=== PATIENT | female | born 1955 | race Caucasian/White ===

== ENCOUNTER → 2016-11-03 | Outpatient (CLI) | payer OTHER ==
--- NOTE | 2016-11-03 10:37 | USB ---
Reason for exam: clinical finding. History: Patient is postmenopausal. Took hormonal contraceptives for 2 years. Indicated problem(s): lump or thickening in the left breast. Physical Findings: Nurse Summary: left breast SQ palpable at 2 o'clock, 0.5cm movable/bilateral breasts, all soft, nodular movable tissue (nurse ts). US Breast LT Left breast ultrasound including all four quadrants, the retroareolar region and axilla demonstrates a 0.4 x 0.3 x 0.3cm oval, cystic lesion at 3 o'clock in skin line, subcutaneous presumed dermatologic in origin such as subcutaneous cyst. These results were verbally communicated with the patient and result sheet given to the patient on 11/03/16. ASSESSMENT: Probably benign, BI-RAD 3 RECOMMENDATION: Return to routine screening mammogram schedule for both breasts. Back on schedule for January 2017. Manage patient on a clinical basis.
== END | disposition home or self-care (01) ==
LOC: RADUSWWP 09:07
PROVIDERS: ATTEND Family Medicine
DX: N63 Unspecified lump in breast (principal)

== ENCOUNTER → 2016-11-08 | Outpatient (CLI) | payer OTHER ==
[2016-11-08 13:18] LABS: INR 2.2 (<1.1); Partial Thromboplastin Time 29.8 sec (22.0-30.0); Prothrombin Time 21.1 sec (9.0-12.0)
[2016-11-08 13:45] LABS: Potassium 4.4 mmol/L (3.5-5.1)
== END | disposition home or self-care (01) ==
LOC: LABWHC1 11:53
PROVIDERS: ATTEND Orthopaedic Surgery
DX: Z01.812 Encounter for preprocedural laboratory examination (principal)
CPT/HCPCS: 36415; 80051; 85610; 85730

== ENCOUNTER → 2016-11-15 | Outpatient (CLI) | payer OTHER ==
[2016-11-15 11:56] LABS: INR 1.2 (<1.1); Partial Thromboplastin Time 25.3 sec (22.0-30.0); Prothrombin Time 11.5 sec (9.0-12.0)
== END | disposition home or self-care (01) ==
LOC: LABWHC1 11:06
PROVIDERS: ATTEND Orthopaedic Surgery
DX: M25.612 Stiffness of left shoulder, not elsewhere classified (principal)
CPT/HCPCS: 36415; 85610; 85730

== ENCOUNTER 2017-02-25 07:28 | Day surgery (SDC) | payer OTHER ==
[2017-02-24 09:08] VITALS: BMI 39.1
[~2017-02-25 07:28] MED LIST: LACTATED RINGERS 1,000 ML IV SCH
[2017-02-25] MEDS ORDERED: LACTATED RINGERS 1,000 ML IV ONE (07:42)
[2017-02-25 07:47] VITALS: TEMP 98.1
[2017-02-25] MEDS ORDERED: LIDOCAINE 1% 20 ML VIAL (10MG/ML) FOR IV START INTRADERMA ONE (07:51)
[2017-02-25 07:52] LABS: Glucose,Whole Blood 135 mg/dL (75-99)
[2017-02-25] MEDS ORDERED: PROPOFOL 10 MG/ML 20 ML VIAL IV ONE (07:58)
[2017-02-25] MEDS ORDERED: LIDOCAINE 1% INJ 10MG/ML (20 ML MDV) ONE (07:58)
[2017-02-25] MEDS ORDERED: fentaNYL (PF) 50 MCG/ML 2 ML AMP ONE (07:58)
--- NOTE | 2017-02-25 08:19 | P.GSHP ---
History of Present Illness H&P Date: 02/25/17 Chief Complaint: Dysphagia This a 7-year-old female referred from Dr. Kelley Renee. Patient presents today for EGD. She's had some issues with dysphagia and GERD. - Constitutional Constitutional: Reports as per HPI Past Medical History Past Medical History: Atrial Fibrillation, Atrial Flutter, Asthma, CVA/TIA, Diabetes Mellitus, Hyperlipidemia, Hypertension, Osteoarthritis (OA) Additional Past Medical History / Comment(s): intracardiac thrombus 2013, SOB with exertion, stroke in 1998-no residual effects, , states cough for 1 week & having difficulty swallowing., states she seen her PCP and was told she has laryngitis. History of Any Multi-Drug Resistant Organisms: None Reported Past Surgical History: Appendectomy, Breast Surgery, Cardiac Ablation, EPS, Heart Catheterization, Hysterectomy, Orthopedic Surgery, Tubal Ligation Additional Past Surgical History / Comment(s): ARTEMIO, ADDIE carpal tunnel release, cardioversion, breast biopsy Past Anesthesia/Blood Transfusion Reactions: No Reported Reaction, Motion Sickness Past Psychological History: No Psychological Hx Reported Smoking Status: Former smoker Past Alcohol Use History: Rare Additional Past Alcohol Use History / Comment(s): quit smoking 1997, smoked 1-2 ppd. Started smoking age 13. Past Drug Use History: None Reported - Past Family History Mother Additional Family Medical History / Comment(s): cirrhosis of liver Father Family Medical History: Cancer Additional Family Medical History / Comment(s): throat cancer Daughter(s) Additional Family Medical History / Comment(s): HEART VALVE REPLACEMENT (ATRIAL? ) Son(s) Family Medical History: CVA/TIA Medications and Allergies Home Medications Medication Instructions Recorded Confirmed Type Isosorbide Mononitrate [Imdur] 30 mg PO QAM 09/10/14 02/24/17 History Montelukast [Singulair] 10 mg PO HS 09/10/14 02/24/17 History metFORMIN HCL [Glucophage] 1,000 mg PO BID 09/10/14 02/24/17 History Cholecalciferol [Vitamin D3] 5,000 unit PO SA 09/30/14 02/24/17 History Metoprolol Tartrate [Lopressor] 25 mg PO BID 10/01/14 02/24/17 History Warfarin [Coumadin] 2.5 mg PO SUMOWETHFR 10/01/14 02/24/17 History Warfarin [Coumadin] 5 mg PO TUSA 11/19/14 02/24/17 History Flecainide [Tambocor] 100 mg PO BID 09/19/15 02/24/17 History Lisinopril [Zestril] 2.5 mg PO QAM 09/19/15 02/24/17 History Pioglitazone [Actos] 45 mg PO SUWE 11/03/15 02/24/17 History Beclomethasone Dipropionate [Qvar 1 puff INHALATION Q8HR PRN 02/24/17 02/24/17 History 80 mcg] Fluticasone Nasal [place] [Flonase 1 spray EA NOSTRIL BID 02/24/17 02/24/17 History Nasal [place]] Fluticasone/Salmeterol [Advair 1 inhalation PO BID 02/24/17 02/24/17 History 250-50 Diskus] Furosemide [Lasix] 20 mg PO DAILY 02/24/17 02/24/17 History Pravastatin Sodium [Pravachol] 80 mg PO DAILY 02/24/17 02/24/17 History Promethazine 6.25MG/5Ml [Phenergan 1 dose PO BID 02/24/17 02/24/17 History Syrup] Venlafaxine HCl [Effexor XR] 150 mg PO DAILY 02/24/17 02/24/17 History Allergies Allergy/AdvReac Type Severity Reaction Status Date / Time meperidine HCl [From Demerol] AdvReac Nausea & Verified 02/24/17 08:42 Vomiting Surgical - Exam Vital Signs Temp Pulse Resp BP Pulse Ox 98.1 F 66 18 108/58 98 02/25/17 07:46 02/25/17 07:46 02/25/17 07:46 02/25/17 07:46 02/25/17 07:46 - General well developed, no distress - Eyes PERRL - ENT normal pinna - Neck no masses - Respiratory normal expansion - Cardiovascular Rhythm: regular - Abdomen Abdomen: soft, non tender Results - Labs Abnormal Lab Results - Last 24 Hours (Table) 02/25/17 Range/Units 07:51 POC Glucose (mg/dL) 135 H (75-99) mg/dL Assessment and Plan Plan: GERD. Dysphagia. We'll perform EGD.
--- NOTE | 2017-02-25 08:31 | P.OP ---
Date of Procedure: 02/25/17 Preoperative Diagnosis: Dysphagia GERD Postoperative Diagnosis: Mild antral gastritis No evidence of hiatal hernia Mild esophagitis Procedure(s) Performed: EGD Anesthesia: MAC Surgeon: Renato Yuan Pathology: other (Antrum, esophagus) Condition: stable Disposition: PACU Description of Procedure: The patient's placed on the endoscopy table in the lateral position. He received IV sedation. The gastroscope some placed oropharynx and passed in the esophagus and stomach. The scope was placed through the pylorus. The first and second portion of the duodenum appeared normal. Scope was then brought back the antrum and this appeared mildly inflamed. A biopsies performed. The scope was then retroflexed and there is no other gastric pathology seen. The GE junction was at 40 cm. There is no evidence of a hiatal hernia. The distal esophagus appeared minimally inflamed and a biopsy was performed. The proximal esophagus appeared normal. The scope was then brought back and withdrawn from the patient.
[2017-02-25 08:59] VITALS: BP 93/50; PULSE 61; RESP 18
== END 2017-02-25 09:09 | disposition home or self-care (01) ==
LOC: ORWHC2ENDO 07:28
PROVIDERS: ATTEND Surgery
DX: K21.0 Gastro-esophageal reflux disease with esophagitis (principal); K29.50 Unspecified chronic gastritis without bleeding; I48.91 Unspecified atrial fibrillation; I48.92 Unspecified atrial flutter; J44.9 Chronic obstructive pulmonary disease, unspecified; E11.9 Type 2 diabetes mellitus without complications; E78.5 Hyperlipidemia, unspecified; I10 Essential (primary) hypertension; M19.90 Unspecified osteoarthritis, unspecified site; Z88.5 Allergy status to narcotic agent; Z79.01 Long term (current) use of anticoagulants; Z79.84 Long term (current) use of oral hypoglycemic drugs; Z79.51 Long term (current) use of inhaled steroids; Z79.899 Other long term (current) drug therapy; Z87.891 Personal history of nicotine dependence; Z86.73 Personal history of transient ischemic attack (TIA), and cerebral infarction without residual deficits; Z82.3 Family history of stroke; Z90.49 Acquired absence of other specified parts of digestive tract
CPT/HCPCS: 43239; 88305; 88342; J2001; J3010; J2704

== ENCOUNTER 2017-04-24 10:58 | Emergency (ER) | payer OTHER ==
[2017-04-24 12:02] VITALS: TEMP 98
--- NOTE | 2017-04-24 12:13 | ED ---
General Adult HPI - General Chief complaint: Back Pain/Injury Stated complaint: DIZZINESS, UPPER BACK PAIN Time Seen by Provider: 04/24/17 11:53 Source: patient, family, RN notes reviewed Mode of arrival: ambulatory Limitations: no limitations - History of Present Illness Initial comments: Patient is a 61-year-old female who presents emergency room today with chief complaint of right-sided upper back pain over the last 3 weeks. She states it started as pain that would come and go. She states, more constant. She states she began to notice it when she was coughing. She does admit to a history of COPD and states that increased cough some congestion but has not had any sputum production. States does inhalers at home. Patient does admit that she has increased pain to the right side at times seems to be worse with movements and cough. She denies any other complaints or symptoms at this time. Patient denies any recent fever, chills, shortness of breath, chest pain, abdominal pain , nausea or vomiting, numbness or tingling, dysuria or hematuria, constipation or diarrhea, headaches or visual changes, or any other complaints. - Related Data Home Medications Medication Instructions Recorded Confirmed Isosorbide Mononitrate [Imdur] 30 mg PO QAM 09/10/14 02/24/17 Montelukast [Singulair] 10 mg PO HS 09/10/14 02/24/17 metFORMIN HCL [Glucophage] 1,000 mg PO BID 09/10/14 02/24/17 Cholecalciferol [Vitamin D3] 5,000 unit PO SA 09/30/14 02/24/17 Metoprolol Tartrate [Lopressor] 25 mg PO BID 10/01/14 02/24/17 Warfarin [Coumadin] 2.5 mg PO SUMOWETHFR 10/01/14 02/24/17 Warfarin [Coumadin] 5 mg PO TUSA 11/19/14 02/24/17 Flecainide [Tambocor] 100 mg PO BID 09/19/15 02/24/17 Lisinopril [Zestril] 2.5 mg PO QAM 09/19/15 02/24/17 Pioglitazone [Actos] 45 mg PO SUWE 11/03/15 02/24/17 Beclomethasone Dipropionate [Qvar 1 puff INHALATION Q8HR PRN 02/24/17 02/24/17 80 mcg] Fluticasone Nasal [place] [Flonase 1 spray EA NOSTRIL BID 02/24/17 02/24/17 Nasal [place]] Fluticasone/Salmeterol [Advair 1 inhalation PO BID 02/24/17 02/24/17 250-50 Diskus] Furosemide [Lasix] 20 mg PO DAILY 02/24/17 02/24/17 Pravastatin Sodium [Pravachol] 80 mg PO DAILY 02/24/17 02/24/17 Promethazine 6.25MG/5Ml [Phenergan 1 dose PO BID 02/24/17 02/24/17 Syrup] Venlafaxine HCl [Effexor XR] 150 mg PO DAILY 02/24/17 02/24/17 Previous Rx's Medication Instructions Recorded Diazepam [Valium] 5 mg PO TID #20 tab 04/24/17 Allergies Allergy/AdvReac Type Severity Reaction Status Date / Time meperidine HCl [From Demerol] AdvReac Nausea & Verified 04/24/17 14:44 Vomiting Review of Systems ROS Statement: Those systems with pertinent positive or pertinent negative responses have been documented in the HPI. ROS Other: All systems not noted in ROS Statement are negative. Past Medical History Past Medical History: Atrial Fibrillation, Atrial Flutter, Asthma, CVA/TIA, Diabetes Mellitus, Hyperlipidemia, Hypertension, Osteoarthritis (OA) Additional Past Medical History / Comment(s): intracardiac thrombus 2013, SOB with exertion, stroke in 1998-no residual effects, , states cough for 1 week & having difficulty swallowing., states she seen her PCP and was told she has laryngitis. History of Any Multi-Drug Resistant Organisms: None Reported Past Surgical History: Appendectomy, Breast Surgery, Cardiac Ablation, EPS, Heart Catheterization, Hysterectomy, Orthopedic Surgery, Tubal Ligation Additional Past Surgical History / Comment(s): ARTEMIO, ADDIE carpal tunnel release, cardioversion, breast biopsy Past Anesthesia/Blood Transfusion Reactions: No Reported Reaction, Motion Sickness Past Psychological History: No Psychological Hx Reported Smoking Status: Former smoker Past Alcohol Use History: Rare Past Drug Use History: None Reported - Past Family History Mother Additional Family Medical History / Comment(s): cirrhosis of liver Father Family Medical History: Cancer Additional Family Medical History / Comment(s): throat cancer Daughter(s) Additional Family Medical History / Comment(s): HEART VALVE REPLACEMENT (ATRIAL? ) Son(s) Family Medical History: CVA/TIA General Exam - General Exam Comments Initial Comments: General: The patient is awake and alert, in no distress, and does not appear acutely ill. Eye: Pupils are equal, round and reactive to light, extra-ocular movements are intact. No nystagmus. There is normal conjunctiva bilaterally. No signs of icterus. Ears, nose, mouth and throat: There are moist mucous membranes and no oral lesions. Neck: The neck is supple, there is no tenderness or JVD. Cardiovascular: There is a regular rate and rhythm. No murmur, rub or gallop is appreciated. Respiratory: Lungs are clear to auscultation, respirations are non-labored, breath sounds are equal. No wheezes, stridor, rales, or rhonchi. Gastrointestinal: Soft, non-distended, non-tender abdomen without masses or organomegaly noted. There is no rebound or guarding present. No CVA tenderness. Bowel sounds are unremarkable. Musculoskeletal: Normal ROM, no tenderness. Strength 5/5. Sensation intact. Pulses equal bilaterally 2+. Neurological: A&O x 3. CN II-XII intact, There are no obvious motor or sensory deficits. Coordination appears grossly intact. Speech is normal. Skin: Skin is warm and dry and no rashes or lesions are noted. Psychiatric: Cooperative, appropriate mood & affect, normal judgment. Limitations: no limitations Course Vital Signs 04/24/17 04/24/17 11:18 11:22 Temperature 97 F L 98.0 F Pulse Rate 66 63 Respiratory 16 18 Rate Blood Pressure 131/61 116/67 O2 Sat by Pulse 96 96 Oximetry EKG Findings - EKG Comments: EKG Findings:: EKG performed at 1213: Shows normal sinus rhythm at 61 bpm. RI interval 190. QRS 138. QT/QTc 482/45. Shows right bundle branch block. No acute ST changes. Medical Decision Making - Medical Decision Making Case discussed in detail with attending physician Dr. Bruno. Patient reexamined at this time shows no signs of distress is resting comfortably in the stretcher. Does admit that she's feeling better after Valium given here in the emergency room. Patient's pain was reproducible on palpation and with certain movements. Chest x-rays negative. Labs been reviewed INR is 2.6. Patient is on Coumadin. Patient at this time remaining labs are unremarkable and patient is feeling better will be discharged home continued on Valium for her symptoms. Advised follow-up the family doctor in the next 1-2 days or return here to emergency room if any symptoms increase or worsen or for any other concerns. - Lab Data Result diagrams: 04/24/17 12:28 04/24/17 12:28 Lab Results 04/24/17 04/24/17 04/24/17 Range/Units 12:28 12:28 12:28 WBC 10.1 (3.8-10.6) k/uL RBC 5.04 (3.80-5.40) m/uL Hgb 14.2 (11.4-16.0) gm/dL Hct 41.5 (34.0-46.0) % MCV 82.3 (80.0-100.0) fL MCH 28.3 (25.0-35.0) pg MCHC 34.3 (31.0-37.0) g/dL RDW 14.5 (11.5-15.5) % Plt Count 349 (150-450) k/uL Neutrophils % 71 % Lymphocytes % 19 % Monocytes % 5 % Eosinophils % 2 % Basophils % 0 % Neutrophils # 7.2 (1.3-7.7) k/uL Lymphocytes # 2.0 (1.0-4.8) k/uL Monocytes # 0.5 (0-1.0) k/uL Eosinophils # 0.2 (0-0.7) k/uL Basophils # 0.0 (0-0.2) k/uL PT (9.0-12.0) sec INR (<1.1) APTT (22.0-30.0) sec Sodium 141 (137-145) mmol/L Potassium 4.0 (3.5-5.1) mmol/L Chloride 104 (98-107) mmol/L Carbon Dioxide 26 (22-30) mmol/L Anion Gap 11 mmol/L BUN 11 (7-17) mg/dL Creatinine 0.66 (0.52-1.04) mg/dL Est GFR (MDRD) Af Amer >60 (>60 ml/min/1.73 sqM) Est GFR (MDRD) Non-Af >60 (>60 ml/min/1.73 sqM) Glucose 110 H (74-99) mg/dL Calcium 9.1 (8.4-10.2) mg/dL Magnesium 1.7 (1.6-2.3) mg/dL Total Bilirubin 0.6 (0.2-1.3) mg/dL AST 23 (14-36) U/L ALT 33 (9-52) U/L Alkaline Phosphatase 106 (38-126) U/L Total Creatine Kinase 54 (30-135) U/L CK-MB (CK-2) 0.4 (0.0-2.4) ng/mL CK-MB (CK-2) Rel Index 0.7 Troponin I <0.012 (0.000-0.034) ng/mL Total Protein 7.3 (6.3-8.2) g/dL Albumin 4.1 (3.5-5.0) g/dL Amylase 32 (30-110) U/L Lipase 112 (23-300) U/L 04/24/17 Range/Units 12:28 WBC (3.8-10.6) k/uL RBC (3.80-5.40) m/uL Hgb (11.4-16.0) gm/dL Hct (34.0-46.0) % MCV (80.0-100.0) fL MCH (25.0-35.0) pg MCHC (31.0-37.0) g/dL RDW (11.5-15.5) % Plt Count (150-450) k/uL Neutrophils % % Lymphocytes % % Monocytes % % Eosinophils % % Basophils % % Neutrophils # (1.3-7.7) k/uL Lymphocytes # (1.0-4.8) k/uL Monocytes # (0-1.0) k/uL Eosinophils # (0-0.7) k/uL Basophils # (0-0.2) k/uL PT 25.5 H (9.0-12.0) sec INR 2.6 (<1.1) APTT 33.2 H (22.0-30.0) sec Sodium (137-145) mmol/L Potassium (3.5-5.1) mmol/L Chloride (98-107) mmol/L Carbon Dioxide (22-30) mmol/L Anion Gap mmol/L BUN (7-17) mg/dL Creatinine (0.52-1.04) mg/dL Est GFR (MDRD) Af Amer (>60 ml/min/1.73 sqM) Est GFR (MDRD) Non-Af (>60 ml/min/1.73 sqM) Glucose (74-99) mg/dL Calcium (8.4-10.2) mg/dL Magnesium (1.6-2.3) mg/dL Total Bilirubin (0.2-1.3) mg/dL AST (14-36) U/L ALT (9-52) U/L Alkaline Phosphatase (38-126) U/L Total Creatine Kinase (30-135) U/L CK-MB (CK-2) (0.0-2.4) ng/mL CK-MB (CK-2) Rel Index Troponin I (0.000-0.034) ng/mL Total Protein (6.3-8.2) g/dL Albumin (3.5-5.0) g/dL Amylase (30-110) U/L Lipase (23-300) U/L Disposition Clinical Impression: Muscle strain of right upper back Disposition: HOME SELF-CARE Condition: Good Instructions: Muscle Strain (ED) Additional Instructions: Please use medication as discussed. Please follow-up with family doctor in the next 2 days of symptoms have not improved. Please return to emergency room if the symptoms increase or worsen or for any other concerns. Prescriptions: Diazepam [Valium] 5 mg PO TID #20 tab Referrals: Kelley Renee DO [Primary Care Provider] - 1-2 days Time of Disposition: 14:37
[2017-04-24 12:37] LABS: Basophils % (A) 0 %; CH 27.6; CHCM 33.8; Eosinophils # (A) 0.2 k/uL (0-0.7); Eosinophils % (A) 2 %; HCT 41.5 % (34.0-46.0); HDW 2.75; HGB 14.2 gm/dL (11.4-16.0); Luc # (Auto) 0.19; Luc % (Auto) 2; Lymphocytes % (A) 19 %; MCH 28.3 pg (25.0-35.0); MCHC 34.3 g/dL (31.0-37.0); MCV 82.3 fL (80.0-100.0); Mean Platelet Volume 7.8; Monocytes # (A) 0.5 k/uL (0-1.0); Monocytes % (A) 5 %; Neutrophils # (A) 7.2 k/uL (1.3-7.7); Neutrophils % (A) 71 %; RBC 5.04 m/uL (3.80-5.40); RDW 14.5 % (11.5-15.5); WBC 10.1 k/uL (3.8-10.6); WBC (Perox) 9.19
--- NOTE | 2017-04-24 12:45 | XR ---
EXAMINATION TYPE: XR chest 2V DATE OF EXAM: 04/24/2017 COMPARISON: 11/03/2015 HISTORY: Chest pain TECHNIQUE: Frontal and lateral views of the chest are obtained. FINDINGS: There is no heart failure nor confluent pneumonic infiltrate. Heart is mildly enlarged. Th ere are chest leads. There is no sign of pleural effusion. IMPRESSION: Cardiomegaly. There is clearing of mild pulmonary congestion compared to old exam.
[2017-04-24 12:47] LABS: ALT 33 U/L (9-52); AST 23 U/L (14-36); Alkaline Phosphatase 106 U/L (38-126); Amylase 32 U/L (30-110); Anion Gap 11 mmol/L; Blood Urea Nitrogen 11 mg/dL (7-17); Calcium 9.1 mg/dL (8.4-10.2); Carbon Dioxide 26 mmol/L (22-30); Chloride 104 mmol/L (98-107); Glucose 110 mg/dL (74-99); Magnesium 1.7 mg/dL (1.6-2.3); Non-African American GFR(MDRD) >60 (>60 ml/min/1.73 sqM); Sodium 141 mmol/L (137-145); Total Bilirubin 0.6 mg/dL (0.2-1.3); Total Protein 7.3 g/dL (6.3-8.2)
[2017-04-24 12:48] LABS: INR 2.6 (<1.1); Partial Thromboplastin Time 33.2 sec (22.0-30.0); Prothrombin Time 25.5 sec (9.0-12.0)
[2017-04-24 12:56] LABS: Creatine Kinase 54 U/L (30-135)
[2017-04-24 13:09] LABS: Creatine Kinase MB 0.4 ng/mL (0.0-2.4); Troponin I <0.012 ng/mL (0.000-0.034)
[2017-04-24] MEDS ORDERED: DIAZEPAM 5 MG TAB PO STA (13:14)
[2017-04-24 15:00] VITALS: BP 121/69; PULSE 65; RESP 16
== END 2017-04-24 15:00 | disposition home or self-care (01) ==
LOC: EC 10:58
DX: S29.012A Strain of muscle and tendon of back wall of thorax, initial encounter (principal); I48.91 Unspecified atrial fibrillation; J45.909 Unspecified asthma, uncomplicated; E11.9 Type 2 diabetes mellitus without complications; E78.5 Hyperlipidemia, unspecified; I10 Essential (primary) hypertension; Z86.73 Personal history of transient ischemic attack (TIA), and cerebral infarction without residual deficits; Z87.891 Personal history of nicotine dependence; Z79.01 Long term (current) use of anticoagulants; Z79.51 Long term (current) use of inhaled steroids; Z79.84 Long term (current) use of oral hypoglycemic drugs; Z79.899 Other long term (current) drug therapy; Z88.5 Allergy status to narcotic agent
CPT/HCPCS: 36415; 71020; 80053; 82150; 82550; 82553; 83690; 83735; 84484; 85025; 85610; 85730; 93005; 99284

== ENCOUNTER → 2017-07-18 | Outpatient (CLI) | payer OTHER ==
[2017-07-18 09:57] VITALS: BP 115/79; PULSE 74; RESP 16; TEMP 97.6; BMI 39.6
--- NOTE | 2017-07-18 11:28 | P.GSHP ---
History of Present Illness H&P Date: 07/18/17 Chief Complaint: Morbid Obesity BMI 39.6 61 years old female with morbid obesity BMI 39, height 5 feet 3,2 inches, weight 102.42KG presents for bariatric surgery consultation Patient has elected to undergo laparoscopic sleeve gastrectomy. She has attended weight loss seminar. She has attempted nonsurgical weight loss with special diets and exercise regimen. She has lost some weight but is unable to maintain sustained results. Her comorbid conditions include obstructive sleep apnea ( not using CPAP due to poor fit), Type2 DM on Actos and Metformin, hypertension, Afib on coumadin S/P cardiac ablation,history of TIA . No reflux symptoms. She was started on PPI for dysphagia. EGD in 12/[address] Yuan - no hiatal hernia, only gastritis. PREOP VISIT#1 07/18/2017 Weight 102.42 KG BMI 39.6 - Review of Systems Comment: Constitutional: Denies fever, weight loss or loss of appetite HEENT: No difficulty in vision or hearing. Denies dysphagia. Cardiovascular: Denies chest pain, palpitations, dizziness, shortness of breath. Respiratory: Recent upper respiratory tract infection with dry cough. Long- standing asthma well controlled with rescue inhalers. Gastrointestinal: No recent change in bowel habits, no abdominal pain, no nausea or vomiting. Denies reflux symptoms and no postprandial right upper quadrant pain. Last colonoscopy was 2 years ago Integumentary: No skin rash, ulcers or DVT Genitourinary: No urinary incontinence, hematuria or dysuria Neurologic: No seizures, denies weakness in upper or lower extremities Musculoskeletal: Occasional left knee pain. Psychiatry: Known history of depression, no suicidal ideation, no anxiety or psychosis Past Medical History Past Medical History: Atrial Fibrillation, Atrial Flutter, Asthma, CVA/TIA, Diabetes Mellitus, Hyperlipidemia, Hypertension, Osteoarthritis (OA) Additional Past Medical History / Comment(s): Type 2 DM, COPD, intracardiac thrombus 2013, SOB with exertion, stroke in 1998-no residual effects, History of Any Multi-Drug Resistant Organisms: None Reported Past Surgical History: Appendectomy, Breast Surgery, Cardiac Ablation, EPS, Heart Catheterization, Hysterectomy, Orthopedic Surgery, Tubal Ligation Additional Past Surgical History / Comment(s): ARTEMIO, ADDIE carpal tunnel release, cardioversion, breast biopsy, Left shoulder sx. Past Anesthesia/Blood Transfusion Reactions: No Reported Reaction, Motion Sickness Past Psychological History: No Psychological Hx Reported Smoking Status: Former smoker Past Alcohol Use History: Rare Additional Past Alcohol Use History / Comment(s): quit smoking 1997, smoked 1-2 ppd. Started smoking age 13. Past Drug Use History: None Reported - Past Family History Mother Family Medical History: Liver Disease Additional Family Medical History / Comment(s): cirrhosis of liver Father Family Medical History: Cancer Additional Family Medical History / Comment(s): throat cancer Daughter(s) Additional Family Medical History / Comment(s): HEART VALVE REPLACEMENT (Aorta) Son(s) Family Medical History: CVA/TIA Additional Family Medical History / Comment(s): One son, had multiple strokes in a row Medications and Allergies Home Medications Medication Instructions Recorded Confirmed Type Isosorbide Mononitrate [Imdur] 30 mg PO DAILY 09/10/14 07/18/17 History Montelukast [Singulair] 10 mg PO HS 09/10/14 07/18/17 History metFORMIN HCL [Glucophage] 1,000 mg PO BID 09/10/14 07/18/17 History Metoprolol Tartrate [Lopressor] 25 mg PO BID 10/01/14 07/18/17 History Warfarin [Coumadin] 2.5 mg PO SUMOWETHFR 10/01/14 07/18/17 History Warfarin [Coumadin] 5 mg PO TUSA 11/19/14 07/18/17 History Flecainide [Tambocor] 100 mg PO BID 09/19/15 07/18/17 History Lisinopril [Zestril] 2.5 mg PO DAILY 09/19/15 07/18/17 History Pioglitazone [Actos] 45 mg PO SUWE 11/03/15 07/18/17 History Fluticasone/Salmeterol [Advair 1 puff INHALATION RT-BID 02/24/17 07/18/17 History 250-50 Diskus] Ergocalciferol (Vitamin D2) 50,000 unit PO SA 04/24/17 07/18/17 History [Vitamin D2] Furosemide [Lasix] 40 mg PO BID 04/24/17 07/18/17 History Omeprazole 40 mg PO DAILY 04/24/17 07/18/17 History Simvastatin [Zocor] 40 mg PO HS 04/24/17 07/18/17 History Vortioxetine Hydrobromide 10 mg PO DAILY 07/18/17 07/18/17 History [Trintellix] Allergies Allergy/AdvReac Type Severity Reaction Status Date / Time meperidine HCl [From Demerol] AdvReac Nausea & Verified 07/18/17 09:30 Vomiting Surgical - Exam Vital Signs Temp Pulse Resp BP 97.6 F 74 16 115/79 07/18/17 09:30 07/18/17 09:30 07/18/17 09:30 07/18/17 09:30 General: Patient is alert and oriented to time, place and person and cooperative with exam. She is not in acute distress. HEENT: No pallor, no icterus, no thyroid enlargement, no cervical lymphadenopathy. Chest: Bilateral equal breath sounds present. No wheezes, no crackles. Cardiovascular: Regular rate and rhythm. Abdomen: Soft, nontender, nondistended. No right upper quadrant tenderness. Small umbilical hernia Integumentary:No active ulcers or discharge. Neurologic: Cranial nerves II-XII intact. Strength upper and lower extremities 5/5. No focal neurologic deficits. Gait is normal. Psychiatric: No anxiety or psychosis. No suicidal thoughts. Assessment and Plan (1) Type 2 diabetes mellitus Status: Acute (2) Sleep apnea, obstructive Status: Acute (3) Afib Status: Acute (4) Diabetes Status: Acute (5) HTN (hypertension) Status: Acute (6) Hyperlipemia Status: Acute (7) Obesity (BMI 30-39.9) Status: Acute Plan: 1. A detailed discussion was held about the risks, benefits and potential complications of robotic/laparoscopic sleeve gastrectomy including bleeding, infection, anastomosis leak, stenosis, DVT and PE. Patient demonstrated understanding and willing to undergo the procedure. Patient was explained about high-protein liquid diet 2 weeks prior to surgery 2. Formal Dietitian consult pending. She was recommended to drink protein shakes for snacks. I discussed about reducing the portion size, limiting refined carbohydrates and sugar and increase protein intake 3. Hold esophagogastroduodenoscopy . 24 hr PH and esophageal manometery - If abnormal may need lap RYGB 4. Baseline lab work ordered. 12-lead EKG ordered 5. Tub Rider's recommendations and clearance awaited. Does she still need to be on Coumadin since she had cardiac ablation? 6. Psychiatrist/ psychologist's recommendations pending 7. Repeat sleep study and refit the mask 8. Bilateral screening mammogram
== END | disposition home or self-care (01) ==
LOC: BARWHC3 08:45
PROVIDERS: ATTEND Surgery
DX: E66.01 Morbid (severe) obesity due to excess calories (principal); Z68.39 Body mass index [BMI] 39.0-39.9, adult; E11.9 Type 2 diabetes mellitus without complications; G47.33 Obstructive sleep apnea (adult) (pediatric); I48.91 Unspecified atrial fibrillation; I10 Essential (primary) hypertension; M19.90 Unspecified osteoarthritis, unspecified site; J45.909 Unspecified asthma, uncomplicated; E78.5 Hyperlipidemia, unspecified; Z88.5 Allergy status to narcotic agent; Z79.899 Other long term (current) drug therapy; Z79.51 Long term (current) use of inhaled steroids; Z87.891 Personal history of nicotine dependence; Z86.73 Personal history of transient ischemic attack (TIA), and cerebral infarction without residual deficits
CPT/HCPCS: 99211

== ENCOUNTER → 2017-08-01 | Outpatient (CLI) | payer OTHER ==
--- NOTE | 2017-08-02 09:10 | MM ---
Reason for exam: screening (asymptomatic). Last mammogram was performed 1 year and 6 months ago. History: Patient is postmenopausal. Benign excisional biopsy of the right breast, 2006. Took hormonal contraceptives for 2 years. Physical Findings: A clinical breast exam by your physician is recommended on an annual basis and results should be correlated with mammographic findings. MG Screening Mammo w CAD Bilateral CC and MLO view(s) were taken. Prior study comparison: January 26, 2016, bilateral MG screening mammo w CAD. [place] [facility] [place] tissue is heterogeneously dense. This may lower the sensitivity of mammography. No suspicious abnormality. Post biopsy change in right breast. Stable prominent axillary nodes with fatty saundra. No significant changes when compared with prior studies. ASSESSMENT: Benign, BI-RAD 2 RECOMMENDATION: Routine screening mammogram of both breasts in 1 year.
== END | disposition home or self-care (01) ==
LOC: RADMAMWWP 13:12
PROVIDERS: ATTEND Family Medicine
DX: Z12.31 Encounter for screening mammogram for malignant neoplasm of breast (principal)

== ENCOUNTER → 2017-10-27 | Outpatient (CLI) | payer OTHER ==
--- NOTE | 2017-10-27 12:37 | CONS ---
CONSULTATION DATE OF SERVICE: 10/27/2017 A 62-year-old lady who [facility] for obstructive sleep apnea-hypopnea syndrome. HISTORY OF PRESENT ILLNESS/SLEEP WAKE EVALUATION: Patient has been diagnosed with obstructive sleep apnea-hypopnea syndrome more than 1 year ago in another institution. She was started on treatment with CPAP, but was not able to use equipment for more than a year. Presently, her sleep schedule from around 9 to 10 pm until 8 or 9: am. Sometimes she has problems with falling asleep. She snores, wakes up from sleep several times with nocturia. No TV in bedroom. She prefers to sleep on the side position. During the day, she feels sleepy, wakes up tired, has problem with the memory, depression. Seldom she has taken naps. Page Sleepiness Scale is 8. PAST MEDICAL HISTORY: Positive for stroke in 1998 with changes of the speech, weakness of the right side of the body. No residual deficit at the present time. History of episodes of atrial fibrillation, first episode about 9 years ago, status post several cardioversions and cardiac ablation. COPD, diabetes mellitus, acid reflux, gout, hypertension, hyperlipidemia. PAST SURGICAL HISTORY: Recent shoulder surgery on the left side in 2015, tubal ligation 1976, hysterectomy 1999, carpal tunnel syndrome 2000, cardioversion 2012, 2014, cardiac ablation in 2016. MEDICATIONS: Advair, Singulair, vitamin D, metformin, Actos, allopurinol, simvastatin, omeprazole, Trintellix, furosemide, flecainide, Imdur, lisinopril, metoprolol, Coumadin. SOCIAL HISTORY: Positive for smoking up to 60 pack years, quit about 20 years ago. Alcohol consumption, occasional. FAMILY HISTORY: Hypertension, heart problems, stroke, sinus headache, snoring, headaches, diabetes. REVIEW OF SYSTEMS: Awakenings from sleep, tiredness and sleepiness during the day. Sometimes swelling of the legs. PHYSICAL EXAM: lady without distress. BP 129/71, HR 68, RR 16, height 5 and 3, weight 221, BMI 39.1. Neck 17.5, weight 97.0, oxygen saturation at room air 97%. OROPHARYNX: Extremely low position of soft palate. Some restriction of the nasal breathing. Wide neck 17.5 inches in circumference. HEART: S1, S2. Regular. Systolic murmur on aorta. ABDOMEN: Obese. Neck Supple, no JVD. Thyroid is not palpable. LUNGS Clear to percussion and to auscultation. Good air exchange. No wheezing or rhonchi. EXTREMITIES No clubbing or cyanosis. 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 Cranial nerves 2 to 7 intact. There is no fasciculation or atrophy. noted. No focal deficits observed. I checked patient's CPAP unit. CPAP pressure is 15 cm of water. Not any information on the machine because patient did not use it for more than 1 year. IMPRESSION: 1. Snoring, obstructive sleep apnea-hypopnea syndrome diagnosed in another institution more than 1 year ago. Patient unable to use her equipment for more than 1 year. Awakenings from sleep with nocturia, extremely low position of soft palate, wide neck, sleepiness. Obstructive sleep apnea-hypopnea syndrome. 2. Obesity, body mass index 39.1. 3. Chronic obstructive pulmonary disease. 4. Diabetes mellitus. 5. Acid reflux. 6. Gout. 7. Hypertension. 8. History of atrial fibrillation, status post several cardioversion and cardiac ablation. Presently, irregular heart beats. 9. History of stroke in 1998 with right-side weakness, problems with speech. No residual deficit at the present time. 10.Status post partial hysterectomy. 11.Hyperlipidemia. 12.History of smoking for about 60 pack-years, quit about 20 years ago. PLAN: 1. We will get results of previous sleep studies. 2. CPAP titration for evaluation of effective CPAP pressure at the present time and to find for patient correct mask. 3. Losing weight. 4. Sleep hygiene with regular time in bed for at least 8 hours. 5. No driving if feeling any sleepiness. Thank you very much for referring this patient for consultation. Sincerely, Greg Ren MD, PhD, FAASM Diplomat of [employer] Attendant [facility] [place] MMODL / IJN: [id number] /
== END | disposition home or self-care (01) ==
LOC: SLEEP 10:35
PROVIDERS: ATTEND Internal Medicine
DX: G47.33 Obstructive sleep apnea (adult) (pediatric) (principal); E66.9 Obesity, unspecified; J44.9 Chronic obstructive pulmonary disease, unspecified; E11.9 Type 2 diabetes mellitus without complications; K21.9 Gastro-esophageal reflux disease without esophagitis; M10.9 Gout, unspecified; I10 Essential (primary) hypertension; I49.9 Cardiac arrhythmia, unspecified; E78.5 Hyperlipidemia, unspecified; Z68.39 Body mass index [BMI] 39.0-39.9, adult; Z86.79 Personal history of other diseases of the circulatory system; Z98.890 Other specified postprocedural states; Z86.73 Personal history of transient ischemic attack (TIA), and cerebral infarction without residual deficits; Z90.711 Acquired absence of uterus with remaining cervical stump; Z87.891 Personal history of nicotine dependence
CPT/HCPCS: 99201

== ENCOUNTER → 2018-04-18 | Outpatient (CLI) | payer OTHER ==
--- NOTE | 2018-04-18 12:24 | FL ---
EXAMINATION TYPE: FL barium swallow DATE OF EXAM: 04/18/2018 CLINICAL HISTORY: Dysphagia and globus sensation at the level of the sternal notch. TECHNIQUE: A double contrast esophagram is performed utilizing air and barium. A total of 1 minute and 56 seconds of fluoroscopic time was utilized during procedure. 0 fluoroscopic images were transfe rred to PACS due to operating error. COMPARISON: None FINDINGS: The esophagus shows normal motility and emptying into the stomach. No evidence of strictur e noted. A small hiatal hernia is present. Moderate gastroesophageal reflux was noted to the level of the midthoracic esophagus without Valsalva maneuver. Esophageal mucosa is unremarkable. IMPRESSION: Small hiatal hernia and moderate degree gastroesophageal reflux to the level of mid thora cic esophagus.
== END | disposition home or self-care (01) ==
LOC: RADFLMAIN 10:24
PROVIDERS: ATTEND Surgery
DX: K44.9 Diaphragmatic hernia without obstruction or gangrene (principal); K21.9 Gastro-esophageal reflux disease without esophagitis
CPT/HCPCS: 74220

== ENCOUNTER 2018-04-20 07:16 | Day surgery (SDC) | payer OTHER ==
[2018-04-18 09:14] VITALS: BMI 39.6
[2018-04-20 07:35] VITALS: RESP 18; TEMP 97.2
[2018-04-20 07:46] LABS: Glucose,Whole Blood 219 mg/dL (75-99)
[2018-04-20] MEDS ORDERED: PROPOFOL 10 MG/ML 20 ML VIAL IV ONE (08:51)
--- NOTE | 2018-04-20 08:59 | P.GSHP ---
History of Present Illness H&P Date: 04/20/18 Chief Complaint: GERD This is a 62-year-old female referred from Dr. Kelley Renee. Patient rents today for EGD. She's had issues with GERD. Her recent esophagram shows evidence of reflux with a small hiatal hernia. Past Medical History Past Medical History: Atrial Fibrillation, Atrial Flutter, Asthma, COPD, CVA/TIA , Diabetes Mellitus, Hyperlipidemia, Hypertension, Osteoarthritis (OA) Additional Past Medical History / Comment(s): intracardiac thrombus 2013, SOB with exertion, stroke in 1998-no residual effects, History of Any Multi-Drug Resistant Organisms: None Reported Past Surgical History: Appendectomy, Breast Surgery, Cardiac Ablation, EPS, Heart Catheterization, Hysterectomy, Orthopedic Surgery, Tubal Ligation Additional Past Surgical History / Comment(s): ARTEMIO, ADDIE carpal tunnel release, Trigger finger & thumb surgery; cardioversion, breast biopsy, Left shoulder sx. Past Anesthesia/Blood Transfusion Reactions: No Reported Reaction, Motion Sickness Smoking Status: Former smoker - Past Family History Mother Family Medical History: Liver Disease Additional Family Medical History / Comment(s): cirrhosis of liver Father Family Medical History: Cancer Additional Family Medical History / Comment(s): throat cancer Daughter(s) Additional Family Medical History / Comment(s): HEART VALVE REPLACEMENT (Aorta) Son(s) Family Medical History: CVA/TIA Additional Family Medical History / Comment(s): One son, had multiple strokes in a row Medications and Allergies Home Medications Medication Instructions Recorded Confirmed Type Isosorbide Mononitrate [Imdur] 30 mg PO DAILY 09/10/14 04/18/18 History Montelukast [Singulair] 10 mg PO HS 09/10/14 04/18/18 History metFORMIN HCL [Glucophage] 1,000 mg PO BID 09/10/14 04/18/18 History Metoprolol Tartrate [Lopressor] 25 mg PO BID 10/01/14 04/18/18 History Warfarin [Coumadin] 2.5 mg PO SUMOWETHFRSA 10/01/14 04/18/18 History Warfarin [Coumadin] 5 mg PO TU 11/19/14 04/18/18 History Flecainide [Tambocor] 100 mg PO BID 09/19/15 04/18/18 History Lisinopril [Zestril] 2.5 mg PO DAILY 09/19/15 04/18/18 History Pioglitazone [Actos] 45 mg PO SUWE 11/03/15 04/18/18 History Fluticasone/Salmeterol [Advair 1 puff INHALATION RT-BID 02/24/17 04/20/18 History 250-50 Diskus] Ergocalciferol (Vitamin D2) 50,000 unit PO SA 04/24/17 04/18/18 History [Vitamin D2] Furosemide [Lasix] 40 mg PO DAILY 04/24/17 04/18/18 History Omeprazole 40 mg PO DAILY 04/24/17 04/18/18 History Simvastatin [Zocor] 40 mg PO HS 04/24/17 04/18/18 History Vortioxetine Hydrobromide 10 mg PO DAILY 07/18/17 04/20/18 History [Trintellix] Allergies Allergy/AdvReac Type Severity Reaction Status Date / Time meperidine HCl [From Demerol] AdvReac Nausea & Verified 04/20/18 07:35 Vomiting Surgical - Exam Vital Signs Temp Pulse Resp BP Pulse Ox 97.2 F L 66 18 141/65 97 04/20/18 07:30 04/20/18 07:30 04/20/18 07:30 04/20/18 07:30 04/20/18 07:30 - General well developed, no distress - Eyes PERRL - ENT normal pinna - Neck no masses - Respiratory normal expansion - Cardiovascular Rhythm: regular - Abdomen Abdomen: soft, non tender Results - Labs Abnormal Lab Results - Last 24 Hours (Table) 04/20/18 Range/Units 07:42 POC Glucose (mg/dL) 219 H (75-99) mg/dL Assessment and Plan Assessment: GERD. We'll perform EGD.
--- NOTE | 2018-04-20 09:08 | P.OP ---
Date of Procedure: 04/20/18 Preoperative Diagnosis: GERD Postoperative Diagnosis: Mild antral gastritis Small sliding hiatal hernia Mild Esophagitis Procedure(s) Performed: EGD Anesthesia: MAC Surgeon: Renato Yuan Pathology: other (Antrum, esophagus) Condition: stable Disposition: PACU Description of Procedure: The patient's placed on the endoscopy table in the lateral position. She received IV sedation. The gastroscope placed oropharynx passed in the esophagus and stomach. The scope was then placed through the pylorus. The first and second portion of the duodenum appeared normal. Scope was then brought back the antrum this appeared mildly inflamed. A biopsies performed. The scope was then retroflexed and remainder of the stomach appeared normal. There was a small sliding hiatal hernia. The GE junction was at40 cm. The distal esophagus appeared mildly inflamed a biopsies performed. The proximal esophagus appeared normal. Scope was withdrawn for patient.
[2018-04-20 09:32] VITALS: BP 117/79; PULSE 61
== END 2018-04-20 10:20 | disposition home or self-care (01) ==
LOC: ORWHC2ENDO 07:16
PROVIDERS: ATTEND Surgery
DX: K21.0 Gastro-esophageal reflux disease with esophagitis (principal); K29.50 Unspecified chronic gastritis without bleeding; K44.9 Diaphragmatic hernia without obstruction or gangrene; I48.91 Unspecified atrial fibrillation; I48.92 Unspecified atrial flutter; I10 Essential (primary) hypertension; E11.9 Type 2 diabetes mellitus without complications; E78.5 Hyperlipidemia, unspecified; J44.9 Chronic obstructive pulmonary disease, unspecified; M19.90 Unspecified osteoarthritis, unspecified site; Z95.2 Presence of prosthetic heart valve; Z86.73 Personal history of transient ischemic attack (TIA), and cerebral infarction without residual deficits; Z87.891 Personal history of nicotine dependence; Z79.01 Long term (current) use of anticoagulants; Z79.84 Long term (current) use of oral hypoglycemic drugs; Z79.899 Other long term (current) drug therapy; Z88.5 Allergy status to narcotic agent
CPT/HCPCS: 88305; 43239; J2704

== ENCOUNTER → 2018-05-08 | Outpatient (CLI) | payer OTHER ==
[2018-05-08 15:00] VITALS: BP 117/56; PULSE 64; RESP 14; BMI 38.0
--- NOTE | 2018-05-08 17:00 | P.HPBAR ---
Bariatric H&P - History & Physicial H&P Date: 05/08/18 History & Physicial: Visit/CC: sleeve consult Patient initial contact: Initial weight: 102.421 kg Initial weight in pounds: 225.80 Height: 5 ft 3.25 in Initial BMI: 39.6 Last weight: Current weight: 98.157 kg Current weight in pounds: 216.40 Current BMI: 38.0 [place] body weight (based on NIH guidelines): 52.73 kg Excess body weight loss: 8.5% The patient is a 62 year-old F who presents for Bariatric Assessment. Patient presents today for preoperative surgical consultation for sleeve yesterday. She has had lifetime pros obesity. Her BMI is 38. Past Medical History Past Medical History: Atrial Fibrillation, Atrial Flutter, Asthma, COPD, CVA/TIA , Diabetes Mellitus, Hyperlipidemia, Hypertension, Osteoarthritis (OA) Additional Past Medical History / Comment(s): intracardiac thrombus 2013, SOB with exertion, stroke in 1998-no residual effects, History of Any Multi-Drug Resistant Organisms: None Reported Past Surgical History: Appendectomy, Breast Surgery, Cardiac Ablation, EPS, Heart Catheterization, Hysterectomy, Orthopedic Surgery, Tubal Ligation Additional Past Surgical History / Comment(s): ARTEMIO, ADDIE carpal tunnel release, Trigger finger & thumb surgery; cardioversion, breast biopsy, Left shoulder sx. Past Anesthesia/Blood Transfusion Reactions: No Reported Reaction, Motion Sickness Past Psychological History: Depression Smoking Status: Former smoker Past Alcohol Use History: Rare Additional Past Alcohol Use History / Comment(s): quit smoking 1997, smoked 1-2 ppd. Started smoking age 13. Past Drug Use History: None Reported - Past Family History Mother Family Medical History: Liver Disease Additional Family Medical History / Comment(s): cirrhosis of liver Father Family Medical History: Cancer Additional Family Medical History / Comment(s): throat cancer Daughter(s) Additional Family Medical History / Comment(s): HEART VALVE REPLACEMENT (Aorta) Son(s) Family Medical History: CVA/TIA Additional Family Medical History / Comment(s): One son, had multiple strokes in a row Surgical - Exam Vital Signs Pulse Resp BP 64 14 117/56 05/08/18 14:52 05/08/18 14:52 05/08/18 14:52 - General well developed, no distress - Eyes PERRL - ENT normal pinna - Neck no masses - Respiratory normal expansion - Cardiovascular Rhythm: regular - Abdomen Abdomen: soft, non tender Hernia: umbilical Bariatric Assessment & Plan Plan: RBC was severe comorbidities. Patient will undergo preauthorization for sleeve gastrectomy. She'll have her umbilical hernia repaired at the time of her sleeve gastrectomy. Bariatric Checklist Checklist: Plan: Checklist: EGD: 1. Hiatal hernia: 2. H. Pylori: HgbA1c: Vitamin D: Smoking: Former smoker Primary care physician referral: ivan mosqueda Psychiatry clearance: Cardiology clearance: Sleep study: Diet journal: VTE risk score: VTE risk level: Rehab needs at discharge:
== END | disposition home or self-care (01) ==
LOC: BARWHC3 13:11
PROVIDERS: ATTEND Surgery
DX: E66.9 Obesity, unspecified (principal); Z68.38 Body mass index [BMI] 38.0-38.9, adult; Z87.891 Personal history of nicotine dependence
CPT/HCPCS: 99211

== ENCOUNTER → 2019-04-25 | Outpatient (CLI) | payer MEDICARE ==
--- NOTE | 2019-04-27 13:32 | MM ---
Reason for exam: screening (asymptomatic). Last mammogram was performed 1 year and 9 months ago. History: Patient is postmenopausal. Benign excisional biopsy of the right breast, 2006. Took hormonal contraceptives for 2 years. Physical Findings: A clinical breast exam by your physician is recommended on an annual basis and results should be correlated with mammographic findings. MG Screening Mammo w CAD Bilateral CC and MLO view(s) were taken. Prior study comparison: August 01, 2017, bilateral MG screening mammo w CAD. January 26, 2016, bilateral MG screening mammo w CAD. Finding #1: There is increased equal architectural distortion in the upper outer quadrant, middle position of the right breast. Finding #2: There are grouped/clustered, fine calcifications in the upper quadrant, middle position of the left breast. New finding since August 01, 2017 and January 26, 2016. ASSESSMENT: Incomplete: need additional imaging evaluation, BI-RAD 0 RECOMMENDATION: Special view mammogram of the right breast. If lesion persists on supplemental views, image directed ultrasound is recommended. [facility] will attempt to contact patient to return for supplemental views and ultrasound if indicated.
== END | disposition home or self-care (01) ==
LOC: RADMAMWWP 13:51
PROVIDERS: ATTEND Family Medicine
DX: Z12.31 Encounter for screening mammogram for malignant neoplasm of breast (principal)
CPT/HCPCS: 77067

== ENCOUNTER → 2019-05-03 | Outpatient (CLI) | payer MEDICARE ==
--- NOTE | 2019-05-03 14:39 | MM ---
Reason for exam: additional evaluation requested from abnormal screening. Last mammogram was performed less than 1 month ago. History: Patient is postmenopausal. Benign excisional biopsy of the right breast, 2006. Took hormonal contraceptives for 2 years. Physical Findings: Nurse did not find any significant physical abnormalities on exam. MG Work Up Mamm w CAD BILAT Bilateral LM view(s) were taken. Spot compression CC and spot compression MLO view(s) were taken of the right breast. Prior study comparison: April 25, 2019, bilateral MG screening mammo w CAD. August 01, 2017, bilateral MG screening mammo w CAD. There are scattered fibroglandular densities. Finding #1: Architectural distortion in the upper outer quadrant of the right breast consistent with known excisional biopsy. Finding #2: There are typically benign diffuse/scattered calcifications in the upper outer quadrant of the left breast. No suspicious cluster of microcalcifications on left breast. These results were verbally communicated with the patient and result sheet given to the patient on 05/03/19. ASSESSMENT: Benign, BI-RAD 2 RECOMMENDATION: Return to routine screening mammogram schedule for both breasts.
== END | disposition home or self-care (01) ==
LOC: RADMAMWWP 13:28
PROVIDERS: ATTEND Family Medicine
DX: R92.8 Other abnormal and inconclusive findings on diagnostic imaging of breast (principal)
CPT/HCPCS: 77066

== ENCOUNTER → 2019-06-14 | Outpatient (CLI) | payer MEDICARE ==
[2019-06-14 13:50] LABS: African American GFR (CKD) >90 (>60 ml/min/1.73 sqM); Blood Urea Nitrogen 9 mg/dL (7-17)
--- NOTE | 2019-06-14 15:21 | CT ---
EXAMINATION TYPE: CT abdomen pelvis w con DATE OF EXAM: 06/14/2019 HISTORY: Right lower quadrant abdominal pain. CT DLP: 1626mGycm Automated Exposure Control for Dose Reduction was Utilized. CONTRAST: CT scan of the abdomen and pelvis is performed with IV Contrast, patient injected with 100ml mL of Is ovue 300. COMPARISON: None. FINDINGS: LUNG BASES: No significant abnormality is appreciated. LIVER/GB: No significant abnormality is appreciated. PANCREAS: No significant abnormality is seen. SPLEEN: No significant abnormality is seen. ADRENALS: No significant abnormality is seen. KIDNEYS: Symmetric cortical medullary uptake and excretion from both kidneys without hydronephrosis s een bilaterally. BOWEL: Dural contrast reaches the level of the cecum. Terminal ileum. Within normal limits coronal im age 45. Appendix not seen with certainty perhaps surgically absent? This is confirmed on screening sh eet. No inflammatory change at base of cecum to suggest acute appendicitis. Diverticula throughout th e transverse left and sigmoid colon. No CT evidence for acute diverticulitis. [id number] diffus e colonic fecal prominence. UTERUS/ADNEXA: Uterus is partially surgically absent or atrophic. No suspicious pelvic or adnexal mas ses are seen LYMPH NODES: No greater than 1cm abdominal or pelvic lymph nodes are appreciated. OSSEOUS STRUCTURES: Moderate superior joint space loss in both hips. OTHER: No significant additional abnormality is seen. IMPRESSION: No bowel obstruction. Colonic diverticulosis without CT evidence for acute diverticulitis . Mild to moderate diffuse colonic fecal stasis.
== END | disposition home or self-care (01) ==
LOC: RADCTMAIN 13:11
PROVIDERS: ATTEND Family Medicine
DX: K57.30 Diverticulosis of large intestine without perforation or abscess without bleeding (principal); R19.5 Other fecal abnormalities
CPT/HCPCS: 82565; 84520; 74177; 36415; Q9967

== ENCOUNTER → 2019-07-03 | Outpatient (CLI) | payer MEDICARE ==
--- NOTE | 2019-07-03 14:53 | XR ---
Lumbar spine HISTORY: Flank pain 3 views of the lumbar spine Bone mineralization is reduced. Lumbar vertebral bodies show preserved height and alignment. Sclerosi s is present in the posterior elements of the lumbar spine. There is multilevel spondylosis. Mild los s of disc height present L4-5, L1-2. Vascular calcifications present. IMPRESSION: Degenerative disc disease and facet arthropathy.
--- NOTE | 2019-07-03 14:55 | XR ---
Thoracic spine HISTORY: Flank pain 3 views of the thoracic spine Bone mineralization is reduced. Thoracic vertebral bodies show preserved height. There is multilevel spondylosis. Loss of disc height present at intervertebral levels. IMPRESSION: Osteopenia, degenerative disc disease.
--- NOTE | 2019-07-03 14:56 | XR ---
Right hip HISTORY: Pain 2 views of the right hip Bone mineralization and alignment are maintained. Mild joint space loss. No fracture or dislocation. IMPRESSION: There may be mild osteoarthritis.
== END | disposition home or self-care (01) ==
LOC: RADXRMAIN 11:06
PROVIDERS: ATTEND Family Medicine
DX: M51.35 Other intervertebral disc degeneration, thoracolumbar region (principal); M51.36 Other intervertebral disc degeneration, lumbar region; M46.96 Unspecified inflammatory spondylopathy, lumbar region; M85.88 Other specified disorders of bone density and structure, other site; R10.9 Unspecified abdominal pain
CPT/HCPCS: 72070; 72100; 73501

== ENCOUNTER → 2019-09-14 | Outpatient (CLI) | payer MEDICARE ==
[2019-09-14 17:43] LABS: HCT 41.2 % (34.0-46.0); HGB 13.8 gm/dL (11.4-16.0); MCH 28.3 pg (25.0-35.0); MCHC 33.5 g/dL (31.0-37.0); MCV 84.5 fL (80.0-100.0); Mean Platelet Volume 6.3; Platelet Count 312 k/uL (150-450); RBC 4.88 m/uL (3.80-5.40); RDW 14.3 % (11.5-15.5); WBC 8.8 k/uL (3.8-10.6)
[2019-09-14 19:27] LABS: Erythrocyte Sedimentation Rate 18 mm/hr (0-20)
== END | disposition home or self-care (01) ==
LOC: LABWHC1 16:32
PROVIDERS: ATTEND Ophthalmology
DX: Z53.9 Procedure and treatment not carried out, unspecified reason (principal)
CPT/HCPCS: 36415; 85027; 85652; 86140

== ENCOUNTER → 2019-09-14 | Outpatient (CLI) | payer MEDICARE ==
--- NOTE | 2019-09-15 01:46 | MR ---
EXAMINATION TYPE: MR brain wo/w con DATE OF EXAM: 09/14/2019 COMPARISON: None HISTORY: Disk edema, blurred vision TECHNIQUE: Multiplanar, multisequence images of the brain and brainstem is performed without and with IV contras t, utilizing 9.5 mL intravenous Gadavist . FINDINGS: Ventricles are fairly normal. There is no mass effect nor midline shift. There is no sign o f intracranial hemorrhage. Diffusion images show no evidence of a cortical infarct. Corpus callosum i s within normal limits. On the FLAIR images there is some mild linear increased signal adjacent to the lateral ventricles. Th ere are scattered white matter high signal foci at the lynn-white matter junction of both the cerebra l hemispheres that measure up to 7 mm. Total number is less than 10. These are mostly less than 4 mm. The sella turcica appears normal. Brainstem is intact. Cerebellum appears normal. There is no evidenc e of orbital mass. Optic nerves appear normal. The globes are symmetric. IMPRESSION: White matter high signal changes are nonspecific and could relate to chronic small vessel ischemia. No evidence of a cortical infarct. No hydrocephalus.
== END ==
LOC: RADMRIMAIN 16:46
PROVIDERS: ATTEND Ophthalmology
DX: R90.89 Other abnormal findings on diagnostic imaging of central nervous system (principal)
CPT/HCPCS: 70553

== ENCOUNTER → 2019-12-07 | Outpatient (CLI) | payer MEDICARE ==
[2019-12-07 14:00] LABS: Partial Thromboplastin Time 31.5 sec (22.0-30.0); Prothrombin Time 19.9 sec (9.0-12.0)
[2019-12-07 20:26] LABS: Cardiolipin Ab IgG Interp NEGATIVE (NEGATIVE); Cardiolipin Ab IgM Interp NEGATIVE (NEGATIVE); Cardiolipin IgA Antibody <0.5 U/mL; Cardiolipin IgM Antibody 0.2 U/mL
[2019-12-08 03:20] LABS: African American GFR (CKD) 90.9 (60.0-200.0); Albumin 4.3 g/dL (3.80-4.90); Albumin/Globulin Ratio 2.15 (1.60-3.17); Anion Gap 9.8 mmol/L (4.00-12.00); BUN/Creat Ratio 16.25 Ratio (12.00-20.00); Calcium 9.2 mg/dL (8.7-10.3); Carbon Dioxide 28.2 mmol/L (21.6-31.8); Non-African American GFR(CKD) 78.5 (60.0-200.0); Potassium 4.1 mmol/L (3.5-5.5); Total Bilirubin 0.4 mg/dL (0.2-1.2); Total Protein 6.3 g/dL (6.2-8.2); Uric Acid 4.5 mg/dL (2.9-7.7)
[2019-12-10 14:43] LABS: APTT 55 Sec(s) (<43); APTT 1:1 Mix 41 Sec(s) (<43); DRVVT 1:1 Mix 43 Sec(s) (<44); Dilute Russell Viper Venom 60 Sec(s) (<44)
== END | disposition home or self-care (01) ==
LOC: LABWHC1 12:36
PROVIDERS: ATTEND Family Medicine
DX: Z09 Encounter for follow-up examination after completed treatment for conditions other than malignant neoplasm (principal); Z86.73 Personal history of transient ischemic attack (TIA), and cerebral infarction without residual deficits; Z86.79 Personal history of other diseases of the circulatory system
CPT/HCPCS: 36415; 80053; 81240; 83090; 84443; 84550; 85300; 85302; 85305; 85307; 85610; 85613; 85730; 85732; 86146; 86147

== ENCOUNTER 2020-02-17 03:21 | Inpatient (IN) | payer MEDICARE ==
[2020-02-17] MEDS ORDERED: MORPHINE SULFATE 4 MG/ML SYRINGE IV STA (03:27)
[2020-02-17] MEDS ORDERED: NITROGLYCERIN IV STA (03:42)
[2020-02-17] MEDS ORDERED: DEXTROSE IV STA (03:42)
[2020-02-17] MEDS ORDERED: NITROGLYCERIN-D5W PMX 50 MG in DEXTROSE/WATER 1 250ML.BAG IV ONE (03:42)
[2020-02-17] MEDS ORDERED: WATER IV STA (03:42)
[2020-02-17 03:53] LABS: Albumin 4.1 g/dL (3.5-5.0); Calcium 9.1 mg/dL (8.4-10.2); Magnesium 2.3 mg/dL (1.6-2.3); Potassium 4.9 mmol/L (3.5-5.1); Total Bilirubin 0.9 mg/dL (0.2-1.3); Total Protein 7.1 g/dL (6.3-8.2)
[2020-02-17 03:57] LABS: HCT 44.3 % (34.0-46.0); HGB 13.7 gm/dL (11.4-16.0); Hypochromasia Marked; MCH 27.9 pg (25.0-35.0); MCHC 30.9 g/dL (31.0-37.0); MCV 90.2 fL (80.0-100.0); Mean Platelet Volume 8.5; Platelet Count 380 k/uL (150-450); RBC 4.91 m/uL (3.80-5.40); RDW 15.6 % (11.5-15.5); WBC 20.3 k/uL (3.8-10.6)
[2020-02-17 03:58] LABS: D-Dimer 0.38 mg/L FEU (<0.60); INR 2.4 (<1.2); Partial Thromboplastin Time 29.1 sec (22.0-30.0); Prothrombin Time 23.4 sec (9.0-12.0)
--- NOTE | 2020-02-17 03:58 | ED ---
SOB HPI - General Chief Complaint: Shortness of Breath Stated Complaint: Respiratory Distress Time Seen by Provider: 02/17/20 03:25 Source: patient, EMS Mode of arrival: EMS Limitations: physical limitation (Severe dyspnea) - History of Present Illness Initial Comments: This patient is a 64-year-old woman who presents to be evaluated for acute onset of shortness of breath. The history is somewhat limited due to severe dyspnea. Patient states that starting a few hours ago she began feeling short of breath and having a little bit of cough with some occasional white sputum. She states that things rapidly got much worse and they called EMS. The patient denies chest pain. She was not aware of fever. MD Complaint: shortness of breath, cough -: hour(s) Consistency: constant Improves With: nothing Worsens With: nothing Known History Of: COPD Associated Symptoms: denies other symptoms Treatments Prior to Arrival: oxygen, bronchodilator - Related Data Home Oxygen Therapy: No Home Medications Medication Instructions Recorded Confirmed Isosorbide Mononitrate [Imdur] 30 mg PO DAILY 09/10/14 05/08/18 Montelukast [Singulair] 10 mg PO HS 09/10/14 05/08/18 metFORMIN HCL [Glucophage] 1,000 mg PO BID 09/10/14 05/08/18 Metoprolol Tartrate [Lopressor] 25 mg PO BID 10/01/14 05/08/18 Warfarin [Coumadin] 2.5 mg PO SUMOWETHFRSA 10/01/14 05/08/18 Warfarin [Coumadin] 5 mg PO TU 11/19/14 05/08/18 Flecainide [Tambocor] 100 mg PO BID 09/19/15 05/08/18 Lisinopril [Zestril] 2.5 mg PO DAILY 09/19/15 05/08/18 Pioglitazone [Actos] 45 mg PO SUWE 11/03/15 05/08/18 Fluticasone/Salmeterol [Advair 1 puff INHALATION RT-BID 02/24/17 05/08/18 250-50 Diskus] Ergocalciferol (Vitamin D2) 50,000 unit PO SA 04/24/17 05/08/18 [Vitamin D2] Furosemide [Lasix] 40 mg PO DAILY 04/24/17 05/08/18 Omeprazole 40 mg PO DAILY 04/24/17 05/08/18 Simvastatin [Zocor] 40 mg PO HS 04/24/17 05/08/18 Vortioxetine Hydrobromide 10 mg PO DAILY 07/18/17 05/08/18 [Trintellix] Allergies Allergy/AdvReac Type Severity Reaction Status Date / Time meperidine HCl [From Demerol] AdvReac Nausea & Verified 05/08/18 18:52 Vomiting Review of Systems ROS Statement: Those systems with pertinent positive or pertinent negative responses have been documented in the HPI. ROS Other: All systems not noted in ROS Statement are negative. Limitations: ROS unobtainable due to patients medical condition (Severe dyspnea) Constitutional: Denies: fever Respiratory: Reports: cough, dyspnea. Denies: hemoptysis Cardiovascular: Reports: orthopnea. Denies: chest pain, edema Gastrointestinal: Denies: abdominal pain, vomiting, diarrhea Genitourinary: Denies: dysuria, hematuria Musculoskeletal: Denies: back pain Skin: Denies: rash Neurological: Denies: headache, weakness Past Medical History Past Medical History: Atrial Fibrillation, Atrial Flutter, Asthma, COPD, CVA/TIA, Diabetes Mellitus, Hyperlipidemia, Hypertension, Osteoarthritis (OA) Additional Past Medical History / Comment(s): intracardiac thrombus 2013, SOB with exertion, stroke in 1998-no residual effects, History of Any Multi-Drug Resistant Organisms: None Reported Past Surgical History: Appendectomy, Breast Surgery, Cardiac Ablation, EPS, Heart Catheterization, Hysterectomy, Orthopedic Surgery, Tubal Ligation Additional Past Surgical History / Comment(s): ARTEMIO, ADDIE carpal tunnel release,Trigger finger & thumb surgery; cardioversion, breast biopsy, Left shoulder sx. Past Anesthesia/Blood Transfusion Reactions: No Reported Reaction, Motion Si ckness Past Psychological History: Depression Smoking Status: Former smoker Past Alcohol Use History: Rare Past Drug Use History: None Reported - Past Family History Mother Family Medical History: Liver Disease Additional Family Medical History / Comment(s): cirrhosis of liver Father Family Medical History: Cancer Additional Family Medical History / Comment(s): throat cancer Daughter(s) Additional Family Medical History / Comment(s): HEART VALVE REPLACEMENT (Aorta) Son(s) Family Medical History: CVA/TIA Additional Family Medical History / Comment(s): One son, had multiple strokes in a row General Exam Limitations: no limitations General appearance: alert, in distress Head exam: Present: atraumatic, normocephalic Eye exam: Present: normal appearance. Absent: scleral icterus, conjunctival injection Neck exam: Present: normal inspection Respiratory exam: Present: respiratory distress, wheezes, accessory muscle use, decreased breath sounds. Absent: rhonchi, stridor, chest wall tenderness Cardiovascular Exam: Present: normal rhythm, tachycardia (Heart rate approximately 102 BPM), normal heart sounds, systolic murmur, gallop. Absent: diastolic murmur, rubs GI/Abdominal exam: Present: soft. Absent: distended, tenderness, guarding, rebound, mass Extremities exam: Present: normal inspection, normal capillary refill. Absent: pedal edema, calf tenderness Back exam: Present: normal inspection. Absent: CVA tenderness (R), CVA tenderness (L) Neurological exam: Present: alert Skin exam: Present: warm, dry, intact, normal color. Absent: rash Course Vital Signs 02/17/20 02/17/20 02/17/20 03:24 03:25 03:30 Temperature 98.3 F Pulse Rate 101 H Respiratory 24 Rate Blood Pressure 172/108 172/108 156/76 O2 Sat by Pulse 96 Oximetry 02/17/20 02/17/20 02/17/20 03:35 03:40 03:45 Temperature Pulse Rate Respiratory Rate Blood Pressure 156/74 130/84 131/84 O2 Sat by Pulse Oximetry 02/17/20 02/17/20 02/17/20 03:50 03:55 04:00 Temperature Pulse Rate Respiratory Rate Blood Pressure 131/85 124/81 120/79 O2 Sat by Pulse Oximetry 02/17/20 02/17/20 02/17/20 04:05 04:10 04:15 Temperature Pulse Rate Respiratory 20 Rate Blood Pressure 110/77 115/75 119/69 O2 Sat by Pulse 99 Oximetry 02/17/20 02/17/20 02/17/20 04:20 04:25 04:30 Temperature 98.2 F Pulse Rate 86 Respiratory 20 Rate Blood Pressure 113/76 107/67 109/70 O2 Sat by Pulse 99 Oximetry 02/17/20 02/17/20 02/17/20 04:45 04:50 05:00 Temperature Pulse Rate 84 82 80 Respiratory 16 18 17 Rate Blood Pressure 105/69 110/67 106/71 O2 Sat by Pulse 98 98 99 Oximetry 02/17/20 02/17/20 02/17/20 05:10 05:20 05:30 Temperature Pulse Rate 80 80 78 Respiratory 19 17 17 Rate Blood Pressure 113/74 115/70 106/68 O2 Sat by Pulse 99 99 100 Oximetry 02/17/20 02/17/20 02/17/20 05:40 05:50 06:00 Temperature 98.0 F Pulse Rate 79 76 79 Respiratory 18 18 17 Rate Blood Pressure 114/64 116/74 117/70 O2 Sat by Pulse 100 98 96 Oximetry Medical Decision Making - Medical Decision Making Patient is a 64-year-old woman here for severe dyspnea. Patient's picture consistent with hypertensive emergency/CHF. Patient is given nitroglycerin aliquots through the IV by myself with constant evaluation at the bedside. She did rapidly improve following the improvement in her blood pressure. We were able to wean her down from 100% nonrebreather oxygen. Patient admitted for further evaluation and treatment, including echocardiogram and cardiology evaluation. - Lab Data Result diagrams: 02/17/20 03:27 02/17/20 03:27 Lab Results 02/17/20 02/17/20 02/17/20 Range/Units 03:27 03:27 03:27 WBC 20.3 H (3.8-10.6) k/uL RBC 4.91 (3.80-5.40) m/uL Hgb 13.7 (11.4-16.0) gm/dL Hct 44.3 (34.0-46.0) % MCV 90.2 (80.0-100.0) fL MCH 27.9 (25.0-35.0) pg MCHC 30.9 L (31.0-37.0) g/dL RDW 15.6 H (11.5-15.5) % Plt Count 380 (150-450) k/uL Neutrophils % (Manual) 74 % Lymphocytes % (Manual) 20 % Monocytes % (Manual) 4 % Eosinophils % (Manual) 2 % Neutrophils # (Manual) 15.02 H (1.3-7.7) k/uL Lymphocytes # (Manual) 4.06 (1.0-4.8) k/uL Monocytes # (Manual) 0.81 (0-1.0) k/uL Eosinophils # (Manual) 0.41 (0-0.7) k/uL Nucleated RBCs 0 (0-0) /100 WBC Manual Slide Review Performed Hypochromasia Marked Anisocytosis (manual) Present PT 23.4 H (9.0-12.0) sec INR 2.4 H (<1.2) APTT 29.1 (22.0-30.0) sec D-Dimer 0.38 (<0.60) mg/L FEU Sodium 136 L (137-145) mmol/L Potassium 4.9 (3.5-5.1) mmol/L Chloride 103 (98-107) mmol/L Carbon Dioxide 23 (22-30) mmol/L Anion Gap 10 mmol/L BUN 15 (7-17) mg/dL Creatinine 0.93 (0.52-1.04) mg/dL Est GFR (CKD-EPI)AfAm 76 (>60 ml/min/1.73 sqM) Est GFR (CKD-EPI)NonAf 66 (>60 ml/min/1.73 sqM) Glucose 303 H (74-99) mg/dL Calcium 9.1 (8.4-10.2) mg/dL Magnesium 2.3 (1.6-2.3) mg/dL Total Bilirubin 0.9 (0.2-1.3) mg/dL AST 31 (14-36) U/L ALT 23 (4-34) U/L Alkaline Phosphatase 101 (38-126) U/L Troponin I (0.000-0.034) ng/mL NT-Pro-B Natriuret Pep pg/mL Total Protein 7.1 (6.3-8.2) g/dL Albumin 4.1 (3.5-5.0) g/dL Coronavirus (PCR) (Not Detectd) 02/17/20 02/17/20 02/17/20 Range/Units 03:27 03:27 03:35 WBC (3.8-10.6) k/uL RBC (3.80-5.40) m/uL Hgb (11.4-16.0) gm/dL Hct (34.0-46.0) % MCV (80.0-100.0) fL MCH (25.0-35.0) pg MCHC (31.0-37.0) g/dL RDW (11.5-15.5) % Plt Count (150-450) k/uL Neutrophils % (Manual) % Lymphocytes % (Manual) % Monocytes % (Manual) % Eosinophils % (Manual) % Neutrophils # (Manual) (1.3-7.7) k/uL Lymphocytes # (Manual) (1.0-4.8) k/uL Monocytes # (Manual) (0-1.0) k/uL Eosinophils # (Manual) (0-0.7) k/uL Nucleated RBCs (0-0) /100 WBC Manual Slide Review Hypochromasia Anisocytosis (manual) PT (9.0-12.0) sec INR (<1.2) APTT (22.0-30.0) sec D-Dimer (<0.60) mg/L FEU Sodium (137-145) mmol/L Potassium (3.5-5.1) mmol/L Chloride (98-107) mmol/L Carbon Dioxide (22-30) mmol/L Anion Gap mmol/L BUN (7-17) mg/dL Creatinine (0.52-1.04) mg/dL Est GFR (CKD-EPI)AfAm (>60 ml/min/1.73 sqM) Est GFR (CKD-EPI)NonAf (>60 ml/min/1.73 sqM) Glucose (74-99) mg/dL Calcium (8.4-10.2) mg/dL Magnesium (1.6-2.3) mg/dL Total Bilirubin (0.2-1.3) mg/dL AST (14-36) U/L ALT (4-34) U/L Alkaline Phosphatase (38-126) U/L Troponin I <0.012 (0.000-0.034) ng/mL NT-Pro-B Natriuret Pep 72 pg/mL Total Protein (6.3-8.2) g/dL Albumin (3.5-5.0) g/dL Coronavirus (PCR) Not Detected (Not Detectd) Critical Care Time Critical Care Time: Yes (40 minutes) Disposition Clinical Impression: Congestive heart failure, Hypertensive emergency Disposition: ADMITTED IP TO THIS [facility] Condition: Critical
--- NOTE | 2020-02-17 04:02 | XR ---
EXAMINATION TYPE: XR chest 1V portable DATE OF EXAM: 02/17/2020 COMPARISON: 04/24/2017 HISTORY: Short of breath TECHNIQUE: Single view. FINDINGS: There is pulmonary interstitial edema. Heart appears enlarged. There are chest leads. Bony thorax is intact. IMPRESSION: There is some pulmonary edema that could relate to acute congestive heart failure that is a change compared to old exam.
[2020-02-17 04:26] LABS: Anisocytosis (M) Present; Eosinophils # (M) 0.41 k/uL (0-0.7); Lymphocytes # (M) 4.06 k/uL (1.0-4.8); Monocytes # (M) 0.81 k/uL (0-1.0); Neutrophils # (M) 15.02 k/uL (1.3-7.7); Neutrophils % (M) 74 %; Nucleated Red Blood Cells 0 /100 WBC (0-0); Total Cells Counted 100
[2020-02-17] MEDS ORDERED: NITROGLYCERIN OINT 1 INCH/GM PACKET TOPICAL SCH (09:00)
--- NOTE | 2020-02-17 10:10 | P.CRDCN ---
History of Present Illness Consult date: 02/17/20 History of present illness: This is a 64-year-old female with history of asthma, COPD, atrial fibrillation, status post ablation and also mild cardiomyopathy was admitted to the hospital with sudden onset of shortness of breath for a few hours prior to admission. Patient denied any chest pain. Patient has some chronic cough. Denied any fever or chills. Her chest x-ray showed evidence of possible CHF. However proBNP was within normal limits. Her white count was 20,000. Patient was treated with nitroglycerin with relief of symptoms. Patient is put on Nitropas te and admitted to the hospital. Shortness of breath is mildly better but still complaints of shortness of breath. Her lungs show some crackles at the right base and some mild wheezing. Her EKG did not reveal any acute changes. She remains in sinus rhythm. The etiology of her symptoms are not entirely clear. We'll continue to diuretic therapy and resume all other medications. I will increase the dose of the lisinopril. We'll also will have pulmonary input. We'll get an echocardiogram. Further recommendation depending upon the clinical course. Review of Systems As per the chart Past Medical History Past Medical History: Atrial Fibrillation, Atrial Flutter, Asthma, COPD, CVA/TIA, Diabetes Mellitus, Hyperlipidemia, Hypertension, Osteoarthritis (OA) Additional Past Medical History / Comment(s): intracardiac thrombus 2013, SOB with exertion, stroke in 1998-no residual effects, History of Any Multi-Drug Resistant Organisms: None Reported Past Surgical History: Appendectomy, Breast Surgery, Cardiac Ablation, EPS, Heart Catheterization, Hysterectomy, Orthopedic Surgery, Tubal Ligation Additional Past Surgical History / Comment(s): ARTEMIO, ADDIE carpal tunnel release,Trigger finger & thumb surgery; cardioversion, breast biopsy, Left shoulder sx. Past Anesthesia/Blood Transfusion Reactions: No Reported Reaction, Motion Sickness Past Psychological History: Depression Smoking Status: Former smoker Past Alcohol Use History: Rare Past Drug Use History: None Reported - Past Family History Mother Family Medical History: Liver Disease Additional Family Medical History / Comment(s): cirrhosis of liver Father Family Medical History: Cancer Additional Family Medical History / Comment(s): throat cancer Daughter(s) Additional Family Medical History / Comment(s): HEART VALVE REPLACEMENT (Aorta) Son(s) Family Medical History: CVA/TIA Additional Family Medical History / Comment(s): One son, had multiple strokes in a row Medications and Allergies Home Medications Medication Instructions Recorded Confirmed Type Isosorbide Mononitrate [Imdur] 30 mg PO DAILY 09/10/14 02/17/20 History Montelukast [Singulair] 10 mg PO HS 09/10/14 02/17/20 History metFORMIN HCL [Glucophage] 1,000 mg PO BID 09/10/14 02/17/20 History Metoprolol Tartrate [Lopressor] 25 mg PO BID 10/01/14 02/17/20 History Warfarin [Coumadin] 2.5 mg PO SUMOWETHFRSA 10/01/14 02/17/20 History Warfarin [Coumadin] 5 mg PO TU 11/19/14 02/17/20 History Flecainide [Tambocor] 100 mg PO BID 09/19/15 02/17/20 History Lisinopril [Zestril] 2.5 mg PO DAILY 09/19/15 02/17/20 History Pioglitazone [Actos] 45 mg PO HS 11/03/15 02/17/20 History Fluticasone/Salmeterol [Advair 1 puff INHALATION RT-BID 02/24/17 02/17/20 History 250-50 Diskus] Furosemide [Lasix] 40 mg PO DAILY 04/24/17 02/17/20 History Omeprazole 40 mg PO DAILY 04/24/17 02/17/20 History Simvastatin [Zocor] 40 mg PO HS 04/24/17 02/17/20 History Vortioxetine Hydrobromide 10 mg PO DAILY 07/18/17 02/17/20 History [Trintellix] Allergies Allergy/AdvReac Type Severity Reaction Status Date / Time meperidine HCl [From Demerol] AdvReac Nausea & Verified 05/08/18 18:52 Vomiting Physical Exam Vitals: Vital Signs Temp Pulse Pulse Resp BP BP Pulse Ox 02/17/20 08:59 98.7 F 83 22 120/71 96 02/17/20 06:15 98.5 F 78 18 126/71 95 02/17/20 06:00 98.0 F 79 17 117/70 96 02/17/20 05:50 76 18 116/74 98 02/17/20 05:40 79 18 114/64 100 02/17/20 05:30 78 17 106/68 100 02/17/20 05:20 80 17 115/70 99 02/17/20 05:10 80 19 113/74 99 02/17/20 05:00 80 17 106/71 99 02/17/20 04:50 82 18 110/67 98 02/17/20 04:45 84 16 105/69 98 02/17/20 04:30 98.2 F 86 20 109/70 99 02/17/20 04:25 107/67 02/17/20 04:20 113/76 02/17/20 04:15 119/69 02/17/20 04:10 115/75 02/17/20 04:05 20 110/77 99 02/17/20 04:00 120/79 02/17/20 03:55 124/81 02/17/20 03:50 131/85 02/17/20 03:45 131/84 02/17/20 03:40 130/84 02/17/20 03:35 156/74 02/17/20 03:30 156/76 02/17/20 03:25 172/108 02/17/20 03:24 98.3 F 101 H 24 172/108 96 Intake and Output 02/16/20 02/17/20 02/17/20 22:59 06:59 14:59 Intake Total 5.7 118 Balance 5.7 118 Intake: Intake, IV Titration 5.7 Amount Nitroglycerin-D5w Pmx 50 5.7 mg In Dextrose/Water 1 250ml.bag @ 20 MCG/MIN 6 mls/hr IV .Q24H ONE Rx#: [id number] Oral 118 Other: Voiding Method Toilet Toilet Weight 95.254 kg GENERAL EXAM: Patient is alert and oriented and doesn't appear to be in any acute distress HEENT: Normocephalic. Normal reaction of pupils, equal size, normal range of extraocular motion. No erythema or exudates in the throat. NECK: No masses, no nuchal rigidity. CHEST: No chest wall deformity. LUNGS: Rales in the right base HEART: S1 and S2 normal with no audible mumurs or gallops. Regular rhythm, femorals equal on both sides.. ABDOMEN: No hepatosplenomegaly, normal bowel sounds, no guarding or rigidity. SKIN: No rashes CENTRAL NERVOUS SYSTEM: No focal deficits. EXTREMITIES: No cyanosis, clubbing or edema. Results 02/17/20 03:27 02/17/20 03:27 Cardiac Enzymes 02/17/20 02/17/20 Range/Units 03:27 03:27 AST 31 (14-36) U/L Troponin I <0.012 (0.000-0.034) ng/mL Coagulation 02/17/20 Range/Units 03:27 PT 23.4 H (9.0-12.0) sec APTT 29.1 (22.0-30.0) sec CBC 02/17/20 Range/Units 03:27 WBC 20.3 H (3.8-10.6) k/uL RBC 4.91 (3.80-5.40) m/uL Hgb 13.7 (11.4-16.0) gm/dL Hct 44.3 (34.0-46.0) % Plt Count 380 (150-450) k/uL Comprehensive Metabolic Panel 02/17/20 Range/Units 03:27 Sodium 136 L (137-145) mmol/L Potassium 4.9 (3.5-5.1) mmol/L Chloride 103 (98-107) mmol/L Carbon Dioxide 23 (22-30) mmol/L BUN 15 (7-17) mg/dL Creatinine 0.93 (0.52-1.04) mg/dL Glucose 303 H (74-99) mg/dL Calcium 9.1 (8.4-10.2) mg/dL AST 31 (14-36) U/L ALT 23 (4-34) U/L Alkaline Phosphatase 101 (38-126) U/L Total Protein 7.1 (6.3-8.2) g/dL Albumin 4.1 (3.5-5.0) g/dL Current Medications Generic Name Dose Route Start Last Admin Trade Name Freq PRN Reason Stop Dose Admin Flecainide Acetate 100 mg 02/17/20 21:00 Tambocor PO BID CHEMO Furosemide 40 mg 02/17/20 16:00 Lasix PO BID@0900,1600 CHEMO Nitroglycerin/Dextrose 50 mg/ 250 mls @ 6 mls/hr 02/17/20 03:42 02/17/20 04:35 IV Solution IV 02/18/20 03:41 10 mcg/min .Q24H ONE 3 mls/hr Titration Protocol 20 MCG/MIN Insulin Aspart 0 unit 02/17/20 12:30 Novolog SQ ACHS [facility] Protocol Isosorbide Mononitrate 30 mg 02/18/20 09:00 Imdur PO DAILY [facility] Lisinopril 5 mg 02/18/20 09:00 Zestril PO DAILY [facility] Metformin HCl 1,000 mg 02/17/20 21:00 Glucophage PO BID [facility] Metoprolol Tartrate 25 mg 02/17/20 21:00 Lopressor PO BID [facility] Montelukast Sodium 10 mg 02/17/20 21:00 Singulair PO HS [facility] Nitroglycerin 0.5 inch 02/17/20 09:00 02/17/20 08:44 Nitro-Bid Oint TOPICAL 0.5 inch QID [facility] Administration Non-Formulary Medication 1 puff 02/17/20 20:00 Fluticasone/Salmeterol [Advair 250-50 Diskus] INHALATION RT-BID [facility] Non-Formulary Medication 40 mg 02/18/20 09:00 Omeprazole [Omeprazole] PO DAILY [facility] Non-Formulary Medication 40 mg 02/17/20 21:00 Simvastatin [Zocor] PO HS [facility] Pioglitazone HCl 45 mg 02/17/20 21:00 Actos PO HS [facility] Sodium Chloride 10 ml 02/17/20 09:00 02/17/20 08:44 Saline Flush IV 10 ml BID [facility] Administration Vortioxetine 10 mg 02/18/20 09:00 Trintellix PO DAILY [facility] Warfarin Sodium 2.5 mg 02/17/20 10:15 Coumadin PO SUMOWEFRSA [facility] Intake and Output 02/16/20 02/17/20 02/17/20 22:59 06:59 14:59 Intake Total 5.7 118 Balance 5.7 118 Intake: Intake, IV Titration 5.7 Amount Nitroglycerin-D5w Pmx 50 5.7 mg In Dextrose/Water 1 250ml.bag @ 20 MCG/MIN 6 mls/hr IV .Q24H ONE Rx#: [id number] Oral 118 Other: Voiding Method Toilet Toilet Weight 95.254 kg 02/17/20 03:27 02/17/20 03:27 EKG Interpretations (text) Sinus rhythm without any acute ST-T changes, right bundle-branch block Assessment and Plan (1) Hypertensive emergency Current Visit: Yes Status: Acute Code(s): I16.1 - HYPERTENSIVE EMERGENCY SNOMED Code(s): 451078592361891 (2) CAD (coronary artery disease) Current Visit: No Status: Acute Code(s): I25.10 - ATHSCL HEART DISEASE OF [place] CORONARY ARTERY W/O ANG PCTRS SNOMED Code(s): 01825609 (3) Diabetes Current Visit: No Status: Acute Code(s): E11.9 - TYPE 2 DIABETES MELLITUS WITHOUT COMPLICATIONS SNOMED Code(s): 34903474 (4) HTN (hypertension) Current Visit: No Status: Acute Code(s): I10 - ESSENTIAL (PRIMARY) HYPERTENSION SNOMED Code(s): 09963726 (5) Obesity (BMI 30-39.9) Current Visit: No Status: Acute Code(s): E66.9 - OBESITY, UNSPECIFIED SNOMED Code(s): 680929637 (6) Type 2 diabetes mellitus Current Visit: No Status: Acute Code(s): E11.9 - TYPE 2 DIABETES MELLITUS WITHOUT COMPLICATIONS SNOMED Code(s): 51595218 (7) COPD (chronic obstructive pulmonary disease) Current Visit: Yes Status: Acute Code(s): J44.9 - CHRONIC OBSTRUCTIVE PULMONARY DISEASE, UNSPECIFIED SNOMED Code(s): 51605694 Plan: We'll continue current medical therapy. I'll increase the dose of the Lasix. Will get a couple of more troponin values and echocardiogram. Pulmonary consult is also requested
[2020-02-17 11:46] LABS: Glucose,Whole Blood 186 mg/dL (75-99)
[2020-02-17] MEDS: INSULIN ASPART (NovoLOG) 100 UNIT/ML VIAL SQ SCH ×3 (12:26→21:24)
--- NOTE | 2020-02-17 12:26 | P.HPIM ---
History of Present Illness 61-year-old pleasant female came in with compensative shortness of breath which started about the 3 days ago progressive in nature patient pressure and azithromycin was a severe last night the discussion with history of proximal nocturnal dyspnea and orthopnea. Patient the BNP is only 68 chest x-ray showed changes consistent pulmonary edema patient has had elevated blood pressure with the systolics going up very high because of which patient was believed to have hypertensive emergency was given nitroglycerin drip and which was subsequently discontinued patient was put on nitro patch was subsequently admitted to the hospital patient blood pressure is pretty much well controlled nitro patch will be discontinued patient was started on Lasix and lisinopril by cardiology, cardiac exam is being obtained patient has decreased air entry into bilateral lung fieldsand wheezing on exam apparently had mild wheezing on exam does have bibasilar crackles. No elevated JVD. Patient used to smoke 20 years ago denied any significant cough fever chills patient does have diagnosis of COPD the patient denied any chest pain Review of Systems REVIEW OF SYSTEMS: CONSTITUTIONAL: No fever, no malaise, no fatigue. HEENT: No recent visual problems or hearing problems. Denied any sore throat. CARDIOVASCULAR: No chest pain, orthopnea, PND, no palpitations, no syncope. PULMONARY: As mentioned in HPI GASTROINTESTINAL: No diarrhea, no nausea, no vomiting, no abdominal pain. NEUROLOGICAL: No headaches, no weakness, no numbness. HEMATOLOGICAL: Denies any bleeding or petechiae. GENITOURINARY: Denies any burning micturition, frequency, or urgency. MUSCULOSKELETAL/RHEUMATOLOGICAL: Denies any joint pain, swelling, or any muscle pain. ENDOCRINE: Denies any polyuria or polydipsia. The rest of the 14-point review of systems is negative. Past Medical History Past Medical History: Atrial Fibrillation, Atrial Flutter, Asthma, COPD, CVA/TIA, Diabetes Mellitus, Hyperlipidemia, Hypertension, Osteoarthritis (OA) Additional Past Medical History / Comment(s): intracardiac thrombus 2013, SOB with exertion, stroke in 1998-no residual effects, History of Any Multi-Drug Resistant Organisms: None Reported Past Surgical History: Appendectomy, Breast Surgery, Cardiac Ablation, EPS, Heart Catheterization, Hysterectomy, Orthopedic Surgery, Tubal Ligation Additional Past Surgical History / Comment(s): ARTEMIO, ADDIE carpal tunnel release,Trigger finger & thumb surgery; cardioversion, breast biopsy, Left shoulder sx. Past Anesthesia/Blood Transfusion Reactions: No Reported Reaction, Motion Sickness Past Psychological History: Depression Smoking Status: Former smoker Past Alcohol Use History: Rare Past Drug Use History: None Reported - Past Family History Mother Family Medical History: Liver Disease Additional Family Medical History / Comment(s): cirrhosis of liver Father Family Medical History: Cancer Additional Family Medical History / Comment(s): throat cancer Daughter(s) Additional Family Medical History / Comment(s): HEART VALVE REPLACEMENT (Aorta) Son(s) Family Medical History: CVA/TIA Additional Family Medical History / Comment(s): One son, had multiple strokes in a row Medications and Allergies Home Medications Medication Instructions Recorded Confirmed Type Isosorbide Mononitrate [Imdur] 30 mg PO DAILY 09/10/14 02/17/20 History Montelukast [Singulair] 10 mg PO HS 09/10/14 02/17/20 History metFORMIN HCL [Glucophage] 1,000 mg PO BID 09/10/14 02/17/20 History Metoprolol Tartrate [Lopressor] 25 mg PO BID 10/01/14 02/17/20 History Warfarin [Coumadin] 2.5 mg PO SUMOWETHFRSA 10/01/14 02/17/20 History Warfarin [Coumadin] 5 mg PO TU 11/19/14 02/17/20 History Flecainide [Tambocor] 100 mg PO BID 09/19/15 02/17/20 History Lisinopril [Zestril] 2.5 mg PO DAILY 09/19/15 02/17/20 History Pioglitazone [Actos] 45 mg PO HS 11/03/15 02/17/20 History Fluticasone/Salmeterol [Advair 1 puff INHALATION RT-BID 02/24/17 02/17/20 History 250-50 Diskus] Furosemide [Lasix] 40 mg PO DAILY 04/24/17 02/17/20 History Omeprazole 40 mg PO DAILY 04/24/17 02/17/20 History Simvastatin [Zocor] 40 mg PO HS 04/24/17 02/17/20 History Vortioxetine Hydrobromide 10 mg PO DAILY 07/18/17 02/17/20 History [Trintellix] Allergies Allergy/AdvReac Type Severity Reaction Status Date / Time meperidine HCl [From Demerol] AdvReac Nausea & Verified 05/08/18 18:52 Vomiting Physical Exam Vitals: Vital Signs Temp Pulse Pulse Resp BP BP Pulse Ox 02/17/20 11:15 98.4 F 82 22 106/70 98 02/17/20 08:59 98.7 F 83 22 120/71 96 02/17/20 06:15 98.5 F 78 18 126/71 95 02/17/20 06:00 98.0 F 79 17 117/70 96 02/17/20 05:50 76 18 116/74 98 02/17/20 05:40 79 18 114/64 100 02/17/20 05:30 78 17 106/68 100 02/17/20 05:20 80 17 115/70 99 02/17/20 05:10 80 19 113/74 99 02/17/20 05:00 80 17 106/71 99 02/17/20 04:50 82 18 110/67 98 02/17/20 04:45 84 16 105/69 98 02/17/20 04:30 98.2 F 86 20 109/70 99 02/17/20 04:25 107/67 02/17/20 04:20 113/76 02/17/20 04:15 119/69 02/17/20 04:10 115/75 02/17/20 04:05 20 110/77 99 02/17/20 04:00 120/79 02/17/20 03:55 124/81 02/17/20 03:50 131/85 02/17/20 03:45 131/84 02/17/20 03:40 130/84 02/17/20 03:35 156/74 02/17/20 03:30 156/76 02/17/20 03:25 172/108 02/17/20 03:24 98.3 F 101 H 24 172/108 96 Intake and Output 02/16/20 02/17/20 02/17/20 22:59 06:59 14:59 Intake Total 5.7 118 Output Total 350 Balance 5.7 -232 Intake: Intake, IV Titration 5.7 Amount Nitroglycerin-D5w Pmx 50 5.7 mg In Dextrose/Water 1 250ml.bag @ 20 MCG/MIN 6 mls/hr IV .Q24H ONE Rx#: [id number] Oral 118 Output: Urine 350 Other: Voiding Method Toilet Toilet # Voids 1 Weight 95.254 kg PHYSICAL EXAMINATION: GENERAL: The patient is alert and oriented x3, not in any acute distress. Well developed, well nourished. HEENT: Pupils are round and equally reacting to light. EOMI. No scleral icterus. No conjunctival pallor. Normocephalic, atraumatic. No pharyngeal erythema. No thyromegaly. CARDIOVASCULAR: S1 and S2 present. No murmurs, rubs, or gallops. PULMONARY: Decreased air entry at bibasilar crackles no significant wheezing on exam ABDOMEN: Soft, nontender, nondistended, normoactive bowel sounds. No palpable organomegaly. MUSCULOSKELETAL: No joint swelling or deformity. EXTREMITIES: No cyanosis, clubbing, or pedal edema. NEUROLOGICAL: Gross neurological examination did not reveal any focal deficits. SKIN: No rashes. Results CBC & Chem 7: 02/17/20 03:27 02/17/20 03:27 Labs: Abnormal Lab Results - Last 24 Hours (Table) 02/17/20 02/17/20 02/17/20 Range/Units 03:27 03:27 03:27 WBC 20.3 H (3.8-10.6) k/uL MCHC 30.9 L (31.0-37.0) g/dL RDW 15.6 H (11.5-15.5) % Neutrophils # (Manual) 15.02 H (1.3-7.7) k/uL PT 23.4 H (9.0-12.0) sec INR 2.4 H (<1.2) Sodium 136 L (137-145) mmol/L Glucose 303 H (74-99) mg/dL POC Glucose (mg/dL) (75-99) mg/dL 02/17/20 Range/Units 11:45 WBC (3.8-10.6) k/uL MCHC (31.0-37.0) g/dL RDW (11.5-15.5) % Neutrophils # (Manual) (1.3-7.7) k/uL PT (9.0-12.0) sec INR (<1.2) Sodium (137-145) mmol/L Glucose (74-99) mg/dL POC Glucose (mg/dL) 186 H (75-99) mg/dL Thrombosis Risk Factor Assmnt - Choose All That Apply Any of the Below Risk Factors Present?: Yes Each Factor Represents 1 point: Obesity (BMI >25) Other Risk Factors: Yes Each Risk Factor Represents 2 Points: Age 61-74 years Thrombosis Risk Factor Assessment Total Risk Factor Score: 3 Thrombosis Risk Factor Assessment Level: Moderate Risk Assessment and Plan Plan: Possible hypertensive emergency. Patient is short of breath probably can be secondary to acute pulmonary edema from hypertensive emergency: Rhythm is bringing up and patient blood pressures are well controlled at this time can use present regimen of blood pressures that his Lasix and lisinopril. -Acute hypoxic respiratory failure can be secondary to hypertensive emergency and pulmonary edema there may be a competent of mild exacerbation of COPD patient will be started on inhaled steroids continue with inhalational treatments pulmonary will be consulted -Leukocytosis reactive in nature , no evidence of infection at this time - type 2 diabetes mellitus patient will be resumed on her home regimen along with sliding scale insulin. -Avastin -COPD with mild acute exacerbation -Hyperlipidemia DVT prophylaxis with subcutaneous heparin
[2020-02-17] MEDS: FUROSEMIDE 40 MG TAB PO SCH (15:22)
[2020-02-17 16:34] LABS: Glucose,Whole Blood 181 mg/dL (75-99)
[2020-02-17] MEDS ORDERED: WARFARIN 2.5 MG TAB PO SCH (18:00)
[2020-02-17 20:38] LABS: Glucose,Whole Blood 204 mg/dL (75-99)
[2020-02-17] MEDS ORDERED: metFORMIN 500 MG TAB PO SCH (21:00)
[2020-02-17] MEDS: ATORVASTATIN 20 MG TAB PO SCH (21:21)
[2020-02-17] MEDS: METOPROLOL TARTRATE 25 MG TAB PO SCH (21:22)
[2020-02-17] MEDS: MONTELUKAST 10 MG TAB PO SCH (21:22)
[2020-02-17] MEDS: FLECAINIDE 50 MG TAB PO SCH (21:22)
[2020-02-17] MEDS: PIOGLITAZONE 45 MG TAB PO SCH (21:23)
[2020-02-17] MEDS: SYMBICORT 80-4.5 MCG INHALER INHALATION SCH (21:55)
[2020-02-18 06:30] LABS: Glucose,Whole Blood 147 mg/dL (75-99)
[2020-02-18 06:37] LABS: African American GFR (CKD) >90 (>60 ml/min/1.73 sqM); Anion Gap 6 mmol/L; Blood Urea Nitrogen 18 mg/dL (7-17); Carbon Dioxide 28 mmol/L (22-30); Chloride 103 mmol/L (98-107); Glucose 138 mg/dL (74-99); Non-African American GFR(CKD) 82 (>60 ml/min/1.73 sqM); Potassium 4.8 mmol/L (3.5-5.1); Sodium 137 mmol/L (137-145)
[2020-02-18 06:38] LABS: INR 2.7 (<1.2); Prothrombin Time 25.9 sec (9.0-12.0)
[2020-02-18] MEDS: metFORMIN 500 MG TAB PO SCH (06:42)
[2020-02-18] MEDS: PANTOPRAZOLE 40 MG TABLET PO SCH (06:42)
[2020-02-18] MEDS: INSULIN ASPART (NovoLOG) 100 UNIT/ML VIAL SQ SCH ×4 (06:43→21:07)
[2020-02-18] MEDS: SYMBICORT 80-4.5 MCG INHALER INHALATION SCH ×2 (08:09→19:31)
[2020-02-18] MEDS: ALLOPURINOL 100 MG TAB PO SCH (08:40)
[2020-02-18] MEDS: FLECAINIDE 50 MG TAB PO SCH (08:40)
[2020-02-18] MEDS: ENOXAPARIN 40 MG/0.4 ML SYRINGE SQ SCH (08:41)
[2020-02-18] MEDS: METOPROLOL TARTRATE 25 MG TAB PO SCH ×2 (08:41→20:20)
[2020-02-18] MEDS: ISOSORBIDE MONONITRATE ER 30 MG TAB.ER.24H PO SCH (08:41)
[2020-02-18] MEDS: FUROSEMIDE 40 MG TAB PO SCH ×2 (08:41→17:42)
[2020-02-18] MEDS: VORTIOXETINE HYDROBROMIDE 10 MG TABLET PO SCH (08:41)
[2020-02-18] MEDS ORDERED: LISINOPRIL 2.5 MG TAB PO SCH (09:00)
[2020-02-18] MEDS ORDERED: FUROSEMIDE 40 MG TAB PO SCH (09:00)
[2020-02-18] MEDS ORDERED: LISINOPRIL 5 MG TAB PO SCH (09:00)
--- NOTE | 2020-02-18 10:33 | ECHOF ---
Referral Reason:Heart Failure MEASUREMENTS -------- HEIGHT: 157.5 cm WEIGHT: 95.3 kg BP: 129/66 RVIDd: 2.5 cm (< 3.3) IVSd: 1.4 cm (0.6 - 1.1) LVIDd: 4.5 cm (3.9 - 5.3) LVPWd: 1.4 cm (0.6 - 1.1) IVSs: 2.0 cm LVIDs: 3.4 cm LVPWs: 1.8 cm LA Diam: 3.9 cm (2.7 - 3.8) LAESV Index (A-L): 32.97 ml/m Ao Diam: 2.6 cm (2.0 - 3.7) AV Cusp: 1.6 cm (1.5 - 2.6) MV EXCURSION: 15.271 mm (> 18.000) MV EF SLOPE: 18 mm/s (70 - 150) EPSS: 0.4 cm MV E Lester: 2.09 m/s MV DecT: 269 ms MV A Lester: 0.66 m/s MV E/A Ratio: 3.16 RAP: 15.00 mmHg RVSP: 60.62 mmHg FINDINGS -------- Sinus rhythm. This was a technically adequate study. The left ventricular size is normal. There is moderate concentric left ventricular hypertrophy. O verall left ventricular systolic function is normal with, an EF between 55 - 60 %. Questionable mid anterior wall hypokinesia but most probably a normal. Consider contrast study for further evaluatio n The right ventricle is normal in size. LA is midly dilated 29-33ml/m2. The right atrium is normal in size. Interatrial and interventricular septum intact. There is mild aortic valve sclerosis. The mitral valve leaflets are mildly thickened. Mild mitral annular calcification present. Modera te mitral regurgitation is present. The peak and mean MV gradients are 21.44mmHg 5.99mmHg as measu red by doppler. Kpjz-sh-osocuaqr mitral stenosis. Qdfy-sm-sbveepeb tricuspid regurgitation present. There is severe pulmonary hypertension. The rig ht ventricular systolic pressure, as measured by Doppler, is 60.62mmHg. The pulmonic valve was not well visualized. The aortic root size is normal. The inferior vena cava is dilated with no significant inspiratory collapse which is consistent estima caryn right atrial pressure of >15 mmHg. There is no pericardial effusion. CONCLUSIONS -------- 1. Sinus rhythm. 2. This was a technically adequate study. 3. The left ventricular size is normal. 4. There is moderate concentric left ventricular hypertrophy. 5. Overall left ventricular systolic function is normal with, an EF between 55 - 60 %. 6. Questionable mid anterior wall hypokinesia but most probably a normal. Consider contrast study fo r further evaluation 7. The right ventricle is normal in size. 8. LA is midly dilated 29-33ml/m2. 9. The right atrium is normal in size. 10. Interatrial and interventricular septum intact. 11. There is mild aortic valve sclerosis. 12. The mitral valve leaflets are mildly thickened. 13. Mild mitral annular calcification present. 14. Moderate mitral regurgitation is present. 15. The peak and mean MV gradients are 21.44mmHg 5.99mmHg as measured by doppler. 16. Benu-dm-kznbfjrd mitral stenosis. 17. Gvrz-ob-kufvlvma tricuspid regurgitation present. 18. There is severe pulmonary hypertension. 19. The right ventricular systolic pressure, as measured by Doppler, is 60.62mmHg. 20. The pulmonic valve was not well visualized. 21. The aortic root size is normal. 22. The inferior vena cava is dilated with no significant inspiratory collapse which is consistent es timated right atrial pressure of >15 mmHg. 23. There is no pericardial effusion. MANAGER PROPERTY: Chandrika Lindsey RDCS
--- NOTE | 2020-02-18 10:41 | P.PN ---
Subjective This is Mary Ellen Lowery PA-C scribing on behalf of Dr. Lopez The patient was interviewed and examined by Dr. Lopez Chart reviewed HPI/interval history Patient is a 64-year-old female with a history of asthma, COPD, atrial flutter status post ablation, atrial fibrillation, hypertension, diabetes, and mild cardiomyopathy who presented with complaints of shortness of breath. She had shortness of breath 1 day and mild cough. No chest pain. No fevers or chills. Upon arrival to the emergency department patient was afebrile, pulse in the 100s, respirations 24, blood pressure 172/108, oxygen saturation 96% on 8 L of oxygen. Chest x-ray showed pulmonary edema however BMP was within normal limits. EKG showed sinus mechanism with first-degree AV block, right bundle branch block, nonspecific ST T wave changes, rate 101. She was started on a nitro drip and was admitted for further evaluation and workup. Echocardiogram has been ordered, still awaiting results. Her blood pressure has improved today. Breathing has improved. No chest pain. EXAMINATION Patient is afebrile, pulse in the 70s, respirations 18, blood pressure 131/68, oxygen saturation 97% on [address] Lopez evaluated the patient Patient appears comfortable Heart sounds are soft, regular Lungs with crackles at the bases bilaterally No JVD No lower extremity edema REVIEW OF LABS, ECG WBC 20.3, hemoglobin 13.7, platelets 280, potassium 4.8, BUN 18, creatinine 0.77 Troponins negative 3 D-dimer within normal limits ProBNP 72 Coronavirus not detected Most recent echocardiogram from 2018 shows EF 67%, moderate MR IMPRESSION / ASSESSMENT: Dyspnea possibly secondary to acute pulmonary edema from hypertensive emergency versus COPD exacerbation Hypertension, blood pressure has improved Diabetes COPD Atrial flutter status post ablation Atrial fibrillation, currently in sinus rhythm History of cardiomyopathy, echo in 2018 showed EF 67%, awaiting repeat echo Valvular heart disease PLAN: Echocardiogram has been done, awaiting results continue lasix Continue anticoagulation with Coumadin Hold flecainide until echocardiogram results are obtained Objective - Vital Signs Vital signs: Vital Signs Temp 98 F 02/18/20 08:35 Pulse 70 02/18/20 08:35 Resp 18 02/18/20 08:35 BP 131/68 02/18/20 08:35 Pulse Ox 97 02/18/20 08:35 Intake & Output 02/17/20 02/18/20 02/18/20 18:59 06:59 18:59 Intake Total 356 500 Output Total 350 Balance 6 500 Intake: Oral 356 500 Output: Urine 350 Other: Voiding Method Toilet Toilet # Voids 1 2 - Labs CBC & Chem 7: 02/17/20 03:27 02/18/20 05:55 Labs: Abnormal Lab Results - Last 24 Hours (Table) 02/17/20 02/17/20 02/17/20 Range/Units 11:45 16:32 20:37 PT (9.0-12.0) sec INR (<1.2) BUN (7-17) mg/dL Glucose (74-99) mg/dL POC Glucose (mg/dL) 186 H 181 H 204 H (75-99) mg/dL 02/18/20 02/18/20 02/18/20 Range/Units 05:55 05:55 06:29 PT 25.9 H (9.0-12.0) sec INR 2.7 H (<1.2) BUN 18 H (7-17) mg/dL Glucose 138 H (74-99) mg/dL POC Glucose (mg/dL) 147 H (75-99) mg/dL
[2020-02-18 12:09] LABS: Glucose,Whole Blood 85 mg/dL (75-99)
--- NOTE | 2020-02-18 12:19 | P.CNPUL ---
History of Present Illness Consult date: 02/18/20 Reason for consult: dyspnea, hypoxemia, abnormal CXR/CT Chief complaint: Dyspnea, hypoxemia, hypertensive emergency History of present illness: This is a 64-year-old female patient of Dr. Renee past medical history of chronic bronchial asthma/COPD not oxygen dependent at baseline, atrial fibrillation/atrial flutter status post ablation, diabetes mellitus type 2, hypertension, osteoarthritis, previous history of CVA with no residual, former smoker, depression, previous history of small thrombus in the left atrial appendage in 2013, patient is on chronic anticoagulation in the form of Coumadin, who came into the emergency department per EMS on all 02/17/2020 for evaluation of acute onset of shortness of breath that started a few hours prior to presentation. She had a mild cough with some white sputum production. She denied any chest pain, she denied any fever, or chills. Patient was given some oxygen and bronchodilators on the way to the hospital. Chest x-ray was obtained showing pulmonary edema, upon arrival to the emergency department her blood pressure was found to be at 172/108, patient was requiring supplemental oxygen at 8 L with a pulse ox of 96%, BNP however was within normal limits, EKG showed sinus mechanism with first-degree AV block with a right bundle branch block pattern and nonspecific ST and T wave changes at a rate of 101 BPM. Patient was started on nitroglycerin drip. Blood pressure has improved, echocardiogram showed moderate concentric left ventricular hypertrophy with EF of 55-60%, moderate mitral regurg, [id number] tricuspid regurg, severe pulmonary hypertension with right-sided pressures of 60.6 mmHg. Patient has been started on diuretics, she is diuresing. She is feeling better, down to 2 L of oxygen with a pulse ox of 99% blood pressure is 112/73, no cognitive chest pain, she's been afebrile. Continues on oral diuretics. Review of Systems All systems: negative Constitutional: Denies chills, Denies fever Eyes: denies blurred vision, denies pain Ears, nose, mouth and throat: Denies headache, Denies sore throat Cardiovascular: Denies chest pain, Denies shortness of breath Respiratory: Reports dyspnea, Denies cough Gastrointestinal: Denies abdominal pain, Denies diarrhea, Denies nausea, Denies vomiting Genitourinary: Denies dysuria, Denies hematuria Musculoskeletal: Denies myalgias Integumentary: Denies pruritus, Denies rash Neurological: Denies numbness, Denies weakness Psychiatric: Denies anxiety, Denies depression Endocrine: Denies fatigue, Denies weight change Past Medical History Past Medical History: Atrial Fibrillation, Atrial Flutter, Asthma, COPD, CVA/TIA, Diabetes Mellitus, Hyperlipidemia, Hypertension, Osteoarthritis (OA) Additional Past Medical History / Comment(s): intracardiac thrombus 2013, SOB with exertion, stroke in 1998-no residual effects, History of Any Multi-Drug Resistant Organisms: None Reported Past Surgical History: Appendectomy, Breast Surgery, Cardiac Ablation, EPS, Heart Catheterization, Hysterectomy, Orthopedic Surgery, Tubal Ligation Additional Past Surgical History / Comment(s): ARTEMIO, ADDIE carpal tunnel release,Trigger finger & thumb surgery; cardioversion, breast biopsy, Left shoulder sx. Past Anesthesia/Blood Transfusion Reactions: No Reported Reaction, Motion Sickness Past Psychological History: Depression Smoking Status: Former smoker Past Alcohol Use History: Rare Past Drug Use History: None Reported - Past Family History Mother Family Medical History: Liver Disease Additional Family Medical History / Comment(s): cirrhosis of liver Father Family Medical History: Cancer Additional Family Medical History / Comment(s): throat cancer Daughter(s) Additional Family Medical History / Comment(s): HEART VALVE REPLACEMENT (Aorta) Son(s) Family Medical History: CVA/TIA Additional Family Medical History / Comment(s): One son, had multiple strokes in a row Medications and Allergies Home Medications Medication Instructions Recorded Confirmed Type Isosorbide Mononitrate [Imdur] 30 mg PO DAILY 09/10/14 02/17/20 History Montelukast [Singulair] 10 mg PO HS 09/10/14 02/17/20 History Metoprolol Tartrate [Lopressor] 25 mg PO BID 10/01/14 02/17/20 History Warfarin [Coumadin] 2.5 mg PO SUMOWETHFRSA 10/01/14 02/17/20 History Pioglitazone [Actos] 45 mg PO HS 11/03/15 02/17/20 History Fluticasone/Salmeterol [Advair 1 puff INHALATION RT-BID 02/24/17 02/17/20 History 250-50 Diskus] Furosemide [Lasix] 40 mg PO DAILY 04/24/17 02/17/20 History Omeprazole 40 mg PO DAILY 04/24/17 02/17/20 History Simvastatin [Zocor] 40 mg PO DAILY 04/24/17 02/17/20 History Vortioxetine Hydrobromide 10 mg PO DAILY 07/18/17 02/17/20 History [Trintellix] Allopurinol [Zyloprim] 100 mg PO DAILY 02/17/20 02/17/20 History Benztropine Mesylate 0.5 mg PO BID 02/17/20 02/17/20 History Flecainide Acetate 100 mg PO BID 02/17/20 02/17/20 History Liraglutide [Victoza 3-Adam] 1.8 mg SQ HS 02/17/20 02/17/20 History Mirtazapine 45 mg PO HS 02/17/20 02/17/20 History Warfarin [Coumadin] 5 mg PO TU 02/17/20 02/17/20 History busPIRone HCl [Buspar] 10 mg PO Q6H PRN 02/17/20 02/17/20 History metFORMIN HCL [Glucophage] 1,000 mg PO DAILY 02/17/20 02/17/20 History Allergies Allergy/AdvReac Type Severity Reaction Status Date / Time meperidine HCl [From Demerol] AdvReac Nausea & Verified 02/17/20 15:25 Vomiting Physical Exam Vitals: Vital Signs Temp Pulse Resp BP Pulse Ox 02/18/20 11:40 58 L 18 112/73 99 02/18/20 08:35 98 F 70 18 131/68 97 02/18/20 04:00 97.9 F 67 20 129/66 96 02/18/20 00:00 97.7 F 77 20 113/55 99 02/17/20 20:00 98.3 F 80 22 122/70 98 02/17/20 15:00 97.6 F 82 22 119/66 98 Intake and Output 02/17/20 02/18/20 02/18/20 22:59 06:59 14:59 Intake Total 618 120 Balance 618 120 Intake: Oral 618 120 Other: Voiding Method Toilet # Voids 1 2 1 Weight 95.254 kg GENERAL EXAM: Alert, very pleasant, 64-year-old white female, currently on 2 L of oxygen with a pulse ox of 99% comfortable in no apparent distress. HEAD: Normocephalic/atraumatic. EYES: Normal reaction of pupils, equal size. Conjunctiva pink, sclera white. NOSE: Clear with pink turbinates. THROAT: No erythema or exudates. NECK: No masses, no JVD, no thyroid enlargement, no adenopathy. CHEST: No chest wall deformity. Symmetrical expansion. LUNGS: Equal air entry with basilar crackles CVS: Regular rate and rhythm, normal S1 and S2, no gallops, no murmurs, no rubs ABDOMEN: Soft, nontender. No hepatosplenomegaly, normal bowel sounds, no guarding or rigidity. EXTREMITIES: No clubbing, mild pretibial edema, no cyanosis, 2+ pulses and upper and lower extremities. MUSCULOSKELETAL: Muscle strength and tone normal. SPINE: No scoliosis or deformity SKIN: No rashes CENTRAL NERVOUS SYSTEM: Alert and oriented -3. No focal deficits, tone is normal in all 4 extremities. PSYCHIATRIC: Alert and oriented -3. Appropriate affect. Intact judgment and insight. Results - Laboratory Findings CBC and BMP: 02/17/20 03:27 02/18/20 05:55 PT/INR, D-dimer PT 25.9 sec (9.0-12.0) H 02/18/20 05:55 INR 2.7 (<1.2) H 02/18/20 05:55 D-Dimer 0.38 mg/L FEU (<0.60) 02/17/20 03:27 Abnormal lab findings: Abnormal Labs 02/17/20 02/17/20 02/17/20 03:27 03:27 03:27 WBC 20.3 H MCHC 30.9 L RDW 15.6 H Neutrophils # (Manual) 15.02 H PT 23.4 H INR 2.4 H Sodium 136 L BUN Glucose 303 H POC Glucose (mg/dL) 02/17/20 02/17/20 02/17/20 11:45 16:32 20:37 WBC MCHC RDW Neutrophils # (Manual) PT INR Sodium BUN Glucose POC Glucose (mg/dL) 186 H 181 H 204 H 02/18/20 02/18/20 02/18/20 05:55 05:55 06:29 WBC MCHC RDW Neutrophils # (Manual) PT 25.9 H INR 2.7 H Sodium BUN 18 H Glucose 138 H POC Glucose (mg/dL) 147 H - Diagnostic Findings Chest x-ray: report reviewed, image reviewed Assessment and Plan Plan: Assessment: #1. Acute hypoxic respiratory failure related to acute pulmonary edema #2. Hypertensive emergency #3. Valvular heart disease, [id number] mitral regurgitation, and severe tricuspid regurgitation #4. Severe pulmonary hypertension with right-sided pressures of 60.69 mm/hg #5. Hypertension #6. History of asthma/COPD, not oxygen dependent at baseline #7. Former smoker #8. History of atrial flutter/atrial fibrillation status post ablation #9. History of mild cardiomyopathy, LVH, diastolic dysfunction #10. History of left atrial appendage thrombus in 2013 on chronic anticoag ulation in the form of Coumadin #11. History of previous CVA/TIA #12. Osteoarthritis Plan: Continue oral diuretics, blood pressure is better controlled, chest x-ray still shows changes of fluid overload, pulmonary edema, but overall patient is clinically feeling better, FiO2 down to 2 L. No complaints chest pain. Echocardiogram results have been noted, we'll continue to follow. Monitor el ectric lites and renal profile, I performed a history & physical examination of the patient and discussed their management with my nurse practitioner, Madison Beauchamp. I reviewed the nurse practitioner's note and agree with the documented findings and plan of care. Lung sounds are positive for diminished breath sounds. The findings and the impression was discussed with the patient. I attest to the documentation by the nurse practitioner. Time with Patient: Greater than 30
--- NOTE | 2020-02-18 16:07 | P.PN ---
Subjective Progress Note Date: 02/18/20 This is a 64-year-old female admitted with possible hypertensive emergency, acute hypoxic respiratory failure , acute pulmonary edema , valvular heart disease and multiple other medical issues. Blood pressure better controlled. Maintaining O2 sats in the 90s on 2 L nasal cannula, patient does not wear ox ygen at home. Echo reporting moderate concentric left ventricular hypertrophy, preserved LV function EF 55-60%, hypokinetic mid anterior, mid anterior septal LV wall, moderate mitral regurgitation, mild to moderate mitral stenosis, mild to moderate tricuspid regurgitation, severe pulmonary hypertension. Lasix dose had been increased. Denies chest pain, complains of nonproductive cough. INR 2.7, anticoagulated on Coumadin. Blood sugars controlled. Objective - Vital Signs Vital signs: Vital Signs Temp 98 F 02/18/20 08:35 Pulse 58 L 02/18/20 11:40 Resp 18 02/18/20 11:40 BP 112/73 02/18/20 11:40 Pulse Ox 99 02/18/20 11:40 Intake & Output 02/17/20 02/18/20 02/18/20 18:59 06:59 18:59 Intake Total 356 500 360 Output Total 350 2 Balance 6 500 358 Weight 95.254 kg Intake: Oral 356 500 360 Output: Urine 350 Stool 2 Other: Voiding Method Toilet Toilet Toilet # Voids 1 2 2 # Bowel Movements 0 - Exam GENERAL: The patient is alert and oriented x3, not in any acute distress. Well developed, well nourished. HEENT: Pupils are round and equally reacting to light. EOMI. No scleral icterus. No conjunctival pallor. Normocephalic, atraumatic. No pharyngeal erythema. No thyromegaly. CARDIOVASCULAR: S1 and S2 present. No murmurs, rubs, or gallops. PULMONARY: Lungs diminished with fine bibasilar crackles. ABDOMEN: Soft, nontender, nondistended, normoactive bowel sounds. No palpable organomegaly. MUSCULOSKELETAL: No joint swelling or deformity. EXTREMITIES: No cyanosis, clubbing, pedal edema. NEUROLOGICAL: Gross neurological examination did not reveal any focal deficits. SKIN: No rashes. - Labs CBC & Chem 7: 02/17/20 03:27 02/18/20 05:55 Labs: Abnormal Lab Results - Last 24 Hours (Table) 02/17/20 02/17/20 02/18/20 Range/Units 16:32 20:37 05:55 PT 25.9 H (9.0-12.0) sec INR 2.7 H (<1.2) BUN (7-17) mg/dL Glucose (74-99) mg/dL POC Glucose (mg/dL) 181 H 204 H (75-99) mg/dL 02/18/20 02/18/20 Range/Units 05:55 06:29 PT (9.0-12.0) sec INR (<1.2) BUN 18 H (7-17) mg/dL Glucose 138 H (74-99) mg/dL POC Glucose (mg/dL) 147 H (75-99) mg/dL Assessment and Plan Assessment: Hypertensive emergency Acute hypoxic respiratory failure secondary to acute pulmonary edema Mild cardiomyopathy ,Moderate concentric left ventricular hypertrophy, preserved LV function EF 55-60%, hypokinetic mid anterior, mid anterior septal LV wall. Severe pulmonary hypertension. Mild to moderate tricuspid regurgitation Mild to moderate mitral stenosis Hypertension History of chronic intermittent asthma, COPD History of CVA, TIA History of left atrial appendage thrombus 2013 on chronic anticoagulation Osteoarthritis Plan: Continue on current medication regime ,monitoring and symptomatic treatment. Continue with diuresis, close monitoring of renal function,, electrolytes. Weaning of oxygen in progress. Daily PT INR. The impression and plan of care has been dictated as directed. : I performed a history and examination of this patient, discussed the same with the dictator. I agree with the dictator's note ,documented as a scribe. Any additional findings or plans will be noted.
[2020-02-18 17:20] LABS: Glucose,Whole Blood 153 mg/dL (75-99)
[2020-02-18] MEDS ORDERED: WARFARIN 2.5 MG TAB PO SCH (18:00)
[2020-02-18] MEDS: ATORVASTATIN 20 MG TAB PO SCH (20:19)
[2020-02-18] MEDS: MONTELUKAST 10 MG TAB PO SCH (20:20)
[2020-02-18] MEDS: PIOGLITAZONE 45 MG TAB PO SCH (20:20)
[2020-02-18 20:28] LABS: Glucose,Whole Blood 137 mg/dL (75-99)
[2020-02-19 06:10] LABS: Glucose,Whole Blood 124 mg/dL (75-99)
[2020-02-19 06:10] LABS: Basophils % (A) 0 %; Eosinophils # (A) 0.2 k/uL (0-0.7); Eosinophils % (A) 2 %; HCT 36.6 % (34.0-46.0); HGB 11.6 gm/dL (11.4-16.0); Hypochromasia Moderate; Lymphocytes # (A) 1.6 k/uL (1.0-4.8); Lymphocytes % (A) 16 %; MCH 28.2 pg (25.0-35.0); MCHC 31.7 g/dL (31.0-37.0); MCV 88.9 fL (80.0-100.0); Mean Platelet Volume 8.3; Monocytes # (A) 0.6 k/uL (0-1.0); Monocytes % (A) 6 %; Neutrophils # (A) 7.3 k/uL (1.3-7.7); Neutrophils % (A) 74 %; Platelet Count 243 k/uL (150-450); RBC 4.12 m/uL (3.80-5.40); RDW 15.5 % (11.5-15.5); WBC 9.8 k/uL (3.8-10.6)
[2020-02-19 06:13] LABS: Prothrombin Time 19.9 sec (9.0-12.0)
[2020-02-19 06:19] LABS: Calcium 8.6 mg/dL (8.4-10.2); Potassium 4.4 mmol/L (3.5-5.1)
[2020-02-19] MEDS: metFORMIN 500 MG TAB PO SCH (07:12)
[2020-02-19] MEDS: INSULIN ASPART (NovoLOG) 100 UNIT/ML VIAL SQ SCH ×4 (07:13→21:25)
[2020-02-19] MEDS: PANTOPRAZOLE 40 MG TABLET PO SCH (07:13)
[2020-02-19] MEDS: ENOXAPARIN 40 MG/0.4 ML SYRINGE SQ SCH (07:38)
[2020-02-19] MEDS: SYMBICORT 80-4.5 MCG INHALER INHALATION SCH ×2 (08:32→19:28)
[2020-02-19] MEDS: FUROSEMIDE 40 MG TAB PO SCH (09:04)
[2020-02-19] MEDS: ISOSORBIDE MONONITRATE ER 30 MG TAB.ER.24H PO SCH (09:04)
[2020-02-19] MEDS: VORTIOXETINE HYDROBROMIDE 10 MG TABLET PO SCH (09:04)
[2020-02-19] MEDS: METOPROLOL TARTRATE 25 MG TAB PO SCH ×2 (09:04→21:28)
[2020-02-19] MEDS: ALLOPURINOL 100 MG TAB PO SCH (09:04)
--- NOTE | 2020-02-19 09:47 | XR ---
EXAMINATION TYPE: XR chest 2V DATE OF EXAM: 02/19/2020 COMPARISON: 02/17/2020 HISTORY: Shortness of breath TECHNIQUE: Frontal and lateral views of the chest are obtained. FINDINGS: There is persistent but much improved pulmonary venous congestion and scattered infiltrates. Persiste nt small pleural effusions and cardiomegaly. Mediastinal structures are stable and grossly unremarkable. No evidence for hilar prominence. Degenerative changes dorsal spine. IMPRESSION: 1. Improving features of congestive failure.
--- NOTE | 2020-02-19 10:11 | P.PN ---
Subjective Progress Note Date: 02/19/20 This is a 64-year-old female admitted with possible hypertensive emergency, acute hypoxic respiratory failure , acute pulmonary edema , valvular heart disease and multiple other medical issues. Blood pressure better controlled. Maintaining O2 sats in the 90s on 2 L nasal cannula, patient does not wear ox ygen at home. Echo reporting moderate concentric left ventricular hypertrophy, preserved LV function EF 55-60%, hypokinetic mid anterior, mid anterior septal LV wall, moderate mitral regurgitation, mild to moderate mitral stenosis, mild to moderate tricuspid regurgitation, severe pulmonary hypertension. Lasix dose had been increased. Denies chest pain, complains of nonproductive cough. INR 2.7, anticoagulated on Coumadin. Blood sugars controlled. 02/19/20 patient maintained on oral Lasix, with breathing significantly improved. Chest x-ray reporting improvement .Earlier O2 had been practically weaned off, currently maintaining O2 sats in the high 90s on 4 L nasal cannula. Discussed echo findings with patient including valvular disease and severe pulmonary hypertension. Denies any chest pain, palpitations. Congested cough. INR 2. Blood sugars controlled. Telemetry sinus rhythm. Objective - Vital Signs Vital signs: Vital Signs Temp 98 F 02/19/20 04:00 Pulse 67 02/19/20 08:00 Resp 18 02/19/20 08:00 BP 110/53 02/19/20 08:00 Pulse Ox 99 02/19/20 08:00 Intake & Output 02/18/20 02/19/20 02/19/20 18:59 06:59 18:59 Intake Total 600 240 Output Total 4 Balance 596 240 Weight 95.254 kg 100 kg Intake: Oral 600 240 Output: Stool 4 Other: Voiding Method Toilet # Voids 2 2 # Bowel Movements 0 - Exam GENERAL: The patient is alert and oriented x3, no acute distress, sitting up at side of bed HEENT: Pupils are round and equally reacting to light. EOMI. No scleral icterus. No conjunctival pallor. Normocephalic, atraumatic. Oral mucosa moist. CARDIOVASCULAR: S1 and S2 present. No murmurs, rubs, or gallops. PULMONARY: Lungs diminished with fine bibasilar crackles. ABDOMEN: Soft, nontender, nondistended, normoactive bowel sounds. No palpable organomegaly. MUSCULOSKELETAL: No joint swelling or deformity. EXTREMITIES: No cyanosis, clubbing, pedal edema. NEUROLOGICAL: Gross neurological examination did not reveal any focal deficits. SKIN: No rashes. - Labs CBC & Chem 7: 02/19/20 05:44 02/19/20 05:44 Labs: Abnormal Lab Results - Last 24 Hours (Table) 02/18/20 02/18/20 02/19/20 Range/Units 17:19 20:24 05:44 PT 19.9 H (9.0-12.0) sec INR 2.0 H (<1.2) Carbon Dioxide (22-30) mmol/L BUN (7-17) mg/dL Glucose (74-99) mg/dL POC Glucose (mg/dL) 153 H 137 H (75-99) mg/dL 02/19/20 02/19/20 Range/Units 05:44 06:09 PT (9.0-12.0) sec INR (<1.2) Carbon Dioxide 32 H (22-30) mmol/L BUN 24 H (7-17) mg/dL Glucose 127 H (74-99) mg/dL POC Glucose (mg/dL) 124 H (75-99) mg/dL Assessment and Plan Assessment: Hypertensive emergency Acute hypoxic respiratory failure secondary to acute pulmonary edema related to severe pulmonary hypertension Mild cardiomyopathy ,Moderate concentric left ventricular hypertrophy, preserved LV function EF 55-60%, hypokinetic mid anterior, mid anterior septal LV wall. Severe pulmonary hypertension. Mild to moderate tricuspid regurgitation Mild to moderate mitral stenosis Hypertension History of chronic intermittent asthma, COPD History of CVA, TIA History of left atrial appendage thrombus 2013 on chronic anticoagulation Osteoarthritis Plan: Continue on current medication regime ,monitoring and symptomatic treatment. Maximizing medical therapy. Maintained diuresis, close monitoring of renal function,, electrolytes. Increase ambulation as tolerated. Weaning of oxygen in progress. Discharge planning in progress for as soon as tomorrow pending cardiology/pulmonary clearance. The impression and plan of care has been dictated as directed. : I performed a history and examination of this patient, discussed the same with the dictator. I agree with the dictator's note ,documented as a scribe. Any additional findings or plans will be noted.
--- NOTE | 2020-02-19 11:07 | P.PN ---
Subjective This is Mary Ellen Lowery PA-C scribing on behalf of Dr. Lopez The patient was interviewed and examined by Dr. Lopez Chart reviewed HPI/interval history Patient is a 64-year-old female with a history of asthma, COPD, atrial flutter status post ablation, atrial fibrillation, hypertension, diabetes, and mild cardiomyopathy who presented with complaints of sudden onset of shortness of breath. She had shortness of breath 1 day and mild cough. Upon arrival she was hypertensive and chest x-ray showed pulmonary edema so she was treated with a nitro drip and was admitted for further evaluation and workup. She has been on IV Lasix. Her weight appears to be up today compared to yesterday. Blood pressure has improved. She denies any chest pain. EXAMINATION Temperature 98F, pulse 67, respirations 18, blood pressure 110/53, oxygen sat uration 99% on [address] Lopez evaluated the patient Patient appears comfortable Lungs are clear to auscultation bilaterally no crackles Heart is regular No elevated JVD No lower extremity edema REVIEW OF LABS, ECG WBC 9.8, hemoglobin 11.6, platelets 243, potassium 4.4, BUN 24, creatinine 0.92 Patient is sinus rhythm with rates in the 60s Echocardiogram shows moderate concentric LVH, EF 55-60%, midanterior LV hypokinesis, midanterior septal LV hypokinesis, moderate MR, mild to moderate MS, mild to moderate TR, severe pulmonary hypertension IMPRESSION / ASSESSMENT: #1 Dyspnea possibly secondary to acute pulmonary edema from hypertensive emergency versus COPD exacerbation #2 Hypertension, blood pressure has improved #3 History of cardiomyopathy, most recent echo showing EF 55-60%, midanterior LV hypokinesis and midanterior septal hypokinesis which is new from prior echo, she has not been able to tolerate chemical stress test in the past due to nausea and vomiting #4 Diabetes #5 COPD #6 Atrial flutter status post ablation #7 Atrial fibrillation, currently in sinus rhythm #8 Valvular heart disease, moderate MR, mild to moderate MS, mild to moderate TR #9 Severe pulmonary hypertension PLAN: Accurate intake and output, daily weights Add losartan 25 mg daily for cardiomyopathy and diabetes Plan for coronary angiogram with Dr. Moncada tomorrow to evaluate symptoms of sudden onset of shortness of breath and new wall motion abnormalities, since she is not able to tolerate chemical stress test Repeat limited echocardiogram with contrast to reevaluate wall motion abnormalities Hold Coumadin for cath tomorrow Would not recommend flecainide in this patient as patient has history of cardiomyopathy and recent echocardiogram showing wall motion abnormalities Objective - Vital Signs Vital signs: Vital Signs Temp 98 F 02/19/20 04:00 Pulse 67 02/19/20 08:00 Resp 18 02/19/20 08:00 BP 110/53 02/19/20 08:00 Pulse Ox 99 02/19/20 08:00 Intake & Output 02/18/20 02/19/20 02/19/20 18:59 06:59 18:59 Intake Total 600 240 Output Total 4 Balance 596 240 Weight 95.254 kg 100 kg Intake: Oral 600 240 Output: Stool 4 Other: Voiding Method Toilet # Voids 2 2 # Bowel Movements 0 - Labs CBC & Chem 7: 02/19/20 05:44 02/19/20 05:44 Labs: Abnormal Lab Results - Last 24 Hours (Table) 02/18/20 02/18/20 02/19/20 Range/Units 17:19 20:24 05:44 PT 19.9 H (9.0-12.0) sec INR 2.0 H (<1.2) Carbon Dioxide (22-30) mmol/L BUN (7-17) mg/dL Glucose (74-99) mg/dL POC Glucose (mg/dL) 153 H 137 H (75-99) mg/dL 02/19/20 02/19/20 Range/Units 05:44 06:09 PT (9.0-12.0) sec INR (<1.2) Carbon Dioxide 32 H (22-30) mmol/L BUN 24 H (7-17) mg/dL Glucose 127 H (74-99) mg/dL POC Glucose (mg/dL) 124 H (75-99) mg/dL
[2020-02-19] MEDS ORDERED: ALPRAZolam 0.5 MG TAB PO PRN (11:12)
[2020-02-19] MEDS ORDERED: SODIUM CHLORIDE 0.9% 1,000 ML in EMPTY BAG 1 BAG IV ONE (11:12)
[2020-02-19] MEDS ORDERED: ALPRAZolam 0.25 MG TAB PO PRN (11:12)
[2020-02-19] MEDS ORDERED: ATORVASTATIN 80 MG TAB PO STA (11:12)
[2020-02-19] MEDS ORDERED: ASPIRIN 325 MG TAB PO STA (11:12)
[2020-02-19] MEDS ORDERED: NITROGLYCERIN SL TABS 0.4 MG TAB SUBLINGUAL PRN (11:12)
[2020-02-19] MEDS: LOSARTAN 25 MG TAB PO SCH (11:38)
[2020-02-19 11:59] LABS: Glucose,Whole Blood 99 mg/dL (75-99)
--- NOTE | 2020-02-19 12:05 | P.PN ---
Subjective Progress Note Date: 02/19/20 Principal diagnosis: Hypertensive emergency, pulmonary edema This is a 64-year-old female patient of Dr. Renee past medical history of chronic bronchial asthma/COPD not oxygen dependent at baseline, atrial fibrillation/atrial flutter status post ablation, diabetes mellitus type 2, hypertension, osteoarthritis, previous history of CVA with no residual, former smoker, depression, previous history of small thrombus in the left atrial appendage in 2013, patient is on chronic anticoagulation in the form of Coumadin, who came into the emergency department per EMS on all 02/17/2020 for evaluation of acute onset of shortness of breath that started a few hours prior to presentation. She had a mild cough with some white sputum production. She denied any chest pain, she denied any fever, or chills. Patient was given some oxygen and bronchodilators on the way to the hospital. Chest x-ray was obtained showing pulmonary edema, upon arrival to the emergency department her blood pressure was found to be at 172/108, patient was requiring supplemental oxygen at 8 L with a pulse ox of 96%, BNP however was within normal limits, EKG showed sinus mechanism with first-degree AV block with a right bundle branch block pattern and nonspecific ST and T wave changes at a rate of 101 BPM. Patient was started on nitroglycerin drip. Blood pressure has improved, echocardiogram s howed moderate concentric left ventricular hypertrophy with EF of 55-60%, moderate mitral regurg, [id number] tricuspid regurg, severe pulmonary hypertension with right-sided pressures of 60.6 mmHg. Patient has been started on diuretics, she is diuresing. She is feeling better, down to 2 L of oxygen with a pulse ox of 99% blood pressure is 112/73, no cognitive chest pain, she's been afebrile. Continues on oral diuretics. On 02/19/2020 patient seen in follow-up on selective care unit, she is awake and alert, in no acute distress, she is currently on 1-1/2-3 L of oxygen, and her pulse ox is anywhere from 96-100%, she is breathing much easier, no cognitive chest pain, blood pressure is 111/60, patient is afebrile, on sounds reveal some diminished breath sounds at the bases, with mild crackles, follow-up chest x-ray had shown improving features of congestive heart failure, patient continues on oral Lasix to 40 mg daily, she's been diuresed, her breathing easier. Echocardiogram showed preserved LV function with EF of 55-60%, severe pulmonary hypertension with moderate tricuspid regurg, moderate to moderate mitral stenosis. Cardiology is following Objective - Vital Signs Vital signs: Vital Signs Temp 98 F 02/19/20 04:00 Pulse 63 02/19/20 11:33 Resp 16 02/19/20 11:33 BP 111/60 02/19/20 11:33 Pulse Ox 100 02/19/20 11:33 Intake & Output 02/18/20 02/19/20 02/19/20 18:59 06:59 18:59 Intake Total 600 240 Output Total 4 Balance 596 240 Weight 95.254 kg 100 kg Intake: Oral 600 240 Output: Stool 4 Other: Voiding Method Toilet # Voids 2 2 1 # Bowel Movements 0 - Exam GENERAL EXAM: Alert, very pleasant, 64-year-old white female, currently on 3 L of oxygen with a pulse ox of 100% comfortable in no apparent distress. HEAD: Normocephalic/atraumatic. EYES: Normal reaction of pupils, equal size. Conjunctiva pink, sclera white. NOSE: Clear with pink turbinates. THROAT: No erythema or exudates. NECK: No masses, no JVD, no thyroid enlargement, no adenopathy. CHEST: No chest wall deformity. Symmetrical expansion. LUNGS: Equal air entry with basilar crackles CVS: Regular rate and rhythm, normal S1 and S2, no gallops, no murmurs, no rubs ABDOMEN: Soft, nontender. No hepatosplenomegaly, normal bowel sounds, no guarding or rigidity. EXTREMITIES: No clubbing, mild pretibial edema, no cyanosis, 2+ pulses and upper and lower extremities. MUSCULOSKELETAL: Muscle strength and tone normal. SPINE: No scoliosis or deformity SKIN: No rashes CENTRAL NERVOUS SYSTEM: Alert and oriented -3. No focal deficits, tone is normal in all 4 extremities. PSYCHIATRIC: Alert and oriented -3. Appropriate affect. Intact judgment and insight. - Labs CBC & Chem 7: 02/19/20 05:44 02/19/20 05:44 Labs: Abnormal Lab Results - Last 24 Hours (Table) 02/18/20 02/18/20 02/19/20 Range/Units 17:19 20:24 05:44 PT 19.9 H (9.0-12.0) sec INR 2.0 H (<1.2) Carbon Dioxide (22-30) mmol/L BUN (7-17) mg/dL Glucose (74-99) mg/dL POC Glucose (mg/dL) 153 H 137 H (75-99) mg/dL 02/19/20 02/19/20 Range/Units 05:44 06:09 PT (9.0-12.0) sec INR (<1.2) Carbon Dioxide 32 H (22-30) mmol/L BUN 24 H (7-17) mg/dL Glucose 127 H (74-99) mg/dL POC Glucose (mg/dL) 124 H (75-99) mg/dL Assessment and Plan Plan: Assessment: #1. Acute hypoxic respiratory failure related to acute pulmonary edema #2. Hypertensive emergency #3. Valvular heart disease, [id number] mitral regurgitation, and severe tricuspid regurgitation #4. Severe pulmonary hypertension with right-sided pressures of 60.69 mm/hg #5. Hypertension #6. History of asthma/COPD, not oxygen dependent at baseline #7. Former smoker #8. History of atrial flutter/atrial fibrillation status post ablation #9. History of mild cardiomyopathy, LVH, diastolic dysfunction #10. History of left atrial appendage thrombus in 2013 on chronic anticoagulation in the form of Coumadin #11. History of previous CVA/TIA #12. Osteoarthritis Plan: Follow-up chest x-ray reviewed today, showing improvement in the appearance of pulmonary edema and fluid overload, continue weaning FiO2, increase activity as tolerated, blood pressure is under better control, hemodynamically stable, no acute events overnight, patient has been transitioned to oral Lasix, cardiology is working on maximizing medical therapy. We'll continue to follow, from pu lmonary perspective she has much improved, and could be considered for discharge as long has been cleared by cardiology I performed a history & physical examination of the patient and discussed their management with my nurse practitioner, Madison Beauchamp. I reviewed the nurse practitioner's note and agree with the documented findings and plan of care. Lung sounds are positive for diminished breath sounds. The findings and the impression was discussed with the patient. I attest to the documentation by the nurse practitioner. Time with Patient: Less than 30
[2020-02-19] MEDS ORDERED: ACETAMINOPHEN TAB 500 MG TAB PO STA (14:17)
[2020-02-19] MEDS ORDERED: ACETAMINOPHEN TAB 325 MG TAB PO PRN (14:17)
[2020-02-19 16:42] LABS: Glucose,Whole Blood 137 mg/dL (75-99)
[2020-02-19] MEDS ORDERED: WARFARIN 5 MG TAB PO SCH (18:00)
[2020-02-19 20:40] LABS: Glucose,Whole Blood 114 mg/dL (75-99)
[2020-02-19] MEDS: PIOGLITAZONE 45 MG TAB PO SCH ×2 (21:28→21:30)
[2020-02-19] MEDS: MONTELUKAST 10 MG TAB PO SCH (21:28)
[2020-02-19] MEDS: ATORVASTATIN 20 MG TAB PO SCH (21:28)
[2020-02-20] MEDS: metFORMIN 500 MG TAB PO SCH (05:04)
[2020-02-20 06:21] LABS: Glucose,Whole Blood 142 mg/dL (75-99)
[2020-02-20] MEDS: INSULIN ASPART (NovoLOG) 100 UNIT/ML VIAL SQ SCH ×4 (06:39→20:35)
[2020-02-20 06:42] LABS: INR 1.6 (<1.2)
[2020-02-20 06:43] LABS: Prothrombin Time 15.6 sec (9.0-12.0)
[2020-02-20] MEDS: PANTOPRAZOLE 40 MG TABLET PO SCH (06:43)
[2020-02-20] MEDS: ALLOPURINOL 100 MG TAB PO SCH (06:43)
[2020-02-20] MEDS: METOPROLOL TARTRATE 25 MG TAB PO SCH ×2 (06:44→20:20)
[2020-02-20] MEDS: ISOSORBIDE MONONITRATE ER 30 MG TAB.ER.24H PO SCH (06:44)
[2020-02-20] MEDS: LOSARTAN 25 MG TAB PO SCH (06:44)
[2020-02-20] MEDS: SYMBICORT 80-4.5 MCG INHALER INHALATION SCH ×2 (07:57→20:20)
[2020-02-20] MEDS ORDERED: ASPIRIN 325 MG TAB PO STA (08:38)
[2020-02-20] MEDS ORDERED: LIDOCAINE 1% INJ 10MG/ML (20 ML MDV) ONE (08:48)
[2020-02-20] MEDS ORDERED: VERAPAMIL 2.5 MG/ML 2 ML AMP ONE (08:48)
[2020-02-20] MEDS ORDERED: fentaNYL (PF) 50 MCG/ML 2 ML AMP ONE (09:06)
[2020-02-20] MEDS ORDERED: fentaNYL (PF) 50 MCG/ML 2 ML AMP IV ONE (09:11)
[2020-02-20] MEDS ORDERED: MIDAZOLAM 2 MG/2 ML VIAL IV ONE (09:11)
[2020-02-20] MEDS ORDERED: LIDOCAINE 1% INJ 10MG/ML (20 ML MDV) SQ ONE (09:12)
[2020-02-20] MEDS ORDERED: IV FLUID CONTINUATION 900 ML IV ONE (09:13)
[2020-02-20] MEDS ORDERED: HEPARIN SODIUM 1,000 UN/ML (10ML VL) ONE (09:15)
[2020-02-20] MEDS: VERAPAMIL SYRINGE (5 MG/10 ML) INTRAARTER ONE ×2 (09:19→09:29)
[2020-02-20] MEDS ORDERED: HEPARIN SODIUM 1,000 UN/ML (10ML VL) IV ONE (09:20)
[2020-02-20] MEDS ORDERED: IOPAMIDOL-370 125ML BTL INJ ONE (09:28)
--- NOTE | 2020-02-20 09:53 | P.CARDCATH ---
Date of Procedure: 02/20/20 Preoperative Diagnosis: Congestive heart failure, multiple risk factors and possible wall motion abnormality Postoperative Diagnosis: Mild coronary artery disease with Catheter-induced spasm of the right coronary artery Procedure(s) Performed: Left heart catheterization without left ventriculography Description of Procedure: HISTORY: This is a 64-year-old female who was admitted to the hospital with symptoms of shortness of breath and evidence of congestive heart failure. Troponins were negative and EKG did not reveal any acute changes. Echocardiogram showed some suspicious wall motion abnormality involving the mid anterior wall. Patient is advised to have a cardiac catheterization by Dr. Lopez. CONSENT:I have discussed the risks, benefits and alternative therapies for the above-mentioned procedure and for both sedation/analgesia as well as necessary blood product administration, if indicated, as they pertain to this patient. The patient has indicated understanding and acceptance of the risks and procedures discussed. PROCEDURE: Patient was brought to the lab in a fasting state. Patient was given some IV sedation. The right wrist is infiltrated with lidocaine and right radial artery was entered using Seldinger technique. A 6-Eritrean catheter was left in place and selective coronary arteriography was performed. Patient tolerated the procedure well. TR band was applied for hemostasis. No immediate complications were noted and patient was transferred to [facility] in a stable condition Conscious Sedation: Versed 1mg Fentanyl 50 g Duration 19minutes HEMODYNAMICS: The aortic pressure was 140/70. The left ventricle end-diastolic pressure was about 20-25. There was no gradient across the aortic valve SELECTIVE CORONARY ARTERIOGRAPHY: LEFT MAIN: Relatively short and free of occlusive disease THE LEFT ANTERIOR DESCENDING CORONARY ARTERY:. Moderate Caliber vessel giving rise to moderate caliber diagonal branches. There is mild ectasia and plaque in the proximal and mid LAD without any significant focal occlusive disease THE LEFT CIRCUMFLEX AND IS CORONARY ARTERY:. This is a moderate caliber vessel giving rise to small to moderate caliber OM branch. Free of occlusive disease THE RIGHT CORONARY ARTERY:. This is a good caliber vessel and dominant in distribution. This catheter induced spasm in the mid RCA LEFT VENTRICULOGRAPHY: Not performed FINAL IMPRESSION:. Mild coronary artery disease. Elevated end-diastolic pressure PLAN: Maximum medical therapy and this factor modification PROGNOSIS: Fair
--- NOTE | 2020-02-20 10:42 | ECHOF ---
Referral Reason:SOB r/o wall anterior WMA MEASUREMENTS -------- HEIGHT: 157.5 cm WEIGHT: 99.8 kg BP: 110/53 FINDINGS -------- Sinus rhythm. Limited Study Overall left ventricular systolic function is normal with, an EF between 60 - 65 %. No anterior hypo kinesis noted 5.0mg of Lumason was utilized for enhancement of images There is a trivial pericardial effusion present. CONCLUSIONS -------- 1. Sinus rhythm. 2. Limited Study 3. Overall left ventricular systolic function is normal with, an EF between 60 - 65 %. 4. No anterior hypokinesis noted 5. 5.0mg of Lumason was utilized for enhancement of images 6. There is a trivial pericardial effusion present. HONEY PROCESSOR: Chandrika Lindsey RDCS
[2020-02-20] MEDS ORDERED: RX INFO: IV CONTRAST WAS GIVEN 1 EACH MISC MISCELLANE PRN (10:54)
[2020-02-20] MEDS ORDERED: SODIUM CHLORIDE 0.9% 1,000 ML IV SCH (11:00)
[2020-02-20] MEDS: FUROSEMIDE 40 MG TAB PO SCH (11:08)
[2020-02-20] MEDS: VORTIOXETINE HYDROBROMIDE 10 MG TABLET PO SCH (11:08)
--- NOTE | 2020-02-20 11:25 | P.PN ---
Subjective Progress Note Date: 02/20/20 This is a 64-year-old female admitted with possible hypertensive emergency, acute hypoxic respiratory failure , acute pulmonary edema , valvular heart disease and multiple other medical issues. Blood pressure better controlled. Maintaining O2 sats in the 90s on 2 L nasal cannula, patient does not wear ox ygen at home. Echo reporting moderate concentric left ventricular hypertrophy, preserved LV function EF 55-60%, hypokinetic mid anterior, mid anterior septal LV wall, moderate mitral regurgitation, mild to moderate mitral stenosis, mild to moderate tricuspid regurgitation, severe pulmonary hypertension. Lasix dose had been increased. Denies chest pain, complains of nonproductive cough. INR 2.7, anticoagulated on Coumadin. Blood sugars controlled. 02/19/20 patient maintained on oral Lasix, with breathing significantly improved. Chest x-ray reporting improvement .Earlier O2 had been practically weaned off, currently maintaining O2 sats in the high 90s on 4 L nasal cannula. Discussed echo findings with patient including valvular disease and severe pulmonary hypertension. Denies any chest pain, palpitations. Congested cough. INR 2. Blood sugars controlled. Telemetry sinus rhythm. 02/20/2020 Echo suggestive of mid anterior wall motion abnormality. Underwent left cardiac catheterization today reporting mild coronary artery disease with catheter induced spasm of the right coronary artery, elevated end-diastolic pressure. Tolerated procedure well. Maximizing medical therapy, factor modification recommended. Borderline hypotension, maintaining O2 sats in the high 90s on 2 L nasal cannula. Denies chest pain, palpitations or shortness of breath. Occasional nonproductive cough. Telemetry sinus rhythm. INR 1.6. Objective - Vital Signs Vital signs: Vital Signs Temp 98.3 F 02/20/20 07:47 Pulse 59 L 02/20/20 07:47 Resp 16 02/20/20 05:39 BP 113/57 02/20/20 07:47 Pulse Ox 99 02/20/20 07:47 Intake & Output 02/19/20 02/20/20 02/20/20 18:59 06:59 18:59 Intake Total 720 100 Balance 720 100 Weight 99.6 kg Intake: IV 100 Oral 720 Other: # Voids 0 1 - Exam GENERAL: The patient is alert and oriented x3, no acute distress HEENT: Pupils are round and equally reacting to light. EOMI. No scleral icterus. No conjunctival pallor. Normocephalic, atraumatic. CARDIOVASCULAR: S1 and S2 present. No murmurs, rubs, or gallops. PULMONARY: Lungs diminished, essentially clear ABDOMEN: Soft, nontender, nondistended, normoactive bowel sounds. No palpable organomegaly. MUSCULOSKELETAL: No joint swelling or deformity. EXTREMITIES: No cyanosis, clubbing, pedal edema. NEUROLOGICAL: Gross neurological examination did not reveal any focal deficits. SKIN: No rashes. - Labs CBC & Chem 7: 02/19/20 05:44 02/19/20 05:44 Labs: Abnormal Lab Results - Last 24 Hours (Table) 02/19/20 02/19/20 02/20/20 Range/Units 16:35 20:38 06:02 PT 15.6 H (9.0-12.0) sec INR 1.6 H (<1.2) POC Glucose (mg/dL) 137 H 114 H (75-99) mg/dL 02/20/20 Range/Units 06:17 PT (9.0-12.0) sec INR (<1.2) POC Glucose (mg/dL) 142 H (75-99) mg/dL Assessment and Plan Assessment: Hypertensive emergency Acute hypoxic respiratory failure secondary to acute pulmonary edema related to severe pulmonary hypertension Mild cardiomyopathy ,Moderate concentric left ventricular hypertrophy, preserved LV function EF 55-60%, hypokinetic mid anterior, mid anterior septal LV wall. Status post cardiac catheterization reporting mild CAD, elevated end-diastolic pressure. Severe pulmonary hypertension. 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 Plan: Continue on current medication regime ,monitoring and symptomatic treatment. Maximizing medical therapy. Currently on post cardiac catheterization restrictions-increase ambulation as tolerated. Discharge planning in progress ,pending cardiology/pulmonary clearance. The impression and plan of care has been dictated as directed. : I performed a history and examination of this patient, discussed the same with the dictator. I agree with the dictator's note ,documented as a scribe. Any additional findings or plans will be noted.
[2020-02-20 11:30] LABS: Glucose,Whole Blood 177 mg/dL (75-99)
--- NOTE | 2020-02-20 13:53 | P.PN ---
Subjective This is Mary Ellen Lowery PA-C scribing on behalf of Dr. Lopez The patient was interviewed and examined by Dr. Lopez Chart reviewed HPI/interval history Patient is a 64-year-old female with a history of asthma, COPD, atrial flutter status post ablation, atrial fibrillation, hypertension, diabetes, and mild cardiomyopathy who presented with complaints of sudden onset of shortness of breath. She had shortness of breath 1 day and mild cough. Upon arrival she was hypertensive and chest x-ray showed pulmonary edema so she was treated with a nitro drip and was admitted for further evaluation and workup. She has been on IV Lasix. She underwent coronary angiogram today showing mild nonobstructive CAD. She was mildly hypotensive after the procedure and was given fluids. EXAMINATION Patient is afebrile, pulse in the 60s, respirations 16, blood pressure in the 90s over 50s, oxygen saturation 98% on [address] Lopez evaluated the patient Lung sounds are rhonchorous bilaterally, no crackles Heart is regular Mild lower extremity edema bilaterally REVIEW OF LABS, ECG Echocardiogram shows moderate concentric LVH, EF 55-60%, midanterior LV hypokinesis, midanterior septal LV hypokinesis, moderate MR, mild to moderate MS, mild to moderate TR, severe pulmonary hypertension Repeat limited echocardiogram shows normal LV systolic function, no anterior hypokinesis IMPRESSION / ASSESSMENT: #1 Dyspnea possibly secondary to acute pulmonary edema from hypertensive emergency versus COPD exacerbation #2 Hypertension, currently hypotensive #3 History of cardiomyopathy, recent echo showing EF 55-60%, midanterior LV hyp okinesis and midanterior septal hypokinesis, repeat echo w/ contrast shows no anterior hypokinesis #4 Diabetes #5 COPD #6 Atrial flutter status post ablation #7 Atrial fibrillation, currently in sinus rhythm #8 Valvular heart disease, moderate MR, mild to moderate MS, mild to moderate TR #9 Severe pulmonary hypertension #10 mild nonobstructive CAD PLAN: Continue statins, losartan 25 mg daily, metoprolol 25 twice a day Continue to monitor blood pressure Objective - Vital Signs Vital signs: Vital Signs Temp 98.3 F 02/20/20 07:47 Pulse 60 02/20/20 11:30 Resp 16 02/20/20 11:00 BP 90/51 02/20/20 11:30 Pulse Ox 98 02/20/20 11:30 Intake & Output 02/19/20 02/20/20 02/20/20 18:59 06:59 18:59 Intake Total 720 100 Balance 720 100 Weight 99.6 kg Intake: IV 100 Oral 720 Other: # Voids 0 1 - Labs CBC & Chem 7: 02/19/20 05:44 02/19/20 05:44 Labs: Abnormal Lab Results - Last 24 Hours (Table) 02/19/20 02/19/20 02/20/20 Range/Units 16:35 20:38 06:02 PT 15.6 H (9.0-12.0) sec INR 1.6 H (<1.2) POC Glucose (mg/dL) 137 H 114 H (75-99) mg/dL 02/20/20 02/20/20 Range/Units 06:17 11:29 PT (9.0-12.0) sec INR (<1.2) POC Glucose (mg/dL) 142 H 177 H (75-99) mg/dL
[2020-02-20 16:38] LABS: Glucose,Whole Blood 111 mg/dL (75-99)
[2020-02-20] MEDS: PIOGLITAZONE 45 MG TAB PO SCH (20:18)
[2020-02-20] MEDS: MONTELUKAST 10 MG TAB PO SCH (20:20)
[2020-02-20] MEDS: ATORVASTATIN 20 MG TAB PO SCH (20:20)
[2020-02-20 20:26] LABS: Glucose,Whole Blood 173 mg/dL (75-99)
[2020-02-21 06:02] VITALS: RESP 18
[2020-02-21 06:39] LABS: Glucose,Whole Blood 127 mg/dL (75-99)
[2020-02-21] MEDS: INSULIN ASPART (NovoLOG) 100 UNIT/ML VIAL SQ SCH ×2 (06:39→13:05)
[2020-02-21] MEDS: PANTOPRAZOLE 40 MG TABLET PO SCH (06:42)
[2020-02-21 07:48] LABS: Basophils % (A) 0 %; Eosinophils # (A) 0.2 k/uL (0-0.7); Eosinophils % (A) 3 %; HCT 38.2 % (34.0-46.0); HGB 12.3 gm/dL (11.4-16.0); Hypochromasia Slight; Lymphocytes # (A) 1.3 k/uL (1.0-4.8); Lymphocytes % (A) 17 %; MCH 28.1 pg (25.0-35.0); MCHC 32.3 g/dL (31.0-37.0); MCV 87.1 fL (80.0-100.0); Monocytes # (A) 0.5 k/uL (0-1.0); Monocytes % (A) 7 %; Neutrophils # (A) 5.3 k/uL (1.3-7.7); Neutrophils % (A) 72 %; Platelet Count 270 k/uL (150-450); RBC 4.39 m/uL (3.80-5.40); RDW 15.2 % (11.5-15.5); WBC 7.4 k/uL (3.8-10.6)
[2020-02-21 07:51] LABS: INR 1.3 (<1.2); Prothrombin Time 13.2 sec (9.0-12.0)
[2020-02-21 07:56] LABS: African American GFR (CKD) >90 (>60 ml/min/1.73 sqM); Anion Gap 6 mmol/L; Blood Urea Nitrogen 18 mg/dL (7-17); Calcium 8.9 mg/dL (8.4-10.2); Carbon Dioxide 32 mmol/L (22-30); Chloride 100 mmol/L (98-107); Glucose 123 mg/dL (74-99); Non-African American GFR(CKD) 88 (>60 ml/min/1.73 sqM); Potassium 4.3 mmol/L (3.5-5.1); Sodium 138 mmol/L (137-145)
[2020-02-21] MEDS: FUROSEMIDE 40 MG TAB PO SCH (08:11)
[2020-02-21] MEDS: LOSARTAN 25 MG TAB PO SCH (08:11)
[2020-02-21] MEDS: ISOSORBIDE MONONITRATE ER 30 MG TAB.ER.24H PO SCH (08:11)
[2020-02-21] MEDS: ALLOPURINOL 100 MG TAB PO SCH (08:11)
[2020-02-21] MEDS: METOPROLOL TARTRATE 25 MG TAB PO SCH (08:11)
[2020-02-21] MEDS: VORTIOXETINE HYDROBROMIDE 10 MG TABLET PO SCH (08:12)
[2020-02-21] MEDS: SYMBICORT 80-4.5 MCG INHALER INHALATION SCH (08:20)
[2020-02-21] MEDS ORDERED: FUROSEMIDE 10 MG/ML 4 ML VIAL IV STA (09:26)
--- NOTE | 2020-02-21 11:20 | P.PN ---
Subjective Progress Note Date: 02/21/20 Principal diagnosis: Hypertensive emergency, pulmonary edema This is a 64-year-old female patient of Dr. Renee past medical history of chronic bronchial asthma/COPD not oxygen dependent at baseline, atrial fibrillation/atrial flutter status post ablation, diabetes mellitus type 2, hypertension, osteoarthritis, previous history of CVA with no residual, former smoker, depression, previous history of small thrombus in the left atrial appendage in 2013, patient is on chronic anticoagulation in the form of Coumadin, who came into the emergency department per EMS on all 02/17/2020 for evaluation of acute onset of shortness of breath that started a few hours prior to presentation. She had a mild cough with some white sputum production. She denied any chest pain, she denied any fever, or chills. Patient was given some oxygen and bronchodilators on the way to the hospital. Chest x-ray was obtained showing pulmonary edema, upon arrival to the emergency department her blood pressure was found to be at 172/108, patient was requiring supplemental oxygen at 8 L with a pulse ox of 96%, BNP however was within normal limits, EKG showed sinus mechanism with first-degree AV block with a right bundle branch block pattern and nonspecific ST and T wave changes at a rate of 101 BPM. Patient was started on nitroglycerin drip. Blood pressure has improved, echocardiogram s howed moderate concentric left ventricular hypertrophy with EF of 55-60%, moderate mitral regurg, [id number] tricuspid regurg, severe pulmonary hypertension with right-sided pressures of 60.6 mmHg. Patient has been started on diuretics, she is diuresing. She is feeling better, down to 2 L of oxygen with a pulse ox of 99% blood pressure is 112/73, no cognitive chest pain, she's been afebrile. Continues on oral diuretics. On 02/19/2020 patient seen in follow-up on selective care unit, she is awake and alert, in no acute distress, she is currently on 1-1/2-3 L of oxygen, and her pulse ox is anywhere from 96-100%, she is breathing much easier, no cognitive chest pain, blood pressure is 111/60, patient is afebrile, on sounds reveal some diminished breath sounds at the bases, with mild crackles, follow-up chest x-ray had shown improving features of congestive heart failure, patient continues on oral Lasix to 40 mg daily, she's been diuresed, her breathing easier. Echocardiogram showed preserved LV function with EF of 55-60%, severe pulmonary hypertension with moderate tricuspid regurg, moderate to moderate mitral stenosis. Cardiology is following On 02/21/2020 patient seen in follow-up on selective care unit, she is calm and comfortable, denies any shortness of breath, room air pulse ox of 90%, no complete chest pain, hemodynamically stable, she is afebrile, patient had heart catheterization yesterday which showed mild coronary artery disease and medical management was recommended. She remains on a daily dose of oral Lasix, no worsening dyspnea, today's labs have been reviewed showing CBC within normal limits, INR was 1.3, sodium was 138, potassium is 4.3, chloride was 100, CO2 32, BUN of 18 creatinine 0.73. Objective - Vital Signs Vital signs: Vital Signs Temp 98.0 F 02/21/20 08:00 Pulse 56 L 02/21/20 10:42 Resp 18 02/21/20 10:42 BP 99/58 02/21/20 10:42 Pulse Ox 98 02/21/20 10:42 Intake & Output 02/20/20 02/21/20 02/21/20 18:59 06:59 18:59 Intake Total 400 180 Balance 400 180 Weight 99.7 kg Intake: IV 100 Oral 300 180 Other: Voiding Method Toilet # Voids 1 - Exam GENERAL EXAM: Alert, very pleasant, 64-year-old white female, currently on room air with a pulse ox of 98% HEAD: Normocephalic/atraumatic. EYES: Normal reaction of pupils, equal size. Conjunctiva pink, sclera white. NOSE: Clear with pink turbinates. THROAT: No erythema or exudates. NECK: No masses, no JVD, no thyroid enlargement, no adenopathy. CHEST: No chest wall deformity. Symmetrical expansion. LUNGS: Equal air entry with basilar crackles CVS: Regular rate and rhythm, normal S1 and S2, no gallops, no murmurs, no rubs ABDOMEN: Soft, nontender. No hepatosplenomegaly, normal bowel sounds, no guarding or rigidity. EXTREMITIES: No clubbing, mild pretibial edema, no cyanosis, 2+ pulses and upper and lower extremities. MUSCULOSKELETAL: Muscle strength and tone normal. SPINE: No scoliosis or deformity SKIN: No rashes CENTRAL NERVOUS SYSTEM: Alert and oriented -3. No focal deficits, tone is normal in all 4 extremities. PSYCHIATRIC: Alert and oriented -3. Appropriate affect. Intact judgment and insight. - Labs CBC & Chem 7: 02/21/20 07:15 02/21/20 07:15 Labs: Abnormal Lab Results - Last 24 Hours (Table) 02/20/20 02/20/20 02/20/20 Range/Units 11:29 16:36 20:25 PT (9.0-12.0) sec INR (<1.2) Carbon Dioxide (22-30) mmol/L BUN (7-17) mg/dL Glucose (74-99) mg/dL POC Glucose (mg/dL) 177 H 111 H 173 H (75-99) mg/dL 02/21/20 02/21/20 02/21/20 Range/Units 06:37 07:15 07:15 PT 13.2 H (9.0-12.0) sec INR 1.3 H (<1.2) Carbon Dioxide 32 H (22-30) mmol/L BUN 18 H (7-17) mg/dL Glucose 123 H (74-99) mg/dL POC Glucose (mg/dL) 127 H (75-99) mg/dL Assessment and Plan Plan: Assessment: #1. Acute hypoxic respiratory failure related to acute pulmonary edema #2. Hypertensive emergency #3. Valvular heart disease, [id number] mitral regurgitation, and severe tricuspid regurgitation #4. Severe pulmonary hypertension with right-sided pressures of 60.69 mm/hg #5. Hypertension #6. History of asthma/COPD, not oxygen dependent at baseline #7. Former smoker #8. History of atrial flutter/atrial fibrillation status post ablation #9. History of mild cardiomyopathy, LVH, diastolic dysfunction #10. History of left atrial appendage thrombus in 2014 on chronic antico agulation in the form of Coumadin #11. History of previous CVA/TIA #12. Osteoarthritis Plan: Continue current medical treatment, continue following with cardiology recommendations, no worsening dyspnea, room air pulse ox 98%, no complains of chest pain, cardiology is following, and medical treatment is being optimized. From pulmonary perspective patient can be considered for discharge home when cleared by cardiology I performed a history & physical examination of the patient and discussed their management with my nurse practitioner, Madison Beauchamp. I reviewed the nurse practitioner's note and agree with the documented findings and plan of care. Lung sounds are positive for diminished breath sounds. The findings and the impression was discussed with the patient. I attest to the documentation by the nurse practitioner. Time with Patient: Less than 30
[2020-02-21 12:01] LABS: Glucose,Whole Blood 135 mg/dL (75-99)
--- NOTE | 2020-02-21 13:16 | P.PN ---
Subjective Progress Note Date: 02/21/20 This is a 64-year-old female admitted with possible hypertensive emergency, acute hypoxic respiratory failure , acute pulmonary edema , valvular heart disease and multiple other medical issues. Blood pressure better controlled. Maintaining O2 sats in the 90s on 2 L nasal cannula, patient does not wear ox ygen at home. Echo reporting moderate concentric left ventricular hypertrophy, preserved LV function EF 55-60%, hypokinetic mid anterior, mid anterior septal LV wall, moderate mitral regurgitation, mild to moderate mitral stenosis, mild to moderate tricuspid regurgitation, severe pulmonary hypertension. Lasix dose had been increased. Denies chest pain, complains of nonproductive cough. INR 2.7, anticoagulated on Coumadin. Blood sugars controlled. 02/19/20 patient maintained on oral Lasix, with breathing significantly improved. Chest x-ray reporting improvement .Earlier O2 had been practically weaned off, currently maintaining O2 sats in the high 90s on 4 L nasal cannula. Discussed echo findings with patient including valvular disease and severe pulmonary hypertension. Denies any chest pain, palpitations. Congested cough. INR 2. Blood sugars controlled. Telemetry sinus rhythm. 02/20/2020 Echo suggestive of mid anterior wall motion abnormality. Underwent left cardiac catheterization today reporting mild coronary artery disease with catheter induced spasm of the right coronary artery, elevated end-diastolic pressure. Tolerated procedure well. Maximizing medical therapy, factor modification recommended. Borderline hypotension, maintaining O2 sats in the high 90s on 2 L nasal cannula. Denies chest pain, palpitations or shortness of breath. Occasional nonproductive cough. Telemetry sinus rhythm. INR 1.6. 02/21/20 complains of exertional shortness of breath. Denies chest pain but reports midsternal chest pressure earlier this morning. O2 sat on room air aft er ambulation 98%. Afebrile, normal WBC. Maximizing medical therapy post cardiac catheterization. Systolic blood pressure borderline hypotensive. INR 1.3. Objective - Vital Signs Vital signs: Vital Signs Temp 98.0 F 02/21/20 08:00 Pulse 56 L 02/21/20 10:42 Resp 18 02/21/20 10:42 BP 99/58 02/21/20 10:42 Pulse Ox 98 02/21/20 10:42 Intake & Output 02/20/20 02/21/20 02/21/20 18:59 06:59 18:59 Intake Total 400 180 Balance 400 180 Weight 99.7 kg Intake: IV 100 Oral 300 180 Other: Voiding Method Toilet # Voids 1 - Exam GENERAL: The patient is alert and oriented x3, sitting up at side of bed, mild increased respiratory effort HEENT: Pupils are round and equally reacting to light. EOMI. No scleral icterus. No conjunctival pallor. Normocephalic, atraumatic. CARDIOVASCULAR: S1 and S2 present. No murmurs, rubs, or gallops. PULMONARY: Lungs diminished, occasional fine bibasilar crackles ABDOMEN: Soft, nontender, nondistended, normoactive bowel sounds. No palpable organomegaly. MUSCULOSKELETAL: No joint swelling or deformity. EXTREMITIES: No cyanosis, clubbing, pedal edema. NEUROLOGICAL: Gross neurological examination did not reveal any focal deficits. SKIN: No rashes. - Labs CBC & Chem 7: 02/21/20 07:15 02/21/20 07:15 Labs: Abnormal Lab Results - Last 24 Hours (Table) 02/20/20 02/20/20 02/21/20 Range/Units 16:36 20:25 06:37 PT (9.0-12.0) sec INR (<1.2) Carbon Dioxide (22-30) mmol/L BUN (7-17) mg/dL Glucose (74-99) mg/dL POC Glucose (mg/dL) 111 H 173 H 127 H (75-99) mg/dL 02/21/20 02/21/20 02/21/20 Range/Units 07:15 07:15 11:38 PT 13.2 H (9.0-12.0) sec INR 1.3 H (<1.2) Carbon Dioxide 32 H (22-30) mmol/L BUN 18 H (7-17) mg/dL Glucose 123 H (74-99) mg/dL POC Glucose (mg/dL) 135 H (75-99) mg/dL Assessment and Plan Assessment: Hypertensive emergency Acute hypoxic respiratory failure secondary to acute pulmonary edema related to severe pulmonary hypertension Mild cardiomyopathy ,Moderate concentric left ventricular hypertrophy, preserved LV function EF 55-60%, hypokinetic mid anterior, mid anterior septal LV wall. Status post cardiac catheterization reporting mild CAD, elevated end-diastolic pressure. Severe pulmonary hypertension. 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 Plan: Continue on current medication regime ,monitoring and symptomatic treatment. Additional Lasix 40 IV push 1 .Maximizing medical therapy. Discharge planning in progress ,pending cardiology/pulmonary clearance. The impression and plan of care has been dictated as directed. : I performed a history and examination of this patient, discussed the same with the dictator. I agree with the dictator's note ,documented as a scribe. Any additional findings or plans will be noted.
[2020-02-21 13:17] VITALS: BMI 40.1
--- NOTE | 2020-02-21 15:13 | P.DS ---
Providers Date of admission: 02/17/20 05:12 Expected date of discharge: 02/21/20 Attending physician: Joey Pulliam MD Consults: 02/17/20 05:10 Consult Physician Routine Consulting Provider: Eric Yepez Consult Reason/Comments: Hypertensive emergency with congestive heart failure. Do you want consulting provider notified?: Yes 02/18/20 08:23 Consult Physician Routine Consulting Provider: Cristóbal Wolfe Consult Reason/Comments: pulmonary edema Do you want consulting provider notified?: Yes Primary care physician: Kelley Renee [facility] Course: Final diagnoses Hypertensive emergency Acute hypoxic respiratory failure secondary to acute pulmonary edema related to severe pulmonary hypertension Mild cardiomyopathy ,Moderate concentric left ventricular hypertrophy, preserved LV function EF 55-60%, hypokinetic mid anterior, mid anterior septal LV wall. Status post cardiac catheterization reporting mild CAD, elevated end-diastolic pressure. Severe pulmonary hypertension. 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 Hospital course:This is a 64-year-old female admitted with possible hypertensive emergency, acute hypoxic respiratory failure , acute pulmonary edema , valvular heart disease and multiple other medical issues. Blood pressure better controlled. Maintaining O2 sats in the 90s on 2 L nasal cannula, patient does not wear oxygen at home. Echo reporting moderate concentric left ventricular hypertrophy, preserved LV function EF 55-60%, hypokinetic mid anterior, mid anterior septal LV wall, moderate mitral regurgitation, mild to moderate mitral stenosis, mild to moderate tricuspid regurgitation, severe pulmonary hypertension. Lasix dose had been increased. Denies chest pain, complains of nonproductive cough. INR 2.7, anticoagulated on Coumadin. Blood sugars controlled. 02/19/20 patient maintained on oral Lasix, with breathing significantly improved. Chest x-ray reporting improvement .Earlier O2 had been practically weaned off, currently maintaining O2 sats in the high 90s on 4 L nasal cannula. Discussed echo findings with patient including valvular disease and severe pulmonary hypertension. Denies any chest pain, palpitations. Congested cough. INR 2. Blood sugars controlled. Telemetry sinus rhythm. 02/20/2020 Echo suggestive of mid anterior wall motion abnormality. Underwent left cardiac catheterization today reporting mild coronary artery disease with catheter induced spasm of the right coronary artery, elevated end-diastolic pressure. Tolerated procedure well. Maximizing medical therapy, factor modification recommended. Borderline hypotension, maintaining O2 sats in the high 90s on 2 L nasal cannula. Denies chest pain, palpitations or shortness of breath. Occasional nonproductive cough. Telemetry sinus rhythm. INR 1.6. 02/21/20 complains of exertional shortness of breath. Denies chest pain but reports midsternal chest pressure earlier this morning. O2 sat on room air after ambulation 98%. Afebrile, normal WBC. Maximizing medical therapy post cardiac catheterization. Systolic blood pressure borderline hypotensive. INR 1.3. Significant clinical improvement .Patient has been cleared by pulmonary pending cardiology's clearance. Patient will be discharged home today pending final DC clearance/recommendations/follow-up from cardiology, in a stable condition with guarded prognosis. The impression and plan of care has been dictated as directed. : I performed a history and examination of this patient, discussed the same with the dictator. I agree with the dictator's note ,documented as a scribe. Any additional findings or plans will be noted. Patient Condition at Discharge: Stable Plan - Discharge Summary New Discharge Prescriptions: New Losartan [Cozaar] 25 mg PO DAILY #30 tab Furosemide [Lasix] 40 mg PO BID #60 tablet Continue Montelukast [Singulair] 10 mg PO HS Isosorbide Mononitrate [Imdur] 30 mg PO DAILY Warfarin [Coumadin] 2.5 mg PO SUMOWETHFRSA Metoprolol Tartrate [Lopressor] 25 mg PO BID Pioglitazone [Actos] 45 mg PO HS Fluticasone/Salmeterol [Advair 250-50 Diskus] 1 puff INHALATION RT-BID Simvastatin [Zocor] 40 mg PO DAILY Omeprazole 40 mg PO DAILY Vortioxetine Hydrobromide [Trintellix] 10 mg PO DAILY Mirtazapine 45 mg PO HS Liraglutide [Victoza 3-Adam] 1.8 mg SQ HS busPIRone HCl [Buspar] 10 mg PO Q6H PRN PRN Reason: Anxiety Benztropine Mesylate 0.5 mg PO BID Allopurinol [Zyloprim] 100 mg PO DAILY metFORMIN HCL [Glucophage] 1,000 mg PO DAILY Warfarin [Coumadin] 5 mg PO TU Discontinued Furosemide [Lasix] 40 mg PO DAILY Flecainide Acetate 100 mg PO BID Discharge Medication List Isosorbide Mononitrate [Imdur] 30 mg PO DAILY 09/10/14 [History] Montelukast [Singulair] 10 mg PO HS 09/10/14 [History] Metoprolol Tartrate [Lopressor] 25 mg PO BID 10/01/14 [History] Warfarin [Coumadin] 2.5 mg PO SUMOWETHFRSA 10/01/14 [History] Pioglitazone [Actos] 45 mg PO HS 11/03/15 [History] Fluticasone/Salmeterol [Advair 250-50 Diskus] 1 puff INHALATION RT-BID 02/24/17 [History] Omeprazole 40 mg PO DAILY 04/24/17 [History] Simvastatin [Zocor] 40 mg PO DAILY 04/24/17 [History] Vortioxetine Hydrobromide [Trintellix] 10 mg PO DAILY 07/18/17 [History] Allopurinol [Zyloprim] 100 mg PO DAILY 02/17/20 [History] Benztropine Mesylate 0.5 mg PO BID 02/17/20 [History] Liraglutide [Victoza 3-Adam] 1.8 mg SQ HS 02/17/20 [History] Mirtazapine 45 mg PO HS 02/17/20 [History] Warfarin [Coumadin] 5 mg PO TU 02/17/20 [History] busPIRone HCl [Buspar] 10 mg PO Q6H PRN 02/17/20 [History] metFORMIN HCL [Glucophage] 1,000 mg PO DAILY 02/17/20 [History] Furosemide [Lasix] 40 mg PO BID #60 tablet 02/21/20 [Rx] Losartan [Cozaar] 25 mg PO DAILY #30 tab 02/21/20 [Rx] Follow up Appointment(s)/Referral(s): Joey Pulliam MD [STAFF PHYSICIAN] - 02/22/20 Ambulatory/Diagnostic Orders: Prothrombin Time INR [LAB.AMB] Time Frame: 3 Days, Location: None Selected Activity/Diet/Wound Care/Special Instructions: Confirm cardiology final DC recommendations/clearance/follow-up appointment prior to discharge
--- NOTE | 2020-02-21 15:15 | P.PN ---
Subjective This is Mary Ellen Lowery PA-C dictating a progress note on this patient The patient was interviewed and examined by me as well as by Dr. Lopez Case discussed with Dr. Lopez and he agrees with the plan of care HPI/interval history Patient is a 64-year-old female with a history of asthma, COPD, atrial flutter status post ablation, atrial fibrillation, hypertension, diabetes, and mild cardiomyopathy who presented with complaints of sudden onset of shortness of breath. She had shortness of breath 1 day and mild cough. Upon arrival she was hypertensive and chest x-ray showed pulmonary edema so she was treated with a nitro drip and was admitted for further evaluation and workup. She has been on IV Lasix. She underwent coronary angiogram yesterday showing mild nonobstructive CAD. Yesterday she was a bit hypotensive but today her blood pressure has improved. She is overall feeling better but continues to complain of some shortness of breath. Also complaining of a dry cough and" rattle in her chest". No chest pain. No dizziness. EXAMINATION Patient is afebrile, pulse in the 50s, respirations 18, blood pressure 107/51, o xygen saturation 98% on room air Patient seen and examined resting in bed, in no acute distress Lungs mildly diminished with few crackles on the left Heart is regular Extremities warm, no edema REVIEW OF LABS, ECG WBC 7.4, hemoglobin 12.3, platelets 270, potassium 4.3, BUN 18, creatinine 0.73 Echocardiogram shows moderate concentric LVH, EF 55-60%, midanterior LV hypokinesis, midanterior septal LV hypokinesis, moderate MR, mild to moderate MS, mild to moderate TR, severe pulmonary hypertension Repeat limited echocardiogram shows normal LV systolic function, no anterior hypokinesis IMPRESSION / ASSESSMENT: #1 Dyspnea possibly secondary to acute pulmonary edema from hypertensive emergency versus COPD exacerbation #2 Hypertension, currently hypotensive #3 History of cardiomyopathy, recent echo showing EF 55-60%, midanterior LV hypokinesis and midanterior septal hypokinesis, repeat echo w/ contrast shows no anterior hypokinesis #4 Diabetes #5 COPD #6 Atrial flutter status post ablation #7 Atrial fibrillation, currently in sinus rhythm #8 Valvular heart disease, moderate MR, mild to moderate MS, mild to moderate TR #9 Severe pulmonary hypertension #10 mild nonobstructive CAD PLAN: Continue current cardiac medication regimen including data blockers, South inhibitors, and Lasix Continue statins Resume anticoagulation with Coumadin Check PT/INR in 3 days From a cardiology standpoint she is stable for discharge, follow-up outpatient with primary customer care specialist Objective - Vital Signs Vital signs: Vital Signs Temp 98.0 F 02/21/20 08:00 Pulse 58 L 02/21/20 12:30 Resp 18 02/21/20 12:30 BP 107/51 02/21/20 12:30 Pulse Ox 98 02/21/20 12:30 Intake & Output 02/20/20 02/21/20 02/21/20 18:59 06:59 18:59 Intake Total 400 540 Balance 400 540 Weight 99.7 kg 99.7 kg Intake: IV 100 Oral 300 540 Other: Voiding Method Toilet # Voids 1 2 - Labs CBC & Chem 7: 02/21/20 07:15 02/21/20 07:15 Labs: Abnormal Lab Results - Last 24 Hours (Table) 02/20/20 02/20/20 02/21/20 Range/Units 16:36 20:25 06:37 PT (9.0-12.0) sec INR (<1.2) Carbon Dioxide (22-30) mmol/L BUN (7-17) mg/dL Glucose (74-99) mg/dL POC Glucose (mg/dL) 111 H 173 H 127 H (75-99) mg/dL 02/21/20 02/21/20 02/21/20 Range/Units 07:15 07:15 11:38 PT 13.2 H (9.0-12.0) sec INR 1.3 H (<1.2) Carbon Dioxide 32 H (22-30) mmol/L BUN 18 H (7-17) mg/dL Glucose 123 H (74-99) mg/dL POC Glucose (mg/dL) 135 H (75-99) mg/dL
[2020-02-21 15:37] VITALS: BP 108/57; PULSE 66; TEMP 96.2
[2020-02-21] MEDS ORDERED: WARFARIN 2.5 MG TAB PO SCH (18:00)
== END 2020-02-21 15:55 | disposition home or self-care (01) | DRG 286 ==
LOC: EC 03:21 → SUPCPDRO 03:21 → 3SCARD 05:12
PROVIDERS: ADMIT Family Medicine; ATTEND Family Medicine
PROC: 4A023N7 Measurement of Cardiac Sampling and Pressure, Left Heart, Percutaneous Approach (ICD-10-PCS; principal; 2020-02-20 09:00)
PROC: B211YZZ Fluoroscopy of Multiple Coronary Arteries using Other Contrast (ICD-10-PCS; principal; 2020-02-20 09:00)
DX: I16.1 Hypertensive emergency (principal); J96.01 Acute respiratory failure with hypoxia; J81.0 Acute pulmonary edema; I42.9 Cardiomyopathy, unspecified; I20.1 Angina pectoris with documented spasm; J44.1 Chronic obstructive pulmonary disease with (acute) exacerbation; Z68.41 Body mass index [BMI] 40.0-44.9, adult; I25.10 Atherosclerotic heart disease of native coronary artery without angina pectoris; I08.1 Rheumatic disorders of both mitral and tricuspid valves; F32.9 Major depressive disorder, single episode, unspecified; E78.5 Hyperlipidemia, unspecified; E66.9 Obesity, unspecified; I45.10 Unspecified right bundle-branch block; I27.23 Pulmonary hypertension due to lung diseases and hypoxia; I50.9 Heart failure, unspecified; I11.0 Hypertensive heart disease with heart failure; M19.90 Unspecified osteoarthritis, unspecified site; I95.9 Hypotension, unspecified; E11.9 Type 2 diabetes mellitus without complications; I44.0 Atrioventricular block, first degree; J45.20 Mild intermittent asthma, uncomplicated; I48.91 Unspecified atrial fibrillation; Z20.828 Contact with and (suspected) exposure to other viral communicable diseases; Z79.01 Long term (current) use of anticoagulants; Z79.4 Long term (current) use of insulin; Z79.899 Other long term (current) drug therapy; Z80.8 Family history of malignant neoplasm of other organs or systems; Z86.73 Personal history of transient ischemic attack (TIA), and cerebral infarction without residual deficits; Z87.891 Personal history of nicotine dependence; Z90.710 Acquired absence of both cervix and uterus; Z82.49 Family history of ischemic heart disease and other diseases of the circulatory system
CPT/HCPCS: 36415; 71045; 71046; 80048; 80053; 83735; 83880; 84484; 85025; 85379; 85610; 85730; 87635; 93005; 93306; 93308; 93458; 94640; 96365; 96366; 96374; 99291

== ENCOUNTER 2020-06-22 12:29 | Inpatient (IN) | payer MEDICARE ==
--- NOTE | 2020-06-22 13:28 | ED ---
General Adult HPI - General Chief complaint: Arrhythmia/Palpitations Stated complaint: SOB Afib Time Seen by Provider: 06/22/20 12:50 Source: patient, RN notes reviewed Mode of arrival: ambulatory Limitations: no limitations - History of Present Illness Initial comments: Patient is a pleasant 64-year-old female presenting to the emergency Department with palpitations. Symptoms have been occurring for the past couple of weeks. Patient did see her videotape sales representative and was told she was back in atrial fibrillation. They were discussing possible cardiac ablation. Patient does have fatigue and some mild dyspnea. No leg swelling. Patient is on Coumadin. Patient states she is also having some tightness in her chest. - Related Data Home Medications Medication Instructions Recorded Confirmed Isosorbide Mononitrate [Imdur] 30 mg PO DAILY 09/10/14 02/17/20 Montelukast [Singulair] 10 mg PO HS 09/10/14 02/17/20 Metoprolol Tartrate [Lopressor] 25 mg PO BID 10/01/14 02/17/20 Warfarin [Coumadin] 2.5 mg PO SUMOWETHFRSA 10/01/14 02/17/20 Pioglitazone [Actos] 45 mg PO HS 11/03/15 02/17/20 Fluticasone/Salmeterol [Advair 1 puff INHALATION RT-BID 02/24/17 02/17/20 250-50 Diskus] Omeprazole 40 mg PO DAILY 04/24/17 02/17/20 Simvastatin [Zocor] 40 mg PO DAILY 04/24/17 02/17/20 Vortioxetine Hydrobromide 10 mg PO DAILY 07/18/17 02/17/20 [Trintellix] Benztropine Mesylate 0.5 mg PO BID 02/17/20 02/17/20 Liraglutide [Victoza 3-Adam] 1.8 mg SQ HS 02/17/20 02/17/20 Mirtazapine 45 mg PO HS 02/17/20 02/17/20 Warfarin [Coumadin] 5 mg PO TU 02/17/20 02/17/20 allopurinoL [Zyloprim] 100 mg PO DAILY 02/17/20 02/17/20 busPIRone HCl [Buspar] 10 mg PO Q6H PRN 02/17/20 02/17/20 metFORMIN HCL [Glucophage] 1,000 mg PO DAILY 02/17/20 02/17/20 Previous Rx's Medication Instructions Recorded Furosemide [Lasix] 40 mg PO BID #60 tablet 02/21/20 Losartan [Cozaar] 25 mg PO DAILY #30 tab 02/21/20 Allergies Allergy/AdvReac Type Severity Reaction Status Date / Time meperidine HCl [From Demerol] AdvReac Nausea & Verified 06/22/20 12:46 Vomiting Review of Systems ROS Statement: Those systems with pertinent positive or pertinent negative responses have been documented in the HPI. ROS Other: All systems not noted in ROS Statement are negative. Constitutional: Denies: fever Eyes: Denies: eye pain ENT: Denies: ear pain Respiratory: Reports: as per HPI, dyspnea. Denies: cough Cardiovascular: Reports: as per HPI, chest pain, palpitations Endocrine: Reports: fatigue Gastrointestinal: Denies: abdominal pain Genitourinary: Denies: dysuria Musculoskeletal: Denies: back pain Skin: Denies: rash Neurological: Denies: weakness Past Medical History Past Medical History: Atrial Fibrillation, Atrial Flutter, Asthma, COPD, CVA/TIA, Diabetes Mellitus, Hyperlipidemia, Hypertension, Osteoarthritis (OA) Additional Past Medical History / Comment(s): intracardiac thrombus 2013, SOB with exertion, stroke in 1998-no residual effects, History of Any Multi-Drug Resistant Organisms: None Reported Past Surgical History: Appendectomy, Breast Surgery, Cardiac Ablation, EPS, Heart Catheterization, Hysterectomy, Orthopedic Surgery, Tubal Ligation Additional Past Surgical History / Comment(s): ARTEMIO, ADDIE carpal tunnel release,Trigger finger & thumb surgery; cardioversion, breast biopsy, Left shoulder sx. Past Anesthesia/Blood Transfusion Reactions: No Reported Reaction, Motion Sickness Past Psychological History: Depression Past Alcohol Use History: Rare Past Drug Use History: None Reported - Past Family History Mother Family Medical History: Liver Disease Additional Family Medical History / Comment(s): cirrhosis of liver Father Family Medical History: Cancer Additional Family Medical History / Comment(s): throat cancer Daughter(s) Additional Family Medical History / Comment(s): HEART VALVE REPLACEMENT (Aorta) Son(s) Family Medical History: CVA/TIA Additional Family Medical History / Comment(s): One son, had multiple strokes in a row General Exam Limitations: no limitations General appearance: alert, in no apparent distress Head exam: Present: normocephalic Eye exam: Present: normal appearance Neck exam: Present: normal inspection Respiratory exam: Present: normal lung sounds bilaterally Cardiovascular Exam: Present: tachycardia GI/Abdominal exam: Present: soft. Absent: tenderness Extremities exam: Present: normal inspection. Absent: pedal edema, calf tenderness Neurological exam: Present: alert Psychiatric exam: Present: normal affect, normal mood Skin exam: Present: normal color Course Vital Signs 06/22/20 06/22/20 12:40 13:54 Temperature 97.8 F Pulse Rate 130 H 126 H Respiratory 18 18 Rate Blood Pressure 129/88 107/76 O2 Sat by Pulse 100 98 Oximetry EKG Findings - EKG Comments: EKG Findings:: Neuro complex tachycardia with rate of 129. ID 80. QRS 102. QT 310. QTc 454. Right axis. Incomplete right bundle-branch block. Nonspecific T waves. Medical Decision Making - Medical Decision Making Patient reevaluated and updated. Case was discussed in detail with Dr. Irizarry, covering for Dr. Colin, who admits for Dr. Renee. Patient is therapeutic on Coumadin. Patient was started on Cardizem drip. - Lab Data Result diagrams: 06/22/20 13:27 06/22/20 13:27 Lab Results 06/22/20 06/22/20 06/22/20 Range/Units 13:27 13:27 13:27 WBC 9.8 (3.8-10.6) k/uL RBC 5.15 (3.80-5.40) m/uL Hgb 13.6 (11.4-16.0) gm/dL Hct 43.2 (34.0-46.0) % MCV 83.8 (80.0-100.0) fL MCH 26.3 (25.0-35.0) pg MCHC 31.4 (31.0-37.0) g/dL RDW 15.5 (11.5-15.5) % Plt Count 324 (150-450) k/uL Neutrophils % 70 % Lymphocytes % 20 % Monocytes % 6 % Eosinophils % 2 % Basophils % 1 % Neutrophils # 6.9 (1.3-7.7) k/uL Lymphocytes # 1.9 (1.0-4.8) k/uL Monocytes # 0.6 (0-1.0) k/uL Eosinophils # 0.2 (0-0.7) k/uL Basophils # 0.1 (0-0.2) k/uL Hypochromasia Slight PT 24.1 H (9.0-12.0) sec INR 2.5 H (<1.2) APTT 33.0 H (22.0-30.0) sec Sodium 140 (137-145) mmol/L Potassium 4.3 (3.5-5.1) mmol/L Chloride 103 (98-107) mmol/L Carbon Dioxide 26 (22-30) mmol/L Anion Gap 11 mmol/L BUN 12 (7-17) mg/dL Creatinine 0.77 (0.52-1.04) mg/dL Est GFR (CKD-EPI)AfAm >90 (>60 ml/min/1.73 sqM) Est GFR (CKD-EPI)NonAf 82 (>60 ml/min/1.73 sqM) Glucose 107 H (74-99) mg/dL Calcium 9.4 (8.4-10.2) mg/dL Magnesium 1.8 (1.6-2.3) mg/dL Total Bilirubin 0.7 (0.2-1.3) mg/dL AST 28 (14-36) U/L ALT 31 (4-34) U/L Alkaline Phosphatase 91 (38-126) U/L Troponin I (0.000-0.034) ng/mL NT-Pro-B Natriuret Pep pg/mL Total Protein 7.3 (6.3-8.2) g/dL Albumin 4.3 (3.5-5.0) g/dL TSH 0.022 L (0.465-4.680) mIU/L Free T4 1.25 (0.78-2.19) ng/dL 06/22/20 06/22/20 Range/Units 13:27 13:27 WBC (3.8-10.6) k/uL RBC (3.80-5.40) m/uL Hgb (11.4-16.0) gm/dL Hct (34.0-46.0) % MCV (80.0-100.0) fL MCH (25.0-35.0) pg MCHC (31.0-37.0) g/dL RDW (11.5-15.5) % Plt Count (150-450) k/uL Neutrophils % % Lymphocytes % % Monocytes % % Eosinophils % % Basophils % % Neutrophils # (1.3-7.7) k/uL Lymphocytes # (1.0-4.8) k/uL Monocytes # (0-1.0) k/uL Eosinophils # (0-0.7) k/uL Basophils # (0-0.2) k/uL Hypochromasia PT (9.0-12.0) sec INR (<1.2) APTT (22.0-30.0) sec Sodium (137-145) mmol/L Potassium (3.5-5.1) mmol/L Chloride (98-107) mmol/L Carbon Dioxide (22-30) mmol/L Anion Gap mmol/L BUN (7-17) mg/dL Creatinine (0.52-1.04) mg/dL Est GFR (CKD-EPI)AfAm (>60 ml/min/1.73 sqM) Est GFR (CKD-EPI)NonAf (>60 ml/min/1.73 sqM) Glucose (74-99) mg/dL Calcium (8.4-10.2) mg/dL Magnesium (1.6-2.3) mg/dL Total Bilirubin (0.2-1.3) mg/dL AST (14-36) U/L ALT (4-34) U/L Alkaline Phosphatase (38-126) U/L Troponin I <0.012 (0.000-0.034) ng/mL NT-Pro-B Natriuret Pep 250 pg/mL Total Protein (6.3-8.2) g/dL Albumin (3.5-5.0) g/dL TSH (0.465-4.680) mIU/L Free T4 (0.78-2.19) ng/dL - Radiology Data Radiology results: image reviewed (Chest x-ray shows cardiomegaly. Mild pulmonary venous congestion.) Critical Care Time Critical Care Time: Yes Total Critical Care Time: 32 Disposition Clinical Impression: Atrial flutter with rapid ventricular response Disposition: ADMITTED IP TO THIS HOSP Is patient prescribed a controlled substance at d/c from ED?: No Referrals: Kelley Renee DO [Primary Care Provider] - 1-2 days Decision Time: 14:40
[2020-06-22] MEDS ORDERED: DILTIAZEM 125 MG in SODIUM CHLORIDE 0.9% 100 ML IV SCH (13:30)
[2020-06-22 13:49] LABS: Basophils # (A) 0.1 k/uL (0-0.2); Basophils % (A) 1 %; Eosinophils # (A) 0.2 k/uL (0-0.7); Eosinophils % (A) 2 %; HCT 43.2 % (34.0-46.0); HGB 13.6 gm/dL (11.4-16.0); Hypochromasia Slight; Lymphocytes # (A) 1.9 k/uL (1.0-4.8); Lymphocytes % (A) 20 %; MCH 26.3 pg (25.0-35.0); MCHC 31.4 g/dL (31.0-37.0); MCV 83.8 fL (80.0-100.0); Monocytes # (A) 0.6 k/uL (0-1.0); Monocytes % (A) 6 %; Neutrophils # (A) 6.9 k/uL (1.3-7.7); Neutrophils % (A) 70 %; Platelet Count 324 k/uL (150-450); RBC 5.15 m/uL (3.80-5.40); RDW 15.5 % (11.5-15.5); WBC 9.8 k/uL (3.8-10.6)
[2020-06-22 13:59] LABS: ALT 31 U/L (4-34); AST 28 U/L (14-36); African American GFR (CKD) >90 (>60 ml/min/1.73 sqM); Albumin 4.3 g/dL (3.5-5.0); Alkaline Phosphatase 91 U/L (38-126); Anion Gap 11 mmol/L; Blood Urea Nitrogen 12 mg/dL (7-17); Calcium 9.4 mg/dL (8.4-10.2); Carbon Dioxide 26 mmol/L (22-30); Chloride 103 mmol/L (98-107); Glucose 107 mg/dL (74-99); Magnesium 1.8 mg/dL (1.6-2.3); Non-African American GFR(CKD) 82 (>60 ml/min/1.73 sqM); Potassium 4.3 mmol/L (3.5-5.1); Sodium 140 mmol/L (137-145); Total Bilirubin 0.7 mg/dL (0.2-1.3); Total Protein 7.3 g/dL (6.3-8.2)
--- NOTE | 2020-06-22 14:04 | P.HPIM ---
History of Present Illness This is a pleasant 64 years old female with multiple medical problems as below, she has history of chronic/paroxysmal atrial fibrillation is on Coumadin and follow-up with Dr. Mcclure. Also she is a patient of Dr. Renee. Presents because of atrial fibrillation and RVR, she felt her heart was racing associated with shortness of breath also her chest was started for 2 days especially on the left side radiating to left arm but she did not describe it as pain. She has some dry cough but with no phlegm, no shortness of breath, no dysuria, no diarrhea She denies smoking, alcohol or illicit tracts. Heart rate is 1:30. Labs including CBC and BMP were unremarkable. In the emergency room she was started on Cardizem drip Review of Systems CONSTITUTIONAL: No fever, no malaise, no fatigue. HEENT: No recent visual problems or hearing problems. Denied any sore throat. CARDIOVASCULAR: No orthopnea, PND, no palpitations, no syncope. PULMONARY: No shortness of breath, no cough, no hemoptysis. GASTROINTESTINAL: No diarrhea, no nausea, no vomiting, no abdominal pain. Normoactive bowel sounds. NEUROLOGICAL: No headaches, no weakness, no numbness. HEMATOLOGICAL: Denies any bleeding or petechiae. GENITOURINARY: Denies any burning micturition, frequency, or urgency. MUSCULOSKELETAL/RHEUMATOLOGICAL: Denies any joint pain, swelling, or any muscle pain. ENDOCRINE: Denies any polyuria or polydipsia. Past Medical History Past Medical History: Atrial Fibrillation, Atrial Flutter, Asthma, COPD, CVA/TIA, Diabetes Mellitus, Hyperlipidemia, Hypertension, Osteoarthritis (OA) Additional Past Medical History / Comment(s): intracardiac thrombus 2013, SOB with exertion, stroke in 1998-no residual effects, History of Any Multi-Drug Resistant Organisms: None Reported Past Surgical History: Appendectomy, Breast Surgery, Cardiac Ablation, EPS, Heart Catheterization, Hysterectomy, Orthopedic Surgery, Tubal Ligation Additional Past Surgical History / Comment(s): ARTEMIO, ADDIE carpal tunnel release,Trigger finger & thumb surgery; cardioversion, breast biopsy, Left shoulder sx. Past Anesthesia/Blood Transfusion Reactions: No Reported Reaction, Motion Sickness Past Psychological History: Depression Past Alcohol Use History: Rare Past Drug Use History: None Reported - Past Family History Mother Family Medical History: Liver Disease Additional Family Medical History / Comment(s): cirrhosis of liver Father Family Medical History: Cancer Additional Family Medical History / Comment(s): throat cancer Daughter(s) Additional Family Medical History / Comment(s): HEART VALVE REPLACEMENT (Aorta) Son(s) Family Medical History: CVA/TIA Additional Family Medical History / Comment(s): One son, had multiple strokes in a row Medications and Allergies Home Medications Medication Instructions Recorded Confirmed Type Isosorbide Mononitrate [Imdur] 30 mg PO DAILY 09/10/14 02/17/20 History Montelukast [Singulair] 10 mg PO HS 09/10/14 02/17/20 History Metoprolol Tartrate [Lopressor] 25 mg PO BID 10/01/14 02/17/20 History Warfarin [Coumadin] 2.5 mg PO SUMOWETHFRSA 10/01/14 02/17/20 History Pioglitazone [Actos] 45 mg PO HS 11/03/15 02/17/20 History Fluticasone/Salmeterol [Advair 1 puff INHALATION RT-BID 02/24/17 02/17/20 History 250-50 Diskus] Omeprazole 40 mg PO DAILY 04/24/17 02/17/20 History Simvastatin [Zocor] 40 mg PO DAILY 04/24/17 02/17/20 History Vortioxetine Hydrobromide 10 mg PO DAILY 07/18/17 02/17/20 History [Trintellix] Benztropine Mesylate 0.5 mg PO BID 02/17/20 02/17/20 History Liraglutide [Victoza 3-Adam] 1.8 mg SQ HS 02/17/20 02/17/20 History Mirtazapine 45 mg PO HS 02/17/20 02/17/20 History Warfarin [Coumadin] 5 mg PO TU 02/17/20 02/17/20 History allopurinoL [Zyloprim] 100 mg PO DAILY 02/17/20 02/17/20 History busPIRone HCl [Buspar] 10 mg PO Q6H PRN 02/17/20 02/17/20 History metFORMIN HCL [Glucophage] 1,000 mg PO DAILY 02/17/20 02/17/20 History Furosemide [Lasix] 40 mg PO BID #60 tablet 02/21/20 Rx Losartan [Cozaar] 25 mg PO DAILY #30 tab 02/21/20 Rx Allergies Allergy/AdvReac Type Severity Reaction Status Date / Time meperidine HCl [From Demerol] AdvReac Nausea & Verified 06/22/20 12:46 Vomiting Physical Exam Vitals: Vital Signs Temp Pulse Resp BP Pulse Ox 06/22/20 13:54 126 H 18 107/76 98 06/22/20 12:40 97.8 F 130 H 18 129/88 100 Intake and Output 06/21/20 06/22/20 06/22/20 22:59 06:59 14:59 Other: Weight 97.976 kg GENERAL: The patient is alert and oriented x3, not in any acute distress. Well developed, well nourished. HEENT: Pupils are round and equally reacting to light. EOMI. No scleral icterus. No conjunctival pallor. Normocephalic, atraumatic. No pharyngeal erythema. No thyromegaly. CARDIOVASCULAR: S1 and S2 present. No murmurs, rubs, or gallops. PULMONARY: Chest is clear to auscultation, no wheezing or crackles. ABDOMEN: Soft, nontender, nondistended, normoactive bowel sounds. No palpable organomegaly. MUSCULOSKELETAL: No joint swelling or deformity. EXTREMITIES: No cyanosis, clubbing, or pedal edema. NEUROLOGICAL: Gross neurological examination did not reveal any focal deficits. SKIN: No rashes. No petechiae Results CBC & Chem 7: 06/22/20 13:27 06/22/20 13:27 Labs: Abnormal Lab Results - Last 24 Hours (Table) 06/22/20 Range/Units 13:27 Glucose 107 H (74-99) mg/dL Assessment and Plan Assessment: A. fib with RVR Asthma, not an active issue COPD, no connective tissue History of CVA/TIA Diabetes mellitus Hyperlipidemia Hypertension Osteoarthritis Plan: This is a pleasant 64 years old female who presents with A. fib and RVR. Continue with telemetry. Continue with Cardizem drip. Cardiology consult Labs and medication were reviewed.. Continue same treatment. Continue with symptomatic treatment. Resume home medication. Monitor lytes and vitals. DVT and GI prophylaxis. Further recommendations of the clinical course of the patient DVT prophylaxis: Coumadin GI Prophylaxis: Pepcid Prognosis is guarded
--- NOTE | 2020-06-22 14:11 | XR ---
EXAMINATION TYPE: XR chest 2V DATE OF EXAM: 06/22/2020 CLINICAL HISTORY: Dysrhythmia. Shortness of breath. A. fib. TECHNIQUE: Frontal and lateral views of the chest are obtained. COMPARISON: 02/18/2019 chest radiograph FINDINGS: Cardiomegaly. Mediastinal silhouette normal. There is pulmonary vascular congestion. Trace bilateral pleural effusions. No pneumothorax. The osseous structures are intact. IMPRESSION: Cardiomegaly, mild pulmonary vascular congestion, and trace bilateral pleural effusions. Findings may represent CHF.
[2020-06-22 14:16] LABS: INR 2.5 (<1.2); Prothrombin Time 24.1 sec (9.0-12.0); T4, Free (Free Thyroxine) 1.25 ng/dL (0.78-2.19)
[2020-06-22] MEDS ORDERED: ASPIRIN 81 MG PO STA (14:40)
[2020-06-22 17:01] LABS: Glucose,Whole Blood 110 mg/dL (75-99)
[2020-06-22] MEDS ORDERED: CYCLOBENZAPRINE 5 MG TAB PO PRN (18:13)
[2020-06-22] MEDS ORDERED: AMITRIPTYLINE HCL 25 MG TAB PO PRN (18:13)
[2020-06-22] MEDS: WARFARIN 2.5 MG TAB PO SCH (19:03)
[2020-06-22 20:17] LABS: Glucose,Whole Blood 95 mg/dL (75-99)
[2020-06-22] MEDS ORDERED: PATIENT'S OWN (Liraglutide [Victoza 3-Pak] 1.8 MG) SQ SCH (21:00)
[2020-06-22] MEDS: MONTELUKAST 10 MG TAB PO SCH (21:35)
[2020-06-22] MEDS: busPIRone HCl 10 MG TAB PO PRN (21:35)
[2020-06-22] MEDS: METOPROLOL TARTRATE 25 MG TAB PO SCH (21:35)
[2020-06-22] MEDS: MIRTAZAPINE 15 MG TAB PO SCH (21:35)
[2020-06-22] MEDS: FUROSEMIDE 40 MG TAB PO SCH (21:36)
[2020-06-22] MEDS: PIOGLITAZONE 45 MG TAB PO SCH (22:44)
[2020-06-23 01:09] LABS: Cholesterol 146 mg/dL (<200); HDL Cholesterol 38 mg/dL (40-60); LDL Cholesterol,Calculated 78 mg/dL (0-99); Triglycerides 150 mg/dL (<150)
[2020-06-23 06:17] LABS: Glucose,Whole Blood 131 mg/dL (75-99)
[2020-06-23] MEDS ORDERED: ASPIRIN 325 MG TAB PO SCH (09:00)
[2020-06-23] MEDS: FUROSEMIDE 40 MG TAB PO SCH ×2 (09:58→22:37)
[2020-06-23] MEDS: metFORMIN 500 MG TAB PO SCH (09:58)
[2020-06-23] MEDS: ISOSORBIDE MONONITRATE ER 30 MG TAB.ER.24H PO SCH (09:58)
[2020-06-23] MEDS: allopurinoL 100 MG TAB PO SCH (09:58)
[2020-06-23] MEDS: VORTIOXETINE HYDROBROMIDE 10 MG TABLET PO SCH (09:59)
[2020-06-23] MEDS: METOPROLOL TARTRATE 50 MG TAB PO SCH ×2 (10:01→20:17)
--- NOTE | 2020-06-23 10:38 | P.CRDCN ---
History of Present Illness Consult date: 06/23/20 History of present illness: CHIEF COMPLAINT: A flutter with RVR HISTORY OF PRESENT ILLNESS: 64-year-old female with a history of atrial fibrillation/flutter, diabetes mellitus, hypertension, hyperlipidemia, COPD, and CVA/TIA who presented to the emergency room secondary to palpitations. Patient follows up outpatient with Dr. Lopez. Patient reports she has been having shortness of breath and palpitations for the last 2-3 weeks. Patient states she saw Dr. Lopez about a week ago. She states they discussed planning an ablation in the future. Patient reports having an ablation in 2014 and 2015. DIAGNOSTICS: EKG reveals atrial flutter with RVR Chest xray cardiomegaly, mild pulmonary vascular congestion and trace bilateral pleural effusions. Laboratory data: WBC 9.8. Hemoglobin 13.6. Platelet count 324. INR 2.5. Sodium 140. Potassium 4.3. BUN 12. Creatinine 0.77. Magnesium 1.8. BNP 250. TSH 0.022. Troponin negative 3 Current home cardiac medications include Lopressor 25 mg twice a day, Coumadin, Zocor 40 million times daily, losartan 25 mg daily, Imdur 30mg daily, Lasix 40 mg twice a day Patient had an echocardiogram completed in February 2020 revealing ejection fraction of 55-60%, moderate mitral regurgitation, rmvb-iu-ffwnhlyu mitral stenosis, njqc-df-esvacwbu tricuspid regurgitation and severe pulmonary hypertension REVIEW OF SYSTEMS: CONSTITUTIONAL: Denies fever or chills. HEENT: Denies blurred vision, vision changes, or eye pain. Denies hemoptysis CARDIOVASCULAR: Denies chest pain, orthopnea, PND. Reports palpitations RESPIRATORY: Reports shortness of breath. GASTROINTESTINAL: Denies abdominal pain. Denies nausea or vomiting. HEMATOLOGIC: Denies bleeding disorders. GENITOURINARY: Denies any blood in urine. SKIN: Denies pruitis. Denies rash. PHYSICAL EXAM: VITAL SIGNS: Reviewed. GENERAL: Well-developed in no acute distress. HEENT: Head is normocephalic. Pupils are equal, round. Sclerae anicteric. Mucous membranes of the mouth are moist. Neck supple. No JVD or thyromegaly LUNGS: Respirations even and unlabored. Lungs essentially clear to auscultation bilaterally. HEART: Irregular rate and rhythm. S1 and S2 heard. ABDOMEN: Soft. Nondistended. Nontender. EXTREMITIES: Normal range of motion. No clubbing or cyanosis. Peripheral pulses intact. No lower extremity edema NEUROLOGIC: Awake and alert. Oriented x 3. ASSESSMENT: Persistent atrial flutter with RVR, on long-term anticoagulation with Coumadin History of cardiac ablation 2 Hypertension Hyperlipidemia Valvular heart disease: Moderate MR, vjex-il-mipnytps mitral stenosis, mzej-nd-rclxzsdo tricuspid regurgitation Severe pulmonary hypertension COPD Diabetes mellitus, type II Obesity, BMI 40.1 PLAN: Continue home cardiac medications Continue Coumadin for anticoagulation Continue telemetry monitoring Discontinue IV Cardizem Increase beta mj to 50mg twice a day No need to repeat echocardiogram as this was just performed in February 2020 Past Medical History Past Medical History: Atrial Fibrillation, Atrial Flutter, Asthma, COPD, CVA/TIA, Diabetes Mellitus, Hyperlipidemia, Hypertension, Osteoarthritis (OA) Additional Past Medical History / Comment(s): intracardiac thrombus 2013, SOB with exertion, stroke in 1998-no residual effects, History of Any Multi-Drug Resistant Organisms: None Reported Past Surgical History: Appendectomy, Breast Surgery, Cardiac Ablation, EPS, Heart Catheterization, Hysterectomy, Orthopedic Surgery, Tubal Ligation Additional Past Surgical History / Comment(s): ARTEMIO, ADDIE carpal tunnel releas e,Trigger finger & thumb surgery; cardioversion, breast biopsy, Left shoulder sx. Past Anesthesia/Blood Transfusion Reactions: No Reported Reaction, Motion Sickness Past Psychological History: Depression Smoking Status: Former smoker Past Alcohol Use History: Rare Additional Past Alcohol Use History / Comment(s): quit smoking 1997, smoked 1-2 ppd. Started smoking age 13. Past Drug Use History: None Reported - Past Family History Mother Family Medical History: Liver Disease Additional Family Medical History / Comment(s): cirrhosis of liver Father Family Medical History: Cancer Additional Family Medical History / Comment(s): throat cancer Daughter(s) Additional Family Medical History / Comment(s): HEART VALVE REPLACEMENT (Aorta) Son(s) Family Medical History: CVA/TIA Additional Family Medical History / Comment(s): One son, had multiple strokes in a row Medications and Allergies Home Medications Medication Instructions Recorded Confirmed Type Isosorbide Mononitrate [Imdur] 30 mg PO DAILY 09/10/14 06/22/20 History Montelukast [Singulair] 10 mg PO HS 09/10/14 06/22/20 History Metoprolol Tartrate [Lopressor] 25 mg PO BID 10/01/14 06/22/20 History Warfarin [Coumadin] 2.5 mg PO SUMOWETHFRSA 10/01/14 06/22/20 History Pioglitazone [Actos] 45 mg PO HS 11/03/15 06/22/20 History Omeprazole 40 mg PO DAILY 04/24/17 06/22/20 History Simvastatin [Zocor] 40 mg PO DAILY 04/24/17 06/22/20 History Vortioxetine Hydrobromide 10 mg PO DAILY 07/18/17 06/22/20 History [Trintellix] Liraglutide [Victoza 3-Adam] 1.8 mg SQ HS 02/17/20 06/22/20 History Warfarin [Coumadin] 5 mg PO TU 02/17/20 06/22/20 History allopurinoL [Zyloprim] 100 mg PO DAILY 02/17/20 06/22/20 History busPIRone HCl [Buspar] 10 mg PO Q6H PRN 02/17/20 06/22/20 History metFORMIN HCL [Glucophage] 1,000 mg PO DAILY 02/17/20 06/22/20 History Furosemide [Lasix] 40 mg PO BID #60 tablet 02/21/20 06/22/20 Rx Losartan [Cozaar] 25 mg PO DAILY #30 tab 02/21/20 06/22/20 Rx Amitriptyline HCl 25 mg PO HS PRN 06/22/20 06/22/20 History Beclomethasone Dipropionate [Qvar 1 puff PO RT-DAILY 06/22/20 06/22/20 History 80mcg Redihaler] Cyclobenzaprine [Flexeril] 5 mg PO BID PRN 06/22/20 06/22/20 History Mirtazapine [Remeron] 30 mg PO HS 06/22/20 06/22/20 History Allergies Allergy/AdvReac Type Severity Reaction Status Date / Time meperidine HCl [From Demerol] AdvReac Nausea & Verified 06/22/20 14:44 Vomiting Physical Exam Vitals: Vital Signs Temp Pulse Pulse Resp BP BP BP 06/23/20 04:00 97.5 F L 83 18 94/50 06/23/20 00:00 72 18 96/53 85/58 06/22/20 20:00 97.3 F L 100 18 90/55 06/22/20 17:02 98.4 F 131 H 18 99/71 06/22/20 15:57 126 H 18 98/79 06/22/20 15:37 126 H 18 106/71 06/22/20 14:58 128 H 16 109/77 06/22/20 13:54 126 H 18 107/76 06/22/20 12:40 97.8 F 130 H 18 129/88 Pulse Ox 06/23/20 04:00 98 06/23/20 00:00 97 06/22/20 20:00 97 06/22/20 17:02 98 06/22/20 15:57 99 06/22/20 15:37 100 06/22/20 14:58 97 06/22/20 13:54 98 06/22/20 12:40 100 Intake and Output 06/22/20 06/23/20 06/23/20 22:59 06:59 14:59 Intake Total 222.5 240 240 Output Total 800 Balance 222.5 -560 240 Intake: Intake, IV Titration 7.5 Amount Diltiazem 125 mg In 7.5 Sodium Chloride 0.9% 100 ml @ 7.5 MG/HR 7.5 mls/hr IV .[id number] [facility] Rx#: [id number] Oral 215 240 240 Output: Urine 800 Other: Voiding Method Toilet Toilet Weight 96.5 kg 99.5 kg Results 06/22/20 13:27 06/22/20 13:27 Cardiac Enzymes 06/22/20 06/22/20 06/22/20 Range/Units 13:27 13:27 16:31 AST 28 (14-36) U/L Troponin I <0.012 <0.012 (0.000-0.034) ng/mL 06/22/20 Range/Units 19:24 AST (14-36) U/L Troponin I <0.012 (0.000-0.034) ng/mL Coagulation 06/22/20 Range/Units 13:27 PT 24.1 H (9.0-12.0) sec APTT 33.0 H (22.0-30.0) sec Lipids 06/22/20 Range/Units 13:27 Triglycerides 150 H (<150) mg/dL Cholesterol 146 (<200) mg/dL HDL Cholesterol 38 L (40-60) mg/dL CBC 06/22/20 Range/Units 13:27 WBC 9.8 (3.8-10.6) k/uL RBC 5.15 (3.80-5.40) m/uL Hgb 13.6 (11.4-16.0) gm/dL Hct 43.2 (34.0-46.0) % Plt Count 324 (150-450) k/uL Comprehensive Metabolic Panel 06/22/20 Range/Units 13:27 Sodium 140 (137-145) mmol/L Potassium 4.3 (3.5-5.1) mmol/L Chloride 103 (98-107) mmol/L Carbon Dioxide 26 (22-30) mmol/L BUN 12 (7-17) mg/dL Creatinine 0.77 (0.52-1.04) mg/dL Glucose 107 H (74-99) mg/dL Calcium 9.4 (8.4-10.2) mg/dL AST 28 (14-36) U/L ALT 31 (4-34) U/L Alkaline Phosphatase 91 (38-126) U/L Total Protein 7.3 (6.3-8.2) g/dL Albumin 4.3 (3.5-5.0) g/dL Current Medications Generic Name Dose Route Start Last Admin Trade Name Freq PRN Reason Stop Dose Admin Allopurinol 100 mg 06/23/20 09:00 Zyloprim PO DAILY CHEMO Amitriptyline HCl 25 mg 06/22/20 18:13 06/22/20 21:35 Elavil PO 25 mg HS PRN Administration SLEEP Aspirin 325 mg 06/23/20 09:00 Aspirin PO DAILY CHEMO Buspirone HCl 10 mg 06/22/20 18:13 06/22/20 21:35 Buspar PO 10 mg Q6H PRN Administration Anxiety Cyclobenzaprine HCl 5 mg 06/22/20 18:13 Flexeril PO BID PRN Muscle Pain Furosemide 40 mg 06/22/20 21:00 06/22/20 21:36 Lasix PO Not Given BID CHEMO Diltiazem HCl 125 mg/ Sodium 125 mls @ 7.5 mls/hr 06/22/20 13:30 06/22/20 15:58 Chloride IV 10 mg/hr .[id number] CHEMO 10 mls/hr Infusion 7.5 MG/HR Isosorbide Mononitrate 30 mg 06/23/20 09:00 Imdur PO DAILY CHEMO Metformin HCl 1,000 mg 06/23/20 09:00 Glucophage PO DAILY CHEMO Metoprolol Tartrate 25 mg 06/22/20 21:00 06/22/20 21:35 Lopressor PO 25 mg BID CHEMO Administration Mirtazapine 30 mg 06/22/20 21:00 06/22/20 21:35 Remeron PO 30 mg HS CHEMO Administration Montelukast Sodium 10 mg 06/22/20 21:00 06/22/20 21:35 Singulair PO 10 mg HS CHEMO Administration Patient's Own ( 1.8 mg 06/22/20 21:00 06/22/20 21:36 Liraglutide [Victoza SQ Not Given 3-Adam] 1.8 Mg) HS CHEMO Pioglitazone HCl 45 mg 06/22/20 21:00 06/22/20 22:44 Actos PO 45 mg HS CHEMO Administration Sodium Chloride 10 ml 06/22/20 21:00 06/22/20 22:45 Saline Flush IV 10 ml BID CHEMO Administration Vortioxetine 10 mg 06/23/20 09:00 Trintellix PO DAILY [facility] Warfarin Sodium 2.5 mg 06/22/20 18:15 06/22/20 19:03 Coumadin PO 2.5 mg SuMoWeThFrSa@1800 [facility] Administration Protocol Warfarin Sodium 5 mg 06/24/20 18:00 Coumadin PO Tu@1800 [facility] Protocol Intake and Output 06/22/20 06/23/20 06/23/20 22:59 06:59 14:59 Intake Total 222.5 240 240 Output Total 800 Balance 222.5 -560 240 Intake: Intake, IV Titration 7.5 Amount Diltiazem 125 mg In 7.5 Sodium Chloride 0.9% 100 ml @ 7.5 MG/HR 7.5 mls/hr IV .[id number] [facility] Rx#: [id number] Oral 215 240 240 Output: Urine 800 Other: Voiding Method Toilet Toilet Weight 96.5 kg 99.5 kg 06/22/20 13:27 06/22/20 13:27 Assessment and Plan Plan: Nurse practitioner note has been reviewed by physician. Signing provider agrees with the documented findings, assessment, and plan of care.
[2020-06-23 12:10] LABS: Glucose,Whole Blood 122 mg/dL (75-99)
[2020-06-23] MEDS: METOPROLOL TARTRATE 25 MG TAB PO SCH (14:04)
[2020-06-23 16:51] LABS: Glucose,Whole Blood 141 mg/dL (75-99)
[2020-06-23] MEDS: WARFARIN 2.5 MG TAB PO SCH (17:47)
[2020-06-23 20:03] LABS: Glucose,Whole Blood 114 mg/dL (75-99)
[2020-06-23] MEDS: MIRTAZAPINE 15 MG TAB PO SCH (20:17)
[2020-06-23] MEDS: PATIENT'S OWN (Liraglutide [Victoza 3-Pak] 1.8 MG) SQ SCH (20:18)
[2020-06-23] MEDS: MONTELUKAST 10 MG TAB PO SCH (20:18)
--- NOTE | 2020-06-23 20:43 | P.PN ---
Subjective This is a pleasant 64 years old female with multiple medical problems as below, she has history of chronic/paroxysmal atrial fibrillation is on Coumadin and follow-up with Dr. Mcclure. Also she is a patient of Dr. Renee. Presents because of atrial fibrillation and RVR, she felt her heart was racing associated with shortness of breath also her chest was started for 2 days especially on the left side radiating to left arm but she did not describe it as pain. She has some dry cough but with no phlegm, no shortness of breath, no dysuria, no diarrhea She denies smoking, alcohol or illicit tracts. Heart rate is 1:30. Labs including CBC and BMP were unremarkable. In the emergency room she was started on Cardizem drip 06/23/20 Patient has no more dizziness today, no more syncope. She denies chest pain or dyspnea. Patient states that she decrease frequency and urgency of urination, urine analysis is suspicious for infection, we will start patient on antibiotics Rocephin Cardiology input is appreciated. Recent Echocardiogram Valvular heart disease with mild to moderate mitral stenosis, moderate mitral regurgitation and mild to moderate tricuspid regurgitation Stop Cardizem drip for atrial fibrillation and increase metoprolol to 50 twice a day. Continue with Coumadin Objective - Vital Signs Vital signs: Vital Signs Temp 97.3 F L 06/23/20 16:00 Pulse 125 H 06/23/20 16:00 Resp 16 06/23/20 16:00 BP 111/75 06/23/20 16:00 Pulse Ox 97 06/23/20 16:00 Intake & Output 06/22/20 06/23/20 06/23/20 18:59 06:59 18:59 Intake Total 229.167 240 480 Output Total 800 Balance 229.167 -560 480 Weight 96.5 kg 99.5 kg Intake: Intake, IV Titration 14.167 Amount Diltiazem 125 mg In 14.167 Sodium Chloride 0.9% 100 ml @ 7.5 MG/HR 7.5 mls/hr IV .[id number] [facility] Rx#: [id number] Oral 215 240 480 Output: Urine 800 Other: Voiding Method Toilet # Voids 2 - Exam GENERAL: The patient is alert and oriented x3, not in any acute distress. Well developed, well nourished. HEENT: Pupils are round and equally reacting to light. EOMI. No scleral icterus. No conjunctival pallor. Normocephalic, atraumatic. No pharyngeal erythema. No thyromegaly. CARDIOVASCULAR: S1 and S2 present. No murmurs, rubs, or gallops. PULMONARY: Chest is clear to auscultation, no wheezing or crackles. ABDOMEN: Soft, nontender, nondistended, normoactive bowel sounds. No palpable organomegaly. MUSCULOSKELETAL: No joint swelling or deformity. EXTREMITIES: No cyanosis, clubbing, or pedal edema. NEUROLOGICAL: Gross neurological examination did not reveal any focal deficits. SKIN: No rashes. no petechiae. - Labs CBC & Chem 7: 06/22/20 13:27 06/22/20 13:27 Labs: Abnormal Lab Results - Last 24 Hours (Table) 06/22/20 06/23/20 06/23/20 Range/Units 13:27 06:16 12:09 POC Glucose (mg/dL) 131 H 122 H (75-99) mg/dL Triglycerides 150 H (<150) mg/dL HDL Cholesterol 38 L (40-60) mg/dL 06/23/20 Range/Units 16:50 POC Glucose (mg/dL) 141 H (75-99) mg/dL Triglycerides (<150) mg/dL HDL Cholesterol (40-60) mg/dL Assessment and Plan Assessment: A. fib with RVR Valvular heart disease with mild to moderate mitral stenosis, moderate mitral regurgitation and mild to moderate tricuspid regurgitation Pulmonary hypertension Asthma, not an active issue COPD, no connective tissue History of CVA/TIA Diabetes mellitus Hyperlipidemia Hypertension Osteoarthritis Plan: This is a pleasant 64 years old female who presents with A. fib and RVR. Continue with telemetry. Discontinue Cardizem drip. Cardiology consult recommended to increase metoprolol to 50 mg twice a day and continue with Coumadin. Labs and medication were reviewed.. Continue same treatment. Continue with symptomatic treatment. Resume home medication. Monitor lytes and vitals. DVT and GI prophylaxis. Further recommendations of the clinical course of the patient DVT prophylaxis: Coumadin GI Prophylaxis: Pepcid Prognosis is guarded Dr. Pulliam will resume the care of the patient tomorrow
[2020-06-23] MEDS: PIOGLITAZONE 45 MG TAB PO SCH (22:36)
[2020-06-24 06:01] LABS: Glucose,Whole Blood 106 mg/dL (75-99)
[2020-06-24] MEDS: allopurinoL 100 MG TAB PO SCH (08:53)
[2020-06-24] MEDS: METOPROLOL TARTRATE 50 MG TAB PO SCH ×2 (08:53→21:19)
[2020-06-24] MEDS: metFORMIN 500 MG TAB PO SCH (08:57)
[2020-06-24] MEDS: ISOSORBIDE MONONITRATE ER 30 MG TAB.ER.24H PO SCH (08:57)
[2020-06-24] MEDS: FUROSEMIDE 40 MG TAB PO SCH ×2 (08:58→21:20)
[2020-06-24] MEDS: VORTIOXETINE HYDROBROMIDE 10 MG TABLET PO SCH (08:58)
[2020-06-24] MEDS ORDERED: DILTIAZEM 125 MG in SODIUM CHLORIDE 0.9% 100 ML IV SCH (09:00)
--- NOTE | 2020-06-24 09:03 | XR ---
EXAMINATION TYPE: XR chest 1V DATE OF EXAM: 06/24/2020 CLINICAL HISTORY: Shortness of breath TECHNIQUE: Portable upright view of the chest COMPARISON: 06/22/2020 chest radiograph FINDINGS: Cardiomegaly. Decreased pulmonary vascular congestion. Mediastinal silhouette normal. Ther e is silhouetting of the left hemidiaphragm and left costophrenic angle, which may represent pleural effusion and/or airspace disease. No right pleural effusion seen. Bibasilar opacities may be due to o verlapping soft tissue. No pneumothorax. The osseous structures are intact. IMPRESSION: Decreased pulmonary vascular congestion and resolution of right pleural effusion versus . Left basilar haziness may represent residual pleural effusion and/or airspace disease.
[2020-06-24 09:43] LABS: INR 2.7 (<1.2); Prothrombin Time 26.3 sec (9.0-12.0)
[2020-06-24] MEDS: ASPIRIN 81 MG PO SCH (10:00)
[2020-06-24 10:38] LABS: African American GFR (CKD) >90 (>60 ml/min/1.73 sqM); Anion Gap 10 mmol/L; Blood Urea Nitrogen 15 mg/dL (7-17); Calcium 9.2 mg/dL (8.4-10.2); Carbon Dioxide 25 mmol/L (22-30); Chloride 103 mmol/L (98-107); Glucose 162 mg/dL (74-99); Non-African American GFR(CKD) 82 (>60 ml/min/1.73 sqM); Potassium 4.3 mmol/L (3.5-5.1); Sodium 138 mmol/L (137-145)
[2020-06-24 12:03] LABS: Glucose,Whole Blood 97 mg/dL (75-99)
--- NOTE | 2020-06-24 12:11 | P.PN ---
Subjective Progress Note Date: 06/24/20 CHIEF COMPLAINT: A flutter with RVR HISTORY OF PRESENT ILLNESS: Patient examined this morning at the bedside. Patient reports increased shortness of breath and palpitations this morning. Beta mj was increased to 50 mg twice a day yesterday. Patients heart rate remains uncontrolled in the 120s to 130s. Blood pressure 132/78. She denies chest pain or pressure. PHYSICAL EXAM: VITAL SIGNS: Reviewed. GENERAL: Well-developed in no acute distress but does appear dyspneic during examination. HEENT: Head is normocephalic. Pupils are equal, round. Sclerae anicteric. Mucous membranes of the mouth are moist. Neck supple. No JVD or thyromegaly LUNGS: Respirations even and unlabored. Lungs essentially clear to auscultation bilaterally. HEART: Irregular rate and rhythm. S1 and S2 heard. ABDOMEN: Soft. Nondistended. Nontender. EXTREMITIES: Normal range of motion. No clubbing or cyanosis. Peripheral pulses intact. No lower extremity edema NEUROLOGIC: Awake and alert. Oriented x 3. ASSESSMENT: Persistent atrial tachycardia with RVR, on long-term anticoagulation with Coumadin History of cardiac ablation 2 Hypertension Hyperlipidemia Valvular heart disease: Moderate MR, cftu-zf-ioxhhccn mitral stenosis, [id number] tricuspid regurgitation Severe pulmonary hypertension COPD Diabetes mellitus, type II Obesity, BMI 40.1 PLAN: Continue current cardiac medications Resume Cardizem drip at 10 mg an hour Management of abnormal TSH per internal medicine Patient to undergo cardioversion with Dr. Lopez this afternoon. Patient will require ablation in the next couple of weeks as well. Nurse practitioner note has been reviewed by physician. Signing provider agrees with the documented findings, assessment, and plan of care. Objective - Vital Signs Vital signs: Vital Signs Temp 97.7 F 06/24/20 08:00 Pulse 124 H 06/24/20 08:00 Resp 20 06/24/20 08:00 BP 132/78 06/24/20 08:00 Pulse Ox 98 06/24/20 08:00 Intake & Output 06/23/20 06/24/20 06/24/20 18:59 06:59 18:59 Intake Total 480 240 Output Total 180 Balance 480 -180 240 Weight 100.5 kg Intake: Oral 480 240 Output: Urine 180 Other: Voiding Method Toilet # Voids 2 1 3 - Labs CBC & Chem 7: 06/22/20 13:27 06/24/20 09:14 Labs: Abnormal Lab Results - Last 24 Hours (Table) 06/23/20 06/23/20 06/23/20 Range/Units 12:09 16:50 20:02 PT (9.0-12.0) sec INR (<1.2) Glucose (74-99) mg/dL POC Glucose (mg/dL) 122 H 141 H 114 H (75-99) mg/dL 06/24/20 06/24/20 06/24/20 Range/Units 06:00 09:14 09:14 PT 26.3 H (9.0-12.0) sec INR 2.7 H (<1.2) Glucose 162 H (74-99) mg/dL POC Glucose (mg/dL) 106 H (75-99) mg/dL
[2020-06-24] MEDS: SODIUM CHLORIDE 0.9% 1,000 ML IV SCH (15:01)
--- NOTE | 2020-06-24 15:09 | P.PN ---
Subjective Progress Note Date: 06/24/20 This 64-year-old female admitted with Natali. gaye with RVR, valvular heart disease, pulmonary hypertension and multiple other medical issues. Telemetry reporting atrial fibrillation with heart rate 120s to 130s, symptomatic with complaints of increased shortness of breath, positive palpitations. Cardizem drip resumed. INR 2.7. Scheduled for cardioversion today, with ablation a few weeks. Objective - Vital Signs Vital signs: Vital Signs Temp 97.7 F 06/24/20 12:00 Pulse 105 H 06/24/20 12:00 Resp 20 06/24/20 12:00 BP 99/76 06/24/20 12:00 Pulse Ox 98 06/24/20 12:00 Intake & Output 06/23/20 06/24/20 06/24/20 18:59 06:59 18:59 Intake Total 480 240 Output Total 180 Balance 480 -180 240 Weight 100.5 kg Intake: Oral 480 240 Output: Urine 180 Other: Voiding Method Toilet # Voids 2 1 3 - Exam GENERAL: The patient is alert and oriented x3, not in any acute distress. HEENT: Pupils are round and equally reacting to light. EOMI. No scleral icterus. No conjunctival pallor. Normocephalic, atraumatic. No pharyngeal erythema. No t hyromegaly. CARDIOVASCULAR: S1 and S2 present. Tachycardic, No murmurs, rubs, or gallops. PULMONARY: Chest is clear to auscultation, no wheezing or crackles. ABDOMEN: Soft, nontender, nondistended, normoactive bowel sounds. No palpable organomegaly. MUSCULOSKELETAL: No joint swelling or deformity. EXTREMITIES: No cyanosis, clubbing, or pedal edema. NEUROLOGICAL: Gross neurological examination did not reveal any focal deficits. SKIN: No rashes. Warm and dry. - Labs CBC & Chem 7: 06/22/20 13:27 06/24/20 09:14 Labs: Abnormal Lab Results - Last 24 Hours (Table) 06/23/20 06/23/20 06/24/20 Range/Units 16:50 20:02 06:00 PT (9.0-12.0) sec INR (<1.2) Glucose (74-99) mg/dL POC Glucose (mg/dL) 141 H 114 H 106 H (75-99) mg/dL 06/24/20 06/24/20 Range/Units 09:14 09:14 PT 26.3 H (9.0-12.0) sec INR 2.7 H (<1.2) Glucose 162 H (74-99) mg/dL POC Glucose (mg/dL) (75-99) mg/dL Assessment and Plan Assessment: A. fib with RVR Valvular heart disease with mild to moderate mitral stenosis, moderate mitral regurgitation and mild to moderate tricuspid regurgitation History of cardiac ablation 2 Pulmonary hypertension Asthma, stable COPD, stable History of CVA/TIA Diabetes mellitus Hyperlipidemia Hypertension Osteoarthritis Plan: Continue on current medication regime ,monitoring and symptomatic treatment. Prior Thyroid levels will be obtained from office, recheck outpatient. Antiarrhythmics as per cardiology. Scheduled for cardioversion today. The impression and plan of care has been dictated as directed. : I performed a history and examination of this patient, discussed the same with the dictator. I agree with the dictator's note ,documented as a scribe. Any additional findings or plans will be noted.
[2020-06-24 17:06] LABS: Glucose,Whole Blood 101 mg/dL (75-99)
[2020-06-24] MEDS ORDERED: IV FLUID CONTINUATION 1,000 ML IV ONE (17:59)
[2020-06-24] MEDS ORDERED: WARFARIN 5 MG TAB PO SCH (18:00)
[2020-06-24] MEDS ORDERED: PROPOFOL 10 MG/ML 20 ML VIAL IV ONE (18:01)
--- NOTE | 2020-06-24 18:30 | P.PCN ---
Preoperative Diagnosis: Diagnosis Atrial tachycardia with RVR Status post atrial flutter ablation 2013 Status post PVI in 2016 for A. fib ablation Procedure 20 J biphasic shock was used in an AP configuration cardio with the patient in sinus rhythm successfully 1 single shock was used under anesthesia Anesthesia was in attendance Patient had short bursts of atrial tachycardia but maintains sinus rhythm Plan Continue anticoagulation and consider antiarrhythmic drug therapy versus atrial tachycardia ablation
[2020-06-24 20:32] LABS: Glucose,Whole Blood 160 mg/dL (75-99)
[2020-06-24] MEDS: MONTELUKAST 10 MG TAB PO SCH (21:19)
[2020-06-24] MEDS: PIOGLITAZONE 45 MG TAB PO SCH (21:19)
[2020-06-24] MEDS: MIRTAZAPINE 15 MG TAB PO SCH (21:20)
[2020-06-24] MEDS: PATIENT'S OWN (Liraglutide [Victoza 3-Pak] 1.8 MG) SQ SCH (21:22)
[2020-06-24] MEDS ORDERED: FLECAINIDE 50 MG TAB PO STA (21:35)
[2020-06-25] MEDS: busPIRone HCl 10 MG TAB PO PRN (02:52)
[2020-06-25 06:23] LABS: Glucose,Whole Blood 131 mg/dL (75-99)
[2020-06-25 07:03] LABS: Basophils # (A) 0.1 k/uL (0-0.2); Basophils % (A) 1 %; Eosinophils # (A) 0.1 k/uL (0-0.7); Eosinophils % (A) 1 %; HCT 41.6 % (34.0-46.0); Hypochromasia Slight; Lymphocytes # (A) 1.5 k/uL (1.0-4.8); Lymphocytes % (A) 14 %; MCH 26.5 pg (25.0-35.0); MCHC 31.3 g/dL (31.0-37.0); MCV 84.9 fL (80.0-100.0); Mean Platelet Volume 7.8; Monocytes # (A) 0.5 k/uL (0-1.0); Monocytes % (A) 5 %; Neutrophils # (A) 8.5 k/uL (1.3-7.7); Neutrophils % (A) 79 %; Platelet Count 321 k/uL (150-450); RDW 15.8 % (11.5-15.5); WBC 10.8 k/uL (3.8-10.6)
[2020-06-25 07:38] LABS: Potassium 4.2 mmol/L (3.5-5.1)
[2020-06-25] MEDS: metFORMIN 500 MG TAB PO SCH (08:25)
[2020-06-25] MEDS: FLECAINIDE 50 MG TAB PO SCH ×2 (08:26→21:15)
[2020-06-25] MEDS: METOPROLOL TARTRATE 50 MG TAB PO SCH (08:27)
[2020-06-25] MEDS: allopurinoL 100 MG TAB PO SCH (08:27)
[2020-06-25] MEDS: FUROSEMIDE 40 MG TAB PO SCH (08:27)
[2020-06-25] MEDS: ISOSORBIDE MONONITRATE ER 30 MG TAB.ER.24H PO SCH (08:27)
[2020-06-25] MEDS: ASPIRIN 81 MG PO SCH (08:27)
[2020-06-25] MEDS: VORTIOXETINE HYDROBROMIDE 10 MG TABLET PO SCH (08:28)
[2020-06-25 11:58] LABS: Glucose,Whole Blood 117 mg/dL (75-99)
[2020-06-25] MEDS: SPIRONOLACTONE 25 MG TAB PO SCH (13:13)
--- NOTE | 2020-06-25 13:14 | P.PN ---
Subjective Progress Note Date: 06/25/20 This 64-year-old female admitted with A. gaye with RVR, valvular heart disease, pulmonary hypertension and multiple other medical issues. Telemetry reporting atrial fibrillation with heart rate 120s to 130s, symptomatic with complaints of increased shortness of breath, positive palpitations. Cardizem drip resumed. INR 2.7. Scheduled for cardioversion today, with ablation a few weeks. 12/24/2019 status post successful cardioversion. Maintained on flecainide, Telemetry reports patient remained in sinus rhythm throughout the night. Patient reports increase in exertional shortness of breath since 0230. Nonproductive cough, lungs clear, no edema. Afebrile, WBC 10.8. Maintaining O2 sats in the high 90s on 2 L nasal cannula O2. Objective - Vital Signs Vital signs: Vital Signs Temp 97.3 F L 06/25/20 03:18 Pulse 93 06/25/20 03:18 Resp 20 06/25/20 03:18 BP 119/83 06/25/20 03:18 Pulse Ox 97 06/25/20 03:18 Intake & Output 06/24/20 06/25/20 06/25/20 18:59 06:59 18:59 Intake Total 590 240 Output Total 420 Balance 590 -180 Weight 101.1 kg Intake: IV 50 Oral 540 240 Output: Urine 420 Other: Voiding Method Toilet # Voids 3 1 - Exam GENERAL: The patient is sitting up at bedside, alert and oriented x3, NAD. HEENT: Pupils are round and equally reacting to light. EOMI. No scleral icterus. No conjunctival pallor. Normocephalic, atraumatic. No pharyngeal erythema. No thyromegaly. CARDIOVASCULAR: S1 and S2 present. No murmurs, rubs, or gallops. PULMONARY: Chest is clear to auscultation, no wheezing or crackles. No rhonchi. ABDOMEN: Soft, nontender, nondistended, normoactive bowel sounds. No palpable organomegaly. MUSCULOSKELETAL: No joint swelling or deformity. EXTREMITIES: No cyanosis, clubbing, or pedal edema. NEUROLOGICAL: Gross neurological examination did not reveal any focal deficits. SKIN: No rashes. Warm and dry. - Labs CBC & Chem 7: 06/25/20 06:21 06/25/20 06:21 Labs: Abnormal Lab Results - Last 24 Hours (Table) 06/24/20 06/24/20 06/24/20 Range/Units 09:14 16:55 20:30 WBC (3.8-10.6) k/uL RDW (11.5-15.5) % Neutrophils # (1.3-7.7) k/uL Chloride (98-107) mmol/L Glucose 162 H (74-99) mg/dL POC Glucose (mg/dL) 101 H 160 H (75-99) mg/dL 06/25/20 06/25/20 06/25/20 Range/Units 06:21 06:21 06:21 WBC 10.8 H (3.8-10.6) k/uL RDW 15.8 H (11.5-15.5) % Neutrophils # 8.5 H (1.3-7.7) k/uL Chloride 94 L (98-107) mmol/L Glucose 131 H (74-99) mg/dL POC Glucose (mg/dL) 131 H (75-99) mg/dL Assessment and Plan Assessment: A. fib with RVR, status post successful cardioversion Acute hypoxic respiratory failure, etiology unclear Valvular heart disease with mild to moderate mitral stenosis, moderate mitral regurgitation and mild to moderate tricuspid regurgitation History of cardiac ablation 2 Pulmonary hypertension Asthma, stable COPD, stable History of CVA/TIA Diabetes mellitus Hyperlipidemia Hypertension Osteoarthritis Abnormal thyroid panel, decreased TSH, normal T4. Reevaluate outpatient in clinic Plan: Continue on current medication regime ,monitoring and symptomatic treatment. Antiarrhythmics as per cardiology. Pulmonary consulted. Prognosis guarded Multiple complex medical issues. The impression and plan of care has been dictated as directed. : I performed a history and examination of this patient, discussed the same with the dictator. I agree with the dictator's note ,documented as a scribe. Any additional findings or plans will be noted.
--- NOTE | 2020-06-25 13:19 | P.PN ---
Subjective Progress Note Date: 06/25/20 CHIEF COMPLAINT: A flutter with RVR HISTORY OF PRESENT ILLNESS: Patient examined at the bedside. She underwent cardioversion yesterday with Dr. Lopez. She continues to report shortness of breath. Patients dyspnea over the last day or two is worse compared to patients initial presentation to the hospital. She is complaining of shortness of breath when laying flat and with minimal exertion. INR was checked yesterday and found to be therapeutic at 2.7. Chest x-ray performed yesterday did not show evidence of congestive heart failure. Patient has been maintaining sinus rhythm since cardioversion and her heart rate has been controlled. It is noted that the patient had an echocardiogram performed in February 2020 revealing severe pulmonary hypertension with RVSP of 60.62. PHYSICAL EXAM: VITAL SIGNS: Reviewed. GENERAL: Well-developed in no acute distress but does appear dyspneic during examination. HEENT: Head is normocephalic. Pupils are equal, round. Sclerae anicteric. Mucous membranes of the mouth are moist. Neck supple. No JVD or thyromegaly LUNGS: Respirations even and unlabored. Lungs essentially clear to auscultation bilaterally. HEART: Irregular rate and rhythm. S1 and S2 heard. ABDOMEN: Soft. Nondistended. Nontender. EXTREMITIES: Normal range of motion. No clubbing or cyanosis. Peripheral pulses intact. No lower extremity edema NEUROLOGIC: Awake and alert. Oriented x 3. ASSESSMENT: Persistent atrial tachycardia with RVR, on long-term anticoagulation with Coumadin, status post cardioversion History of cardiac ablation 2 Hypertension Hyperlipidemia Valvular heart disease: Moderate MR, [id number] mitral stenosis, [id number] tricuspid regurgitation Severe pulmonary hypertension, RVSP 60.62 per echocardiogram in February 2020 COPD Diabetes mellitus, type II Obesity, BMI 40.1 PLAN: Flecainide added to patient's medication regimen yesterday Discontinue metoprolol Begin verapamil 120 mg daily Continue Lasix 40 mg PO BID. Add Aldactone 25mg daily Repeat limited echo to reevaluate RVSP Consult pulmonary for further evaluation of shortness of breath and severe pulmonary hypertension Patient will be scheduled for cardiac ablation later this month with Dr. Lopez Nurse practitioner note has been reviewed by physician. Signing provider agrees with the documented findings, assessment, and plan of care. Objective - Vital Signs Vital signs: Vital Signs Temp 97.3 F L 06/25/20 03:18 Pulse 93 06/25/20 03:18 Resp 20 06/25/20 03:18 BP 119/83 06/25/20 03:18 Pulse Ox 97 06/25/20 03:18 Intake & Output 06/24/20 06/25/20 06/25/20 18:59 06:59 18:59 Intake Total 590 240 Output Total 420 Balance 590 -180 Weight 101.1 kg Intake: IV 50 Oral 540 240 Output: Urine 420 Other: Voiding Method Toilet # Voids 3 1 - Labs CBC & Chem 7: 06/25/20 06:21 06/25/20 06:21 Labs: Abnormal Lab Results - Last 24 Hours (Table) 06/24/20 06/24/20 06/25/20 Range/Units 16:55 20:30 06:21 WBC 10.8 H (3.8-10.6) k/uL RDW 15.8 H (11.5-15.5) % Neutrophils # 8.5 H (1.3-7.7) k/uL Chloride (98-107) mmol/L Glucose (74-99) mg/dL POC Glucose (mg/dL) 101 H 160 H (75-99) mg/dL 06/25/20 06/25/20 06/25/20 Range/Units 06:21 06:21 11:57 WBC (3.8-10.6) k/uL RDW (11.5-15.5) % Neutrophils # (1.3-7.7) k/uL Chloride 94 L (98-107) mmol/L Glucose 131 H (74-99) mg/dL POC Glucose (mg/dL) 131 H 117 H (75-99) mg/dL
--- NOTE | 2020-06-25 15:06 | P.CNPUL ---
History of Present Illness Consult date: 06/25/20 Requesting physician: Mini Abbasi Reason for consult: dyspnea Chief complaint: Shortness of breath History of present illness: 64-year-old female patient of Dr. Renee with past medical history of COPD, not oxygen dependent at baseline, ex-smoker, carries [id number] smoking history, in remission for last 20 years, atrial fibrillation/atrial flutter status post ablation on chronic anticoagulation with Coumadin, diabetes multistep 2, hypertension, osteoarthritis, previous history of CVA, depression, history of left atrial appendage thrombus in 2013, who we had previously seen in consultation in February 2020 when the patient was hospitalized for respiratory failure related to acute pulmonary edema, and hypertensive emergency. At that time echocardiogram showed mild LVH, diastolic dysfunction, mild to moderate mitral regurg, severe tricuspid regurg, and severe pulmonary hypertension with right-sided pressures of 68.69 mmHg. Patient was supposed to follow-up in the pulmonary clinic for outpatient PFT, but she never made the office because nobody made a follow-up appointment upon discharge. She thinks she may have previously seen Dr. Wolfe in the past for her history of COPD, she takes Advair only on as-needed basis, no other inhalers or nebulized treatments. Not on home oxygen. On 06/22/2020 patient came into the emergency department with complaints of shortness of breath, she was found to be in A. fib with RVR, started on Cardizem drip, chest x-ray showed cardiac megaly, mild pulmonary vessel congestion, and trace bilateral pleural effusions. She does admit to some weight gain, in the order of 9 pounds in the last 2 weeks. Patient was evaluated with cardiology, patient usually follows with Dr. Mcclure, she had a synchronized cardioversion yesterday. Patient has been experiencing increased shortness of breath, orthopnea, she is requiring supplemental oxygen, currently on 2 L oxygen 97%. She was started on oral Lasix, however her weight has trended up by almost 4 kg since admission. Mild pretibial edema, mild JVD, abdominal distention. Patient is known to have conversational dyspnea, occasional cough, no phlegm production, no hemoptysis, No wheezing, bibasilar crackles on physical exam. Follow-up chest x-ray shows decreased pulmonary vessel congestion and resolution of right pleural effusion but left basilar haziness remains suggesting residual pleural effusion and/or airspace disease. Review of Systems All systems: negative Constitutional: Denies chills, Denies fever Eyes: denies blurred vision, denies pain Ears, nose, mouth and throat: Denies headache, Denies sore throat Cardiovascular: Reports leg edema, Reports orthopnea, Denies chest pain, Denies shortness of breath Respiratory: Reports dyspnea, Denies cough Gastrointestinal: Denies abdominal pain, Denies diarrhea, Denies nausea, Denies vomiting Genitourinary: Denies dysuria, Denies hematuria Musculoskeletal: Denies myalgias Integumentary: Denies pruritus, Denies rash Neurological: Denies numbness, Denies weakness Psychiatric: Denies anxiety, Denies depression Endocrine: Denies fatigue, Denies weight change Past Medical History Past Medical History: Atrial Fibrillation, Atrial Flutter, Asthma, COPD, CVA/TIA, Diabetes Mellitus, Hyperlipidemia, Hypertension, Osteoarthritis (OA) Additional Past Medical History / Comment(s): intracardiac thrombus 2013, SOB with exertion, stroke in 1998-no residual effects, History of Any Multi-Drug Resistant Organisms: None Reported Past Surgical History: Appendectomy, Breast Surgery, Cardiac Ablation, EPS, Heart Catheterization, Hysterectomy, Orthopedic Surgery, Tubal Ligation Additional Past Surgical History / Comment(s): ARTEMIO, ADDIE carpal tunnel re lease,Trigger finger & thumb surgery; cardioversion, breast biopsy, Left shoulder sx. Past Anesthesia/Blood Transfusion Reactions: No Reported Reaction, Motion Sickness Past Psychological History: Depression Smoking Status: Former smoker Past Alcohol Use History: Rare Additional Past Alcohol Use History / Comment(s): quit smoking 1997, smoked 1-2 ppd. Started smoking age 13. Past Drug Use History: None Reported - Past Family History Mother Family Medical History: Liver Disease Additional Family Medical History / Comment(s): cirrhosis of liver Father Family Medical History: Cancer Additional Family Medical History / Comment(s): throat cancer Daughter(s) Additional Family Medical History / Comment(s): HEART VALVE REPLACEMENT (Aorta) Son(s) Family Medical History: CVA/TIA Additional Family Medical History / Comment(s): One son, had multiple strokes in a row Medications and Allergies Home Medications Medication Instructions Recorded Confirmed Type Isosorbide Mononitrate [Imdur] 30 mg PO DAILY 09/10/14 06/22/20 History Montelukast [Singulair] 10 mg PO HS 09/10/14 06/22/20 History Metoprolol Tartrate [Lopressor] 25 mg PO BID 10/01/14 06/22/20 History Warfarin [Coumadin] 2.5 mg PO SUMOWETHFRSA 10/01/14 06/22/20 History Pioglitazone [Actos] 45 mg PO HS 11/03/15 06/22/20 History Omeprazole 40 mg PO DAILY 04/24/17 06/22/20 History Simvastatin [Zocor] 40 mg PO DAILY 04/24/17 06/22/20 History Vortioxetine Hydrobromide 10 mg PO DAILY 07/18/17 06/22/20 History [Trintellix] Liraglutide [Victoza 3-Adam] 1.8 mg SQ HS 02/17/20 06/22/20 History Warfarin [Coumadin] 5 mg PO TU 02/17/20 06/22/20 History allopurinoL [Zyloprim] 100 mg PO DAILY 02/17/20 06/22/20 History busPIRone HCl [Buspar] 10 mg PO Q6H PRN 02/17/20 06/22/20 History metFORMIN HCL [Glucophage] 1,000 mg PO DAILY 02/17/20 06/22/20 History Furosemide [Lasix] 40 mg PO BID #60 tablet 02/21/20 06/22/20 Rx Losartan [Cozaar] 25 mg PO DAILY #30 tab 02/21/20 06/22/20 Rx Amitriptyline HCl 25 mg PO HS PRN 06/22/20 06/22/20 History Beclomethasone Dipropionate [Qvar 1 puff PO RT-DAILY 06/22/20 06/22/20 History 80mcg Redihaler] Cyclobenzaprine [Flexeril] 5 mg PO BID PRN 06/22/20 06/22/20 History Mirtazapine [Remeron] 30 mg PO HS 06/22/20 06/22/20 History Allergies Allergy/AdvReac Type Severity Reaction Status Date / Time meperidine HCl [From Demerol] AdvReac Nausea & Verified 06/22/20 14:44 Vomiting Physical Exam Vitals: Vital Signs Temp Pulse Pulse Resp BP BP Pulse Ox 06/25/20 03:18 97.3 F L 93 20 119/83 97 06/24/20 23:52 98 F 89 16 110/77 92 L 06/24/20 20:33 98.6 F 98 16 119/76 94 L 06/24/20 20:00 98.5 F 93 18 110/70 96 06/24/20 19:14 97.3 F L 88 14 109/63 96 06/24/20 18:40 18 120/56 96 06/24/20 16:24 16 06/24/20 15:00 97.6 F 101 H 18 103/70 99 Intake and Output 06/24/20 06/25/20 06/25/20 22:59 06:59 14:59 Intake Total 590 Output Total 420 Balance 590 -420 Intake: IV 50 Oral 540 Output: Urine 420 Other: Voiding Method Toilet # Voids 1 1 Weight 101.1 kg GENERAL EXAM: Alert, pleasant, 64-year-old white female, on 2 L of oxygen with a pulse ox of 97%, mild conversational dyspnea, usually copious of the exertional dyspnea comfortable in no apparent distress. HEAD: Normocephalic/atraumatic. EYES: Normal reaction of pupils, equal size. Conjunctiva pink, sclera white. NOSE: Clear with pink turbinates. THROAT: No erythema or exudates. NECK: No masses, no JVD, no thyroid enlargement, no adenopathy. CHEST: No chest wall deformity. Symmetrical expansion. LUNGS: Equal air entry with no crackles, wheeze, rhonchi or dullness. CVS: Regular rate and rhythm, normal S1 and S2, no gallops, no murmurs, no rubs ABDOMEN: Soft, nontender. No hepatosplenomegaly, normal bowel sounds, no guarding or rigidity. EXTREMITIES: No clubbing, mild pretibial edema, no cyanosis, 2+ pulses and upper and lower extremities. MUSCULOSKELETAL: Muscle strength and tone normal. SPINE: No scoliosis or deformity SKIN: No rashes CENTRAL NERVOUS SYSTEM: Alert and oriented -3. No focal deficits, tone is normal in all 4 extremities. PSYCHIATRIC: Alert and oriented -3. Appropriate affect. Intact judgment and insight. Results - Laboratory Findings CBC and BMP: 06/25/20 06:21 06/25/20 06:21 PT/INR, D-dimer PT 26.3 sec (9.0-12.0) H 06/24/20 09:14 INR 2.7 (<1.2) H 06/24/20 09:14 Abnormal lab findings: Abnormal Labs 06/22/20 06/22/20 06/22/20 13:27 13:27 13:27 WBC RDW Neutrophils # PT 24.1 H INR 2.5 H APTT 33.0 H Chloride Glucose 107 H POC Glucose (mg/dL) Triglycerides 150 H HDL Cholesterol 38 L TSH 0.022 L 06/22/20 06/23/20 06/23/20 17:00 06:16 12:09 WBC RDW Neutrophils # PT INR APTT Chloride Glucose POC Glucose (mg/dL) 110 H 131 H 122 H Triglycerides HDL Cholesterol TSH 06/23/20 06/23/20 06/24/20 16:50 20:02 06:00 WBC RDW Neutrophils # PT INR APTT Chloride Glucose POC Glucose (mg/dL) 141 H 114 H 106 H Triglycerides HDL Cholesterol TSH 06/24/20 06/24/20 06/24/20 09:14 09:14 16:55 WBC RDW Neutrophils # PT 26.3 H INR 2.7 H APTT Chloride Glucose 162 H POC Glucose (mg/dL) 101 H Triglycerides HDL Cholesterol TSH 06/24/20 06/25/20 06/25/20 20:30 06:21 06:21 WBC 10.8 H RDW 15.8 H Neutrophils # 8.5 H PT INR APTT Chloride 94 L Glucose 131 H POC Glucose (mg/dL) 160 H Triglycerides HDL Cholesterol TSH 06/25/20 06/25/20 06:21 11:57 WBC RDW Neutrophils # PT INR APTT Chloride Glucose POC Glucose (mg/dL) 131 H 117 H Triglycerides HDL Cholesterol TSH - Diagnostic Findings Chest x-ray: report reviewed, image reviewed Assessment and Plan Plan: Assessment: #1. Acute dyspnea related to fluid overload, possibly exacerbation of diastolic congestive heart failure #2. History of COPD, not oxygen dependent at baseline, stable at this time #3. History of valvular heart disease, and severe pulmonary hypertension. Previous echocardiogram from February 2020 showed mild to moderate mitral regurgitation, severe tricuspid regurg, and PA pressure of 60.6 mmHg #4. A. fib with RVR, status post cardioversion on 06/24/2020, currently in sinus mechanism, patient has been started on flecainide, and patient is on chronic anticoagulation in the form of Coumadin #5. Previous history of A. fib with flutter status post ablation #6. Diabetes mellitus type 2 #7. Depression #8. Previous history of CVA with no residual #9. History of 25-ebip-hghp smoking, quit smoking 20 years ago #10. Previous history of intracardiac thrombus in 2014 in the left atrial appendage maintained on Coumadin #11. Hypertension #12. Morbid obesity #13. Osteoarthritis Plan: We'll switch the oral Lasix to IV Lasix of 40 mg every 12 hours, yesterday chest x-ray has been reviewed and still showing pulmonary vascular congestion, and residual small left pleural effusion, consistent with fluid overload, repeat chest x-ray in the morning. Patient is status post cardioversion, remains in sinus mechanism, she is on anticoagulation in the form of Coumadin. The severity of patient's COPD is not known at this time however she is not oxygen dependent at baseline, her pulmonary hypertension may be multifactorial, possibly related to valvular heart disease and underlying COPD. She will need outpatient follow-up in the office, so we can check her lung function and optimize her COPD if needed. We'll obtain follow-up chest x-ray in the morning, daily weights, accurate intake and output. Continue to follow I performed a history & physical examination of the patient and discussed their management with my nurse practitioner, Madison Beauchamp. I reviewed the nurse practitioner's note and agree with the documented findings and plan of care. Lung sounds are positive for crackles at the bases. The findings and the impression was discussed with the patient. I attest to the documentation by the nurse practitioner. Time with Patient: Greater than 30
[2020-06-25 16:47] LABS: Glucose,Whole Blood 77 mg/dL (75-99)
[2020-06-25] MEDS: FUROSEMIDE 10 MG/ML 4 ML VIAL IV SCH ×2 (17:27→21:15)
[2020-06-25] MEDS: WARFARIN 2.5 MG TAB PO SCH (17:27)
[2020-06-25] MEDS: SODIUM CHLORIDE 0.9% 1,000 ML IV SCH (19:55)
[2020-06-25] MEDS: IPRATROPIUM-ALBUTEROL 3 ML NEB INHALATION SCH (20:10)
[2020-06-25] MEDS: SYMBICORT 160-4.5 MCG INHALER INHALATION SCH (20:10)
[2020-06-25 20:26] LABS: Glucose,Whole Blood 96 mg/dL (75-99)
[2020-06-25] MEDS: MONTELUKAST 10 MG TAB PO SCH (21:14)
[2020-06-25] MEDS: PATIENT'S OWN (Liraglutide [Victoza 3-Pak] 1.8 MG) SQ SCH (21:14)
[2020-06-25] MEDS: PIOGLITAZONE 45 MG TAB PO SCH (21:15)
[2020-06-25] MEDS: MIRTAZAPINE 15 MG TAB PO SCH (21:15)
[2020-06-26 06:12] LABS: Glucose,Whole Blood 134 mg/dL (75-99)
[2020-06-26] MEDS: SYMBICORT 160-4.5 MCG INHALER INHALATION SCH ×2 (07:47→19:27)
[2020-06-26] MEDS: IPRATROPIUM-ALBUTEROL 3 ML NEB INHALATION SCH ×3 (07:47→19:28)
[2020-06-26] MEDS: ASPIRIN 81 MG PO SCH (07:52)
[2020-06-26] MEDS: metFORMIN 500 MG TAB PO SCH (07:52)
[2020-06-26] MEDS: ISOSORBIDE MONONITRATE ER 30 MG TAB.ER.24H PO SCH (07:53)
[2020-06-26] MEDS: FUROSEMIDE 10 MG/ML 4 ML VIAL IV SCH ×2 (07:53→21:24)
[2020-06-26] MEDS: allopurinoL 100 MG TAB PO SCH (07:53)
[2020-06-26] MEDS: FLECAINIDE 50 MG TAB PO SCH ×2 (07:53→21:24)
[2020-06-26] MEDS: WARFARIN 2.5 MG TAB PO SCH ×2 (07:53→19:17)
[2020-06-26] MEDS: VORTIOXETINE HYDROBROMIDE 10 MG TABLET PO SCH (07:53)
[2020-06-26] MEDS: SPIRONOLACTONE 25 MG TAB PO SCH (07:53)
[2020-06-26] MEDS: VERAPAMIL SR 120 MG TABLET.ER PO SCH (07:53)
--- NOTE | 2020-06-26 10:02 | XR ---
EXAMINATION TYPE: XR chest 2V DATE OF EXAM: 06/26/2020 COMPARISON: 06/24/2020 TECHNIQUE: PA and lateral views submitted. HISTORY: Abnormal x-ray follow-up FINDINGS: There is hyperinflation with bilateral consolidation and pleural effusion. Heart is enlarged. Atheros clerotic change aorta. Diffuse interstitial pattern. No pneumothorax. Hypertrophic and degenerative c hange of the spine. IMPRESSION: 1. Bilateral infiltrate and small effusion correlate for CHF otherwise consider interstitial pneumoni tis.
--- NOTE | 2020-06-26 10:18 | ECHOF ---
Referral Reason: MEASUREMENTS -------- HEIGHT: 157.5 cm WEIGHT: 100.7 kg BP: RVIDd: 3.1 cm (< 3.3) RAP: 5.00 mmHg RVSP: 72.81 mmHg FINDINGS -------- Limited Study for RVSP Right side appears enlarged. Moderate tricuspid regurgitation present. There is severe pulmonary hypertension. The right ventr icular systolic pressure, as measured by Doppler, is 72.81mmHg. The inferior vena cava was not well visualized. CONCLUSIONS -------- 1. Limited Study for RVSP 2. Right side appears enlarged. 3. Moderate tricuspid regurgitation present. 4. There is severe pulmonary hypertension. 5. The right ventricular systolic pressure, as measured by Doppler, is 72.81mmHg. PIERCER: Ema Carolina RDCS
--- NOTE | 2020-06-26 12:04 | P.PN ---
Subjective Progress Note Date: 06/26/20 CHIEF COMPLAINT: A flutter with RVR HISTORY OF PRESENT ILLNESS: Patient examined at the bedside. She reports some improvement in her shortness of breath. She is still wearing oxygen at 2L NC. She was evaluated by pulmonary yesterday and placed on IV Lasix. Repeat echocardiogram reveals RVSP of 72.81. PHYSICAL EXAM: VITAL SIGNS: Reviewed. GENERAL: Well-developed in no acute distress but does appear dyspneic during examination. HEENT: Head is normocephalic. Pupils are equal, round. Sclerae anicteric. Mucous membranes of the mouth are moist. Neck supple. No JVD or thyromegaly LUNGS: Respirations even and unlabored. Lungs essentially clear to auscultation bilaterally. HEART: Regular rate and rhythm. S1 and S2 heard. ABDOMEN: Soft. Nondistended. Nontender. EXTREMITIES: Normal range of motion. No clubbing or cyanosis. Peripheral pulses intact. No lower extremity edema NEUROLOGIC: Awake and alert. Oriented x 3. ASSESSMENT: Persistent atrial tachycardia with RVR, on long-term anticoagulation with Couma din, status post cardioversion History of cardiac ablation 2 Hypertension Hyperlipidemia Valvular heart disease: Moderate MR, [id number] mitral stenosis, [id number] tricuspid regurgitation Severe pulmonary hypertension, RVSP 60.62 per echocardiogram in February 2020 COPD Diabetes mellitus, type II Obesity, BMI 40.1 PLAN: Continue current cardiac medications Pulmonary following for SOB. Continue IV lasix Patient will be scheduled for cardiac ablation on 07/08/[address] Lopez Nurse practitioner note has been reviewed by physician. Signing provider agrees with the documented findings, assessment, and plan of care. Objective - Vital Signs Vital signs: Vital Signs Temp 98.4 F 06/26/20 07:43 Pulse 76 06/26/20 08:01 Resp 20 06/26/20 08:34 BP 109/58 06/26/20 07:43 Pulse Ox 97 06/26/20 07:43 Intake & Output 06/25/20 06/26/20 06/26/20 18:59 06:59 18:59 Intake Total 120 240 150 Output Total 420 1500 Balance -300 -1260 150 Weight 97.7 kg Intake: Oral 120 240 150 Output: Urine 420 1500 Other: Voiding Method Toilet # Voids 1 - Labs CBC & Chem 7: 06/25/20 06:21 06/25/20 06:21 Labs: Abnormal Lab Results - Last 24 Hours (Table) 06/25/20 06/26/20 Range/Units 11:57 06:10 POC Glucose (mg/dL) 117 H 134 H (75-99) mg/dL
[2020-06-26 12:09] LABS: Glucose,Whole Blood 117 mg/dL (75-99)
--- NOTE | 2020-06-26 13:59 | P.PN ---
Subjective Progress Note Date: 06/26/20 Principal diagnosis: 64-year-old female patient of Dr. Renee with past medical history of COPD, not oxygen dependent at baseline, ex-smoker, carries 05-[id number]-[id number] smoking histor y, in remission for last 20 years, atrial fibrillation/atrial flutter status post ablation on chronic anticoagulation with Coumadin, diabetes multistep 2, hypertension, osteoarthritis, previous history of CVA, depression, history of left atrial appendage thrombus in 2013, who we had previously seen in consultation in February 2020 when the patient was hospitalized for respiratory failure related to acute pulmonary edema, and hypertensive emergency. At that time echocardiogram showed mild LVH, diastolic dysfunction, mild to moderate mitral regurg, severe tricuspid regurg, and severe pulmonary hypertension with right-sided pressures of 68.69 mmHg. Patient was supposed to follow-up in the pulmonary clinic for outpatient PFT, but she never made the office because nobody made a follow-up appointment upon discharge. She thinks she may have previously seen Dr. Wolfe in the past for her history of COPD, she takes Advair only on as-needed basis, no other inhalers or nebulized treatments. Not on home oxygen. On 06/22/2020 patient came into the emergency department with complaints of shortness of breath, she was found to be in A. fib with RVR, started on Cardizem drip, chest x-ray showed cardiac megaly, mild pulmonary vessel congestion, and trace bilateral pleural effusions. She does admit to some weight gain, in the order of 9 pounds in the last 2 weeks. Patient was evaluated with cardiology, patient usually follows with Dr. Mcclure, she had a synchronized cardioversion yesterday. Patient has been experiencing increased shortness of breath, orthopnea, she is requiring supplemental oxygen, currently on 2 L oxygen 97%. She was started on oral Lasix, however her weight has ara nded up by almost 4 kg since admission. Mild pretibial edema, mild JVD, abdominal distention. Patient is known to have conversational dyspnea, occasional cough, no phlegm production, no hemoptysis, No wheezing, bibasilar crackles on physical exam. Follow-up chest x-ray shows decreased pulmonary v essel congestion and resolution of right pleural effusion but left basilar haziness remains suggesting residual pleural effusion and/or airspace disease. The patient is seen today 06/26/2020 in follow-up on the selective care unit. She is currently resting comfortably in bed. Awake and alert in no acute distress. Maintaining O2 saturation in the 90s on room air. She's afebrile. Glucose 117. She remains on Symbicort, DuoNeb inhalations, Singulair. She remains on IV diuretics. Currently in sinus rhythm. Chest x-ray shows mild fluid volume overload and small pleural effusion. Objective - Vital Signs Vital signs: Vital Signs Temp 97.0 F L 06/26/20 12:15 Pulse 76 06/26/20 13:10 Resp 22 06/26/20 12:15 BP 114/60 06/26/20 12:15 Pulse Ox 96 06/26/20 12:15 Intake & Output 06/25/20 06/26/20 06/26/20 18:59 06:59 18:59 Intake Total 120 240 150 Output Total 420 1500 700 Balance -300 -1260 -550 Weight 97.7 kg Intake: Oral 120 240 150 Output: Urine 420 1500 700 Other: Voiding Method Toilet # Voids 1 - Exam GENERAL EXAM: Alert, pleasant, 64-year-old female patient, on room air, mild conversational dyspnea, comfortable in no apparent distress. HEAD: Normocephalic/atraumatic. EYES: Normal reaction of pupils, equal size. Conjunctiva pink, sclera white. NOSE: Clear with pink turbinates. THROAT: No erythema or exudates. NECK: No masses, no JVD, no thyroid enlargement, no adenopathy. CHEST: No chest wall deformity. Symmetrical expansion. LUNGS: Equal air entry with crackles in the bilateral posterior bases. CVS: Regular rate and rhythm, normal S1 and S2, no gallops, no murmurs, no rubs ABDOMEN: Soft, nontender. No hepatosplenomegaly, normal bowel sounds, no guarding or rigidity. EXTREMITIES: No clubbing, mild pretibial edema, no cyanosis, 2+ pulses and upper and lower extremities. MUSCULOSKELETAL: Muscle strength and tone normal. SPINE: No scoliosis or deformity SKIN: No rashes CENTRAL NERVOUS SYSTEM: Alert and oriented -3. No focal deficits, tone is normal in all 4 extremities. PSYCHIATRIC: Alert and oriented -3. Appropriate affect. Intact judgment and insight. - Labs CBC & Chem 7: 06/25/20 06:21 06/25/20 06:21 Labs: Abnormal Lab Results - Last 24 Hours (Table) 06/26/20 06/26/20 Range/Units 06:10 12:07 POC Glucose (mg/dL) 134 H 117 H (75-99) mg/dL Assessment and Plan Assessment: #1. Acute dyspnea related to fluid overload, possibly exacerbation of diastolic congestive heart failure #2. History of COPD, not oxygen dependent at baseline, stable at this time #3. History of valvular heart disease, and severe pulmonary hypertension. Previous echocardiogram from February 2020 showed mild to moderate mitral regurgitation, severe tricuspid regurg, and PA pressure of 60.6 mmHg #4. A. fib with RVR, status post cardioversion on 06/24/2020, currently in sinus mechanism, patient has been started on flecainide, and patient is on chronic anticoagulation in the form of Coumadin #5. Previous history of A. fib with flutter status post ablation #6. Diabetes mellitus type 2 #7. Depression #8. Previous history of CVA with no residual #9. History of 08-[id number]-wwpt smoking, quit smoking 20 years ago #10. Previous history of intracardiac thrombus in 2013 in the left atrial appendage maintained on Coumadin #11. Hypertension #12. Morbid obesity #13. Osteoarthritis Plan: The patient was seen and evaluated by Dr. Wolfe Chest x-ray reviewed She is improved from the pulmonary standpoint Continue the current treatment plan Increase her activity as tolerated Will continue to follow I, the cosigning physician, performed a history & physical examination of the patient. Lungs sounds with bilateral crackles in the posterior bases. Maintaining good O2 saturations in the 90s on room air. I discussed the assessment and plan of care with my nurse practitioner, Natacha Scott. I attest to the above note as dictated by her.
--- NOTE | 2020-06-26 14:34 | P.PN ---
Subjective Progress Note Date: 06/26/20 This 64-year-old female admitted with A. gaye with RVR, valvular heart disease, pulmonary hypertension and multiple other medical issues. Telemetry reporting atrial fibrillation with heart rate 120s to 130s, symptomatic with complaints of increased shortness of breath, positive palpitations. Cardizem drip resumed. INR 2.7. Scheduled for cardioversion today, with ablation a few weeks. 06/25/2020 status post successful cardioversion. Maintained on flecainide, Telemetry reports patient remained in sinus rhythm throughout the night. Patient reports increase in exertional shortness of breath since 0230. Nonproductive cough, lungs clear, no edema. Afebrile, WBC 10.8. Maintaining O2 sats in the high 90s on 2 L nasal cannula O2. 06/26/2020 evaluated by pulmonary, place on Lasix IV push. Diuresed well, 24- hour I&O reflecting a negative fluid balance; down 4 kg. chest x-ray reporting bilateral infiltrate, small effusion, CHF. Repeat echo reporting limited study, moderate tricuspid regurgitation, severe pulmonary hypertension, right ventricular systolic pressure 72.8. Telemetry sinus rhythm. Objective - Vital Signs Vital signs: Vital Signs Temp 97.0 F L 06/26/20 12:15 Pulse 76 06/26/20 13:10 Resp 22 06/26/20 12:15 BP 114/60 06/26/20 12:15 Pulse Ox 96 06/26/20 12:15 Intake & Output 06/25/20 06/26/20 06/26/20 18:59 06:59 18:59 Intake Total 120 240 150 Output Total 420 1500 700 Balance -300 -1260 -550 Weight 97.7 kg Intake: Oral 120 240 150 Output: Urine 420 1500 700 Other: Voiding Method Toilet # Voids 1 - Exam GENERAL: The patient is sitting up at bedside, alert and oriented x3, NAD. HEENT: Pupils are round and equally reacting to light. EOMI. No scleral icterus. No conjunctival pallor. CARDIOVASCULAR: S1 and S2 present. No murmurs, rubs, or gallops. PULMONARY: Improved air entry, Bibasilar crackles ABDOMEN: Soft, nontender, nondistended, normoactive bowel sounds. No palpable organomegaly. MUSCULOSKELETAL: No joint swelling or deformity. EXTREMITIES: Mild pedal edema, no calf pain. NEUROLOGICAL: Gross neurological examination did not reveal any focal deficits. SKIN: No rashes. Warm and dry. - Labs CBC & Chem 7: 06/25/20 06:21 06/25/20 06:21 Labs: Abnormal Lab Results - Last 24 Hours (Table) 06/26/20 06/26/20 Range/Units 06:10 12:07 POC Glucose (mg/dL) 134 H 117 H (75-99) mg/dL Assessment and Plan Assessment: A. fib with RVR, status post successful cardioversion Acute hypoxic respiratory failure, secondary to fluid overload, possible acute CHF exacerbation, diastolic dysfunction Valvular heart disease with mild to moderate mitral stenosis, moderate mitral regurgitation and mild to moderate tricuspid regurgitation. History of cardiac ablation 2 Severe Pulmonary hypertension,RVSP 72.8 Asthma, stable COPD, stable History of CVA/TIA Diabetes mellitus Hyperlipidemia Hypertension Osteoarthritis Abnormal thyroid panel, decreased TSH, normal T4. Reevaluate outpatient in clinic Plan: Continue on current medication regime ,monitoring and symptomatic treatment. Antiarrhythmics as per cardiology. Diuretics as per pulmonary. Prog nosis guarded given multiple complex medical issues. The impression and plan of care has been dictated as directed. : I performed a history and examination of this patient, discussed the same with the dictator. I agree with the dictator's note ,documented as a scribe. Any additional findings or plans will be noted.
[2020-06-26 16:43] LABS: Glucose,Whole Blood 84 mg/dL (75-99)
[2020-06-26 20:21] LABS: Glucose,Whole Blood 148 mg/dL (75-99)
[2020-06-26] MEDS: MIRTAZAPINE 15 MG TAB PO SCH (21:23)
[2020-06-26] MEDS: MONTELUKAST 10 MG TAB PO SCH (21:23)
[2020-06-26] MEDS: PIOGLITAZONE 45 MG TAB PO SCH (21:24)
[2020-06-26] MEDS: PATIENT'S OWN (Liraglutide [Victoza 3-Pak] 1.8 MG) SQ SCH (21:37)
[2020-06-27 06:15] LABS: Glucose,Whole Blood 121 mg/dL (75-99)
[2020-06-27] MEDS: SODIUM CHLORIDE 0.9% 1,000 ML IV SCH (06:23)
[2020-06-27 07:02] LABS: Basophils % (A) 0 %; Eosinophils # (A) 0.2 k/uL (0-0.7); Eosinophils % (A) 2 %; HCT 36.8 % (34.0-46.0); HGB 11.5 gm/dL (11.4-16.0); Hypochromasia Slight; Lymphocytes # (A) 1.2 k/uL (1.0-4.8); Lymphocytes % (A) 13 %; MCH 26.4 pg (25.0-35.0); MCHC 31.2 g/dL (31.0-37.0); MCV 84.7 fL (80.0-100.0); Mean Platelet Volume 7.6; Monocytes # (A) 0.7 k/uL (0-1.0); Monocytes % (A) 7 %; Neutrophils # (A) 7.3 k/uL (1.3-7.7); Neutrophils % (A) 76 %; Platelet Count 258 k/uL (150-450); RBC 4.35 m/uL (3.80-5.40); RDW 15.6 % (11.5-15.5); WBC 9.6 k/uL (3.8-10.6)
[2020-06-27 08:08] LABS: African American GFR (CKD) >90 (>60 ml/min/1.73 sqM); Anion Gap 9 mmol/L; Blood Urea Nitrogen 15 mg/dL (7-17); Calcium 8.9 mg/dL (8.4-10.2); Carbon Dioxide 30 mmol/L (22-30); Chloride 99 mmol/L (98-107); Glucose 116 mg/dL (74-99); Non-African American GFR(CKD) 88 (>60 ml/min/1.73 sqM); Potassium 4.1 mmol/L (3.5-5.1); Sodium 138 mmol/L (137-145)
[2020-06-27] MEDS: IPRATROPIUM-ALBUTEROL 3 ML NEB INHALATION SCH ×2 (08:18→12:46)
[2020-06-27] MEDS: SYMBICORT 160-4.5 MCG INHALER INHALATION SCH (08:18)
[2020-06-27] MEDS: FUROSEMIDE 10 MG/ML 4 ML VIAL IV SCH (09:23)
[2020-06-27] MEDS: metFORMIN 500 MG TAB PO SCH (09:23)
[2020-06-27] MEDS: VERAPAMIL SR 120 MG TABLET.ER PO SCH (09:24)
[2020-06-27] MEDS: allopurinoL 100 MG TAB PO SCH (09:24)
[2020-06-27] MEDS: ASPIRIN 81 MG PO SCH (09:24)
[2020-06-27] MEDS: SPIRONOLACTONE 25 MG TAB PO SCH (09:24)
[2020-06-27] MEDS: FLECAINIDE 50 MG TAB PO SCH (09:24)
[2020-06-27] MEDS: ISOSORBIDE MONONITRATE ER 30 MG TAB.ER.24H PO SCH (09:24)
[2020-06-27] MEDS: VORTIOXETINE HYDROBROMIDE 10 MG TABLET PO SCH (09:25)
[2020-06-27 10:02] VITALS: RESP 18
--- NOTE | 2020-06-27 10:39 | P.PN ---
Subjective Progress Note Date: 06/27/20 CHIEF COMPLAINT: A flutter with RVR HISTORY OF PRESENT ILLNESS: Patient examined at the bedside. She reports improvement in her shortness of breath. She is on room air. No chest pain. She remains in SR. She is hoping to be discharged home today. PHYSICAL EXAM: VITAL SIGNS: Reviewed. GENERAL: Well-developed in no acute distress but does appear dyspneic during examination. HEENT: Head is normocephalic. Pupils are equal, round. Sclerae anicteric. Mucous membranes of the mouth are moist. Neck supple. No JVD or thyromegaly LUNGS: Respirations even and unlabored. Lungs essentially clear to auscultation bilaterally. HEART: Regular rate and rhythm. S1 and S2 heard. ABDOMEN: Soft. Nondistended. Nontender. EXTREMITIES: Normal range of motion. No clubbing or cyanosis. Peripheral pulses intact. No lower extremity edema NEUROLOGIC: Awake and alert. Oriented x 3. ASSESSMENT: Persistent atrial tachycardia with RVR, on long-term anticoagulation with Coumadin, status post cardioversion History of cardiac ablation 2 Hypertension Hyperlipidemia Valvular heart disease: Moderate MR, [id number] mitral stenosis, [id number] tricuspid regurgitation Severe pulmonary hypertension, RVSP 60.62 per echocardiogram in February 2020 COPD Diabetes mellitus, type II Obesity, BMI 40.1 PLAN: Discontinue IV lasix Begin oral lasix. 80mg in the AM and 40mg in the afternoon Increase Aldactone to 50mg daily Stable for discharge home this afternoon from a cardiac standpoint Patient will be scheduled for cardiac ablation on 07/08/[address] Lopez Nurse practitioner note has been reviewed by physician. Signing provider agrees with the documented findings, assessment, and plan of care. Objective - Vital Signs Vital signs: Vital Signs Temp 98.2 F 06/27/20 08:00 Pulse 75 06/27/20 08:32 Resp 18 06/27/20 08:00 BP 120/63 06/27/20 08:00 Pulse Ox 95 06/27/20 08:00 Intake & Output 06/26/20 06/27/20 06/27/20 18:59 06:59 18:59 Intake Total 150 240 Output Total 1000 800 Balance -850 -800 240 Weight 98.2 kg Intake: Oral 150 240 Output: Urine 1000 800 Other: Voiding Method Toilet Toilet - Labs CBC & Chem 7: 09/11/20 06:24 06/27/20 06:24 Labs: Abnormal Lab Results - Last 24 Hours (Table) 06/26/20 06/26/20 06/27/20 Range/Units 12:07 20:20 06:14 RDW (11.5-15.5) % Glucose (74-99) mg/dL POC Glucose (mg/dL) 117 H 148 H 121 H (75-99) mg/dL 06/27/20 06/27/20 Range/Units 06:24 06:24 RDW 15.6 H (11.5-15.5) % Glucose 116 H (74-99) mg/dL POC Glucose (mg/dL) (75-99) mg/dL
--- NOTE | 2020-06-27 11:03 | P.PN ---
Subjective Progress Note Date: 06/27/20 Principal diagnosis: 64-year-old female patient of Dr. Renee with past medical history of COPD, not oxygen dependent at baseline, ex-smoker, carries 14-dhyd-xeme smoking histor y, in remission for last 20 years, atrial fibrillation/atrial flutter status post ablation on chronic anticoagulation with Coumadin, diabetes multistep 2, hypertension, osteoarthritis, previous history of CVA, depression, history of left atrial appendage thrombus in 2013, who we had previously seen in consultation in February 2020 when the patient was hospitalized for respiratory failure related to acute pulmonary edema, and hypertensive emergency. At that time echocardiogram showed mild LVH, diastolic dysfunction, mild to moderate mitral regurg, severe tricuspid regurg, and severe pulmonary hypertension with right-sided pressures of 68.69 mmHg. Patient was supposed to follow-up in the pulmonary clinic for outpatient PFT, but she never made the office because nobody made a follow-up appointment upon discharge. She thinks she may have previously seen Dr. Wolfe in the past for her history of COPD, she takes Advair only on as-needed basis, no other inhalers or nebulized treatments. Not on home oxygen. On 06/22/2020 patient came into the emergency department with complaints of shortness of breath, she was found to be in A. fib with RVR, started on Cardizem drip, chest x-ray showed cardiac megaly, mild pulmonary vessel congestion, and trace bilateral pleural effusions. She does admit to some weight gain, in the order of 9 pounds in the last 2 weeks. Patient was evaluated with cardiology, patient usually follows with Dr. Mcclure, she had a synchronized cardioversion yesterday. Patient has been experiencing increased shortness of breath, orthopnea, she is requiring supplemental oxygen, currently on 2 L oxygen 97%. She was started on oral Lasix, however her weight has ara nded up by almost 4 kg since admission. Mild pretibial edema, mild JVD, abdominal distention. Patient is known to have conversational dyspnea, occasional cough, no phlegm production, no hemoptysis, No wheezing, bibasilar crackles on physical exam. Follow-up chest x-ray shows decreased pulmonary v essel congestion and resolution of right pleural effusion but left basilar haziness remains suggesting residual pleural effusion and/or airspace disease. The patient is seen today 06/26/2020 in follow-up on the selective care unit. She is currently resting comfortably in bed. Awake and alert in no acute distress. Maintaining O2 saturation in the 90s on room air. She's afebrile. Glucose 117. She remains on Symbicort, DuoNeb inhalations, Singulair. She remains on IV diuretics. Currently in sinus rhythm. Chest x-ray shows mild fluid volume overload and small pleural effusion. The patient is seen today 06/27/2020 in follow-up on the selective care unit. She is currently sitting up bedside. Awake and alert in no acute distress. No further episodes of atrial fibrillation. Remaining in sinus rhythm. On oral antiarrhythmics. Continued on warfarin. Maintaining O2 saturations in the mid 90s on room air. She's been afebrile. White count 9.6. Hemoglobin 11.5. Sodium 138. Potassium 4.1. Creatinine 0.73. Continued on Symbicort and DuoNeb inhalations. Remains on oral diuretics. Objective - Vital Signs Vital signs: Vital Signs Temp 98.2 F 06/27/20 08:00 Pulse 75 06/27/20 08:32 Resp 18 06/27/20 08:00 BP 120/63 06/27/20 08:00 Pulse Ox 95 06/27/20 08:00 Intake & Output 06/26/20 06/27/20 06/27/20 18:59 06:59 18:59 Intake Total 150 720 Output Total 1000 800 650 Balance -850 -800 70 Weight 98.2 kg Intake: Oral 150 720 Output: Urine 1000 800 650 Other: Voiding Method Toilet Toilet - Exam GENERAL EXAM: Alert, pleasant, 64-year-old female patient, on room air, comfortable in no apparent distress. HEAD: Normocephalic/atraumatic. EYES: Normal reaction of pupils, equal size. Conjunctiva pink, sclera white. NOSE: Clear with pink turbinates. THROAT: No erythema or exudates. NECK: No masses, no JVD, no thyroid enlargement, no adenopathy. CHEST: No chest wall deformity. Symmetrical expansion. LUNGS: Equal air entry with crackles in the bilateral posterior bases. CVS: Regular rate and rhythm, normal S1 and S2, no gallops, no murmurs, no rubs ABDOMEN: Soft, nontender. No hepatosplenomegaly, normal bowel sounds, no guarding or rigidity. EXTREMITIES: No clubbing, mild pretibial edema, no cyanosis, 2+ pulses and upper and lower extremities. MUSCULOSKELETAL: Muscle strength and tone normal. SPINE: No scoliosis or deformity SKIN: No rashes CENTRAL NERVOUS SYSTEM: Alert and oriented -3. No focal deficits, tone is normal in all 4 extremities. PSYCHIATRIC: Alert and oriented -3. Appropriate affect. Intact judgment and insight. - Labs CBC & Chem 7: 06/27/20 06:24 06/27/20 06:24 Labs: Abnormal Lab Results - Last 24 Hours (Table) 06/26/20 06/26/20 06/27/20 Range/Units 12:07 20:20 06:14 RDW (11.5-15.5) % Glucose (74-99) mg/dL POC Glucose (mg/dL) 117 H 148 H 121 H (75-99) mg/dL 06/27/20 06/27/20 Range/Units 06:24 06:24 RDW 15.6 H (11.5-15.5) % Glucose 116 H (74-99) mg/dL POC Glucose (mg/dL) (75-99) mg/dL Assessment and Plan Assessment: #1. Acute dyspnea related to fluid overload, possibly exacerbation of diastolic congestive heart failure #2. History of COPD, not oxygen dependent at baseline, stable at this time #3. History of valvular heart disease, and severe pulmonary hypertension. Previous echocardiogram from February 2020 showed mild to moderate mitral regurgitation, severe tricuspid regurg, and PA pressure of 60.6 mmHg #4. A. fib with RVR, status post cardioversion on 06/24/2020, currently in sinus mechanism, patient has been started on flecainide, and patient is on chronic anticoagulation in the form of Coumadin #5. Previous history of A. fib with flutter status post ablation #6. Diabetes mellitus type 2 #7. Depression #8. Previous history of CVA with no residual #9. History of 07-[id number]-ojyb smoking, quit smoking 20 years ago #10. Previous history of intracardiac thrombus in 2013 in the left atrial appendage maintained on Coumadin #11. Hypertension #12. Morbid obesity #13. Osteoarthritis Plan: The patient was seen and evaluated by Dr. Wolfe Cleared for discharge from the pulmonary standpoint Continue the current treatment plan Follow-up in the office in 1-2 weeks' time I, the cosigning physician, performed a history & physical examination of the patient. Lungs sounds with bilateral crackles in the posterior bases. Maintaining good O2 saturations in the 90s on room air. I discussed the assessment and plan of care with my nurse practitioner, Natacha Scott. I attest to the above note as dictated by her.
--- NOTE | 2020-06-27 11:43 | P.DS ---
Providers Date of admission: 06/22/20 14:40 Expected date of discharge: 06/27/20 Attending physician: Joey Pulliam MD Consults: 06/22/20 14:40 Consult Physician Urgent Consulting Provider: Ángel Holman Consult Reason/Comments: A flutter with RVR Do you want consulting provider notified?: Yes 06/25/20 11:43 Consult Physician Routine Consulting Provider: Chriss Jackson Consult Reason/Comments: SOB, pulmonary hypertension Do you want consulting provider notified?: Yes Primary care physician: Kelley Renee [facility] Course: Final Diagnoses: A. fib with RVR, status post successful cardioversion Acute hypoxic respiratory failure, secondary to fluid overload, possible acute CHF exacerbation, diastolic dysfunction Valvular heart disease with mild to moderate mitral stenosis, moderate mitral regurgitation and mild to moderate tricuspid regurgitation. History of cardiac ablation 2 Severe Pulmonary hypertension,RVSP 72.8 Asthma, stable COPD, stable History of CVA/TIA Diabetes mellitus Hyperlipidemia Hypertension Osteoarthritis Abnormal thyroid panel, decreased TSH, normal T4. Reevaluate outpatient in clinic Hospital course:This 64-year-old female admitted with A. fib with RVR, valvular heart disease, pulmonary hypertension and multiple other medical issues. Telemetry reporting atrial fibrillation with heart rate 120s to 130s, symptomatic with complaints of increased shortness of breath, positive palpitations. Cardizem drip resumed. INR 2.7. Scheduled for cardioversion today, with ablation a few weeks. 06/25/2020 status post successful cardioversion. Maintained on flecainide, Telemetry reports patient remained in sinus rhythm throughout the night. Patient reports increase in exertional shortness of breath since 0230. Nonproductive cough, lungs clear, no edema. Afebrile, WBC 10.8. Maintaining O2 sats in the high 90s on 2 L nasal cannula O2. 06/26/2020 evaluated by pulmonary, place on Lasix IV push. Diuresed well, 24- hour I&O reflecting a negative fluid balance; down 4 kg. chest x-ray reporting bilateral infiltrate, small effusion, CHF. Repeat echo reporting limited study, moderate tricuspid regurgitation, severe pulmonary hypertension, right ventricular systolic pressure 72.8. Telemetry sinus rhythm. Significant clinical improvement. Cleared by both cardiology and pulmonary for discharge. Patient will be discharged home today in stable condition with guarded prognosis. The impression and plan of care has been dictated as directed. : I performed a history and examination of this patient, discussed the same with the dictator. I agree with the dictator's note ,documented as a scribe. Any additional findings or plans will be noted. Patient Condition at Discharge: Stable Plan - Discharge Summary Discharge Rx Participant: No New Discharge Prescriptions: New Spironolactone [Aldactone] 50 mg PO DAILY #30 tab Verapamil Sr [Isoptin Sr] 120 mg PO DAILY #30 tablet.er Furosemide [Lasix] 80 mg PO DAILY #30 tab Furosemide [Lasix] 40 mg PO DAILY@1600 #30 tab Flecainide [Tambocor] 50 mg PO Q12HR #60 tab Continue Montelukast [Singulair] 10 mg PO HS Isosorbide Mononitrate [Imdur] 30 mg PO DAILY Warfarin [Coumadin] 2.5 mg PO SUMOWETHFRSA Pioglitazone [Actos] 45 mg PO HS Simvastatin [Zocor] 40 mg PO DAILY Omeprazole 40 mg PO DAILY Vortioxetine Hydrobromide [Trintellix] 10 mg PO DAILY Liraglutide [Victoza 3-Adam] 1.8 mg SQ HS busPIRone HCl [Buspar] 10 mg PO Q6H PRN PRN Reason: Anxiety allopurinoL [Zyloprim] 100 mg PO DAILY metFORMIN HCL [Glucophage] 1,000 mg PO DAILY Warfarin [Coumadin] 5 mg PO TU Amitriptyline HCl 25 mg PO HS PRN PRN Reason: SLEEP Cyclobenzaprine [Flexeril] 5 mg PO BID PRN PRN Reason: Muscle Pain Mirtazapine [Remeron] 30 mg PO HS Beclomethasone Dipropionate [Qvar 80mcg Redihaler] 1 puff PO RT-DAILY Discontinued Metoprolol Tartrate [Lopressor] 25 mg PO BID Losartan [Cozaar] 25 mg PO DAILY #30 tab Furosemide [Lasix] 40 mg PO BID #60 tablet Discharge Medication List Isosorbide Mononitrate [Imdur] 30 mg PO DAILY 09/10/14 [History] Montelukast [Singulair] 10 mg PO HS 09/10/14 [History] Warfarin [Coumadin] 2.5 mg PO SUMOWETHFRSA 10/01/14 [History] Pioglitazone [Actos] 45 mg PO HS 11/03/15 [History] Omeprazole 40 mg PO DAILY 04/24/17 [History] Simvastatin [Zocor] 40 mg PO DAILY 04/24/17 [History] Vortioxetine Hydrobromide [Trintellix] 10 mg PO DAILY 07/18/17 [History] Liraglutide [Victoza 3-Adam] 1.8 mg SQ HS 02/17/20 [History] Warfarin [Coumadin] 5 mg PO TU 02/17/20 [History] allopurinoL [Zyloprim] 100 mg PO DAILY 02/17/20 [History] busPIRone HCl [Buspar] 10 mg PO Q6H PRN 02/17/20 [History] metFORMIN HCL [Glucophage] 1,000 mg PO DAILY 02/17/20 [History] Amitriptyline HCl 25 mg PO HS PRN 06/22/20 [History] Beclomethasone Dipropionate [Qvar 80mcg Redihaler] 1 puff PO RT-DAILY 06/22/20 [History] Cyclobenzaprine [Flexeril] 5 mg PO BID PRN 06/22/20 [History] Mirtazapine [Remeron] 30 mg PO HS 06/22/20 [History] Flecainide [Tambocor] 50 mg PO Q12HR #60 tab 06/27/20 [Rx] Furosemide [Lasix] 40 mg PO DAILY@1600 #30 tab 06/27/20 [Rx] Furosemide [Lasix] 80 mg PO DAILY #30 tab 06/27/20 [Rx] Spironolactone [Aldactone] 50 mg PO DAILY #30 tab 06/27/20 [Rx] Verapamil Sr [Isoptin Sr] 120 mg PO DAILY #30 tablet.er 06/27/20 [Rx] Follow up Appointment(s)/Referral(s): Martin Lopez MD [STAFF PHYSICIAN] - 1 Week (ablation scheduled for 07/08/2020) Joey Pulliam MD [STAFF PHYSICIAN] - 3 Days Natacha Scott NPC [Nurse Practitioner] - 1 Week Ambulatory/Diagnostic Orders: Complete Blood Count w/diff [LAB.AMB] Time Frame: 06/30/20, Location: None Selected Activity/Diet/Wound Care/Special Instructions: PT/INR pending Cardiac Ablation scheduled for 07/08/2020 Continue Coumadin Stop Flecainide 2 days prior to ablation Do not take diabetic medications morning of ablation Lasix 80mg in the morning and 40mg in the afternoon
[2020-06-27 11:46] LABS: Glucose,Whole Blood 108 mg/dL (75-99)
[2020-06-27 12:11] LABS: INR 2.6 (<1.2); Prothrombin Time 25.7 sec (9.0-12.0)
[2020-06-27 13:22] VITALS: BMI 39.6
[2020-06-27 13:48] VITALS: BP 117/64; PULSE 89; TEMP 97.7
[2020-06-27] MEDS ORDERED: FUROSEMIDE 40 MG TAB PO SCH (16:00)
[2020-06-28] MEDS ORDERED: SPIRONOLACTONE 25 MG TAB PO SCH (09:00)
[2020-06-28] MEDS ORDERED: FUROSEMIDE 40 MG TAB PO SCH (09:00)
== END 2020-06-27 14:32 | disposition home or self-care (01) | DRG 308 ==
LOC: EC 12:29 → 3SCARD 14:40
PROVIDERS: ADMIT Family Medicine; ATTEND Family Medicine
PROC: 5A2204Z Restoration of Cardiac Rhythm, Single (ICD-10-PCS; principal; 2020-06-24 12:20)
DX: I48.19 Other persistent atrial fibrillation (principal); I50.33 Acute on chronic diastolic (congestive) heart failure; J96.01 Acute respiratory failure with hypoxia; Z68.41 Body mass index [BMI] 40.0-44.9, adult; I48.92 Unspecified atrial flutter; I11.0 Hypertensive heart disease with heart failure; E11.9 Type 2 diabetes mellitus without complications; E66.01 Morbid (severe) obesity due to excess calories; E78.5 Hyperlipidemia, unspecified; F32.9 Major depressive disorder, single episode, unspecified; I08.1 Rheumatic disorders of both mitral and tricuspid valves; I27.20 Pulmonary hypertension, unspecified; I47.1 Supraventricular tachycardia; J44.9 Chronic obstructive pulmonary disease, unspecified; M19.90 Unspecified osteoarthritis, unspecified site; Z79.01 Long term (current) use of anticoagulants; Z79.84 Long term (current) use of oral hypoglycemic drugs; Z79.899 Other long term (current) drug therapy; Z79.82 Long term (current) use of aspirin; Z80.8 Family history of malignant neoplasm of other organs or systems; Z86.73 Personal history of transient ischemic attack (TIA), and cerebral infarction without residual deficits; Z87.891 Personal history of nicotine dependence; Z90.710 Acquired absence of both cervix and uterus; Z83.79 Family history of other diseases of the digestive system; Z98.51 Tubal ligation status; Z82.3 Family history of stroke; Z82.49 Family history of ischemic heart disease and other diseases of the circulatory system
CPT/HCPCS: 36415; 71045; 71046; 80048; 80053; 80061; 83735; 83880; 84439; 84443; 84481; 84484; 85025; 85610; 85730; 92960; 93005; 93308; 94640; 96365; 96366; 99291

== ENCOUNTER 2020-07-07 13:50 | Observation (INO) | payer MEDICARE ==
[2020-07-07] MEDS ORDERED: IPRATROPIUM-ALBUTEROL 3 ML NEB INHALATION STA (14:49)
[2020-07-07] MEDS ORDERED: methylPREDNISolone SOD SUCCI 125 MG/2 ML VIAL IV STA (14:49)
[2020-07-07] MEDS ORDERED: SODIUM CHLORIDE 0.9% 1,000 ML IV STA ×2 (14:49)
--- NOTE | 2020-07-07 15:13 | ED ---
SOB HPI - General Source: patient, RN notes reviewed, old records reviewed Mode of arrival: wheelchair Limitations: no limitations <Keyona Correia - Last Filed: 07/07/20 16:23> <Vernon Peralta - Last Filed: 07/07/20 16:33> - General Chief Complaint: Shortness of Breath Stated Complaint: SOB Time Seen by Provider: 07/07/20 14:40 - History of Present Illness Initial Comments: Destinee is a 64-year-old female with a history of COPD, and A. fib she presents emergency department today with complaints of shortness of breath and palpitations starting today. She has states she's had a somewhat productive cough. She is using breathing treatments at home. She denies any specific chest pain just difficulty with breathing. Patient relates that she's had some nausea. (Keyona Correia) - Related Data Home Medications Medication Instructions Recorded Confirmed Isosorbide Mononitrate [Imdur] 30 mg PO DAILY 09/10/14 07/03/20 Montelukast [Singulair] 10 mg PO HS 09/10/14 07/03/20 Warfarin [Coumadin] 2.5 mg PO SUMOWETHFR 10/01/14 07/03/20 Omeprazole 40 mg PO DAILY 04/24/17 07/03/20 Simvastatin [Zocor] 40 mg PO DAILY 04/24/17 07/03/20 Vortioxetine Hydrobromide 10 mg PO DAILY 07/18/17 07/03/20 [Trintellix] Liraglutide [Victoza 3-Adam] 1.8 mg SQ HS 02/17/20 07/03/20 Warfarin [Coumadin] 5 mg PO TUSA 02/17/20 07/03/20 allopurinoL [Zyloprim] 100 mg PO DAILY 02/17/20 07/03/20 busPIRone HCl [Buspar] 10 mg PO Q6H PRN 02/17/20 07/03/20 metFORMIN HCL [Glucophage] 1,000 mg PO DAILY 02/17/20 07/03/20 Amitriptyline HCl 25 mg PO HS PRN 06/22/20 07/03/20 Beclomethasone Dipropionate [Qvar 1 puff PO RT-DAILY 06/22/20 07/03/20 80mcg Redihaler] Cyclobenzaprine [Flexeril] 5 mg PO BID PRN 06/22/20 07/03/20 Mirtazapine [Remeron] 30 mg PO HS 06/22/20 07/03/20 Furosemide [Lasix] 40 mg PO 1600 07/03/20 07/03/20 Furosemide [Lasix] 80 mg PO DAILY 07/03/20 07/03/20 Spironolactone [Aldactone] 50 mg PO HS 07/03/20 07/03/20 Previous Rx's Medication Instructions Recorded Flecainide [Tambocor] 50 mg PO Q12HR #60 tab 06/27/20 Verapamil Sr [Isoptin Sr] 120 mg PO DAILY #30 tablet.er 06/27/20 Allergies Allergy/AdvReac Type Severity Reaction Status Date / Time meperidine HCl [From Demerol] AdvReac Nausea & Verified 07/07/20 14:13 Vomiting Review of Systems ROS Other: All systems not noted in ROS Statement are negative. <Keyona Correia - Last Filed: 07/07/20 16:23> ROS Other: All systems not noted in ROS Statement are negative. <Vernon Peralta - Last Filed: 07/07/20 16:33> ROS Statement: Those systems with pertinent positive or pertinent negative responses have been documented in the HPI. Past Medical History Past Medical History: Atrial Fibrillation, Atrial Flutter, Asthma, COPD, CVA/TIA , Diabetes Mellitus, Hyperlipidemia, Hypertension, Osteoarthritis (OA) Additional Past Medical History / Comment(s): intracardiac thrombus 2013, SOB with exertion, stroke in 1998-no residual effects, SEE DR SIERRA'S HISTORY PHYSICAL FOR CARDIAC HISTORY History of Any Multi-Drug Resistant Organisms: None Reported Past Surgical History: Appendectomy, Breast Surgery, Cardiac Ablation, EPS, Heart Catheterization, Hysterectomy, Orthopedic Surgery, Tubal Ligation Additional Past Surgical History / Comment(s): ARTEMIO, ADDIE carpal tunnel release,Trigger finger & thumb surgery; cardioversions, breast biopsy, Left shoulder sx. Past Anesthesia/Blood Transfusion Reactions: No Reported Reaction, Motion Sickness Past Psychological History: Depression Smoking Status: Former smoker Past Alcohol Use History: None Reported Past Drug Use History: None Reported - Past Family History Mother Family Medical History: Liver Disease Additional Family Medical History / Comment(s): cirrhosis of liver Father Family Medical History: Cancer Additional Family Medical History / Comment(s): throat cancer Daughter(s) Additional Family Medical History / Comment(s): HEART VALVE REPLACEMENT (Aorta) Son(s) Family Medical History: CVA/TIA Additional Family Medical History / Comment(s): One son, had multiple strokes in a row <ColeenKeyona calvo - Last Filed: 07/07/20 16:23> General Exam Limitations: no limitations General appearance: alert, in no apparent distress Head exam: Present: atraumatic, normocephalic, normal inspection Eye exam: Present: normal appearance, PERRL, EOMI. Absent: scleral icterus, conjunctival injection, periorbital swelling ENT exam: Present: normal exam, mucous membranes moist Neck exam: Present: normal inspection. Absent: tenderness, meningismus, lymp hadenopathy Respiratory exam: Present: wheezes. Absent: normal lung sounds bilaterally, respiratory distress, rales, rhonchi, stridor Cardiovascular Exam: Present: regular rate, normal rhythm, normal heart sounds. Absent: systolic murmur, diastolic murmur, rubs, gallop, clicks GI/Abdominal exam: Present: soft, normal bowel sounds. Absent: distended, tenderness, guarding, rebound, rigid Extremities exam: Present: normal inspection, full ROM, normal capillary refill. Absent: tenderness, pedal edema, joint swelling, calf tenderness Back exam: Present: normal inspection Neurological exam: Present: alert, oriented X3, CN II-XII intact Psychiatric exam: Present: normal affect, normal mood <Whitley Correiaily - Last Filed: 07/07/20 16:23> - General Exam Comments Initial Comments: 64-year-old female. Alert and oriented 3. No significant distress. (Keyona Correia) Course <Vernon Peralta - Last Filed: 07/07/20 16:33> Vital Signs 07/07/20 07/07/20 07/07/20 14:09 15:28 15:35 Temperature 97.4 F L Pulse Rate 88 80 82 Respiratory 20 Rate Blood Pressure 151/80 O2 Sat by Pulse 99 Oximetry - Reevaluation(s) Reevaluation #1: 07/07/20 16:32 PA supervision: I personally evaluate the case initially admitted Dr. Lopez (Vernon Peralta) Medical Decision Making - Lab Data Result diagrams: 07/07/20 14:59 07/07/20 14:59 - Radiology Data Radiology results: report reviewed <Keyona Correia - Last Filed: 07/07/20 16:23> - Lab Data Result diagrams: 07/07/20 14:59 07/07/20 14:59 <Vernon Peralta - Last Filed: 07/07/20 16:33> - Medical Decision Making 64-year-old female presents with concern for palpitations difficulty breathing. Patient case was discussed with Dr. Espinoza Patient is currently in normal sinus rhythm heart rate of 82 bpm. He did discontinue her flecainide on recent visit. He wants to discontinue to stop this medication because continue anticoagulation. Recommended to give the Patient IV Lasix. Patient is agreeable to admission and will be admitted to Dr. Buckley. (Keyona Correia) - Lab Data Lab Results 07/07/20 07/07/20 07/07/20 Range/Units 14:59 14:59 14:59 WBC 10.2 (3.8-10.6) k/uL RBC 5.61 H (3.80-5.40) m/uL Hgb 14.4 (11.4-16.0) gm/dL Hct 45.7 (34.0-46.0) % MCV 81.5 (80.0-100.0) fL MCH 25.6 (25.0-35.0) pg MCHC 31.5 (31.0-37.0) g/dL RDW 15.2 (11.5-15.5) % Plt Count 420 (150-450) k/uL Neutrophils % 74 % Lymphocytes % 16 % Monocytes % 6 % Eosinophils % 2 % Basophils % 1 % Neutrophils # 7.6 (1.3-7.7) k/uL Lymphocytes # 1.7 (1.0-4.8) k/uL Monocytes # 0.7 (0-1.0) k/uL Eosinophils # 0.2 (0-0.7) k/uL Basophils # 0.1 (0-0.2) k/uL PT 38.0 H (9.0-12.0) sec INR 3.9 H (<1.2) APTT 37.9 H (22.0-30.0) sec Sodium 138 (137-145) mmol/L Potassium 4.1 (3.5-5.1) mmol/L Chloride 101 (98-107) mmol/L Carbon Dioxide 23 (22-30) mmol/L Anion Gap 14 mmol/L BUN 11 (7-17) mg/dL Creatinine 0.77 (0.52-1.04) mg/dL Est GFR (CKD-EPI)AfAm >90 (>60 ml/min/1.73 sqM) Est GFR (CKD-EPI)NonAf 82 (>60 ml/min/1.73 sqM) Glucose 136 H (74-99) mg/dL Plasma Lactic Acid Franco (0.7-2.0) mmol/L Calcium 9.8 (8.4-10.2) mg/dL Magnesium 1.8 (1.6-2.3) mg/dL Total Bilirubin 0.7 (0.2-1.3) mg/dL AST 45 H (14-36) U/L ALT 36 H (4-34) U/L Alkaline Phosphatase 114 (38-126) U/L Troponin I (0.000-0.034) ng/mL NT-Pro-B Natriuret Pep pg/mL Total Protein 8.2 (6.3-8.2) g/dL Albumin 4.8 (3.5-5.0) g/dL 07/07/20 07/07/20 07/07/20 Range/Units 14:59 14:59 14:59 WBC (3.8-10.6) k/uL RBC (3.80-5.40) m/uL Hgb (11.4-16.0) gm/dL Hct (34.0-46.0) % MCV (80.0-100.0) fL MCH (25.0-35.0) pg MCHC (31.0-37.0) g/dL RDW (11.5-15.5) % Plt Count (150-450) k/uL Neutrophils % % Lymphocytes % % Monocytes % % Eosinophils % % Basophils % % Neutrophils # (1.3-7.7) k/uL Lymphocytes # (1.0-4.8) k/uL Monocytes # (0-1.0) k/uL Eosinophils # (0-0.7) k/uL Basophils # (0-0.2) k/uL PT (9.0-12.0) sec INR (<1.2) APTT (22.0-30.0) sec Sodium (137-145) mmol/L Potassium (3.5-5.1) mmol/L Chloride (98-107) mmol/L Carbon Dioxide (22-30) mmol/L Anion Gap mmol/L BUN (7-17) mg/dL Creatinine (0.52-1.04) mg/dL Est GFR (CKD-EPI)AfAm (>60 ml/min/1.73 sqM) Est GFR (CKD-EPI)NonAf (>60 ml/min/1.73 sqM) Glucose (74-99) mg/dL Plasma Lactic Acid Franco 2.9 H* (0.7-2.0) mmol/L Calcium (8.4-10.2) mg/dL Magnesium (1.6-2.3) mg/dL Total Bilirubin (0.2-1.3) mg/dL AST (14-36) U/L ALT (4-34) U/L Alkaline Phosphatase (38-126) U/L Troponin I <0.012 (0.000-0.034) ng/mL NT-Pro-B Natriuret Pep 20 pg/mL Total Protein (6.3-8.2) g/dL Albumin (3.5-5.0) g/dL 07/07/20 15:12 EKG performed at 1425 shows normal sinus rhythm on a branch block. Abnormal EKG. Ventricular rate of 82 bpm. Interval is 170 ms. QRS duration is 120 ms. QT QTc is 424/4 and 95 ms. (Keyona Correia) - Radiology Data Borderline heart size. However lateral view shows no discrete abnormality. (Keyona Correia) Disposition Is patient prescribed a controlled substance at d/c from ED?: No Time of Disposition: 16:24 <Keyona Correia - Last Filed: 07/07/20 16:23> <Vernon Peralta - Last Filed: 07/07/20 16:33> Clinical Impression: Palpitations, Dyspnea Disposition: ADMITTED IP TO THIS HOSP Condition: Stable Referrals: Kelley Renee DO [Primary Care Provider] - 1-2 days
[2020-07-07 15:20] LABS: ALT 36 U/L (4-34); AST 45 U/L (14-36); African American GFR (CKD) >90 (>60 ml/min/1.73 sqM); Albumin 4.8 g/dL (3.5-5.0); Alkaline Phosphatase 114 U/L (38-126); Anion Gap 14 mmol/L; Blood Urea Nitrogen 11 mg/dL (7-17); Calcium 9.8 mg/dL (8.4-10.2); Carbon Dioxide 23 mmol/L (22-30); Chloride 101 mmol/L (98-107); Glucose 136 mg/dL (74-99); Magnesium 1.8 mg/dL (1.6-2.3); Non-African American GFR(CKD) 82 (>60 ml/min/1.73 sqM); Potassium 4.1 mmol/L (3.5-5.1); Sodium 138 mmol/L (137-145); Total Bilirubin 0.7 mg/dL (0.2-1.3); Total Protein 8.2 g/dL (6.3-8.2)
[2020-07-07 15:21] LABS: INR 3.9 (<1.2); Partial Thromboplastin Time 37.9 sec (22.0-30.0)
[2020-07-07 15:24] LABS: Basophils # (A) 0.1 k/uL (0-0.2); Basophils % (A) 1 %; Eosinophils # (A) 0.2 k/uL (0-0.7); Eosinophils % (A) 2 %; HCT 45.7 % (34.0-46.0); HGB 14.4 gm/dL (11.4-16.0); Lymphocytes # (A) 1.7 k/uL (1.0-4.8); Lymphocytes % (A) 16 %; MCH 25.6 pg (25.0-35.0); MCHC 31.5 g/dL (31.0-37.0); MCV 81.5 fL (80.0-100.0); Mean Platelet Volume 7.3; Monocytes # (A) 0.7 k/uL (0-1.0); Monocytes % (A) 6 %; Neutrophils # (A) 7.6 k/uL (1.3-7.7); Neutrophils % (A) 74 %; Platelet Count 420 k/uL (150-450); RBC 5.61 m/uL (3.80-5.40); RDW 15.2 % (11.5-15.5); WBC 10.2 k/uL (3.8-10.6)
--- NOTE | 2020-07-07 15:29 | XR ---
EXAMINATION TYPE: XR chest 2V DATE OF EXAM: 07/07/2020 COMPARISON: 06/26/2020 HISTORY: 64 year-old female shortness of breath, difficulty breathing TECHNIQUE: PA and lateral views FINDINGS: Heart borderline enlarged. Aorta and pulmonary vasculature within normal limits. Left base underpenet rated and not well assessed. However, the posterior costophrenic angles are clear. Remainder of the l ungs are clear. IMPRESSION: Borderline heart size. Left base is underpenetrated and not well assessed. However, the lateral view shows no discrete abnormality.
[2020-07-07] MEDS ORDERED: FUROSEMIDE 10 MG/ML 2 ML VIAL IV STA (16:11)
[2020-07-07] MEDS ORDERED: ASPIRIN 81 MG PO STA (16:25)
[2020-07-07] MEDS ORDERED: NITROGLYCERIN SL TABS 0.4 MG TAB SUBLINGUAL PRN (16:25)
[2020-07-07] MEDS ORDERED: WARFARIN 0.5 MG TAB PO ONE (18:00)
[2020-07-07 20:03] LABS: Glucose,Whole Blood 163 mg/dL (75-99)
[2020-07-07] MEDS: SPIRONOLACTONE 25 MG TAB PO SCH (20:09)
[2020-07-07] MEDS: MONTELUKAST 10 MG TAB PO SCH (20:09)
[2020-07-07] MEDS: MIRTAZAPINE 15 MG TAB PO SCH (20:10)
[2020-07-07] MEDS: INSULIN ASPART (NovoLOG) 100 UNIT/ML VIAL SQ SCH (20:10)
[2020-07-07] MEDS: (Liraglutide [Victoza 3-Pak] 0.6 MG/0.1 ML Pen.Injctr) SQ SCH (20:10)
[2020-07-07] MEDS: SODIUM CHLORIDE 0.9% 1,000 ML IV SCH (22:14)
[2020-07-08 05:32] LABS: Glucose,Whole Blood 218 mg/dL (75-99)
[2020-07-08] MEDS: PANTOPRAZOLE 40 MG TABLET PO SCH (05:32)
[2020-07-08] MEDS: allopurinoL 100 MG TAB PO SCH (05:32)
[2020-07-08] MEDS: ATORVASTATIN 20 MG TAB PO SCH (05:33)
[2020-07-08] MEDS: VORTIOXETINE HYDROBROMIDE 10 MG TABLET PO SCH (06:53)
[2020-07-08] MEDS: FUROSEMIDE 80 MG TAB PO SCH (06:54)
[2020-07-08] MEDS: metFORMIN 500 MG TAB PO SCH (06:54)
[2020-07-08] MEDS: INSULIN ASPART (NovoLOG) 100 UNIT/ML VIAL SQ SCH ×2 (06:56→11:44)
[2020-07-08] MEDS: ALBUTEROL HFA INHALER INHALATION SCH (07:48)
[2020-07-08 08:17] LABS: Cholesterol 190 mg/dL (<200); HDL Cholesterol 65 mg/dL (40-60); LDL Cholesterol,Calculated 115 mg/dL (0-99); Triglycerides 48 mg/dL (<150)
[2020-07-08 08:17] LABS: INR 3.4 (<1.2); Prothrombin Time 33.7 sec (9.0-12.0)
[2020-07-08] MEDS ORDERED: WARFARIN 0.5 MG TAB PO ONE ×2 (08:45→18:00)
[2020-07-08] MEDS: ISOSORBIDE MONONITRATE ER 30 MG TAB.ER.24H PO SCH (08:53)
[2020-07-08] MEDS ORDERED: VERAPAMIL SR 120 MG TABLET.ER PO SCH (09:00)
[2020-07-08] MEDS ORDERED: ASPIRIN 325 MG TAB PO SCH (09:00)
--- NOTE | 2020-07-08 11:25 | P.HPCAR ---
History of Present Illness H&P Date: 07/08/20 CHIEF COMPLAINT: SOB, palpitations HISTORY OF PRESENT ILLNESS: This is a 64 -year old female with a past medical history significant for atrial fibrillation, diabetes mellitus, hypertension, hyperlipidemia, COPD, and CVA/TIA. Patient follows in the office with John. Patient was recently hospitalized secondary to shortness of breath and palpitations. She was found to be in atrial tachycardia with RVR and underwent cardioversion with Dr. Lopez on 06/24/2020. Patient also has history of cardiac ablation in 2013 and 2015. Patient presented to the emergency room with a chief complaint of shortness of breath and palpitations. Patient denies chest pain. Denies dizziness or lightheadedness. DIAGNOSTICS: EKG reveals sinus rhythm with right bundle branch block. Chest xray borderline heart size. No acute abnormality. Laboratory data: WBC 10.2. Hemoglobin 14.4. Platelet count 420. INR 3.4. Sodium 138. Potassium 4.1. BUN 11. Creatinine 0.77. Magnesium 1.8. Troponins negative 3. BNP 20. Current home cardiac medications include Coumadin, Aldactone 50 mg daily, Lasix 80 mg in the morning and 40 mg in the afternoon, flecainide 50 mg daily, verapamil 120 mg daily, and Zocor 40 mg daily REVIEW OF SYSTEMS: At the time of my exam: CONSTITUTIONAL: Denies fever or chills. HEENT: Denies blurred vision, vision changes, or eye pain. Denies hemoptysis CARDIOVASCULAR: Denies chest pain, orthopnea, PND or palpitations RESPIRATORY: No shortness of breath. GASTROINTESTINAL: Denies abdominal pain. Denies nausea or vomiting. HEMATOLOGIC: Denies bleeding disorders. GENITOURINARY: Denies any blood in urine. SKIN: Denies pruitis. Denies rash. PHYSICAL EXAM: VITAL SIGNS: Reviewed. GENERAL: Well-developed in no acute distress. HEENT: Head is normocephalic. Pupils are equal, round. Sclerae anicteric. Mucous membranes of the mouth are moist. Neck supple. No JVD or thyromegaly LUNGS: Respirations even and unlabored. Lungs essentially clear to auscultation bilaterally. HEART: Regular rate and rhythm. S1 and S2 heard. Systolic murmur noted. ABDOMEN: Soft. Nondistended. Nontender. EXTREMITIES: Normal range of motion. No clubbing or cyanosis. Peripheral pulses intact. No lower extremity edema NEUROLOGIC: Awake and alert. Oriented x 3. ASSESSMENT: Palpitations and shortness of breath History of atrial tachycardia with cardioversion on 06/24/2020 History of atrial fibrillation, on long-term anticoagulation with Coumadin Supratherapeutic INR Hypertension Hyperlipidemia COPD CVA/TIA Valvular heart disease: Mild MR, mild to moderate mitral stenosis, mild to moderate tricuspid regurgitation Severe pulmonary hypertension Obesity, BMI 39.1 PLAN: NPO except for medications Hold Coumadin for elevated INR. Monitor INR. Patient to undergo EP study with possible ablation today with Dr. Lopez Nurse practitioner note has been reviewed by physician. Signing provider agrees with the documented findings, assessment, and plan of care. Physical Exam Vitals: Vital Signs Temp Pulse Pulse Resp BP BP Pulse Ox 07/08/20 08:14 97.6 F 91 16 143/79 95 07/08/20 04:55 97.6 F 85 18 129/79 99 07/07/20 20:05 97.4 F L 74 17 117/70 96 07/07/20 18:57 97 07/07/20 18:05 97.7 F 82 16 124/74 96 07/07/20 17:27 97.9 F 87 18 140/75 98 07/07/20 16:35 85 18 135/72 98 07/07/20 15:35 82 07/07/20 15:28 80 07/07/20 15:00 82 18 145/78 98 07/07/20 14:09 97.4 F L 88 20 151/80 99 Intake and Output 07/07/20 07/08/20 07/08/20 22:59 06:59 14:59 Intake Total 200 0 Balance 200 0 Intake: Oral 200 0 Other: Voiding Method Toilet Toilet Toilet # Voids 1 2 Weight 97.069 kg Past Medical History Past Medical History: Atrial Fibrillation, Atrial Flutter, Asthma, COPD, CVA/TIA, Diabetes Mellitus, Hyperlipidemia, Hypertension, Osteoarthritis (OA) Additional Past Medical History / Comment(s): intracardiac thrombus 2013, SOB with exertion, stroke in 1998-no residual effects, SEE DR SIERRA'S HISTORY PHYSICAL FOR CARDIAC HISTORY History of Any Multi-Drug Resistant Organisms: None Reported Past Surgical History: Appendectomy, Breast Surgery, Cardiac Ablation, EPS, Heart Catheterization, Hysterectomy, Orthopedic Surgery, Tubal Ligation Additional Past Surgical History / Comment(s): ARTEMIO, ADDIE carpal tunnel release,Trigger finger & thumb surgery; cardioversions, breast biopsy, Left shoulder sx. Past Anesthesia/Blood Transfusion Reactions: No Reported Reaction, Motion Sickness Smoking Status: Former smoker - Past Family History Mother Family Medical History: Liver Disease Additional Family Medical History / Comment(s): cirrhosis of liver Father Family Medical History: Cancer Additional Family Medical History / Comment(s): throat cancer Daughter(s) Additional Family Medical History / Comment(s): HEART VALVE REPLACEMENT (Aorta) Son(s) Family Medical History: CVA/TIA Additional Family Medical History / Comment(s): One son, had multiple strokes in a row Physical Examination Vital Signs Temp Pulse Pulse Resp BP BP Pulse Ox 07/08/20 08:14 97.6 F 91 16 143/79 95 07/08/20 04:55 97.6 F 85 18 129/79 99 07/07/20 20:05 97.4 F L 74 17 117/70 96 07/07/20 18:57 97 07/07/20 18:05 97.7 F 82 16 124/74 96 07/07/20 17:27 97.9 F 87 18 140/75 98 07/07/20 16:35 85 18 135/72 98 07/07/20 15:35 82 07/07/20 15:28 80 07/07/20 15:00 82 18 145/78 98 07/07/20 14:09 97.4 F L 88 20 151/80 99 Intake and Output 07/07/20 07/08/20 07/08/20 22:59 06:59 14:59 Intake Total 200 0 Balance 200 0 Intake: Oral 200 0 Other: Voiding Method Toilet Toilet Toilet # Voids 1 2 Weight 97.069 kg Results 07/07/20 14:59 07/07/20 14:59 Cardiac Enzymes 07/07/20 07/07/20 07/07/20 Range/Units 14:59 14:59 18:37 AST 45 H (14-36) U/L Troponin I <0.012 <0.012 (0.000-0.034) ng/mL 07/07/20 Range/Units 20:29 AST (14-36) U/L Troponin I <0.012 (0.000-0.034) ng/mL Coagulation 07/07/20 07/08/20 Range/Units 14:59 07:48 PT 38.0 H 33.7 H (9.0-12.0) sec APTT 37.9 H (22.0-30.0) sec Lipids 07/08/20 Range/Units 07:54 Triglycerides 48 (<150) mg/dL Cholesterol 190 (<200) mg/dL HDL Cholesterol 65 H (40-60) mg/dL CBC 07/07/20 Range/Units 14:59 WBC 10.2 (3.8-10.6) k/uL RBC 5.61 H (3.80-5.40) m/uL Hgb 14.4 (11.4-16.0) gm/dL Hct 45.7 (34.0-46.0) % Plt Count 420 (150-450) k/uL Comprehensive Metabolic Panel 07/07/20 Range/Units 14:59 Sodium 138 (137-145) mmol/L Potassium 4.1 (3.5-5.1) mmol/L Chloride 101 (98-107) mmol/L Carbon Dioxide 23 (22-30) mmol/L BUN 11 (7-17) mg/dL Creatinine 0.77 (0.52-1.04) mg/dL Glucose 136 H (74-99) mg/dL Calcium 9.8 (8.4-10.2) mg/dL AST 45 H (14-36) U/L ALT 36 H (4-34) U/L Alkaline Phosphatase 114 (38-126) U/L Total Protein 8.2 (6.3-8.2) g/dL Albumin 4.8 (3.5-5.0) g/dL Current Medications Generic Name Dose Route Start Last Admin Trade Name Freq PRN Reason Stop Dose Admin Albuterol Sulfate 1 puff 07/08/20 08:00 07/08/20 07:48 Albuterol Hfa Inhaler INHALATION 1 puff RT-DAILY CHEMO Administration Allopurinol 100 mg 07/08/20 09:00 07/08/20 05:32 Allopurinol 100 Mg Tab PO 100 mg DAILY CHEMO Administration Atorvastatin Calcium 20 mg 07/08/20 09:00 07/08/20 05:33 Atorvastatin 20 Mg Tab PO 20 mg DAILY CHEMO Administration Furosemide 40 mg 07/08/20 16:00 Furosemide 40 Mg Tab PO DAILY@1600 CHEMO Furosemide 80 mg 07/08/20 09:00 07/08/20 06:54 Furosemide 80 Mg Tab PO Not Given DAILY CHEMO Sodium Chloride 1,000 mls @ 20 mls/hr 07/07/20 18:45 07/07/20 22:14 Saline 0.9% IV 20 mls/hr .Q24H CHEMO Administration Insulin Aspart 0 unit 07/07/20 21:00 07/08/20 06:56 Insulin Aspart (Novolog) 100 Unit/Ml Vial SQ Not Given ACHS CHEMO Protocol Isosorbide Mononitrate 30 mg 07/08/20 09:00 07/08/20 08:53 Isosorbide Mononitrate Er 30 Mg Tab.Er.24h PO 30 mg DAILY CHEMO Administration Metformin HCl 1,000 mg 07/08/20 09:00 07/08/20 06:54 Metformin 500 Mg Tab PO Not Given DAILY CHEMO Mirtazapine 30 mg 07/07/20 21:00 07/07/20 20:10 Mirtazapine 15 Mg Tab PO 30 mg HS CHEMO Administration Miscellaneous Information 1 each 07/08/20 07:53 Warfarin Per Pharmacy MISCELLANE DIRECTED PRN Per Protocol Montelukast Sodium 10 mg 07/07/20 21:00 07/07/20 20:09 Montelukast 10 Mg Tab PO 10 mg HS CHEMO Administration Nitroglycerin 0.4 mg 07/07/20 16:25 Nitroglycerin Sl Tabs 0.4 Mg Tab SUBLINGUAL Q5M PRN Chest Pain Non-Formulary Medication 1.8 mg 07/07/20 21:00 07/07/20 20:10 Liraglutide [Victoza 3-Adam] SQ Not Given HS CHEMO Pantoprazole Sodium 40 mg 07/08/20 07:30 07/08/20 05:32 Pantoprazole 40 Mg Tablet PO 40 mg DAILY@0730 CHEMO Administration Spironolactone 50 mg 07/07/20 21:00 07/07/20 20:09 Spironolactone 25 Mg Tab PO 50 mg HS CHEMO Administration Vortioxetine 10 mg 07/08/20 09:00 07/08/20 06:53 Vortioxetine Hydrobromide 10 Mg Tablet PO 10 mg DAILY CHEMO Administration Warfarin Sodium 5 mg 07/12/20 18:00 Warfarin 5 Mg Tab PO [facility] Protocol Warfarin Sodium 2.5 mg 07/09/20 18:00 Warfarin 2.5 Mg Tab PO [facility] Protocol Warfarin Sodium 0 mg 07/08/20 18:00 Warfarin 0.5 Mg Tab PO 07/08/20 18:01 ONCE ONE Intake and Output 07/07/20 07/08/20 07/08/20 22:59 06:59 14:59 Intake Total 200 0 Balance 200 0 Intake: Oral 200 0 Other: Voiding Method Toilet Toilet Toilet # Voids 1 2 Weight 97.069 kg 07/07/20 14:59 07/07/20 14:59
[2020-07-08 11:43] LABS: Glucose,Whole Blood 148 mg/dL (75-99)
[2020-07-08] MEDS ORDERED: ONDANSETRON 4 MG/2 ML VIAL ONE (14:05)
[2020-07-08] MEDS ORDERED: fentaNYL (PF) 50 MCG/ML 2 ML AMP ONE (14:05)
[2020-07-08] MEDS ORDERED: FUROSEMIDE 10 MG/ML 2 ML VIAL ONE (14:05)
[2020-07-08] MEDS ORDERED: MIDAZOLAM 2 MG/2 ML VIAL ONE (14:05)
[2020-07-08] MEDS ORDERED: ISOPROTERENOL 250 MCG/1.25 ML SYR IV ONE (14:05)
[2020-07-08] MEDS ORDERED: PROPOFOL 10 MG/ML 20 ML VIAL IV ONE (14:05)
[2020-07-08] MEDS ORDERED: IV FLUID CONTINUATION 600 ML IV ONE (14:10)
[2020-07-08] MEDS ORDERED: LIDOCAINE 1% INJ 10MG/ML (20 ML MDV) ONE (14:32)
[2020-07-08] MEDS ORDERED: HEPARIN SODIUM (1,000 UNIT/ML) 1,000 UNIT in SODIUM CHLORIDE 0.9% 1,000 ML IRRIGATION ONE (14:34)
[2020-07-08] MEDS ORDERED: LIDOCAINE 1% INJ 10MG/ML (20 ML MDV) SQ ONE (15:07)
[2020-07-08] MEDS ORDERED: FUROSEMIDE 40 MG TAB PO SCH (16:00)
[2020-07-08] MEDS ORDERED: SODIUM CHLORIDE 0.9% 1,000 ML IV ONE (16:46)
[2020-07-08 17:32] LABS: Glucose,Whole Blood 139 mg/dL (75-99)
[2020-07-08] MEDS: SODIUM CHLORIDE 0.9% 1,000 ML IV SCH (18:05)
[2020-07-08] MEDS ORDERED: ACETAMINOPHEN TAB 325 MG TAB PO PRN (19:54)
[2020-07-08 20:26] LABS: Glucose,Whole Blood 226 mg/dL (75-99)
[2020-07-08] MEDS: (Liraglutide [Victoza 3-Pak] 0.6 MG/0.1 ML Pen.Injctr) SQ SCH (20:30)
[2020-07-08] MEDS: MONTELUKAST 10 MG TAB PO SCH (20:32)
[2020-07-08] MEDS: MIRTAZAPINE 15 MG TAB PO SCH (20:32)
[2020-07-08] MEDS: SPIRONOLACTONE 25 MG TAB PO SCH (20:34)
--- NOTE | 2020-07-08 21:28 | PCN ---
PROCEDURE NOTE HISTORY: Destinee Deal is a 64-year-old female who has had an atrial flutter ablation many years back. About 2 years back, she had cryoablation of the pulmonary veins, atrial fibrillation. She has been experiencing palpitations, shortness of breath and was found to be in atrial tachycardia with a cycle length of about 240 milliseconds. As she was extremely short of breath, she underwent electrical cardioversion along with institution of low-dose flecainide. She came back to the hospital once again complaining of palpitations and was brought to the EP lab. DESCRIPTION OF PROCEDURE: The patient was brought to the EP lab in a fasting state. Written informed consent was obtained prior to the procedure. Venous sheaths were placed in the right and left femoral veins and via these diagnostic catheters were positioned in the high right atrium, His bundle area, coronary sinus and right ventricle and an EP study was performed. Sinus cycle length of 671 milliseconds. The TN interval 183 milliseconds, QRS right bundle branch block pattern, 146 millisecond QRS with QT interval 377 milliseconds. AH interval 91 milliseconds, HV interval 52 milliseconds. Sinus node recovery times of 600, 500 and 400 milliseconds were 603, 943 and 671 milliseconds. AV node Wenckebach block from the high right atrium 350 milliseconds. AV node Wenckebach block from the coronary sinus 340 milliseconds. Atrial extra stimulation was performed. Atrial ERP 500/210 milliseconds. The burst stimulation performed from the high right atrium for 450 milliseconds down to 250 milliseconds. No arrhythmias induced. Double extra stimuli from the coronary sinus performed (400/260/230 milliseconds). Burst stimulation of the coronary sinus performed from 400 milliseconds down to 250 milliseconds. No atrial arrhythmias induced. Isuprel was started at high dose and then reduced to 2 mcg. A full EP study was performed. Atrial extra stimulation was performed up to triple extrastimuli from the high right atrium and 2 sites in the coronary sinus, long-short sequences were also performed. Burst stimulation was performed from multiple sites. VA Wenckebach block 320 milliseconds, ventricular extra stimulation was performed and the VA ERP was 500/230 milliseconds. Despite fairly aggressive atrial stimulation protocol involving burst stimulation and triple extra stimuli including long-short sequences, the clinical arrhythmia could not be induced. However with burst stimulation, we were able to induce short bursts of an atrial tachycardia with high to low sequence originating in the right atrium where the cycle length would be slightly faster than the sinus tachycardia cycle length, but with a slight change in the local electrogram in the high right atrium as compared to the sinus beats. However, this was not clinical tachycardia. Sustained tachycardia could not be induced, only nonsustained runs were noted. Isuprel was stopped and atrial stimulation was performed once again, but no arrhythmias could be induced. Therefore, the all catheters were then removed since the atrial tachycardia was noninducible and therefore tachycardia could not be induced. The venous sheaths were removed. Hemostasis was assured and patient was transferred back to the observation unit. PLAN: Resume verapamil and resume flecainide. When the patient has a breakthrough episode of sustained atrial tachycardia of 2:1 block similar to her clinical arrhythmia from early June, we will proceed directly with an EP study and ablation rather than electrical cardioversion. MMLOLA / FAMN: [id number] /
[2020-07-09 04:45] VITALS: TEMP 97.7
[2020-07-09 04:55] LABS: INR 3.4 (<1.2); Prothrombin Time 33.5 sec (9.0-12.0)
[2020-07-09] MEDS: PANTOPRAZOLE 40 MG TABLET PO SCH (06:34)
[2020-07-09 06:37] LABS: Glucose,Whole Blood 119 mg/dL (75-99)
[2020-07-09 07:53] VITALS: BP 133/83; PULSE 75; RESP 14
[2020-07-09] MEDS: VORTIOXETINE HYDROBROMIDE 10 MG TABLET PO SCH (08:37)
[2020-07-09] MEDS: ISOSORBIDE MONONITRATE ER 30 MG TAB.ER.24H PO SCH (08:37)
[2020-07-09] MEDS: ATORVASTATIN 20 MG TAB PO SCH (08:37)
[2020-07-09] MEDS: FUROSEMIDE 80 MG TAB PO SCH (08:37)
[2020-07-09] MEDS: allopurinoL 100 MG TAB PO SCH (08:37)
[2020-07-09] MEDS: metFORMIN 500 MG TAB PO SCH (08:37)
[2020-07-09] MEDS ORDERED: FLECAINIDE 50 MG TAB PO SCH (09:00)
[2020-07-09] MEDS ORDERED: VERAPAMIL SR 120 MG TABLET.ER PO SCH (09:00)
[2020-07-09] MEDS: ALBUTEROL HFA INHALER INHALATION SCH (11:08)
--- NOTE | 2020-07-09 11:26 | P.DS ---
Providers Date of admission: 07/07/20 16:31 Attending physician: Martin Lopez Primary care physician: Kelley Renee [place] [facility] Course: HISTORY OF PRESENT ILLNESS: This is a 64 -year old female with a past medical history significant for atrial fibrillation, diabetes mellitus, hypertension, hyperlipidemia, COPD, and CVA/TIA. Patient follows in the office with John. Atrial tachycardia was rendered noninducible. She is seen and examined sitting up in no acute distress. She denies symptoms of chest pain, shortness of breath, dizziness or palpitations. Blood pressure 133/83 heart rate 75 afebrile and maintaining oxygen saturation on room air. PHYSICAL EXAM: GENERAL: Well-developed in no acute distress. HEENT: Head is normocephalic. Pupils are equal, round. Sclerae anicteric. Mucous membranes of the mouth are moist. Neck supple. No JVD or thyromegaly LUNGS: Respirations even and unlabored. Lungs essentially clear to auscultation bilaterally. HEART: Regular rate and rhythm. S1 and S2 heard. Systolic murmur noted. EXTREMITIES: Normal range of motion. No clubbing or cyanosis. Peripheral pulses intact. No lower extremity edema. Bilateral groin access sites clean, dry and intact with no bleeding, oozing or hemoatoma. ASSESSMENT: Palpitations and shortness of breath History of atrial tachycardia with cardioversion on 06/24/2020 History of atrial fibrillation, on long-term anticoagulation with Coumadin Supratherapeutic INR Hypertension Hyperlipidemia COPD CVA/TIA Valvular heart disease: Mild MR, mild to moderate mitral stenosis, mild to moderate tricuspid regurgitation Severe pulmonary hypertension Obesity, BMI 39.1 PLAN: Discharge home to follow-up with Dr. Lopez in the office in 1-2 weeks. Nurse practitioner note has been reviewed by physician. Signing provider agrees with the documented findings, assessment, and plan of care. Patient Condition at Discharge: Stable Plan - Discharge Summary Discharge Rx Participant: No New Discharge Prescriptions: New Flecainide [Tambocor] 50 mg PO Q12HR tab Continue Montelukast [Singulair] 10 mg PO HS Isosorbide Mononitrate [Imdur] 30 mg PO DAILY Warfarin [Coumadin] 2.5 mg PO SUMOWETHFR Simvastatin [Zocor] 40 mg PO DAILY Omeprazole 40 mg PO DAILY Liraglutide [Victoza 3-Adam] 1.8 mg SQ HS allopurinoL [Zyloprim] 100 mg PO DAILY metFORMIN HCL [Glucophage] 1,000 mg PO DAILY Warfarin [Coumadin] 5 mg PO TU Mirtazapine [Remeron] 30 mg PO HS Verapamil Sr [Isoptin Sr] 120 mg PO DAILY #30 tablet.er Spironolactone [Aldactone] 50 mg PO HS Furosemide [Lasix] 40 mg PO DAILY@1600 Furosemide [Lasix] 80 mg PO DAILY Vortioxetine Hydrobromide [Trintellix] 10 mg PO DAILY Albuterol Sulfate [Albuterol Sulfate Hfa] 1 puff PO RT-DAILY Discontinued Flecainide Acetate 50 mg PO DIRECTED Discharge Medication List Isosorbide Mononitrate [Imdur] 30 mg PO DAILY 09/10/14 [History] Montelukast [Singulair] 10 mg PO HS 09/10/14 [History] Warfarin [Coumadin] 2.5 mg PO SUMOWEFR 10/01/14 [History] Omeprazole 40 mg PO DAILY 04/24/17 [History] Simvastatin [Zocor] 40 mg PO DAILY 04/24/17 [History] Liraglutide [Victoza 3-Adam] 1.8 mg SQ HS 02/17/20 [History] Warfarin [Coumadin] 5 mg PO 02/17/20 [History] allopurinoL [Zyloprim] 100 mg PO DAILY 02/17/20 [History] metFORMIN HCL [Glucophage] 1,000 mg PO DAILY 02/17/20 [History] Mirtazapine [Remeron] 30 mg PO HS 06/22/20 [History] Verapamil Sr [Isoptin Sr] 120 mg PO DAILY #30 tablet.er 06/27/20 [Rx] Furosemide [Lasix] 40 mg PO DAILY@1600 07/03/20 [History] Spironolactone [Aldactone] 50 mg PO HS 07/03/20 [History] Albuterol Sulfate [Albuterol Sulfate Hfa] 1 puff PO RT-DAILY 07/07/20 [History] Furosemide [Lasix] 80 mg PO DAILY 07/07/20 [History] Vortioxetine Hydrobromide [Trintellix] 10 mg PO DAILY 07/07/20 [History] Flecainide [Tambocor] 50 mg PO Q12HR tab 07/09/20 [Rx] Follow up Appointment(s)/Referral(s): Martin Lopez MD [STAFF PHYSICIAN] - 07/23/20 5:30 pm (Follow up in the office with Dr. Lopez as scheduled) Kelley Renee DO [Primary Care Provider] - 1-2 days Patient Instructions/Handouts: Electrophysiology Study (DC)
[2020-07-09 11:49] LABS: Glucose,Whole Blood 98 mg/dL (75-99)
[2020-07-09] MEDS ORDERED: WARFARIN 2.5 MG TAB PO SCH (18:00)
[2020-07-09] MEDS ORDERED: WARFARIN 0.5 MG TAB PO ONE (18:00)
[2020-07-12] MEDS ORDERED: WARFARIN 5 MG TAB PO SCH (18:00)
== END 2020-07-09 13:17 ==
LOC: EC 13:50 → 3NCARDOBS 16:31
PROVIDERS: ADMIT Internal Medicine Clinical Cardiac Electrophysiology; ATTEND Internal Medicine Clinical Cardiac Electrophysiology
DX: R00.2 Palpitations (principal); R06.00 Dyspnea, unspecified; R06.02 Shortness of breath; I48.91 Unspecified atrial fibrillation; R79.1 Abnormal coagulation profile; I10 Essential (primary) hypertension; E78.5 Hyperlipidemia, unspecified; J44.9 Chronic obstructive pulmonary disease, unspecified; I08.1 Rheumatic disorders of both mitral and tricuspid valves; I27.20 Pulmonary hypertension, unspecified; E66.9 Obesity, unspecified; E11.9 Type 2 diabetes mellitus without complications; F32.9 Major depressive disorder, single episode, unspecified; M19.90 Unspecified osteoarthritis, unspecified site; I45.10 Unspecified right bundle-branch block; I25.10 Atherosclerotic heart disease of native coronary artery without angina pectoris; Z79.899 Other long term (current) drug therapy; Z79.01 Long term (current) use of anticoagulants; Z79.84 Long term (current) use of oral hypoglycemic drugs; Z79.51 Long term (current) use of inhaled steroids; Z88.5 Allergy status to narcotic agent; Z86.79 Personal history of other diseases of the circulatory system; Z86.73 Personal history of transient ischemic attack (TIA), and cerebral infarction without residual deficits; Z86.718 Personal history of other venous thrombosis and embolism; Z90.49 Acquired absence of other specified parts of digestive tract; Z98.890 Other specified postprocedural states; Z90.710 Acquired absence of both cervix and uterus; Z98.51 Tubal ligation status; Z68.39 Body mass index [BMI] 39.0-39.9, adult; Z86.69 Personal history of other diseases of the nervous system and sense organs; Z87.39 Personal history of other diseases of the musculoskeletal system and connective tissue; Z87.898 Personal history of other specified conditions; Z87.891 Personal history of nicotine dependence; Z97.2 Presence of dental prosthetic device (complete) (partial); Z83.79 Family history of other diseases of the digestive system; Z80.8 Family history of malignant neoplasm of other organs or systems; Z82.49 Family history of ischemic heart disease and other diseases of the circulatory system; Z82.3 Family history of stroke
CPT/HCPCS: 96361; 96374; 96375; 99285; 36415; 94640 ×3; 93005; 93623; 93620; 83880; 80061; 80053; 83605 ×2; 83735; 84484; 85025; 85610 ×3; 85730; 87040; 71046; G0378 ×3; C1769 ×3; C1894; C1730 ×2; J2250; J1940 ×2; J2930; J2405; J2001; J3010; J2704

== ENCOUNTER 2020-08-26 15:48 | Inpatient (IN) | payer MEDICARE ==
[2020-08-26] MEDS ORDERED: DILTIAZEM DRIP BOLUS FROM BAG 1 MG SOLN IV ONE (16:27)
[2020-08-26] MEDS: DILTIAZEM 125 MG in SODIUM CHLORIDE 0.9% 100 ML IV SCH (16:53)
--- NOTE | 2020-08-26 16:56 | ED ---
General Adult HPI - General Chief complaint: Chest Pain Stated complaint: AFIB Time Seen by Provider: 08/26/20 16:10 Source: patient, RN notes reviewed, old records reviewed Mode of arrival: wheelchair Limitations: no limitations - History of Present Illness Initial comments: 65-year-old female history of atrial fibrillation presenting for evaluation of palpitations and dyspnea. She denies chest pain. She states this is typical of her previous episodes of atrial fibrillation and atrial flutter. She has had cardioversion and ablation in the past and follows regularly with cardiology. She is currently on Coumadin and flecainide. She has been compliant with her medications. She's had symptoms of palpitations and dyspnea since yesterday. There is no active chest pain. No fever. No cough. - Related Data Home Medications Medication Instructions Recorded Confirmed Isosorbide Mononitrate [Imdur] 30 mg PO DAILY 09/10/14 08/26/20 Montelukast [Singulair] 10 mg PO HS 09/10/14 08/26/20 Warfarin [Coumadin] 2.5 mg PO SUMOWETHFRSA@199910/01/14 08/26/20 Omeprazole 40 mg PO DAILY 04/24/17 08/26/20 Simvastatin [Zocor] 40 mg PO DAILY 04/24/17 08/26/20 Liraglutide [Victoza 3-Adam] 1.8 mg SQ HS 02/17/20 08/26/20 Warfarin [Coumadin] 5 mg PO TU@199902/17/20 08/26/20 allopurinoL [Zyloprim] 100 mg PO DAILY 02/17/20 08/26/20 metFORMIN HCL [Glucophage] 1,000 mg PO DAILY 02/17/20 08/26/20 Mirtazapine [Remeron] 30 mg PO HS 06/22/20 08/26/20 Furosemide [Lasix] 40 mg PO DAILY@1600 07/03/20 08/26/20 Albuterol Sulfate [Albuterol 2 puff INHALATION RT-Q4H PRN 07/07/20 08/26/20 Sulfate Hfa] Furosemide [Lasix] 80 mg PO DAILY 07/07/20 08/26/20 Vortioxetine Hydrobromide 10 mg PO DAILY 07/07/20 08/26/20 [Trintellix] Flecainide [Tambocor] 50 mg PO Q12H 08/26/20 08/26/20 Spironolactone [Aldactone] 50 mg PO HS 08/26/20 08/26/20 Verapamil HCl [Verapamil ER] 240 mg PO DAILY 08/26/20 08/26/20 Allergies Allergy/AdvReac Type Severity Reaction Status Date / Time meperidine HCl [From Demerol] AdvReac Nausea & Verified 08/26/20 19:10 Vomiting Review of Systems ROS Statement: Those systems with pertinent positive or pertinent negative responses have been documented in the HPI. ROS Other: All systems not noted in ROS Statement are negative. Past Medical History Past Medical History: Atrial Fibrillation, Atrial Flutter, Asthma, COPD, CVA/TIA, Diabetes Mellitus, Hyperlipidemia, Hypertension, Osteoarthritis (OA) Additional Past Medical History / Comment(s): intracardiac thrombus 2013, SOB with exertion, stroke in 1998-no residual effects, SEE DR SIERRA'S HISTORY PHYSICAL FOR CARDIAC HISTORY History of Any Multi-Drug Resistant Organisms: None Reported Past Surgical History: Appendectomy, Breast Surgery, Cardiac Ablation, EPS, Heart Catheterization, Hysterectomy, Orthopedic Surgery, Tubal Ligation Additional Past Surgical History / Comment(s): ARTEMIO, ADDIE carpal tunnel release,Trigger finger & thumb surgery; cardioversions, breast biopsy, Left shoulder sx. Past Anesthesia/Blood Transfusion Reactions: No Reported Reaction, Motion Sickness Past Psychological History: Depression Smoking Status: Former smoker Past Alcohol Use History: None Reported Past Drug Use History: None Reported - Past Family History Mother Family Medical History: Liver Disease Additional Family Medical History / Comment(s): cirrhosis of liver Father Family Medical History: Cancer Additional Family Medical History / Comment(s): throat cancer Daughter(s) Additional Family Medical History / Comment(s): HEART VALVE REPLACEMENT (Aorta) Son(s) Family Medical History: CVA/TIA Additional Family Medical History / Comment(s): One son, had multiple strokes in a row General Exam Limitations: no limitations General appearance: alert, in no apparent distress Head exam: Present: atraumatic, normocephalic Eye exam: Present: normal appearance, PERRL ENT exam: Present: normal exam Neck exam: Present: normal inspection. Absent: tenderness, meningismus Respiratory exam: Present: normal lung sounds bilaterally. Absent: respiratory distress, wheezes Cardiovascular Exam: Present: normal rhythm, tachycardia GI/Abdominal exam: Present: soft. Absent: distended, tenderness, guarding, rebound Extremities exam: Present: normal inspection, normal capillary refill. Absent: pedal edema, calf tenderness Neurological exam: Present: alert, oriented X3, CN II-XII intact. Absent: motor sensory deficit Psychiatric exam: Present: normal affect, normal mood Skin exam: Present: warm, dry, intact. Absent: cyanosis, diaphoretic Course Vital Signs 08/26/20 08/26/20 16:06 18:07 Temperature 98.0 F Pulse Rate 140 H 140 H Respiratory 22 18 Rate Blood Pressure 125/72 120/83 O2 Sat by Pulse 98 99 Oximetry EKG Findings - EKG Comments: EKG Findings:: eKG at 1623, reported as sinus tachycardia with rate of 139, IL interval 154, QRS duration 106, QTC 529, suspect atrial flutter with incomplete right bundle. No ST segment elevation. Repeat EKG:tachycardia, suspect atrial flutter with rapid ventricular response, incomplete right bundle-branch block, rate of 139, QRS duration 104, QTC 496 Medical Decision Making - Medical Decision Making 65-year-old female presenting with palpitations, dyspnea, no chest pain. Chest x-ray performed negative for focal pneumonia or acute findings. Patient is in regular tachycardic rhythm, suspect atrial flutter with RVR. This is persistently at 140. After Cardizem infusion, patient doesconvert to improve rate A. fib with RVR. She has a CBC showing leukocytosis, stable hemoglobin, normal electrolytes, negative initial troponin. Her INR is 3.1. She has been admitted to Dr. Pulliam who is aware of the patient with cardiology placed on co nsult. - Lab Data Result diagrams: 08/26/20 16:54 08/26/20 16:54 Lab Results 08/26/20 08/26/20 08/26/20 Range/Units 16:54 16:54 16:54 WBC 14.0 H (3.8-10.6) k/uL RBC 5.66 H (3.80-5.40) m/uL Hgb 15.3 (11.4-16.0) gm/dL Hct 45.8 (34.0-46.0) % MCV 80.9 (80.0-100.0) fL MCH 27.1 (25.0-35.0) pg MCHC 33.5 (31.0-37.0) g/dL RDW 14.9 (11.5-15.5) % Plt Count 354 (150-450) k/uL MPV 7.3 Neutrophils % 79 % Lymphocytes % 12 % Monocytes % 5 % Eosinophils % 2 % Basophils % 1 % Neutrophils # 11.0 H (1.3-7.7) k/uL Lymphocytes # 1.7 (1.0-4.8) k/uL Monocytes # 0.7 (0-1.0) k/uL Eosinophils # 0.3 (0-0.7) k/uL Basophils # 0.1 (0-0.2) k/uL PT 29.9 H (9.0-12.0) sec INR 3.1 H (<1.2) APTT 33.2 H (22.0-30.0) sec Sodium 136 L (137-145) mmol/L Potassium 4.7 (3.5-5.1) mmol/L Chloride 98 (98-107) mmol/L Carbon Dioxide 24 (22-30) mmol/L Anion Gap 14 mmol/L BUN 13 (7-17) mg/dL Creatinine 0.90 (0.52-1.04) mg/dL Est GFR (CKD-EPI)AfAm 79 (>60 ml/min/1.73 sqM) Est GFR (CKD-EPI)NonAf 68 (>60 ml/min/1.73 sqM) Glucose 205 H (74-99) mg/dL Calcium 9.7 (8.4-10.2) mg/dL Magnesium 1.6 (1.6-2.3) mg/dL Total Bilirubin 0.5 (0.2-1.3) mg/dL AST 47 H (14-36) U/L ALT 46 H (4-34) U/L Alkaline Phosphatase 111 (38-126) U/L Troponin I (0.000-0.034) ng/mL NT-Pro-B Natriuret Pep pg/mL Total Protein 7.6 (6.3-8.2) g/dL Albumin 4.5 (3.5-5.0) g/dL 08/26/20 08/26/20 Range/Units 16:54 16:54 WBC (3.8-10.6) k/uL RBC (3.80-5.40) m/uL Hgb (11.4-16.0) gm/dL Hct (34.0-46.0) % MCV (80.0-100.0) fL MCH (25.0-35.0) pg MCHC (31.0-37.0) g/dL RDW (11.5-15.5) % Plt Count (150-450) k/uL MPV Neutrophils % % Lymphocytes % % Monocytes % % Eosinophils % % Basophils % % Neutrophils # (1.3-7.7) k/uL Lymphocytes # (1.0-4.8) k/uL Monocytes # (0-1.0) k/uL Eosinophils # (0-0.7) k/uL Basophils # (0-0.2) k/uL PT (9.0-12.0) sec INR (<1.2) APTT (22.0-30.0) sec Sodium (137-145) mmol/L Potassium (3.5-5.1) mmol/L Chloride (98-107) mmol/L Carbon Dioxide (22-30) mmol/L Anion Gap mmol/L BUN (7-17) mg/dL Creatinine (0.52-1.04) mg/dL Est GFR (CKD-EPI)AfAm (>60 ml/min/1.73 sqM) Est GFR (CKD-EPI)NonAf (>60 ml/min/1.73 sqM) Glucose (74-99) mg/dL Calcium (8.4-10.2) mg/dL Magnesium (1.6-2.3) mg/dL Total Bilirubin (0.2-1.3) mg/dL AST (14-36) U/L ALT (4-34) U/L Alkaline Phosphatase (38-126) U/L Troponin I <0.012 (0.000-0.034) ng/mL NT-Pro-B Natriuret Pep 204 pg/mL Total Protein (6.3-8.2) g/dL Albumin (3.5-5.0) g/dL Critical Care Time Critical Care Time: Yes Total Critical Care Time: 35 Disposition Clinical Impression: Atrial flutter with rapid ventricular response Disposition: ADMITTED IP TO THIS [facility] Condition: Stable Is patient prescribed a controlled substance at d/c from ED?: No Referrals: Kelley Renee DO [Primary Care Provider] - 1-2 days Decision to Admit Reason: Admit from EC Decision Date: 08/26/20 Decision Time: 20:00
--- NOTE | 2020-08-26 18:16 | XR ---
EXAMINATION TYPE: XR chest 1V portable DATE OF EXAM: 08/26/2020 COMPARISON: 07/07/2020 HISTORY: Chest pain TECHNIQUE: FINDINGS: There is no heart failure nor confluent pneumonic infiltrate. Costophrenic angles are clear . There are chest leads. There are no hilar masses. Thoracic aorta shows some minimal atheromatous ch artemio. IMPRESSION: No active cardiopulmonary disease. No change.
[2020-08-26 19:04] LABS: Basophils # (A) 0.1 k/uL (0-0.2); Basophils % (A) 1 %; Eosinophils # (A) 0.3 k/uL (0-0.7); Eosinophils % (A) 2 %; HCT 45.8 % (34.0-46.0); HGB 15.3 gm/dL (11.4-16.0); INR 3.1 (<1.2); Lymphocytes # (A) 1.7 k/uL (1.0-4.8); Lymphocytes % (A) 12 %; MCH 27.1 pg (25.0-35.0); MCHC 33.5 g/dL (31.0-37.0); MCV 80.9 fL (80.0-100.0); Mean Platelet Volume 7.3; Monocytes # (A) 0.7 k/uL (0-1.0); Monocytes % (A) 5 %; Neutrophils % (A) 79 %; Partial Thromboplastin Time 33.2 sec (22.0-30.0); Platelet Count 354 k/uL (150-450); Prothrombin Time 29.9 sec (9.0-12.0); RBC 5.66 m/uL (3.80-5.40); RDW 14.9 % (11.5-15.5)
[2020-08-26] MEDS ORDERED: SODIUM CHLORIDE 0.9% 500 ML 500 ML IV ONE (19:11)
[2020-08-26 19:12] LABS: Albumin 4.5 g/dL (3.5-5.0); Calcium 9.7 mg/dL (8.4-10.2); Magnesium 1.6 mg/dL (1.6-2.3); Potassium 4.7 mmol/L (3.5-5.1); Total Bilirubin 0.5 mg/dL (0.2-1.3); Total Protein 7.6 g/dL (6.3-8.2)
[2020-08-26] MEDS ORDERED: ACETAMINOPHEN TAB 325 MG TAB PO PRN (19:54)
[2020-08-26] MEDS ORDERED: NALOXONE 0.4 MG/ML 1 ML VIAL IV PRN (19:54)
[2020-08-27] MEDS ORDERED: WARFARIN 5 MG TAB PO SCH (00:15)
[2020-08-27] MEDS: MIRTAZAPINE 15 MG TAB PO SCH ×2 (00:17→21:33)
[2020-08-27] MEDS: MONTELUKAST 10 MG TAB PO SCH ×2 (00:17→21:33)
[2020-08-27] MEDS: FLECAINIDE 50 MG TAB PO SCH ×2 (00:38→12:53)
[2020-08-27] MEDS: SPIRONOLACTONE 25 MG TAB PO SCH ×2 (00:39→21:33)
[2020-08-27 06:42] LABS: Glucose,Whole Blood 171 mg/dL (75-99)
[2020-08-27] MEDS: INSULIN ASPART (NovoLOG) 100 UNIT/ML VIAL SQ SCH ×4 (06:47→21:33)
[2020-08-27] MEDS: DILTIAZEM 125 MG in SODIUM CHLORIDE 0.9% 100 ML IV SCH (10:30)
[2020-08-27 11:35] LABS: Glucose,Whole Blood 231 mg/dL (75-99)
[2020-08-27 11:44] LABS: INR 2.7 (<1.2); Prothrombin Time 26.8 sec (9.0-12.0)
--- NOTE | 2020-08-27 13:11 | P.CRDCN ---
History of Present Illness Consult date: 08/27/20 Chief complaint: Heart racing History of present illness: This is a very pleasant 65-year-old female patient who sees Dr. Lopez in the office on regular basis with a past medical history significant for atrial flutter and status post ablation was performed earlier this year as well as history of obstructive sleep apnea does not use her CPAP machine and also severe pulmonary hypertension resented to the emergency room not feeling well. For the last few days she has been experiencing feeling of heart racing and fluttering associated with dizziness and lightheadedness but no presyncope or syncope. No symptoms of chest pain or chest discomfort and no shortness of breath. She felt that her heart was out of rhythm and because of that she decided to come to the emergency department. In the ER she was atrial flutter with one-to-one block but subsequently she was started on Cardizem drip with improvement in the heart rate. She is feeling better. She underwent an echocardiogram earlier this year and that revealed evidence of severe pulmonary hypertension and tricuspid regurgitation. The heart catheterization also was performed this year and that revealed evidence of mild nonobstructive coronary artery disease. The workup during this admission overall came in to be unremarkable. Clearly the patient stated that she has not been using the CPAP machine as she should be and also she clearly states that she has been taking all her medications as scheduled. That included her oral anticoagulation was Coumadin. Past Medical History Past Medical History: Atrial Fibrillation, Atrial Flutter, Asthma, COPD, CVA/TIA, Diabetes Mellitus, Hyperlipidemia, Hypertension, Osteoarthritis (OA) Additional Past Medical History / Comment(s): intracardiac thrombus 2013, SOB with exertion, stroke in 1998-no residual effects, SEE DR SIERRA'S HISTORY PHYSICAL FOR CARDIAC HISTORY History of Any Multi-Drug Resistant Organisms: None Reported Past Surgical History: Appendectomy, Breast Surgery, Cardiac Ablation, EPS, Heart Catheterization, Hysterectomy, Orthopedic Surgery, Tubal Ligation Additional Past Surgical History / Comment(s): ARTEMIO, ADDIE carpal tunnel release,Trigger finger & thumb surgery; cardioversions, breast biopsy, Left shoulder sx. Past Anesthesia/Blood Transfusion Reactions: No Reported Reaction Past Psychological History: Depression Smoking Status: Former smoker Past Alcohol Use History: None Reported Additional Past Alcohol Use History / Comment(s): quit smoking 1999, smoked 1-2 ppd. Started smoking age 14. Past Drug Use History: None Reported - Past Family History Mother Family Medical History: Liver Disease Additional Family Medical History / Comment(s): cirrhosis of liver Father Family Medical History: Cancer Additional Family Medical History / Comment(s): throat cancer Daughter(s) Additional Family Medical History / Comment(s): HEART VALVE REPLACEMENT (Aorta) Son(s) Family Medical History: CVA/TIA Additional Family Medical History / Comment(s): One son, had multiple strokes in a row Medications and Allergies Home Medications Medication Instructions Recorded Confirmed Type Isosorbide Mononitrate [Imdur] 30 mg PO DAILY 09/10/14 08/26/20 History Montelukast [Singulair] 10 mg PO HS 09/10/14 08/26/20 History Warfarin [Coumadin] 2.5 mg PO SUMOWETHFRSA@199910/01/14 08/26/20 History Omeprazole 40 mg PO DAILY 04/24/17 08/26/20 History Simvastatin [Zocor] 40 mg PO DAILY 04/24/17 08/26/20 History Liraglutide [Victoza 3-Adam] 1.8 mg SQ HS 02/17/20 08/26/20 History Warfarin [Coumadin] 5 mg PO TU@199902/17/20 08/26/20 History allopurinoL [Zyloprim] 100 mg PO DAILY 02/17/20 08/26/20 History metFORMIN HCL [Glucophage] 1,000 mg PO DAILY 02/17/20 08/26/20 History Mirtazapine [Remeron] 30 mg PO HS 06/22/20 08/26/20 History Furosemide [Lasix] 40 mg PO DAILY@1600 07/03/20 08/26/20 History Albuterol Sulfate [Albuterol 2 puff INHALATION RT-Q4H PRN 07/07/20 08/26/20 History Sulfate Hfa] Furosemide [Lasix] 80 mg PO DAILY 07/07/20 08/26/20 History Vortioxetine Hydrobromide 10 mg PO DAILY 07/07/20 08/26/20 History [Trintellix] Flecainide [Tambocor] 50 mg PO Q12H 08/26/20 08/26/20 History Spironolactone [Aldactone] 50 mg PO HS 08/26/20 08/26/20 History Verapamil HCl [Verapamil ER] 240 mg PO DAILY 08/26/20 08/26/20 History Allergies Allergy/AdvReac Type Severity Reaction Status Date / Time meperidine HCl [From Demerol] AdvReac Nausea & Verified 08/26/20 19:10 Vomiting Physical Exam Vitals: Vital Signs Temp Pulse Pulse Resp BP BP Pulse Ox 08/27/20 12:40 98.7 F 86 18 109/67 98 08/27/20 09:50 98.6 F 96 18 93/68 97 08/27/20 04:00 98 17 08/27/20 03:06 98.0 F 98 17 99/64 98 08/27/20 00:00 98.3 F 142 H 18 134/74 97 08/26/20 22:44 98.3 F 142 H 18 134/74 97 08/26/20 22:00 107 H 18 101/50 97 08/26/20 20:27 20 08/26/20 20:23 133 H 18 97/69 98 08/26/20 18:07 140 H 18 120/83 99 08/26/20 16:06 98.0 F 140 H 22 125/72 98 Intake and Output 08/26/20 08/27/20 08/27/20 22:59 06:59 14:59 Intake Total 18.583 74.917 Balance 18.583 74.917 Intake: Intake, IV Titration 18.583 74.917 Amount Diltiazem 125 mg In 18.583 74.917 Sodium Chloride 0.9% 100 ml @ 5 MG/HR 5 mls/hr IV .Q24H [facility] Rx#:[id number] Other: Voiding Method Bedside Commode Bedside Commode # Voids 1 1 Weight 93.6 kg - Constitutional General appearance: no acute distress - Respiratory Respiratory: bilateral: CTA - Cardiovascular Rhythm: irregularly irregular Heart sounds: normal: S1, S2 Abnormal Heart Sounds: systolic murmur Results 08/26/20 16:54 08/26/20 16:54 Cardiac Enzymes 08/26/20 08/26/20 08/26/20 Range/Units 16:54 16:54 23:38 AST 47 H (14-36) U/L Troponin I <0.012 <0.012 (0.000-0.034) ng/mL 08/27/20 Range/Units 05:29 AST (14-36) U/L Troponin I <0.012 (0.000-0.034) ng/mL Coagulation 08/26/20 08/27/20 Range/Units 16:54 10:51 PT 29.9 H 26.8 H (9.0-12.0) sec APTT 33.2 H (22.0-30.0) sec CBC 08/26/20 Range/Units 16:54 WBC 14.0 H (3.8-10.6) k/uL RBC 5.66 H (3.80-5.40) m/uL Hgb 15.3 (11.4-16.0) gm/dL Hct 45.8 (34.0-46.0) % Plt Count 354 (150-450) k/uL Comprehensive Metabolic Panel 08/26/20 Range/Units 16:54 Sodium 136 L (137-145) mmol/L Potassium 4.7 (3.5-5.1) mmol/L Chloride 98 (98-107) mmol/L Carbon Dioxide 24 (22-30) mmol/L BUN 13 (7-17) mg/dL Creatinine 0.90 (0.52-1.04) mg/dL Glucose 205 H (74-99) mg/dL Calcium 9.7 (8.4-10.2) mg/dL AST 47 H (14-36) U/L ALT 46 H (4-34) U/L Alkaline Phosphatase 111 (38-126) U/L Total Protein 7.6 (6.3-8.2) g/dL Albumin 4.5 (3.5-5.0) g/dL Current Medications Generic Name Dose Route Start Last Admin Trade Name Freq PRN Reason Stop Dose Admin Acetaminophen 650 mg 08/26/20 19:54 Acetaminophen Tab 325 Mg Tab PO Q6HR PRN Mild Pain or Fever > 100.5 Flecainide Acetate 50 mg 08/27/20 00:15 08/27/20 12:53 Flecainide 50 Mg Tab PO 50 mg Q12H CHEMO Administration Diltiazem HCl 125 mg/ Sodium 125 mls @ 5 mls/hr 08/26/20 16:30 08/27/20 10:30 Chloride IV 5 mg/hr .Q24H CHEMO 5 mls/hr Administration 5 MG/HR Insulin Aspart 0 unit 08/27/20 07:30 08/27/20 12:53 Insulin Aspart (Novolog) 100 Unit/Ml Vial SQ 3 unit ACHS CHEMO Administration Protocol Mirtazapine 30 mg 08/27/20 00:15 08/27/20 00:17 Mirtazapine 15 Mg Tab PO 30 mg HS CHEMO Administration Miscellaneous Information 1 each 08/27/20 07:47 Warfarin Per Pharmacy MISCELLANE DIRECTED PRN Per Protocol Montelukast Sodium 10 mg 08/27/20 00:15 08/27/20 00:17 Montelukast 10 Mg Tab PO 10 mg HS CHEMO Administration Naloxone HCl 0.2 mg 08/26/20 19:54 Naloxone 0.4 Mg/Ml 1 Ml Vial IV Q2M PRN Opioid Reversal Spironolactone 50 mg 08/27/20 00:15 08/27/20 00:39 Spironolactone 25 Mg Tab PO 50 mg HS CHEMO Administration Warfarin Sodium 5 mg 09/02/20 20:00 Warfarin 5 Mg Tab PO TU@1999 [facility] Protocol Warfarin Sodium 2.5 mg 08/27/20 20:00 Warfarin 2.5 Mg Tab PO [id number]@1999 [facility] Intake and Output 08/26/20 08/27/20 08/27/20 22:59 06:59 14:59 Intake Total 18.583 74.917 Balance 18.583 74.917 Intake: Intake, IV Titration 18.583 74.917 Amount Diltiazem 125 mg In 18.583 74.917 Sodium Chloride 0.9% 100 ml @ 5 MG/HR 5 mls/hr IV .Q24H [facility] Rx#:[id number] Other: Voiding Method Bedside Commode Bedside Commode # Voids 1 1 Weight 93.6 kg 08/26/20 16:54 08/26/20 16:54 Assessment and Plan Assessment: Assessment #1 atrial flutter with a rapid ventricular response #2 obstructive sleep apnea #3 valvular heart disease #4 diabetes #5 hypertension #6 dyslipidemia Plan #1 continue the Cardizem drip #2 continue oral anticoagulation #3 we will discuss her case with Dr. Lopez performed atrial flutter ablation on her few weeks ago #4 follow-up with the patient Thank you for allowing us participate in her care
[2020-08-27] MEDS ORDERED: ALBUTEROL NEBULIZED 2.5 MG/3 ML INHALATION PRN (15:06)
[2020-08-27 17:08] LABS: Glucose,Whole Blood 166 mg/dL (75-99)
[2020-08-27] MEDS: FUROSEMIDE 40 MG TAB PO SCH (17:23)
[2020-08-27] MEDS: PANTOPRAZOLE 40 MG/10 ML VIAL IVP SCH (17:23)
[2020-08-27] MEDS ORDERED: WARFARIN 2.5 MG TAB PO SCH (20:00)
[2020-08-27 20:25] LABS: Glucose,Whole Blood 201 mg/dL (75-99)
--- NOTE | 2020-08-27 23:11 | P.HPIM ---
History of Present Illness H&P Date: 08/27/20 Chief Complaint: palpitations, weakness Destinee Deal is a 65 yo F with PMH of atrial fibrillation, atrial flutter s/p recent ablation, EFREN noncompliant with CPAP, T2DM who presented to the ED with palpitations, malaise and elevated heart rate. She notes she was shopping at a grocery store on Tuesday and noticed she became short of breath and her HR was in the 150s when she checked. Pt tried resting but the next morning her HR remained above 130 so she came in. She denies any chest pain or associated shortness of breath. On presentation her HR was irregular at a rate of 140 bpm, WBC 14k, AST/ALT mildly elevated, trop negative, BNP 200. Pt given cardizem with only mild improvement in HR. Review of Systems All systems: negative Constitutional: Reports malaise, Denies chills, Denies fever Eyes: denies blurred vision, denies pain Ears, nose, mouth and throat: Denies headache, Denies sore throat Cardiovascular: Reports palpitations, Reports rapid heart beat, Denies chest pain, Denies shortness of breath Respiratory: Denies cough Gastrointestinal: Denies abdominal pain, Denies diarrhea, Denies nausea, Denies vomiting Genitourinary: Denies dysuria, Denies hematuria Musculoskeletal: Denies myalgias Integumentary: Denies pruritus, Denies rash Neurological: Denies numbness, Denies weakness Psychiatric: Denies anxiety, Denies depression Endocrine: Denies fatigue, Denies weight change Past Medical History Past Medical History: Atrial Fibrillation, Atrial Flutter, Asthma, COPD, CVA/TIA , Diabetes Mellitus, Hyperlipidemia, Hypertension, Osteoarthritis (OA) Additional Past Medical History / Comment(s): intracardiac thrombus 2013, SOB with exertion, stroke in 1998-no residual effects, SEE DR SIERRA'S HISTORY PHYSICAL FOR CARDIAC HISTORY History of Any Multi-Drug Resistant Organisms: None Reported Past Surgical History: Appendectomy, Breast Surgery, Cardiac Ablation, EPS, Heart Catheterization, Hysterectomy, Orthopedic Surgery, Tubal Ligation Additional Past Surgical History / Comment(s): ARTEMIO, ADDIE carpal tunnel release,Trigger finger & thumb surgery; cardioversions, breast biopsy, Left shoulder sx. Past Anesthesia/Blood Transfusion Reactions: No Reported Reaction Past Psychological History: Depression Smoking Status: Former smoker Past Alcohol Use History: None Reported Additional Past Alcohol Use History / Comment(s): quit smoking 1999, smoked 1-2 ppd. Started smoking age 14. Past Drug Use History: None Reported - Past Family History Mother Family Medical History: Liver Disease Additional Family Medical History / Comment(s): cirrhosis of liver Father Family Medical History: Cancer Additional Family Medical History / Comment(s): throat cancer Daughter(s) Additional Family Medical History / Comment(s): HEART VALVE REPLACEMENT (Aorta) Son(s) Family Medical History: CVA/TIA Additional Family Medical History / Comment(s): One son, had multiple strokes in a row Medications and Allergies Home Medications Medication Instructions Recorded Confirmed Type Isosorbide Mononitrate [Imdur] 30 mg PO DAILY 09/10/14 08/26/20 History Montelukast [Singulair] 10 mg PO 09/10/14 08/26/20 History Warfarin [Coumadin] 2.5 mg PO SUMOWETHFRSA@199910/01/14 08/26/20 History Omeprazole 40 mg PO DAILY 04/24/17 08/26/20 History Simvastatin [Zocor] 40 mg PO DAILY 04/24/17 08/26/20 History Liraglutide [Victoza 3-Adam] 1.8 mg SQ 02/17/20 08/26/20 History Warfarin [Coumadin] 5 mg PO TU@199902/17/20 08/26/20 History allopurinoL [Zyloprim] 100 mg PO DAILY 02/17/20 08/26/20 History metFORMIN HCL [Glucophage] 1,000 mg PO DAILY 02/17/20 08/26/20 History Mirtazapine [Remeron] 30 mg PO HS 06/22/20 08/26/20 History Furosemide [Lasix] 40 mg PO DAILY@1600 07/03/20 08/26/20 History Albuterol Sulfate [Albuterol 2 puff INHALATION RT-Q4H PRN 07/07/20 08/26/20 History Sulfate Hfa] Furosemide [Lasix] 80 mg PO DAILY 07/07/20 08/26/20 History Vortioxetine Hydrobromide 10 mg PO DAILY 07/07/20 08/26/20 History [Trintellix] Flecainide [Tambocor] 50 mg PO Q12H 08/26/20 08/26/20 History Spironolactone [Aldactone] 50 mg PO HS 08/26/20 08/26/20 History Verapamil HCl [Verapamil ER] 240 mg PO DAILY 08/26/20 08/26/20 History Allergies Allergy/AdvReac Type Severity Reaction Status Date / Time meperidine HCl [From Demerol] AdvReac Nausea & Verified 08/26/20 19:10 Vomiting Physical Exam Vitals: Vital Signs Temp Pulse Resp BP Pulse Ox 08/27/20 20:00 98.1 F 53 L 17 122/70 98 08/27/20 19:37 97.8 F 74 18 115/65 98 08/27/20 17:02 76 18 08/27/20 16:00 97.8 F 76 18 115/67 98 08/27/20 12:40 98.7 F 86 18 109/67 98 08/27/20 09:50 98.6 F 96 18 93/68 97 08/27/20 04:00 98 17 08/27/20 03:06 98.0 F 98 17 99/64 98 08/27/20 00:00 98.3 F 142 H 18 134/74 97 Intake and Output 08/27/20 08/27/20 08/28/20 14:59 22:59 06:59 Intake Total 74.917 240 Balance 74.917 240 Intake: Intake, IV Titration 74.917 Amount Diltiazem 125 mg In 74.917 Sodium Chloride 0.9% 100 ml @ 5 MG/HR 5 mls/hr IV .Q24H [facility] Rx#:[id number] Oral 240 Other: Voiding Method Bedside Commode Bedside Commode General: well nourished, well developed, NAD. Vitals reviewed Eyes: PERRL, EOMI, conjunctiva normal HENT: normocephalic, mucus membranes moist Neck: supple, no JVD Lungs: normal respiratory effort, no wheezes or rales CV: Irregularly irregular, no murmur. Peripheral pulses 2+ Abdomen: soft, nondistended, no organomegaly Lymph: no cervical or axillary LAD Skin: warm and dry. Neuro: A&Ox3, normal mood and affect Results CBC & Chem 7: 08/26/20 16:54 08/26/20 16:54 Labs: Abnormal Lab Results - Last 24 Hours (Table) 08/27/20 08/27/20 08/27/20 Range/Units 06:40 10:51 11:33 PT 26.8 H (9.0-12.0) sec INR 2.7 H (<1.2) POC Glucose (mg/dL) 171 H 231 H (75-99) mg/dL 08/27/20 08/27/20 Range/Units 17:06 20:24 PT (9.0-12.0) sec INR (<1.2) POC Glucose (mg/dL) 166 H 201 H (75-99) mg/dL Thrombosis Risk Factor Assmnt - Choose All That Apply Any of the Below Risk Factors Present?: Yes Each Factor Represents 1 point: Abnormal pulmonary function (COPD), Obesity (BMI >25) Other Risk Factors: Yes Each Risk Factor Represents 2 Points: Age 61-74 years Other congenital or acquired thrombophilia - If yes, enter type in comment: No Thrombosis Risk Factor Assessment Total Risk Factor Score: 4 Thrombosis Risk Factor Assessment Level: Moderate Risk Assessment and Plan (1) Atrial flutter with rapid ventricular response Current Visit: Yes Status: Acute Code(s): I48.92 - UNSPECIFIED ATRIAL FLUTTER SNOMED Code(s): 8811736 (2) Atrial fibrillation with RVR Current Visit: No Status: Acute Code(s): I48.91 - UNSPECIFIED ATRIAL FI BRILLATION SNOMED Code(s): 784681997862311 (3) CAD (coronary artery disease) Current Visit: No Status: Acute Code(s): I25.10 - ATHSCL HEART DISEASE OF [place] CORONARY ARTERY W/O ANG PCTRS SNOMED Code(s): 56033878 (4) Congestive heart failure Current Visit: No Status: Acute Code(s): I50.9 - HEART FAILURE, UNSPECIFIED SNOMED Code(s): 89734493 (5) Diabetes Current Visit: No Status: Acute Code(s): E11.9 - TYPE 2 DIABETES MELLITUS WITHOUT COMPLICATIONS SNOMED Code(s): 35487934 (6) Obesity (BMI 30-39.9) Current Visit: No Status: Acute Code(s): E66.9 - OBESITY, UNSPECIFIED SNOMED Code(s): 954059052 (7) Sleep apnea, obstructive Current Visit: No Status: Acute Code(s): G47.33 - OBSTRUCTIVE SLEEP APNEA (ADULT) (PEDIATRIC) SNOMED Code(s): 77255450 (8) Type 2 diabetes mellitus Current Visit: No Status: Acute Code(s): E11.9 - TYPE 2 DIABETES MELLITUS WITHOUT COMPLICATIONS SNOMED Code(s): 51739448 Plan: 1. Atrial flutter with RVR. Cardiology consulted and pt currently rate controlled on diltiazem drip. Continue home flecanide and coumadin 2. Chronic diastolic CHF. Continue home lasix 3. T2DM. Hold metformin. Accucheck and sliding scale 4. Insomnia. Continue remeron 5. GERD. continue protonix
[2020-08-28] MEDS: FLECAINIDE 50 MG TAB PO SCH ×3 (00:22→22:58)
[2020-08-28 06:15] LABS: Glucose,Whole Blood 187 mg/dL (75-99)
[2020-08-28] MEDS: DILTIAZEM 125 MG in SODIUM CHLORIDE 0.9% 100 ML IV SCH (06:39)
[2020-08-28] MEDS: INSULIN ASPART (NovoLOG) 100 UNIT/ML VIAL SQ SCH ×4 (06:40→20:20)
[2020-08-28 08:01] LABS: Basophils # (A) 0.1 k/uL (0-0.2); Basophils % (A) 1 %; Eosinophils # (A) 0.2 k/uL (0-0.7); Eosinophils % (A) 2 %; HCT 44.6 % (34.0-46.0); HGB 13.9 gm/dL (11.4-16.0); Lymphocytes # (A) 1.6 k/uL (1.0-4.8); Lymphocytes % (A) 17 %; MCH 25.9 pg (25.0-35.0); MCHC 31.3 g/dL (31.0-37.0); MCV 82.9 fL (80.0-100.0); Mean Platelet Volume 7.3; Monocytes # (A) 0.5 k/uL (0-1.0); Monocytes % (A) 6 %; Neutrophils # (A) 7.1 k/uL (1.3-7.7); Neutrophils % (A) 74 %; Platelet Count 327 k/uL (150-450); RBC 5.38 m/uL (3.80-5.40); WBC 9.6 k/uL (3.8-10.6)
[2020-08-28 08:05] LABS: INR 3.8 (<1.2); Prothrombin Time 37.6 sec (9.0-12.0)
[2020-08-28 08:18] LABS: Calcium 9.2 mg/dL (8.4-10.2); Potassium 4.6 mmol/L (3.5-5.1)
[2020-08-28] MEDS: PANTOPRAZOLE 40 MG/10 ML VIAL IVP SCH (08:40)
[2020-08-28] MEDS: FUROSEMIDE 80 MG TAB PO SCH (08:40)
--- NOTE | 2020-08-28 11:11 | P.PN ---
Subjective Progress Note Date: 08/28/20 Destinee Deal is a 65 yo F with PMH of atrial fibrillation, atrial flutter s/p recent ablation, EFREN noncompliant with CPAP, T2DM who presented to the ED with palpitations, malaise and elevated heart rate. She notes she was shopping at a grocery store on Tuesday and noticed she became short of breath and her HR was in the 150s when she checked. Pt tried resting but the next morning her HR remained above 130 so she came in. She denies any chest pain or associated shortness of breath. On presentation her HR was irregular at a rate of 140 bpm, WBC 14k, AST/ALT mildly elevated, trop negative, BNP 200. Pt given cardizem with only mild improvement in HR. 08/28/2020 Cardizem drip. Irregular heart rate better controlled, currently in the 60s. INR 3.8 denies shortness of breath upon lying flat. Reports pa lpitations with exertion.NPO , further evaluation by Dr. Lopez pending. Objective - Vital Signs Vital signs: Vital Signs Temp 97.8 F 08/28/20 08:40 Pulse 74 08/28/20 08:40 Resp 16 08/28/20 08:40 BP 110/68 08/28/20 08:40 Pulse Ox 98 08/28/20 08:40 Intake & Output 08/27/20 08/28/20 08/28/20 18:59 06:59 18:59 Intake Total 314.917 100.75 Output Total 320 Balance 314.917 -219.25 Weight 94 kg Intake: Intake, IV Titration 74.917 100.75 Amount Diltiazem 125 mg In 74.917 100.75 Sodium Chloride 0.9% 100 ml @ 5 MG/HR 5 mls/hr IV .Q24H [facility] Rx#:[id number] Oral 240 Output: Urine 320 Other: Voiding Method Bedside Commode Bedside Commode # Voids 1 - Exam General: Sitting up in bed, NAD. Vitals reviewed Eyes: PERRL, EOMI, conjunctiva normal HENT: normocephalic, mucus membranes moist Neck: supple, no JVD Lungs: normal respiratory effort, no wheezes or rales CV: Irregularly irregular, systolic murmur. Peripheral pulses 2+ Abdomen: soft, nondistended, no organomegaly Skin: warm and dry. Neuro: A&Ox3, normal mood and affect - Labs CBC & Chem 7: 08/28/20 06:59 08/28/20 06:59 Labs: Abnormal Lab Results - Last 24 Hours (Table) 08/27/20 08/27/20 08/27/20 Range/Units 10:51 11:33 17:06 PT 26.8 H (9.0-12.0) sec INR 2.7 H (<1.2) Carbon Dioxide (22-30) mmol/L Glucose (74-99) mg/dL POC Glucose (mg/dL) 231 H 166 H (75-99) mg/dL 08/27/20 08/28/20 08/28/20 Range/Units 20:24 06:13 06:59 PT 37.6 H (9.0-12.0) sec INR 3.8 H (<1.2) Carbon Dioxide (22-30) mmol/L Glucose (74-99) mg/dL POC Glucose (mg/dL) 201 H 187 H (75-99) mg/dL 08/28/20 Range/Units 06:59 PT (9.0-12.0) sec INR (<1.2) Carbon Dioxide 31 H (22-30) mmol/L Glucose 172 H (74-99) mg/dL POC Glucose (mg/dL) (75-99) mg/dL Assessment and Plan Assessment: (1) Atrial flutter with rapid ventricular response Current Visit: Yes Status: Acute Code(s): I48.92 - UNSPECIFIED ATRIAL FLUTTER SNOMED Code(s): 6963153 (2) Atrial fibrillation with RVR Current Visit: No Status: Acute Code(s): I48.91 - UNSPECIFIED ATRIAL FIBRILLATION SNOMED Code(s): 601395279590086 (3) CAD (coronary artery disease) Current Visit: No Status: Acute Code(s): I25.10 - ATHSCL HEART DISEASE OF [place] CORONARY ARTERY W/O ANG PCTRS SNOMED Code(s): 79719576 (4) Congestive heart failure, chronic diastolic Current Visit: No Status: Acute Code(s): I50.9 - HEART FAILURE, UNSPECIFIED SNOMED Code(s): 28950475 (5) Diabetes Current Visit: No Status: Acute Code(s): E11.9 - TYPE 2 DIABETES MELLITUS WITHOUT COMPLICATIONS SNOMED Code(s): 36934829 (6) Obesity (BMI 30-39.9) Current Visit: No Status: Acute Code(s): E66.9 - OBESITY, UNSPECIFIED SNOMED Code(s): 791462350 (7) Sleep apnea, obstructive Current Visit: No Status: Acute Code(s): G47.33 - OBSTRUCTIVE SLEEP APNEA (ADULT) (PEDIATRIC) SNOMED Code(s): 72972351 (8) Type 2 diabetes mellitus Current Visit: No Status: Acute Code(s): E11.9 - TYPE 2 DIABETES MELLITUS WITHOUT COMPLICATIONS SNOMED Code(s): 83244455 (9) gastroesophageal reflux disease Plan: Continue on current medication regime ,monitoring and symptomatically treatment. Antiarrhythmics as per cardiology with further recommendations pending per Dr. Lopez. The impression and plan of care has been dictated as directed. : I performed a history and examination of this patient, discussed the same with the dictator. I agree with the dictator's note ,documented as a scribe. Any additional findings or plans will be noted.
[2020-08-28] MEDS ORDERED: Magnesium Replacement Protocol 1 EACH MISC MISCELLANE PRN (11:12)
[2020-08-28 12:01] LABS: Glucose,Whole Blood 215 mg/dL (75-99)
--- NOTE | 2020-08-28 12:22 | P.PN ---
Subjective Progress Note Date: 08/28/20 HISTORY OF PRESENT ILLNESS: Patient examined this morning the bedside. She denies chest pain or pressure. She denies shortness of breath. She remains in atrial flutter with a controlled rate. Patient was on a Cardizem drip but left peripheral IV access and this was discontinued. PHYSICAL EXAM: VITAL SIGNS: Reviewed. GENERAL: Well-developed in no acute distress. NECK: Supple. No JVD or thyromegaly LUNGS: Respirations even and unlabored. Lungs essentially clear to auscultation bilaterally. HEART: Irregular rate and rhythm. S1 and S2 heard. Systolic murmur. EXTREMITIES: Normal range of motion. No clubbing or cyanosis. Peripheral pulses intact. No lower extremity edema ASSESSMENT: Atrial flutter with rapid ventricular response, on long-term anticoagulation with Coumadin History of cardioversion and cardiac ablations Valvular heart disease Severe pulmonary hypertension COPD Hypertension Hyperlipidemia Diabetes mellitus, type II PLAN: Continue current cardiac medications Case discussed with Dr. Lopez who will evaluate patient today and make recommendations Nurse practitioner note has been reviewed by physician. Signing provider agrees with the documented findings, assessment, and plan of care. Objective - Vital Signs Vital signs: Vital Signs Temp 97.8 F 08/28/20 08:40 Pulse 80 08/28/20 11:15 Resp 16 08/28/20 11:15 BP 111/76 08/28/20 11:15 Pulse Ox 97 08/28/20 11:15 Intake & Output 08/27/20 08/28/20 08/28/20 18:59 06:59 18:59 Intake Total 314.917 100.75 21.75 Output Total 320 Balance 314.917 -219.25 21.75 Weight 94 kg Intake: Intake, IV Titration 74.917 100.75 21.75 Amount Diltiazem 125 mg In 74.917 100.75 21.75 Sodium Chloride 0.9% 100 ml @ 5 MG/HR 5 mls/hr IV .Q24H [facility] Rx#:[id number] Oral 240 0 Output: Urine 320 Other: Voiding Method Bedside Commode Bedside Commode Bedside Commode # Voids 1 - Labs CBC & Chem 7: 08/28/20 06:59 08/28/20 06:59 Labs: Abnormal Lab Results - Last 24 Hours (Table) 08/27/20 08/27/20 08/28/20 Range/Units 17:06 20:24 06:13 PT (9.0-12.0) sec INR (<1.2) Carbon Dioxide (22-30) mmol/L Glucose (74-99) mg/dL POC Glucose (mg/dL) 166 H 201 H 187 H (75-99) mg/dL 08/28/20 08/28/20 08/28/20 Range/Units 06:59 06:59 11:51 PT 37.6 H (9.0-12.0) sec INR 3.8 H (<1.2) Carbon Dioxide 31 H (22-30) mmol/L Glucose 172 H (74-99) mg/dL POC Glucose (mg/dL) 215 H (75-99) mg/dL
[2020-08-28] MEDS: VERAPAMIL SR 240 MG TABLET.ER PO SCH (13:20)
[2020-08-28] MEDS: FUROSEMIDE 40 MG TAB PO SCH (15:29)
[2020-08-28] MEDS ORDERED: FUROSEMIDE 40 MG TAB PO SCH (16:00)
[2020-08-28 16:36] LABS: Hemoglobin A1C 7.1 % (4.0-6.0)
[2020-08-28 17:11] LABS: Glucose,Whole Blood 181 mg/dL (75-99)
[2020-08-28] MEDS ORDERED: WARFARIN 0.5 MG TAB PO ONE (18:00)
[2020-08-28 20:20] LABS: Glucose,Whole Blood 204 mg/dL (75-99)
[2020-08-28] MEDS: MIRTAZAPINE 15 MG TAB PO SCH (20:20)
[2020-08-28] MEDS: MONTELUKAST 10 MG TAB PO SCH (20:20)
[2020-08-28] MEDS: SPIRONOLACTONE 25 MG TAB PO SCH (20:20)
[2020-08-29 06:17] LABS: Glucose,Whole Blood 148 mg/dL (75-99)
[2020-08-29] MEDS: INSULIN ASPART (NovoLOG) 100 UNIT/ML VIAL SQ SCH ×4 (06:22→21:13)
[2020-08-29] MEDS: VERAPAMIL SR 240 MG TABLET.ER PO SCH (08:44)
[2020-08-29] MEDS: ISOSORBIDE MONONITRATE ER 30 MG TAB.ER.24H PO SCH (08:44)
[2020-08-29] MEDS: ATORVASTATIN 20 MG TAB PO SCH (08:44)
[2020-08-29] MEDS: PANTOPRAZOLE 40 MG TABLET PO SCH (08:44)
[2020-08-29] MEDS: FUROSEMIDE 80 MG TAB PO SCH (08:44)
[2020-08-29] MEDS ORDERED: VERAPAMIL SR 240 MG TABLET.ER PO SCH (09:00)
[2020-08-29 09:44] LABS: INR 3.3 (<1.2)
--- NOTE | 2020-08-29 11:41 | P.PN ---
Subjective Progress Note Date: 08/29/20 This is a very pleasant 65-year-old female patient who sees Dr. Lopez in the office on regular basis with a past medical history significant for atrial flutter and status post ablation was performed earlier this year as well as history of obstructive sleep apnea does not use her CPAP machine and also severe pulmonary hypertension resented to the emergency room not feeling well. For the last few days she has been experiencing feeling of heart racing and fluttering associated with dizziness and lightheadedness but no presyncope or syncope. No symptoms of chest pain or chest discomfort and no shortness of breath. She felt that her heart was out of rhythm and because of that she decided to come to the emergency department. In the ER she was atrial flutter with one-to-one block but subsequently she was started on Cardizem drip with improvement in the heart rate. She is feeling better. She underwent an echocardiogram earlier this year and that revealed evidence of severe pulmonary hypertension and tricuspid regurgitation. The heart catheterization also was performed this year and that revealed evidence of mild nonobstructive coronary artery disease. The workup during this admission overall came in to be unremarkable. Clearly the patient stated that she has not been using the CPAP machine as she should be and also she clearly states that she has been taking all her medications as scheduled. That included her oral anticoagulation was Coumadin. Patient was seen and examined this morning, hemodynamically stable. Blood pressure 106/70 with a heart rate in the 90s. She scheduled to undergo an ablation procedure on Tuesday with Dr. Lopez. Her INR yesterday was 3.8 and the Coumadin was held, her INR today is 3.3. We will put the patient back on a regular scheduled dose of Coumadin. Dr. Lopez does not want this patient's Coumadin held. A note has been put up in the room to indicate this. Objective - Vital Signs Vital signs: Vital Signs Temp 97.7 F 08/29/20 08:40 Pulse 100 08/29/20 08:40 Resp 16 08/29/20 08:40 BP 106/74 08/29/20 08:40 Pulse Ox 97 08/29/20 08:40 Intake & Output 08/28/20 08/29/20 08/29/20 18:59 06:59 18:59 Intake Total 901.75 600 Balance 901.75 600 Weight 94.1 kg Intake: IV 20 Diltiazem 125 mg In 20 Sodium Chloride 0.9% 100 ml @ 5 MG/HR 5 mls/hr IV .Q24H [facility] Rx#:[id number] Intake, IV Titration 21.75 Amount Diltiazem 125 mg In 21.75 Sodium Chloride 0.9% 100 ml @ 5 MG/HR 5 mls/hr IV .Q24H [facility] Rx#:[id number] Oral 860 600 Other: Voiding Method Bedside Commode Bedside Commode Bedside Commode # Voids 0 2 # Bowel Movements 1 - Exam PHYSICAL EXAMINATION: GENERAL: 65-year-old female in no acute distress at the time of my examination HEENT: Head is atraumatic, normocephalic. Pupils equal, round. Sclera anicteric. Conjunctiva are clear. Mucous membranes of the mouth are moist. Neck is supple. There is no elevated jugular venous pressure.No carotid bruit is heard. HEART EXAMINATION: Heart S1, S2 irregularly irregular, systolic murmur heard . CHEST EXAMINATION: Lungs are clear to auscultation and precussion. No chest wall tenderness is noted on palpation or with deep breathing. ABDOMEN: Soft, nontender. Bowel sounds are heard. No organomegaly noted. EXTREMITIES: 2+ peripheral pulses with no evidence of peripheral edema and no calf tenderness noted. NEUROLOGIC patient is awake, alert and oriented X3 . - Labs CBC & Chem 7: 08/28/20 06:59 08/28/20 06:59 Labs: Abnormal Lab Results - Last 24 Hours (Table) 08/28/20 08/28/20 08/28/20 Range/Units 06:59 11:51 17:07 PT (9.0-12.0) sec INR (<1.2) POC Glucose (mg/dL) 215 H 181 H (75-99) mg/dL Hemoglobin A1c 7.1 H (4.0-6.0) % 08/28/20 08/29/20 08/29/20 Range/Units 20:08 06:15 08:25 PT 32.0 H (9.0-12.0) sec INR 3.3 H (<1.2) POC Glucose (mg/dL) 204 H 148 H (75-99) mg/dL Hemoglobin A1c (4.0-6.0) % Assessment and Plan Plan: Assessment and plan #1 typical atrial flutter with rapid ventricular response #2 obstructive sleep apnea #3 diabetes #4 hypertension #5 hyperlipidemia Plan Patient is scheduled to undergo ablation procedure on Tuesday with Dr. Lopez. We will resume her scheduled dose of Coumadin, instructions are given by Dr. Lopez not to hold the patient's Coumadin dosing. DNP note has been reviewed, I agree with a documented findings and plan of care. Patient was seen and examined.
[2020-08-29 12:09] LABS: Glucose,Whole Blood 187 mg/dL (75-99)
[2020-08-29] MEDS: FLECAINIDE 50 MG TAB PO SCH (12:17)
--- NOTE | 2020-08-29 15:03 | P.PN ---
Subjective Progress Note Date: 08/29/20 Destinee Deal is a 65 yo F with PMH of atrial fibrillation, atrial flutter s/p recent ablation, EFREN noncompliant with CPAP, T2DM who presented to the ED with palpitations, malaise and elevated heart rate. She notes she was shopping at a grocery store on Tuesday and noticed she became short of breath and her HR was in the 150s when she checked. Pt tried resting but the next morning her HR remained above 130 so she came in. She denies any chest pain or associated shortness of breath. On presentation her HR was irregular at a rate of 140 bpm, WBC 14k, AST/ALT mildly elevated, trop negative, BNP 200. Pt given cardizem with only mild improvement in HR. 08/28/2020 Cardizem drip. Irregular heart rate better controlled, currently in the 60s. INR 3.8 denies shortness of breath upon lying flat. Reports pa lpitations with exertion.NPO , further evaluation by Dr. Lopez pending. 08/29/2020 telemetry reporting controlled a flutter. Scheduled for ablation on Tuesday. Anticoagulated on Coumadin, current INR 3.3. Denies chest pain, palpitations or shortness of breath. Objective - Vital Signs Vital signs: Vital Signs Temp 97.7 F 08/29/20 08:40 Pulse 74 08/29/20 11:30 Resp 16 08/29/20 11:30 BP 105/60 08/29/20 11:30 Pulse Ox 97 08/29/20 11:30 Intake & Output 08/28/20 08/29/20 08/29/20 18:59 06:59 18:59 Intake Total 901.75 600 250 Balance 901.75 600 250 Weight 94.1 kg Intake: IV 20 Diltiazem 125 mg In 20 Sodium Chloride 0.9% 100 ml @ 5 MG/HR 5 mls/hr IV .Q24H [facility] Rx#:[id number] Intake, IV Titration 21.75 Amount Diltiazem 125 mg In 21.75 Sodium Chloride 0.9% 100 ml @ 5 MG/HR 5 mls/hr IV .Q24H [facility] Rx#:[id number] Oral 860 600 250 Other: Voiding Method Bedside Commode Bedside Commode Bedside Commode # Voids 0 2 1 # Bowel Movements 1 - Exam General: Sitting up in chair, NAD. Vitals reviewed Eyes: PERRL, EOMI, conjunctiva normal HENT: normocephalic, mucus membranes moist Neck: supple, no JVD Lungs: normal respiratory effort, no wheezes or rales CV: Irregularly irregular, systolic murmur. Peripheral pulses 2+ Abdomen: soft, nondistended, no organomegaly Skin: warm and dry. Neuro: A&Ox3, normal mood and affect - Labs CBC & Chem 7: 08/28/20 06:59 08/28/20 06:59 Labs: Abnormal Lab Results - Last 24 Hours (Table) 08/28/20 08/28/20 08/28/20 Range/Units 06:59 17:07 20:08 PT (9.0-12.0) sec INR (<1.2) POC Glucose (mg/dL) 181 H 204 H (75-99) mg/dL Hemoglobin A1c 7.1 H (4.0-6.0) % 08/29/20 08/29/20 08/29/20 Range/Units 06:15 08:25 12:08 PT 32.0 H (9.0-12.0) sec INR 3.3 H (<1.2) POC Glucose (mg/dL) 148 H 187 H (75-99) mg/dL Hemoglobin A1c (4.0-6.0) % Assessment and Plan Assessment: (1) Atrial flutter with rapid ventricular response Current Visit: Yes Status: Acute Code(s): I48.92 - UNSPECIFIED ATRIAL FLUTTER SNOMED Code(s): 6017937 (2) Atrial fibrillation with RVR Current Visit: No Status: Acute Code(s): I48.91 - UNSPECIFIED ATRIAL FIBRILLATION SNOMED Code(s): 301912947654719 (3) CAD (coronary artery disease) Current Visit: No Status: Acute Code(s): I25.10 - ATHSCL HEART DISEASE OF [place] CORONARY ARTERY W/O ANG PCTRS SNOMED Code(s): 18967538 (4) Congestive heart failure, chronic diastolic Current Visit: No Status: Acute Code(s): I50.9 - HEART FAILURE, UNSPECIFIED SNOMED Code(s): 99754637 (5) Diabetes Current Visit: No Status: Acute Code(s): E11.9 - TYPE 2 DIABETES MELLITUS WITHOUT COMPLICATIONS SNOMED Code(s): 73114253 (6) Obesity (BMI 30-39.9) Current Visit: No Status: Acute Code(s): E66.9 - OBESITY, UNSPECIFIED SNOMED Code(s): 523139957 (7) Sleep apnea, obstructive Current Visit: No Status: Acute Code(s): G47.33 - OBSTRUCTIVE SLEEP APNEA (ADULT) (PEDIATRIC) SNOMED Code(s): 89899314 (8) Type 2 diabetes mellitus Current Visit: No Status: Acute Code(s): E11.9 - TYPE 2 DIABETES MELLITUS WITHOUT COMPLICATIONS SNOMED Code(s): 90871044 (9) gastroesophageal reflux disease Plan: Continue on current medication regime ,monitoring and symptomatically tr eatment. Ablation scheduled for Tuesday. Maintain anticoagulation on Coumadin, daily PT/INRs. The impression and plan of care has been dictated as directed. : I performed a history and examination of this patient, discussed the same with the dictator. I agree with the dictator's note ,documented as a scribe. Any additional findings or plans will be noted.
[2020-08-29] MEDS: FUROSEMIDE 40 MG TAB PO SCH (15:51)
[2020-08-29 16:49] LABS: Glucose,Whole Blood 287 mg/dL (75-99)
[2020-08-29] MEDS ORDERED: WARFARIN 2.5 MG TAB PO SCH (18:00)
[2020-08-29] MEDS ORDERED: WARFARIN 0.5 MG TAB PO ONE (18:00)
[2020-08-29] MEDS: SODIUM CHLORIDE 0.9% 1,000 ML IV SCH ×2 (19:41)
[2020-08-29 20:45] LABS: Glucose,Whole Blood 183 mg/dL (75-99)
[2020-08-29] MEDS: MONTELUKAST 10 MG TAB PO SCH (21:13)
[2020-08-29] MEDS: SPIRONOLACTONE 25 MG TAB PO SCH (21:13)
[2020-08-29] MEDS: MIRTAZAPINE 15 MG TAB PO SCH (21:13)
[2020-08-30] MEDS: FLECAINIDE 50 MG TAB PO SCH ×2 (00:18→12:16)
[2020-08-30 06:33] LABS: Glucose,Whole Blood 153 mg/dL (75-99)
[2020-08-30] MEDS: INSULIN ASPART (NovoLOG) 100 UNIT/ML VIAL SQ SCH ×4 (06:50→21:04)
[2020-08-30 09:01] LABS: INR 2.6 (<1.2); Prothrombin Time 25.7 sec (9.0-12.0)
--- NOTE | 2020-08-30 09:19 | P.PN ---
Subjective Progress Note Date: 08/30/20 This is a very pleasant 65-year-old female patient who sees Dr. Lopez in the office on regular basis with a past medical history significant for atrial flutter and status post ablation was performed earlier this year as well as history of obstructive sleep apnea does not use her CPAP machine and also severe pulmonary hypertension resented to the emergency room not feeling well. For the last few days she has been experiencing feeling of heart racing and fluttering associated with dizziness and lightheadedness but no presyncope or syncope. No symptoms of chest pain or chest discomfort and no shortness of breath. She felt that her heart was out of rhythm and because of that she decided to come to the emergency department. In the ER she was atrial flutter with one-to-one block but subsequently she was started on Cardizem drip with improvement in the heart rate. She is feeling better. She underwent an echocardiogram earlier this year and that revealed evidence of severe pulmonary hypertension and tricuspid regurgitation. The heart catheterization also was performed this year and that revealed evidence of mild nonobstructive coronary artery disease. The workup during this admission overall came in to be unremarkable. Clearly the patient stated that she has not been using the CPAP machine as she should be and also she clearly states that she has been taking all her medications as scheduled. That included her oral anticoagulation was Coumadin. Patient was seen and examined this morning, hemodynamically stable. Blood pressure 106/70 with a heart rate in the 90s. She scheduled to undergo an ablation procedure on Tuesday with Dr. Lopez. Her INR yesterday was 3.8 and the Coumadin was held, her INR today is 3.3. We will put the patient back on a regular scheduled dose of Coumadin. Dr. Lopez does not want this patient's Coumadin held. A note has been put up in the room to indicate this. 08/30/2020 Patient seen and examined this morning, sitting up in a chair at bedside. No complaints. Hemodynamically stable. Blood pressure 136/86, heart rate 80-100, 100% on room air. INR today 2.6. Objective - Vital Signs Vital signs: Vital Signs Temp 97.8 F 08/29/20 20:00 Pulse 106 H 08/30/20 04:00 Resp 16 08/30/20 04:00 BP 137/86 08/30/20 04:00 Pulse Ox 100 08/30/20 04:00 Intake & Output 08/29/20 08/30/20 08/30/20 18:59 06:59 18:59 Intake Total 250 680 240 Output Total 650 Balance -400 680 240 Weight 95 kg Intake: Intake, IV Titration 80 Amount Sodium Chloride 0.9% 1, 80 000 ml @ 20 mls/hr IV . Q24H [facility] Rx#:[id number] Oral 250 600 240 Output: Urine 650 Other: Voiding Method Bedside Commode Toilet # Voids 1 1 - Exam PHYSICAL EXAMINATION: GENERAL: 65-year-old female in no acute distress at the time of my examination HEENT: Head is atraumatic, normocephalic. Pupils equal, round. Sclera anicteric. Conjunctiva are clear. Mucous membranes of the mouth are moist. Neck is supple. There is no elevated jugular venous pressure.No carotid bruit is heard. HEART EXAMINATION: Heart S1, S2 irregularly irregular, systolic murmur heard . CHEST EXAMINATION: Lungs are clear to auscultation and precussion. No chest wall tenderness is noted on palpation or with deep breathing. ABDOMEN: Soft, nontender. Bowel sounds are heard. No organomegaly noted. EXTREMITIES: 2+ peripheral pulses with no evidence of peripheral edema and no calf tenderness noted. NEUROLOGIC patient is awake, alert and oriented X3 . - Labs CBC & Chem 7: 08/28/20 06:59 08/28/20 06:59 Labs: Abnormal Lab Results - Last 24 Hours (Table) 08/29/20 08/29/20 08/29/20 Range/Units 08:25 12:08 16:38 PT 32.0 H (9.0-12.0) sec INR 3.3 H (<1.2) POC Glucose (mg/dL) 187 H 287 H (75-99) mg/dL 08/29/20 08/30/20 08/30/20 Range/Units 20:44 06:31 08:05 PT 25.7 H (9.0-12.0) sec INR 2.6 H (<1.2) POC Glucose (mg/dL) 183 H 153 H (75-99) mg/dL Assessment and Plan Plan: Assessment and plan #1 typical atrial flutter with rapid ventricular response #2 obstructive sleep apnea #3 diabetes #4 hypertension #5 hyperlipidemia Plan Patient is scheduled to undergo ablation procedure on Tuesday with Dr. Lopez. We will give the patient 5 mg of Coumadin today, check daily PT/INRs. DNP note has been reviewed, I agree with a documented findings and plan of care. Patient was seen and examined.
[2020-08-30] MEDS: ATORVASTATIN 20 MG TAB PO SCH (09:40)
[2020-08-30] MEDS: ISOSORBIDE MONONITRATE ER 30 MG TAB.ER.24H PO SCH (09:40)
[2020-08-30] MEDS: FUROSEMIDE 80 MG TAB PO SCH (09:41)
[2020-08-30] MEDS: VERAPAMIL SR 240 MG TABLET.ER PO SCH (09:41)
[2020-08-30] MEDS: PANTOPRAZOLE 40 MG TABLET PO SCH (09:41)
[2020-08-30 12:22] LABS: Glucose,Whole Blood 224 mg/dL (75-99)
[2020-08-30] MEDS: SODIUM CHLORIDE 0.9% 1,000 ML IV SCH ×2 (12:34→15:33)
[2020-08-30] MEDS: FUROSEMIDE 40 MG TAB PO SCH (16:40)
[2020-08-30 17:13] LABS: Glucose,Whole Blood 270 mg/dL (75-99)
--- NOTE | 2020-08-30 17:32 | P.PN ---
Subjective Progress Note Date: 08/30/20 Principal diagnosis: Atrial flutter with RVR 65 yo F with PMH of atrial fibrillation, atrial flutter s/p recent ablation, EFREN noncompliant with CPAP, T2DM who presented to the ED with palpitations, malaise and elevated heart rate. She notes she was shopping at a grocery store on Tuesday and noticed she became short of breath and her HR was in the 150s when she checked. Pt tried resting but the next morning her HR remained above 130 so she came in. She denies any chest pain or associated shortness of breath. On presentation her HR was irregular at a rate of 140 bpm, WBC 14k, AST/ALT mildly elevated, trop negative, BNP 200. Pt given cardizem with only mild improvement in HR. 08/30/2020 Patient seen and examined this morning, sitting up in a chair at bedside. No complaints. Hemodynamically stable. Blood pressure 136/86, heart rate 80-100, 100% on room air. INR today 2.6. Patient is scheduled to undergo ablation on Tuesday Objective - Vital Signs Vital signs: Vital Signs Temp 97.8 F 08/29/20 20:00 Pulse 106 H 08/30/20 04:00 Resp 16 08/30/20 04:00 BP 137/86 08/30/20 04:00 Pulse Ox 100 08/30/20 04:00 Intake & Output 08/29/20 08/30/20 08/30/20 18:59 06:59 18:59 Intake Total 250 680 240 Output Total 650 Balance -400 680 240 Weight 95 kg Intake: Intake, IV Titration 80 Amount Sodium Chloride 0.9% 1, 80 000 ml @ 20 mls/hr IV . Q24H [facility] Rx#:[id number] Oral 250 600 240 Output: Urine 650 Other: Voiding Method Bedside Commode Toilet # Voids 1 1 - Exam PHYSICAL EXAMINATION: GENERAL: The patient is alert and oriented x3, not in any acute distress. Well developed, well nourished. HEENT: Pupils are round and equally reacting to light. EOMI. No scleral icterus. No conjunctival pallor. Normocephalic, atraumatic. No pharyngeal erythema. No thyromegaly. CARDIOVASCULAR: S1 and S2 present. No murmurs, rubs, or gallops. PULMONARY: Chest is clear to auscultation, no wheezing or crackles. ABDOMEN: Soft, nontender, nondistended, normoactive bowel sounds. No palpable organomegaly. MUSCULOSKELETAL: No joint swelling or deformity. EXTREMITIES: No cyanosis, clubbing, or pedal edema. NEUROLOGICAL: Gross neurological examination did not reveal any focal deficits. SKIN: No rashes. - Labs CBC & Chem 7: 08/28/20 06:59 08/28/20 06:59 Labs: Abnormal Lab Results - Last 24 Hours (Table) 08/29/20 08/29/20 08/29/20 Range/Units 12:08 16:38 20:44 PT (9.0-12.0) sec INR (<1.2) POC Glucose (mg/dL) 187 H 287 H 183 H (75-99) mg/dL 08/30/20 08/30/20 Range/Units 06:31 08:05 PT 25.7 H (9.0-12.0) sec INR 2.6 H (<1.2) POC Glucose (mg/dL) 153 H (75-99) mg/dL Assessment and Plan Assessment: #1 typical atrial flutter with rapid ventricular response #2 obstructive sleep apnea #3 diabetes #4 hypertension #5 hyperlipidemia Patient is rate controlled on oral verapamil and anticoagulated with Coumadin; IV Cardizem infusion has been discontinued; cardiology is following and patient is scheduled for ablation on Tuesday
[2020-08-30] MEDS ORDERED: WARFARIN 5 MG TAB PO ONE (18:00)
[2020-08-30 20:27] LABS: Glucose,Whole Blood 221 mg/dL (75-99)
[2020-08-30] MEDS: MONTELUKAST 10 MG TAB PO SCH (21:04)
[2020-08-30] MEDS: MIRTAZAPINE 15 MG TAB PO SCH (21:04)
[2020-08-30] MEDS: SPIRONOLACTONE 25 MG TAB PO SCH (21:04)
[2020-08-31] MEDS: FLECAINIDE 50 MG TAB PO SCH ×2 (00:39→12:20)
[2020-08-31 06:17] LABS: Glucose,Whole Blood 156 mg/dL (75-99)
[2020-08-31] MEDS: INSULIN ASPART (NovoLOG) 100 UNIT/ML VIAL SQ SCH ×4 (06:55→21:49)
[2020-08-31 07:55] LABS: INR 3.2 (<1.2); Prothrombin Time 31.4 sec (9.0-12.0)
[2020-08-31] MEDS: PANTOPRAZOLE 40 MG TABLET PO SCH (09:17)
[2020-08-31] MEDS: ISOSORBIDE MONONITRATE ER 30 MG TAB.ER.24H PO SCH (09:17)
[2020-08-31] MEDS: FUROSEMIDE 80 MG TAB PO SCH (09:17)
[2020-08-31] MEDS: VERAPAMIL SR 240 MG TABLET.ER PO SCH (09:17)
[2020-08-31] MEDS: ATORVASTATIN 20 MG TAB PO SCH (09:17)
--- NOTE | 2020-08-31 09:43 | P.PN ---
Subjective Progress Note Date: 08/31/20 This is a very pleasant 65-year-old female patient who sees Dr. Lopez in the office on regular basis with a past medical history significant for atrial flutter and status post ablation was performed earlier this year as well as history of obstructive sleep apnea does not use her CPAP machine and also severe pulmonary hypertension resented to the emergency room not feeling well. For the last few days she has been experiencing feeling of heart racing and fluttering associated with dizziness and lightheadedness but no presyncope or syncope. No symptoms of chest pain or chest discomfort and no shortness of breath. She felt that her heart was out of rhythm and because of that she decided to come to the emergency department. In the ER she was atrial flutter with one-to-one block but subsequently she was started on Cardizem drip with improvement in the heart rate. She is feeling better. She underwent an echocardiogram earlier this year and that revealed evidence of severe pulmonary hypertension and tricuspid regurgitation. The heart catheterization also was performed this year and that revealed evidence of mild nonobstructive coronary artery disease. The workup during this admission overall came in to be unremarkable. Clearly the patient stated that she has not been using the CPAP machine as she should be and also she clearly states that she has been taking all her medications as scheduled. That included her oral anticoagulation was Coumadin. Patient was seen and examined this morning, hemodynamically stable. Blood pressure 106/70 with a heart rate in the 90s. She scheduled to undergo an ablation procedure on Tuesday with Dr. Lopez. Her INR yesterday was 3.8 and the Coumadin was held, her INR today is 3.3. We will put the patient back on a regular scheduled dose of Coumadin. Dr. Lopez does not want this patient's Coumadin held. A note has been put up in the room to indicate this. 08/30/2020 Patient seen and examined this morning, sitting up in a chair at bedside. No complaints. Hemodynamically stable. Blood pressure 136/86, heart rate 80-100, 100% on room air. INR today 2.6. 08/31/2020 She was seen and examined this morning, states that she felt her heart racing a little faster this morning, the heart rate was in the 120 range, she had not yet received her morning medications. INR today is 3.2. Blood pressure 125/80, heart rate 120, 98% on room air. Objective - Vital Signs Vital signs: Vital Signs Temp 97.8 F 08/30/20 20:00 Pulse 106 H 08/31/20 04:00 Resp 16 08/31/20 04:00 BP 125/84 08/31/20 04:00 Pulse Ox 98 08/31/20 04:00 Intake & Output 08/30/20 08/31/20 08/31/20 18:59 06:59 18:59 Intake Total 780 240 Output Total 350 300 Balance 430 -300 240 Weight 94.6 kg Intake: Oral 780 240 Output: Urine 350 300 Other: Voiding Method Toilet Toilet # Voids 1 - Exam PHYSICAL EXAMINATION: GENERAL: 65-year-old female in no acute distress at the time of my examination HEENT: Head is atraumatic, normocephalic. Pupils equal, round. Sclera anicteric. Conjunctiva are clear. Mucous membranes of the mouth are moist. Neck is supple. There is no elevated jugular venous pressure.No carotid bruit is heard. HEART EXAMINATION: Heart S1, S2 irregularly irregular, systolic murmur heard . CHEST EXAMINATION: Lungs are clear to auscultation and precussion. No chest wall tenderness is noted on palpation or with deep breathing. ABDOMEN: Soft, nontender. Bowel sounds are heard. No organomegaly noted. EXTREMITIES: 2+ peripheral pulses with no evidence of peripheral edema and no calf tenderness noted. NEUROLOGIC patient is awake, alert and oriented X3 . - Labs CBC & Chem 7: 08/28/20 06:59 08/28/20 06:59 Labs: Abnormal Lab Results - Last 24 Hours (Table) 08/30/20 08/30/20 08/30/20 Range/Units 12:10 17:06 20:26 PT (9.0-12.0) sec INR (<1.2) POC Glucose (mg/dL) 224 H 270 H 221 H (75-99) mg/dL 08/31/20 08/31/20 Range/Units 06:16 07:15 PT 31.4 H (9.0-12.0) sec INR 3.2 H (<1.2) POC Glucose (mg/dL) 156 H (75-99) mg/dL Assessment and Plan Plan: Assessment and plan #1 typical atrial flutter with rapid ventricular response #2 obstructive sleep apnea #3 diabetes #4 hypertension #5 hyperlipidemia Plan Patient is scheduled to undergo ablation procedure on Tuesday with Dr. Lopez. We will give the patient 2.5 mg of Coumadin today, check daily PT/INRs. DNP note has been reviewed, I agree with a documented findings and plan of care. Patient was seen and examined.
[2020-08-31 12:17] LABS: Glucose,Whole Blood 311 mg/dL (75-99)
[2020-08-31] MEDS: FUROSEMIDE 40 MG TAB PO SCH (15:37)
--- NOTE | 2020-08-31 17:04 | P.PN ---
Subjective Progress Note Date: 08/31/20 Principal diagnosis: Atrial flutter with RVR 65 yo F with PMH of atrial fibrillation, atrial flutter s/p recent ablation, EFREN noncompliant with CPAP, T2DM who presented to the ED with palpitations, malaise and elevated heart rate. She notes she was shopping at a grocery store on Tuesday and noticed she became short of breath and her HR was in the 150s when she checked. Pt tried resting but the next morning her HR remained above 130 so she came in. She denies any chest pain or associated shortness of breath. On presentation her HR was irregular at a rate of 140 bpm, WBC 14k, AST/ALT mildly elevated, trop negative, BNP 200. Pt given cardizem with only mild improvement in HR. 08/30/2020 Patient seen and examined this morning, sitting up in a chair at bedside. No complaints. Hemodynamically stable. Blood pressure 136/86, heart rate 80-100, 100% on room air. INR today 2.6. Patient is scheduled to undergo ablation on Tuesday08/31/2020 Patient is seen and examined this morning, states that she felt her heart racing a little faster this morning, the heart rate was in the 120 range, she had not yet received her morning medications. INR today is 3.2. Blood pressure 125/80, heart rate 120, 98% on room air. Patient is scheduled to undergo ablation procedure on Tuesday with Dr. Lopez. Objective - Vital Signs Vital signs: Vital Signs Temp 97.8 F 08/30/20 20:00 Pulse 106 H 08/31/20 04:00 Resp 16 08/31/20 04:00 BP 125/84 08/31/20 04:00 Pulse Ox 98 08/31/20 04:00 Intake & Output 08/30/20 08/31/20 08/31/20 18:59 06:59 18:59 Intake Total 780 240 Output Total 350 300 Balance 430 -300 240 Weight 94.6 kg Intake: Oral 780 240 Output: Urine 350 300 Other: Voiding Method Toilet Toilet # Voids 1 - Exam PHYSICAL EXAMINATION: GENERAL: The patient is alert and oriented x3, not in any acute distress. Well developed, well nourished. HEENT: Pupils are round and equally reacting to light. EOMI. No scleral icterus. No conjunctival pallor. Normocephalic, atraumatic. No pharyngeal erythema. No thyromegaly. CARDIOVASCULAR: S1 and S2 present. No murmurs, rubs, or gallops. PULMONARY: Chest is clear to auscultation, no wheezing or crackles. ABDOMEN: Soft, nontender, nondistended, normoactive bowel sounds. No palpable organomegaly. MUSCULOSKELETAL: No joint swelling or deformity. EXTREMITIES: No cyanosis, clubbing, or pedal edema. NEUROLOGICAL: Gross neurological examination did not reveal any focal deficits. SKIN: No rashes. - Labs CBC & Chem 7: 08/28/20 06:59 08/28/20 06:59 Labs: Abnormal Lab Results - Last 24 Hours (Table) 08/30/20 08/30/20 08/30/20 Range/Units 12:10 17:06 20:26 PT (9.0-12.0) sec INR (<1.2) POC Glucose (mg/dL) 224 H 270 H 221 H (75-99) mg/dL 08/31/20 08/31/20 Range/Units 06:16 07:15 PT 31.4 H (9.0-12.0) sec INR 3.2 H (<1.2) POC Glucose (mg/dL) 156 H (75-99) mg/dL Assessment and Plan Assessment: #1 typical atrial flutter with rapid ventricular response #2 obstructive sleep apnea #3 diabetes #4 hypertension #5 hyperlipidemia Patient is rate controlled on oral verapamil and anticoagulated with Coumadin; IV Cardizem infusion has been discontinued; cardiology is following and patient is scheduled for ablation on Tuesday
[2020-08-31 17:29] LABS: Glucose,Whole Blood 235 mg/dL (75-99)
[2020-08-31] MEDS ORDERED: WARFARIN 0.5 MG TAB PO ONE (18:00)
[2020-08-31] MEDS ORDERED: WARFARIN 2 MG TAB PO ONE (18:30)
[2020-08-31] MEDS: SODIUM CHLORIDE 0.9% 1,000 ML IV SCH ×2 (19:51)
[2020-08-31 20:33] LABS: Glucose,Whole Blood 326 mg/dL (75-99)
[2020-08-31] MEDS: SPIRONOLACTONE 25 MG TAB PO SCH (21:48)
[2020-08-31] MEDS: MONTELUKAST 10 MG TAB PO SCH (21:48)
[2020-08-31] MEDS: MIRTAZAPINE 15 MG TAB PO SCH (21:48)
[2020-09-01] MEDS: FLECAINIDE 50 MG TAB PO SCH ×2 (00:08→12:23)
[2020-09-01 06:35] LABS: Glucose,Whole Blood 196 mg/dL (75-99)
[2020-09-01] MEDS: INSULIN ASPART (NovoLOG) 100 UNIT/ML VIAL SQ SCH ×4 (06:43→21:35)
[2020-09-01 07:49] LABS: INR 3.6 (<1.2); Prothrombin Time 34.9 sec (9.0-12.0)
[2020-09-01] MEDS: FUROSEMIDE 80 MG TAB PO SCH (08:47)
[2020-09-01] MEDS: ATORVASTATIN 20 MG TAB PO SCH (08:47)
[2020-09-01] MEDS: ISOSORBIDE MONONITRATE ER 30 MG TAB.ER.24H PO SCH (08:47)
[2020-09-01] MEDS: PANTOPRAZOLE 40 MG TABLET PO SCH (08:47)
[2020-09-01] MEDS: VERAPAMIL SR 240 MG TABLET.ER PO SCH (08:47)
[2020-09-01 11:57] LABS: Glucose,Whole Blood 209 mg/dL (75-99)
[2020-09-01] MEDS: SODIUM CHLORIDE 0.9% 1,000 ML IV SCH ×3 (12:22→20:33)
[2020-09-01] MEDS ORDERED: SODIUM CHLORIDE 0.9% 500 ML 500 ML IV ONE ×2 (13:45→15:15)
[2020-09-01 15:09] VITALS: BMI 37.9
[2020-09-01] MEDS ORDERED: PROPOFOL 10 MG/ML 20 ML VIAL IV ONE (15:10)
[2020-09-01] MEDS ORDERED: SUCCINYLCHOLINE CHLORIDE 100 MG/5 ML SYR IV ONE (15:10)
[2020-09-01] MEDS ORDERED: LIDOCAINE 1% INJ 10MG/ML (20 ML MDV) ONE (15:10)
[2020-09-01] MEDS ORDERED: PROTAMINE SULFATE 10 MG/ML 5 ML VIAL IV ONE (15:10)
[2020-09-01] MEDS ORDERED: FUROSEMIDE 10 MG/ML 2 ML VIAL ONE (15:10)
[2020-09-01] MEDS ORDERED: ePHEDrine SULFATE/0.9% NACL/PF 50 MG/5 ML SYRINGE IV ONE (15:10)
[2020-09-01] MEDS ORDERED: MIDAZOLAM 2 MG/2 ML VIAL ONE (15:10)
[2020-09-01] MEDS ORDERED: fentaNYL (PF) 50 MCG/ML 2 ML AMP ONE (15:10)
[2020-09-01] MEDS ORDERED: HEPARIN SODIUM,PORCINE 5,000 UNIT/ML 1 ML VIAL ONE (15:10)
[2020-09-01] MEDS ORDERED: LIDOCAINE 1% INJ 10MG/ML (20 ML MDV) SQ ONE (16:03)
[2020-09-01] MEDS ORDERED: HEPARIN SODIUM (1,000 UNIT/ML) 1,000 UNIT in SODIUM CHLORIDE 0.9% 1,000 ML IRRIGATION ONE ×2 (16:21→19:09)
[2020-09-01] MEDS ORDERED: HEPARIN SOD,PORK IN 0.45% NACL 25,000 UNIT in 0.45% NACL 1 250ML.BAG IV ONE (16:52)
--- NOTE | 2020-09-01 19:56 | P.EPPROC ---
- EP Procedure Note Electrophysiology Procedure Note: Diagnosis Recurrent sustained atrial tachycardia History of A. fib ablation status post cryoablation the pulmonary veins Failed antiarrhythmic drug therapy Procedure details Patient was brought to the EP lab in a fasting state. Written informed consent was obtained prior to the procedure. The procedure was performed under general anesthesia She was in her atrial tachycardia with upright T waves in V1 and upright in the inferior leads 3-D electro-anatomic mapping of the right atrium was performed Activation mapping was performed. A counter clockwise circuit was noted Unit atrial ablation was performed in the cavo tricuspid isthmus and a complete line of block was made At the end of the procedure in sinus rhythm this was interrogated and the isthmus conduction time was greater than 161 ms in both directions Bidirectional block was confirmed with differential pacing at the end of the procedure However the patient remained in an atrial tachycardia with a subtle variation in the Kendall sinus electrograms consistent with multiple simultaneous atrial tachycardias The right atrium was mapped again and this time activation map suggested that the primary focus now was not in the right atrium Under intracardiac echocardiography 3-D electrograms from mapping of the left atrium was performed. Successful transseptal catheterization was performed RA pressure 24/12/19 mmHg LA pressure 36/15./22 mmHg A Pentaray catheter was used and 3-D electrograms mapping was performed Activation mapping and scar mapping was performed It appeared that the anterior wall was a focus of the arrhythmia Fractionated electrograms were noted along the anterior wall between the pulmonary veins and left atrial appendage RF ablation was performed in the low anterior wall close to the mitral annulus and there was an abrupt termination and change in the Kendall sinus activation This is the first focal atrial arrhythmia ablated. The RF line was made to the mitral annulus. Along the cycle length concentric atrial tachycardia was noted and the Kendall sinus Since the roof between the pulmonary veins which had been previously ablated, was a narrow isthmus RF ablation was performed and a complete roof line was made This resulted in mild prolongation of the cycle length but did not terminate the tachycardia Following that 3-D electrograms mapping and activation and scar mapping was performed once again This time the upper anterior wall of the left atrium seemed to be the area of interest This is a broad area of activation AV node ablation was performed along the zahra anteriorly in front of the right superior pulmonary veins be resulted in slight prolonged duration of the tachycardia however it did not terminate RF ablation was then performed in the anterior LA proximal to the left atrial appendage os in the area of earliest activation. This early activation area was a broad area but as RF ablation was applied within the fractionated electrograms he was slow lengthening of the tachycardia followed by termination At this point a complete line of RF ablation was performed to complete the line anteriorly and Passing the 2 focal areas of atrial tachycardia Following that the roof line was interrogated and cavo tricuspid line was interrogated and complete block was noted This is a very long procedure since the patient had multiple simultaneous atrial tachycardias that required sequential ablation, multiple voltage maps and activation maps after each successful ablation to map the next atrial tachycardia Sinus cycle length 720 ms, TN interval 194 ms QRS 112 ms QT interval 403 ms AH 97 and HV 67 ms Intracardiac echo revealed absence of any pericardial effusion, normal LV function HIS then removed patient was extubated hemostasis was assured Result Successful ablation of multiple simultaneous atrial tachycardias both in the right and the left atria Typical atrial flutter ablation, [id number] Ablation of a focal atrial arrhythmia in the low anterior wall of the LA just above the mitral annulus, [id number] Linear ablation of the left atrial roof, +[id number] Additional Focal atrial ablation upper anterior wall of the LA, +[id number] Long procedure, modified 22
[2020-09-01] MEDS ORDERED: ACETAMINOPHEN TAB 325 MG TAB PO PRN (20:18)
[2020-09-01] MEDS: FUROSEMIDE 40 MG TAB PO SCH (20:37)
[2020-09-01] MEDS ORDERED: ACETAMINOPHEN IV (For NPO) 1,000 MG in EMPTY BAG 1 BAG IVPB ONE (21:00)
[2020-09-01 21:13] LABS: Glucose,Whole Blood 227 mg/dL (75-99)
[2020-09-01] MEDS: MONTELUKAST 10 MG TAB PO SCH (21:34)
[2020-09-01] MEDS: SPIRONOLACTONE 25 MG TAB PO SCH (21:34)
[2020-09-01] MEDS: MIRTAZAPINE 15 MG TAB PO SCH (21:34)
[2020-09-01] MEDS ORDERED: WARFARIN 1 MG TAB PO SCH (22:30)
[2020-09-02 00:22] VITALS: RESP 18
[2020-09-02 06:09] LABS: Glucose,Whole Blood 196 mg/dL (75-99)
[2020-09-02] MEDS: INSULIN ASPART (NovoLOG) 100 UNIT/ML VIAL SQ SCH (07:09)
--- NOTE | 2020-09-02 08:22 | P.PN ---
Progress Note - Text If patient is stable today and has no arrhythmias and groin is healing well she may go home Medication changes include Discontinue flecainide Reduce warfarin to 2 mg by mouth daily starting today PT/INR check in 7-10 days Warfarin should not be held post ablation, (risk of stroke)
--- NOTE | 2020-09-02 08:25 | P.PRLE ---
RE: Destinee Deal Dear Kelley Velezmina Salas was admitted once again with an atrial tachycardia. 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 She had simultaneous multiple atrial tachycardias which were successfully ablated in a stepwise manner and sinus rhythm was restored during successful ablation. Hopefully this takes care of most of her extrapulmonary A. fib source is now I have asked her to stop flecainide completely line she may continue verapamil Her INR in the hospital was elevated and therefore lasted reduced the dose of warfarin to 2 mg by mouth daily I'm specifically avoiding withholding warfarin because of increased risk of stroke post ablation. As long as she has no bleeding and quite comfortable with an INR of 3.2
[2020-09-02] MEDS: ISOSORBIDE MONONITRATE ER 30 MG TAB.ER.24H PO SCH (08:35)
[2020-09-02] MEDS: VERAPAMIL SR 240 MG TABLET.ER PO SCH (08:35)
[2020-09-02] MEDS: FUROSEMIDE 80 MG TAB PO SCH (08:35)
[2020-09-02] MEDS: ATORVASTATIN 20 MG TAB PO SCH (08:35)
[2020-09-02] MEDS: PANTOPRAZOLE 40 MG TABLET PO SCH (08:35)
[2020-09-02 08:51] LABS: Basophils # (A) 0.1 k/uL (0-0.2); Basophils % (A) 0 %; Eosinophils # (A) 0.1 k/uL (0-0.7); Eosinophils % (A) 1 %; HCT 43.4 % (34.0-46.0); HGB 13.6 gm/dL (11.4-16.0); Lymphocytes # (A) 1.1 k/uL (1.0-4.8); Lymphocytes % (A) 9 %; MCH 26.3 pg (25.0-35.0); MCHC 31.5 g/dL (31.0-37.0); MCV 83.6 fL (80.0-100.0); Mean Platelet Volume 7.7; Monocytes # (A) 0.6 k/uL (0-1.0); Monocytes % (A) 5 %; Neutrophils # (A) 9.5 k/uL (1.3-7.7); Neutrophils % (A) 83 %; Platelet Count 282 k/uL (150-450); RBC 5.19 m/uL (3.80-5.40); RDW 15.2 % (11.5-15.5); WBC 11.4 k/uL (3.8-10.6)
[2020-09-02 08:55] LABS: INR 3.2 (<1.2)
[2020-09-02 09:01] LABS: Potassium 4.3 mmol/L (3.5-5.1)
[2020-09-02 09:02] LABS: Calcium 8.7 mg/dL (8.4-10.2)
[2020-09-02 12:22] VITALS: BP 113/71; PULSE 80; TEMP 97.9
--- NOTE | 2020-09-02 12:22 | P.PN ---
Subjective This is a pleasant 65-year-old female past medical history significant for atrial flutter, pulmonary hypertension, hypertension, diabetes mellitus, dyslipidemia and sleep apnea. She underwent successful atrial flutter ablation yesterday with Dr. Lopez. She has been maintaining sinus mechanism on the monitor. She seen and examined sitting up in the chair in no acute distress. She complains of a mild discomfort in the midsternal region when she takes a deep breath. She denies shortness of breath, dizziness or palpitations. [place] ateral femoral access sites are clean, dry and intact with no evidence of hematoma, bleeding or pain. Blood pressure 125/79 heart rate 87 afebrile maintaining oxygen saturation on room air. Laboratory data reviewed, WBC 11.4, hemoglobin 13.6, platelets 282, INR 3.2, sodium 131, potassium 4.3, creatinine 0.81. Currently maintained on Coumadin, Lasix 80 mg in the morning and 40 mg in the afternoon, atorvastatin 20 mg daily, Imdur 30 mg daily, Aldactone 50 mg daily and verapamil 240 mg daily. GENERAL: Well-appearing, well-nourished and in no acute distress. NECK: Supple without JVD or thyromegaly. LUNGS: Breath sounds clear to auscultation bilaterally. Respiration equal and unlabored. No wheezes, rales or rhonchi. HEART: Regular rate and rhythm without murmurs, rubs or gallops. S1 and S2 heard. EXTREMITIES: Normal range of motion, no edema. No clubbing or cyanosis. Peripheral pulses intact. Bilateral groin access sites are dry and intact with no hematoma, ecchymosis or tenderness with strong distal pulses. ASSESSMENT Atrial flutter, typical s/p successful ablation Diabetes mellitus Hypertension Dyslipidemia PLAN She is s/p atrial flutter ablation and maintaining sinus mechanism. Flecainde to be discontinued and continue verapamil. Stable for discharge from a cardiac perspective. Follow up with Dr. Lopez in the office in 1 week. Coumadin 2 mg daily and PT/INR in 1 week. The patient states she would like to do this in the office before she sees Dr. Lopez. Nurse Practitioner note has been reviewed, I agree with a documented findings and plan of care. Patient was seen and examined. Objective - Vital Signs Vital signs: Vital Signs Temp 97.6 F 11/17/20 08:03 Pulse 87 09/02/20 08:03 Resp 18 09/02/20 08:03 BP 125/79 09/02/20 08:03 Pulse Ox 96 09/02/20 08:03 Intake & Output 09/01/20 09/02/20 09/02/20 18:59 06:59 18:59 Intake Total 1560 240 240 Output Total 1450 100 Balance 1560 -1210 140 Weight 94 kg 100.5 kg Intake: IV 1560 240 Oral 240 Output: Urine 1450 100 Uretheral ([place]) 250 Other: Voiding Method Toilet Toilet - Labs CBC & Chem 7: 09/02/20 07:53 09/02/20 07:53 Labs: Abnormal Lab Results - Last 24 Hours (Table) 09/01/20 09/01/20 09/02/20 Range/Units 11:44 21:11 06:08 WBC (3.8-10.6) k/uL Neutrophils # (1.3-7.7) k/uL PT (9.0-12.0) sec INR (<1.2) Sodium (137-145) mmol/L Chloride (98-107) mmol/L Glucose (74-99) mg/dL POC Glucose (mg/dL) 209 H 227 H 196 H (75-99) mg/dL 09/02/20 09/02/20 09/02/20 Range/Units 07:53 07:53 07:53 WBC 11.4 H (3.8-10.6) k/uL Neutrophils # 9.5 H (1.3-7.7) k/uL PT 31.0 H (9.0-12.0) sec INR 3.2 H (<1.2) Sodium 131 L (137-145) mmol/L Chloride 94 L (98-107) mmol/L Glucose 343 H (74-99) mg/dL POC Glucose (mg/dL) (75-99) mg/dL
[2020-09-02] MEDS ORDERED: WARFARIN 5 MG TAB PO SCH (20:00)
[2020-09-02] MEDS ORDERED: WARFARIN 2.5 MG TAB PO SCH (20:00)
[2020-09-02] MEDS ORDERED: WARFARIN 1 MG TAB PO SCH (22:30)
== END 2020-09-02 13:41 | disposition home or self-care (01) | DRG 274 ==
LOC: EC 15:48 → 3SCARD 19:58
PROVIDERS: ADMIT Family Medicine; ATTEND Family Medicine
PROC: 02583ZZ Destruction of Conduction Mechanism, Percutaneous Approach (ICD-10-PCS; principal; 2020-09-01 14:55)
PROC: 02K83ZZ Map Conduction Mechanism, Percutaneous Approach (ICD-10-PCS; principal; 2020-09-01 14:55)
DX: I48.3 Typical atrial flutter (principal); I50.32 Chronic diastolic (congestive) heart failure; I48.91 Unspecified atrial fibrillation; I47.1 Supraventricular tachycardia; D72.829 Elevated white blood cell count, unspecified; E11.9 Type 2 diabetes mellitus without complications; E66.9 Obesity, unspecified; E78.5 Hyperlipidemia, unspecified; G47.33 Obstructive sleep apnea (adult) (pediatric); I07.1 Rheumatic tricuspid insufficiency; I11.0 Hypertensive heart disease with heart failure; I25.10 Atherosclerotic heart disease of native coronary artery without angina pectoris; I27.20 Pulmonary hypertension, unspecified; J44.9 Chronic obstructive pulmonary disease, unspecified; K21.9 Gastro-esophageal reflux disease without esophagitis; F32.9 Major depressive disorder, single episode, unspecified; M19.90 Unspecified osteoarthritis, unspecified site; G47.00 Insomnia, unspecified; Z79.01 Long term (current) use of anticoagulants; Z79.84 Long term (current) use of oral hypoglycemic drugs; Z79.899 Other long term (current) drug therapy; Z86.73 Personal history of transient ischemic attack (TIA), and cerebral infarction without residual deficits; Z87.891 Personal history of nicotine dependence; Z91.19 Patient's noncompliance with other medical treatment and regimen; Z88.8 Allergy status to other drugs, medicaments and biological substances; Z90.710 Acquired absence of both cervix and uterus; Z98.51 Tubal ligation status; Z90.49 Acquired absence of other specified parts of digestive tract; Z87.39 Personal history of other diseases of the musculoskeletal system and connective tissue; Z87.19 Personal history of other diseases of the digestive system; Z98.890 Other specified postprocedural states; Z86.79 Personal history of other diseases of the circulatory system; Z82.3 Family history of stroke; Z83.79 Family history of other diseases of the digestive system; Z80.0 Family history of malignant neoplasm of digestive organs; Z82.49 Family history of ischemic heart disease and other diseases of the circulatory system
CPT/HCPCS: 36415; 71045; 80048; 80053; 83036; 83735; 83880; 84484; 85025; 85347; 85610; 85730; 93005; 93613; 93656; 93657; 93662; 96365; 96366; 96376; 99291

== ENCOUNTER → 2021-03-20 | Outpatient (CLI) | payer MEDICARE ==
--- NOTE | 2021-03-20 12:40 | CT ---
EXAMINATION TYPE: CT abdomen pelvis w con DATE OF EXAM: 03/20/2021 HISTORY: RLQ pain, inguinal hernia CT DLP: 1723mGycm Automated Exposure Control for Dose Reduction was Utilized. CONTRAST: CT scan of the abdomen and pelvis is performed with IV Contrast, patient injected with 100 mL of Isov ue 300. COMPARISON: CT abdomen and pelvis June 14, 2019 FINDINGS: LUNG BASES: Mild left basilar linear scarring. LIVER/GB: Liver is diffusely low-density consistent with diffuse fatty infiltration. PANCREAS: No significant abnormality is seen. SPLEEN: No significant abnormality is seen. ADRENALS: No significant abnormality is seen. KIDNEYS: Symmetrical cortical medullary uptake and excretion without hydronephrosis seen bilaterally. BOWEL: The oral contrast reaches level of the right colon making evaluation of distal bowel slightly suboptimal. Scattered colonic diverticula greatest in the sigmoid colon. No convincing CT evidence fo r acute diverticulitis. Mild to moderate colonic fecal prominence particularly at level of right and transverse colon. No suspicious small or large bowel dilatation. Terminal ileum appears within normal limits. No inflammatory change at base of cecum. Normal or abnormal appendix not identified suggesti ng prior appendectomy. UTERUS/ADNEXA: Uterus small in size similar to prior, atrophic or partially surgically absent suspect ed. LYMPH NODES: No new greater than 1cm abdominal or pelvic lymph nodes are appreciated. OSSEOUS STRUCTURES: Stable moderate axial joint space loss in both hips. OTHER: Mild/moderate calcified plaque of the aorta extends into branch vessels. IMPRESSION: Mild to moderate proximal to mid colonic fecal stasis redemonstrated. No bowel obstructio n. No new or acute findings evident. No right groin hernia or adenopathy.
== END | disposition home or self-care (01) ==
LOC: RADCTMAIN 07:30
PROVIDERS: ATTEND Family Medicine
DX: K59.89 Other specified functional intestinal disorders (principal)
CPT/HCPCS: 82565; 84520; 74177; 36415; Q9967 ×2

== ENCOUNTER 2022-08-12 07:18 | Observation (INO) | payer MEDICARE ==
[2022-08-12] MEDS ORDERED: METOPROLOL TARTRATE 5 MG/5 ML VIAL IVP STA (07:33)
[2022-08-12] MEDS ORDERED: ASPIRIN 81 MG PO STA (07:33)
[2022-08-12] MEDS ORDERED: SODIUM CHLORIDE 0.9% 500 ML 500 ML IV STA (07:33)
--- NOTE | 2022-08-12 07:54 | ED ---
General Adult HPI - General Chief complaint: Arrhythmia/Palpitations Stated complaint: AFib Time Seen by Provider: 08/12/22 07:20 Source: patient, RN notes reviewed, old records reviewed Mode of arrival: ambulatory Limitations: no limitations - History of Present Illness Initial comments: Patient is a 67-year-old female with past medical history remarkable for difficult to control atrial fibrillation which required ablation in the past for atrial tachycardia, diabetes, prior CVA with no refills residual deficits, COPD, hypertension who presents emergency Department complaining of weeks of difficult to control atrial fibrillation at home with associated shortness of breath. He states it is more or less a daily occurrence. Did not take her normal medications this morning. Spoke with Dr. Lopez and his office yesterday and informed them that if she did not feel better she is been a come in for further evaluation and likely admission. She believes she will require possible cardioversion. She endorses palpitations, mild shortness of breath. Denies chest pain. Denies any abdominal pain, nausea, vomiting. Denies fevers, chills, cough. No other acute complaints at this time. Has a chronic cough from COPD but is not any worse than her usual. States she is compliant with medications as well as her Coumadin. Last INR per patient was around 2.5. - Related Data Home Medications Medication Instructions Recorded Confirmed Montelukast [Singulair] 10 mg PO HS 09/10/14 08/12/22 Omeprazole 40 mg PO DAILY 04/24/17 08/12/22 Liraglutide [Victoza 3-Adam] 1.8 mg SQ HS 02/17/20 08/12/22 allopurinoL [Zyloprim] 100 mg PO DAILY 02/17/20 08/12/22 metFORMIN HCL [Glucophage] 1,000 mg PO BID 02/17/20 08/12/22 Furosemide [Lasix] 40 mg PO DAILY@1500 07/03/20 08/12/22 Albuterol Sulfate [Albuterol 2 puff INHALATION RT-Q4H PRN 07/07/20 08/12/22 Sulfate Hfa] Furosemide [Lasix] 80 mg PO DAILY 07/07/20 08/12/22 Vortioxetine Hydrobromide 10 mg PO DAILY 07/07/20 08/12/22 [Trintellix] Spironolactone [Aldactone] 50 mg PO HS 08/26/20 08/12/22 Canagliflozin [Invokana] 100 mg PO DAILY 08/12/22 08/12/22 Dronedarone HCl [Multaq] 400 mg PO BID 08/12/22 08/12/22 Fluticasone/Vilanterol [Breo 1 puff INHALATION RT-DAILY 08/12/22 08/12/22 Ellipta 100-25 Mcg Inhaler] Glimepiride [Amaryl] 2 mg PO AC-BRKFST 08/12/22 08/12/22 Losartan Potassium [Cozaar] 12.5 mg PO DAILY 08/12/22 08/12/22 Metoprolol Succinate (ER) [Toprol 25 mg PO DAILY 08/12/22 08/12/22 Xl] Triamcinolone 0.1% Cream [Kenalog 1 applic TOPICAL BID 08/12/22 08/12/22 0.1% Cream] Warfarin [Coumadin] 2 mg PO SUTUTHSA 08/12/22 08/12/22 Warfarin [Coumadin] 3 mg PO MOWEFR 08/12/22 08/12/22 Allergies Allergy/AdvReac Type Severity Reaction Status Date / Time meperidine HCl [From Demerol] AdvReac Nausea & Verified 08/12/22 08:54 Vomiting Review of Systems ROS Statement: Those systems with pertinent positive or pertinent negative responses have been documented in the HPI. Review of Systems: CONST: Denies fever EYES: Denies blurry vision ENT: Denies nasal congestion C/V: Endorses fast heart rate RESP: Endorses mild shortness of breath GI: Denies abdominal pain : Denies dysuria SKIN: Denies rash. MSK: Denies joint pain. NEURO: Denies headache ROS Other: All systems not noted in ROS Statement are negative. Past Medical History Past Medical History: Atrial Fibrillation, Atrial Flutter, Asthma, COPD, CVA/TIA, Diabetes Mellitus, Hyperlipidemia, Hypertension, Osteoarthritis (OA) Additional Past Medical History / Comment(s): intracardiac thrombus 2013, SOB with exertion, stroke in 1998-no residual effects, SEE DR SIERRA'S HISTORY PHYSICAL FOR CARDIAC HISTORY History of Any Multi-Drug Resistant Organisms: None Reported Past Surgical History: Appendectomy, Breast Surgery, Cardiac Ablation, EPS, Heart Catheterization, Hysterectomy, Orthopedic Surgery, Tubal Ligation Additional Past Surgical History / Comment(s): ARTEMIO, ADDIE carpal tunnel release,Trigger finger & thumb surgery; cardioversions, breast biopsy, Left shoulder sx. Past Anesthesia/Blood Transfusion Reactions: No Reported Reaction Past Psychological History: Depression Smoking Status: Former smoker Past Alcohol Use History: None Reported Past Drug Use History: None Reported - Past Family History Mother Family Medical History: Liver Disease Additional Family Medical History / Comment(s): cirrhosis of liver Father Family Medical History: Cancer Additional Family Medical History / Comment(s): throat cancer Daughter(s) Additional Family Medical History / Comment(s): HEART VALVE REPLACEMENT (Aorta) Son(s) Family Medical History: CVA/TIA Additional Family Medical History / Comment(s): One son, had multiple strokes in a row General Exam - General Exam Comments Initial Comments: General: Appears in no acute distress. HEAD: Normal with no signs of head trauma. EYES: PERRLA, EOMI, conjunctiva normal, no discharge. ENT: Hearing grossly intact, normal oropharynx. RESPIRATORY: Clear breath sounds bilaterally. No wheezes, rales, or rhonchi. Respiratory distress. No hypoxia. C/V: Tachycardic with a regular rate and rhythm. S1 and S2 auscultated. No peripheral edema. Peripheral pulses 2+ and intact throughout. ABD: Abd is soft, nontender, nondistended EXT: Normal range of motion, no obvious deformity SKIN: No rashes or lesions observed on exposed skin. NEURO: Alert and oriented 4. Limitations: no limitations Course Vital Signs 08/12/22 08/12/22 08/12/22 07:21 07:45 08:05 Temperature 98.2 F Pulse Rate 124 H 113 H 100 Respiratory 18 18 18 Rate Blood Pressure 135/76 115/84 O2 Sat by Pulse 99 99 98 Oximetry Medical Decision Making - Medical Decision Making Based on the patient's presentation and physical exam, it appears the patient is having difficult to control atrial fibrillation/flutter which she does have a history of. Has previously required ablation. Presents for further evaluation at this time. Symptoms include been ongoing for weeks. We will obtain basic labs, cardiac labs, as well as EKG and chest x-ray. She did not take her medications morning with 2.5 mg IV push and metoprolol assess response. We'll administer her home medications. Likely requires admission for evaluation by cardiology. Vital signs are within acceptable limits except for her tachycardia of 124. EKG shows no signs of acute ischemia. Does show suspected atrial flutter/tachycardia with RVR.Chest x-ray shows a trace left pleural effusion. Laboratory studies were remarkable for a therapeutic INR of 2.1. Troponin is undetectable. BNP within acceptable limits. COVID-19 not detected. On reevaluation, patient's heart rate has improved to 100bpm following a single dose of 2.5 mg IV metoprolol. We will load the patient with her normal daily Toprol 25 mg as well as her normal home medications. She was in agreement with this plan. We will admit the patient to the hospital for evaluation by cardiology. Patient is feeling improved. No acute complaints at this time. Vital signs remained within acceptable limits. Cardiology was consulted. I spoke with the admitting physician, Dr. Pulliam who accepted the patient. - Lab Data Result diagrams: 08/12/22 07:51 08/12/22 07:51 Lab Results 08/12/22 08/12/22 08/12/22 Range/Units 07:51 07:51 07:51 WBC 8.3 (3.8-10.6) k/uL RBC 5.04 (3.80-5.40) m/uL Hgb 14.1 (11.4-16.0) gm/dL Hct 42.2 (34.0-46.0) % MCV 83.6 (80.0-100.0) fL MCH 27.9 (25.0-35.0) pg MCHC 33.4 (31.0-37.0) g/dL RDW 14.5 (11.5-15.5) % Plt Count 251 (150-450) k/uL MPV 7.8 Neutrophils % 72 % Lymphocytes % 18 % Monocytes % 6 % Eosinophils % 3 % Basophils % 1 % Neutrophils # 5.9 (1.3-7.7) k/uL Lymphocytes # 1.5 (1.0-4.8) k/uL Monocytes # 0.5 (0-1.0) k/uL Eosinophils # 0.2 (0-0.7) k/uL Basophils # 0.0 (0-0.2) k/uL PT 20.8 H (9.0-12.0) sec INR 2.1 H (<1.2) APTT 34.4 H (22.0-30.0) sec Sodium 136 L (137-145) mmol/L Potassium 3.9 (3.5-5.1) mmol/L Chloride 101 (98-107) mmol/L Carbon Dioxide 23 (22-30) mmol/L Anion Gap 12 mmol/L BUN 16 (7-17) mg/dL Creatinine 0.93 (0.52-1.04) mg/dL Est GFR (CKD-EPI)AfAm 75 (>60 ml/min/1.73 sqM) Est GFR (CKD-EPI)NonAf 65 (>60 ml/min/1.73 sqM) Glucose 179 H (74-99) mg/dL Calcium 9.1 (8.4-10.2) mg/dL Magnesium 2.0 (1.6-2.3) mg/dL Total Bilirubin 0.5 (0.2-1.3) mg/dL AST 31 (14-36) U/L ALT 40 H (4-34) U/L Alkaline Phosphatase 95 (38-126) U/L Troponin I (0.000-0.034) ng/mL NT-Pro-B Natriuret Pep pg/mL Total Protein 6.8 (6.3-8.2) g/dL Albumin 4.2 (3.5-5.0) g/dL Coronavirus (PCR) (Not Detectd) 08/12/22 08/12/22 08/12/22 Range/Units 07:51 07:51 07:57 WBC (3.8-10.6) k/uL RBC (3.80-5.40) m/uL Hgb (11.4-16.0) gm/dL Hct (34.0-46.0) % MCV (80.0-100.0) fL MCH (25.0-35.0) pg MCHC (31.0-37.0) g/dL RDW (11.5-15.5) % Plt Count (150-450) k/uL MPV Neutrophils % % Lymphocytes % % Monocytes % % Eosinophils % % Basophils % % Neutrophils # (1.3-7.7) k/uL Lymphocytes # (1.0-4.8) k/uL Monocytes # (0-1.0) k/uL Eosinophils # (0-0.7) k/uL Basophils # (0-0.2) k/uL PT (9.0-12.0) sec INR (<1.2) APTT (22.0-30.0) sec Sodium (137-145) mmol/L Potassium (3.5-5.1) mmol/L Chloride (98-107) mmol/L Carbon Dioxide (22-30) mmol/L Anion Gap mmol/L BUN (7-17) mg/dL Creatinine (0.52-1.04) mg/dL Est GFR (CKD-EPI)AfAm (>60 ml/min/1.73 sqM) Est GFR (CKD-EPI)NonAf (>60 ml/min/1.73 sqM) Glucose (74-99) mg/dL Calcium (8.4-10.2) mg/dL Magnesium (1.6-2.3) mg/dL Total Bilirubin (0.2-1.3) mg/dL AST (14-36) U/L ALT (4-34) U/L Alkaline Phosphatase (38-126) U/L Troponin I <0.012 (0.000-0.034) ng/mL NT-Pro-B Natriuret Pep 464 pg/mL Total Protein (6.3-8.2) g/dL Albumin (3.5-5.0) g/dL Coronavirus (PCR) Not Detected (Not Detectd) - EKG Data -: EKG Interpreted by Me EKG Comments: 12-lead Electrocardiogram Interpretation Note EKG was reviewed and interpreted by myself. 12-lead ECG performed at 0732 is interpreted by me as revealing atrial flutter/tachycardia with RVR at a rate of 122 beats per minute. [place] is rightward deviated. QRS duration is 137 ms, QTc is 439 ms. There were no acute ST or T wave abnormalities to suggest myocardial ischemia or injury. R wave progression is somewhat delayed.. By my interpretation this EKG is non-diagnostic for acute ischemia. Disposition Clinical Impression: Atrial flutter Disposition: ADMITTED IP TO THIS HOSP Condition: Stable Time of Disposition: 08:30
[2022-08-12 07:55] LABS: Basophils % (A) 1 %; Eosinophils # (A) 0.2 k/uL (0-0.7); Eosinophils % (A) 3 %; HCT 42.2 % (34.0-46.0); HGB 14.1 gm/dL (11.4-16.0); Lymphocytes # (A) 1.5 k/uL (1.0-4.8); Lymphocytes % (A) 18 %; MCH 27.9 pg (25.0-35.0); MCHC 33.4 g/dL (31.0-37.0); MCV 83.6 fL (80.0-100.0); Mean Platelet Volume 7.8; Monocytes # (A) 0.5 k/uL (0-1.0); Monocytes % (A) 6 %; Neutrophils # (A) 5.9 k/uL (1.3-7.7); Neutrophils % (A) 72 %; Platelet Count 251 k/uL (150-450); RBC 5.04 m/uL (3.80-5.40); RDW 14.5 % (11.5-15.5); WBC 8.3 k/uL (3.8-10.6)
[2022-08-12] MEDS ORDERED: METOPROLOL SUCCINATE (ER) 25 MG TAB.ER.24H PO STA (07:56)
[2022-08-12] MEDS ORDERED: LOSARTAN 25 MG TAB PO STA (07:56)
[2022-08-12 08:05] LABS: INR 2.1 (<1.2); Partial Thromboplastin Time 34.4 sec (22.0-30.0); Prothrombin Time 20.8 sec (9.0-12.0)
[2022-08-12] MEDS ORDERED: ALBUTEROL NEBULIZED 2.5 MG/3 ML INHALATION PRN (08:11)
[2022-08-12 08:15] LABS: Albumin 4.2 g/dL (3.5-5.0); Calcium 9.1 mg/dL (8.4-10.2); Potassium 3.9 mmol/L (3.5-5.1); Total Bilirubin 0.5 mg/dL (0.2-1.3); Total Protein 6.8 g/dL (6.3-8.2)
[2022-08-12] MEDS ORDERED: GLIMEPIRIDE 2 MG TAB PO SCH (08:15)
--- NOTE | 2022-08-12 08:21 | XR ---
EXAMINATION TYPE: XR chest 2V DATE OF EXAM: 08/12/2022 8:15 AM COMPARISON: Chest radiographs from 08/26/2020. TECHNIQUE: XR chest 2V Frontal and lateral views of the chest. CLINICAL INDICATION:Female, 67 years old with history of dysrhythmia; FINDINGS: Lungs/Pleura: Trace left pleural effusion. Left lower lobe atelectasis. Chronic senescent parenchymal changes. No pneumothorax. Heart/mediastinum: Cardiomediastinal silhouette is enlarged and stable. Atherosclerotic calcificatio ns are seen in the aorta. Musculoskeletal: Multiple level degenerative disc disease changes seen throughout the spine. No acute osseous adenopathy. IMPRESSION: 1. Trace left pleural effusion with atelectasis. 2. Mild cardiomegaly.
[2022-08-12] MEDS ORDERED: NALOXONE 0.4 MG/ML 1 ML VIAL IV PRN (08:37)
[2022-08-12] MEDS: VORTIOXETINE HYDROBROMIDE 10 MG TABLET PO SCH (09:51)
[2022-08-12] MEDS: FUROSEMIDE 40 MG TAB PO SCH (09:51)
[2022-08-12] MEDS: DRONEDARONE 400 MG TAB PO SCH ×2 (09:52→17:53)
[2022-08-12] MEDS: metFORMIN 500 MG TAB PO SCH (09:52)
[2022-08-12] MEDS: allopurinoL 100 MG TAB PO SCH (09:52)
[2022-08-12] MEDS: PANTOPRAZOLE 40 MG TABLET PO SCH (09:52)
[2022-08-12 10:32] LABS: Appearance,Urine Cloudy (Clear); Bacteria,Urine Rare /hpf; Bilirubin,Urine Negative (Negative); Blood,Urine Small (Negative); Color,Urine Yellow; Glucose,Urine (UA) 4+ (Negative); Hyaline Casts,Urine 1 /lpf (0-2); Ketones,Urine Negative (Negative); Leukocyte Esterase,Urine Large (Negative); Mucus,Urine Rare /hpf; Nitrite,Urine Negative (Negative); PH, Urine 5.5 (5.0-8.0); Protein,Urine Negative (Negative); RBC,Urine 9 /hpf (0-5); Specific Gravity,Urine 1.037 (1.001-1.035); Squamous Epithelial Cell,Urine 8 /hpf (0-4); Urobilinogen,Urine <2.0 mg/dL (<2.0); WBC,Urine 65 /hpf (0-5)
[2022-08-12] MEDS ORDERED: FUROSEMIDE 40 MG TAB PO SCH (16:00)
[2022-08-12] MEDS ORDERED: WARFARIN 2 MG TAB PO SCH ×2 (18:00)
[2022-08-12] MEDS: SYMBICORT 80-4.5 MCG INHALER INHALATION SCH (19:20)
[2022-08-12] MEDS ORDERED: ACETAMINOPHEN TAB 325 MG TAB PO PRN (20:17)
[2022-08-12] MEDS ORDERED: SPIRONOLACTONE 25 MG TAB PO SCH (21:00)
[2022-08-13 05:48] LABS: Glucose,Whole Blood 166 mg/dL (70-110)
[2022-08-13] MEDS: DRONEDARONE 400 MG TAB PO SCH (06:21)
[2022-08-13] MEDS: PANTOPRAZOLE 40 MG TABLET PO SCH (06:21)
[2022-08-13] MEDS: SYMBICORT 80-4.5 MCG INHALER INHALATION SCH (07:49)
[2022-08-13] MEDS: FUROSEMIDE 40 MG TAB PO SCH (08:21)
[2022-08-13] MEDS ORDERED: GLIMEPIRIDE 2 MG TAB PO SCH (08:30)
[2022-08-13 08:41] LABS: Basophils # (A) 0.06 X 10*3/uL (0.00-0.10); Basophils % (A) 0.7 %; Eosinophils # (A) 0.27 X 10*3/uL (0.04-0.35); Eosinophils % (A) 3.1 %; HCT 41.4 % (37.2-46.3); HGB 13.2 g/dL (12.0-15.0); Immature Grans, Automated 0.7 %; Lymphocytes # (A) 1.96 X 10*3/uL (0.90-5.00); Lymphocytes % (A) 22.5 %; MCH 26.8 pg (27.0-32.0); MCHC 31.9 g/dL (32.0-37.0); Mean Platelet Volume 10.5 fL (9.5-12.2); Monocytes # (A) 0.73 X 10*3/uL (0.20-1.00); Monocytes % (A) 8.4 %; NRBC Per 100 WBC 0 /100 WBCS (0.0-0.0); Neutrophils # (A) 5.65 X 10*3/uL (1.80-7.70); Neutrophils % (A) 64.6 %; Platelet Count 273 X 10*3/uL (140-440); RBC 4.93 X 10*6/uL (4.10-5.20); RDW 15.4 % (11.5-14.5); WBC 8.73 X 10*3/uL (4.50-10.00)
[2022-08-13] MEDS ORDERED: METOPROLOL SUCCINATE (ER) 25 MG TAB.ER.24H PO SCH (09:00)
[2022-08-13] MEDS ORDERED: LOSARTAN 25 MG TAB PO SCH (09:00)
[2022-08-13 09:32] LABS: INR 2.3 (<1.2); Prothrombin Time 23.2 sec (9.0-12.0)
[2022-08-13 09:35] LABS: African American GFR (CKD) 63 (>60 ml/min/1.73 sqM); Anion Gap 15 mmol/L; Blood Urea Nitrogen 21 mg/dL (7-17); Calcium 8.7 mg/dL (8.4-10.2); Carbon Dioxide 24 mmol/L (22-30); Chloride 98 mmol/L (98-107); Glucose 150 mg/dL (74-99); Non-African American GFR(CKD) 55 (>60 ml/min/1.73 sqM); Potassium 3.9 mmol/L (3.5-5.1); Sodium 137 mmol/L (137-145)
[2022-08-13] MEDS ORDERED: SODIUM CHLORIDE 0.9% 1,000 ML IV SCH (09:45)
--- NOTE | 2022-08-13 10:00 | P.CRDCN ---
History of Present Illness History of present illness: HISTORY OF PRESENT ILLNESS: This is a 67-year-old female with a past medical history significant for atrial flutter with previous ablation, pulmonary hypertension, obstructive sleep apnea. Patient follows in the office with Dr. Lopez. We have been asked to see the patient in consultation for atrial flutter. Patient examined at the bedside. Patient was seen in the office recently and started on Multaq. Patient reports she has had shortness of breath that has continued to worsen over the past few weeks. She reports palpitations and chest pain. She presented to the ER for further evaluation. Patient was found to be in atrial flutter with RVR. * EKG reveals atrial flutter with RVR * Chest xray trace left pleural effusion with atelectasis. Mild cardiomegaly. * Laboratory data: WBC 8.3. Hemoglobin 14.1. Platelet count 251. INR 2.1. Sodium 136. Potassium 3.9. BUN 16. Creatinine 0.93. Magnesium 2.0. Troponin negative 1. ProBNP 464. * Current home cardiac medications include Lasix 80 mg in the morning and 40 mg in the afternoon, metoprolol succinate 25 mg daily, Aldactone 50 mg at night, losartan 12.5 mg daily, warfarin 3 mg Tuesday and 2 mg Tuesday, Tuesday, , and Tuesday. * Most recent echocardiogram obtained in June 2020 which was a limited study revealed moderate tricuspid regurgitation and severe pulmonary h ypertension * Previous echocardiogram obtained in February 2020 revealed ejection fraction 55- 60%, moderate mitral regurgitation, mild to moderate mitral stenosis, mild to moderate tricuspid regurgitation and severe pulmonary hypertension * Cardiac catheterization history: February 2020 revealed mild coronary artery disease. Elevated end-diastolic pressures. Medical management was recommended. REVIEW OF SYSTEMS: At the time of my exam: CONSTITUTIONAL: Denies fever or chills. HEENT: Denies blurred vision, vision changes, or eye pain. Denies hemoptysis CARDIOVASCULAR: Denies chest pain. Denies orthopnea. Denies PND. Denies palpitations RESPIRATORY: Denies shortness of breath. GASTROINTESTINAL: Denies abdominal pain. Denies nausea or vomiting. HEMATOLOGIC: Denies bleeding disorders. GENITOURINARY: Denies any blood in urine. SKIN: Denies pruitis. Denies rash. PHYSICAL EXAM: VITAL SIGNS: Reviewed. GENERAL: Well-developed in no acute distress. HEENT: Head is normocephalic. Pupils are equal, round. Sclerae anicteric. Mucous membranes of the mouth are moist. Neck supple. No JVD or thyromegaly LUNGS: Respirations even and unlabored. Lungs essentially clear to auscultation bilaterally. HEART: Tachycardic. Irregular rate and rhythm. S1 and S2 heard. Systolic murmur. ABDOMEN: Soft. Nondistended. Nontender. EXTREMITIES: Normal range of motion. No clubbing or cyanosis. Peripheral pulses intact. No lower extremity edema NEUROLOGIC: Awake and alert. Oriented x 3. ASSESSMENT: Persistent typical atrial flutter with RVR Valvular heart disease Hypertension Hyperlipidemia History of atrial flutter with previous ablation Pulmonary hypertension Obstructive sleep apnea PLAN: Continue home cardiac medications Continue Coumadin Patient to undergo cardioversion today with Dr. Lopez Further recommendations pending patient course Nurse practitioner note has been reviewed by physician. Signing provider agrees with the documented findings, assessment, and plan of care. Past Medical History Past Medical History: Atrial Fibrillation, Atrial Flutter, Asthma, COPD, CVA/TIA, Diabetes Mellitus, Hyperlipidemia, Hypertension, Osteoarthritis (OA) Additional Past Medical History / Comment(s): intracardiac thrombus 2013, SOB with exertion, stroke in 1998-no residual effects, SEE DR SIERRA'S HISTORY P HYSICAL FOR CARDIAC HISTORY History of Any Multi-Drug Resistant Organisms: None Reported Past Surgical History: Appendectomy, Breast Surgery, Cardiac Ablation, EPS, Heart Catheterization, Hysterectomy, Orthopedic Surgery, Tubal Ligation Additional Past Surgical History / Comment(s): ARTEMIO, ADDIE carpal tunnel release,Trigger finger & thumb surgery; cardioversions, breast biopsy, Left shoulder sx. Past Anesthesia/Blood Transfusion Reactions: No Reported Reaction Past Psychological History: Depression Smoking Status: Former smoker Past Alcohol Use History: None Reported Past Drug Use History: None Reported - Past Family History Mother Family Medical History: Liver Disease Additional Family Medical History / Comment(s): cirrhosis of liver Father Family Medical History: Cancer Additional Family Medical History / Comment(s): throat cancer Daughter(s) Additional Family Medical History / Comment(s): HEART VALVE REPLACEMENT (Aorta) Son(s) Family Medical History: CVA/TIA Additional Family Medical History / Comment(s): One son, had multiple strokes in a row Medications and Allergies Home Medications Medication Instructions Recorded Confirmed Type Montelukast [Singulair] 10 mg PO HS 09/10/14 08/12/22 History Omeprazole 40 mg PO DAILY 04/24/17 08/12/22 History Liraglutide [Victoza 3-Adam] 1.8 mg SQ HS 02/17/20 08/12/22 History allopurinoL [Zyloprim] 100 mg PO DAILY 02/17/20 08/12/22 History metFORMIN HCL [Glucophage] 1,000 mg PO BID 02/17/20 08/12/22 History Furosemide [Lasix] 40 mg PO DAILY@1500 07/03/20 08/12/22 History Albuterol Sulfate [Albuterol 2 puff INHALATION RT-Q4H PRN 07/07/20 08/12/22 History Sulfate Hfa] Furosemide [Lasix] 80 mg PO DAILY 07/07/20 08/12/22 History Vortioxetine Hydrobromide 10 mg PO DAILY 07/07/20 08/12/22 History [Trintellix] Spironolactone [Aldactone] 50 mg PO HS 08/26/20 08/12/22 History Canagliflozin [Invokana] 100 mg PO DAILY 08/12/22 08/12/22 History Dronedarone HCl [Multaq] 400 mg PO BID 08/12/22 08/12/22 History Fluticasone/Vilanterol [Breo 1 puff INHALATION RT-DAILY 08/12/22 08/12/22 History Ellipta 100-25 Mcg Inhaler] Glimepiride [Amaryl] 2 mg PO AC-BRKFST 08/12/22 08/12/22 History Losartan Potassium [Cozaar] 12.5 mg PO DAILY 08/12/22 08/12/22 History Metoprolol Succinate (ER) [Toprol 25 mg PO DAILY 08/12/22 08/12/22 History Xl] Triamcinolone 0.1% Cream [Kenalog 1 applic TOPICAL BID 08/12/22 08/12/22 History 0.1% Cream] Warfarin [Coumadin] 2 mg PO SUTUTHSA 08/12/22 08/12/22 History Warfarin [Coumadin] 3 mg PO MOWEFR 08/12/22 08/12/22 History Allergies Allergy/AdvReac Type Severity Reaction Status Date / Time meperidine HCl [From Demerol] AdvReac Nausea & Verified 08/12/22 08:54 Vomiting Physical Exam Vitals: Vital Signs Temp Pulse Resp BP Pulse Ox 08/12/22 08:05 100 18 115/84 98 08/12/22 07:45 113 H 18 99 08/12/22 07:21 98.2 F 124 H 18 135/76 99 Intake and Output 08/11/22 08/12/22 08/12/22 22:59 06:59 14:59 Other: Weight 89.811 kg Results 08/13/22 05:29 08/13/22 08:45 Cardiac Enzymes 08/12/22 08/12/22 Range/Units 07:51 07:51 AST 31 (14-36) U/L Troponin I <0.012 (0.000-0.034) ng/mL Coagulation 08/12/22 Range/Units 07:51 PT 20.8 H (9.0-12.0) sec APTT 34.4 H (22.0-30.0) sec CBC 08/12/22 Range/Units 07:51 WBC 8.3 (3.8-10.6) k/uL RBC 5.04 (3.80-5.40) m/uL Hgb 14.1 (11.4-16.0) gm/dL Hct 42.2 (34.0-46.0) % Plt Count 251 (150-450) k/uL Comprehensive Metabolic Panel 08/12/22 Range/Units 07:51 Sodium 136 L (137-145) mmol/L Potassium 3.9 (3.5-5.1) mmol/L Chloride 101 (98-107) mmol/L Carbon Dioxide 23 (22-30) mmol/L BUN 16 (7-17) mg/dL Creatinine 0.93 (0.52-1.04) mg/dL Glucose 179 H (74-99) mg/dL Calcium 9.1 (8.4-10.2) mg/dL AST 31 (14-36) U/L ALT 40 H (4-34) U/L Alkaline Phosphatase 95 (38-126) U/L Total Protein 6.8 (6.3-8.2) g/dL Albumin 4.2 (3.5-5.0) g/dL Current Medications Generic Name Dose Route Start Last Admin Trade Name Freq PRN Reason Stop Dose Admin Albuterol Sulfate 2.5 mg 08/12/22 08:11 Albuterol Nebulized 2.5 Mg/3 Ml INHALATION RT-Q4H PRN Shortness Of Breath Allopurinol 100 mg 08/12/22 09:00 08/12/22 09:52 Allopurinol 100 Mg Tab PO 100 mg DAILY CHEMO Administration Budesonide/Formoterol Fumarate 2 puff 08/12/22 20:00 Symbicort 80-4.5 Mcg Inhaler INHALATION RT-BID CHEMO Dronedarone 400 mg 08/12/22 08:15 08/12/22 09:52 Dronedarone 400 Mg Tab PO 400 mg AC-BID CHEMO Administration Furosemide 80 mg 08/12/22 09:00 08/12/22 09:51 Furosemide 40 Mg Tab PO 80 mg DAILY CHEMO Administration Furosemide 40 mg 08/12/22 16:00 Furosemide 40 Mg Tab PO DAILY@1600 CHEMO Glimepiride 2 mg 08/12/22 08:15 08/12/22 09:51 Glimepiride 2 Mg Tab PO 2 mg W/BRKFST CHEMO Administration Losartan Potassium 12.5 mg 08/13/22 09:00 Losartan 25 Mg Tab PO DAILY [facility] Metformin HCl 1,000 mg 08/12/22 09:00 08/12/22 09:52 Metformin 500 Mg Tab PO 1,000 mg DAILY CHEMO Administration Metoprolol Succinate 25 mg 08/13/22 09:00 Metoprolol Succinate (Er) 25 Mg Tab.Er.24h PO DAILY [facility] Miscellaneous Information 0 each 08/12/22 08:24 Warfarin Per Pharmacy MISCELLANE DIRECTED PRN Per Protocol Naloxone HCl 0.2 mg 08/12/22 08:37 Naloxone 0.4 Mg/Ml 1 Ml Vial IV Q2M PRN Opioid Reversal Pantoprazole Sodium 40 mg 08/12/22 09:00 08/12/22 09:52 Pantoprazole 40 Mg Tablet PO 40 mg AC-BRKFST CHEMO Administration Spironolactone 50 mg 08/12/22 21:00 Spironolactone 25 Mg Tab PO HS CHEMO Vortioxetine 10 mg 08/12/22 09:00 08/12/22 09:51 Vortioxetine Hydrobromide 10 Mg Tablet PO 10 mg DAILY CHEMO Administration Warfarin Sodium 2 mg 10/27/22 18:00 Warfarin 2 Mg Tab PO SuTuThSa@1800 [facility] Protocol Warfarin Sodium 3 mg 08/13/22 18:00 Warfarin 3 Mg Tab PO MoWeFr@1800 [facility] Protocol Intake and Output 08/11/22 08/12/22 08/12/22 22:59 06:59 14:59 Other: Weight 89.811 kg Patient Weight 08/13/22 06:59 Weight 89.811 kg 08/12/22 07:51 08/12/22 07:51
[2022-08-13] MEDS ORDERED: SODIUM CHLORIDE 0.9% 500 ML 500 ML IV ONE (10:44)
[2022-08-13] MEDS ORDERED: PROPOFOL 10 MG/ML 20 ML VIAL IV ONE (11:05)
--- NOTE | 2022-08-13 11:51 | P.EPPROC ---
- EP Procedure Note Electrophysiology Procedure Note: Diagnosis Symptomatic atrial fibrillation Failed ablation Failed Multaq oral Patient did not chemically cardiovert with Multaq She presented to the ER with symptomatic A. fib with RVR which shortness of breath Patient's INR is 2.3 today Procedure Electrical cardioversion to sinus rhythm 200 J shock, biphasic, in the AP configuration successfully converted to sinus rhythm Twelve-lead EKG thereafter on Multaq shows first-degree AV block right bundle branch block left anterior fascicular block Plan Continue endocrine ablation Continue Multaq Follow up in 2 weeks If she fails Multaq with electrocardioversion we will proceed with a pace and ablated strategy with biventricular pacing followed by AV node ablation
[2022-08-13] MEDS: VORTIOXETINE HYDROBROMIDE 10 MG TABLET PO SCH (12:16)
[2022-08-13 12:17] LABS: Glucose,Whole Blood 119 mg/dL (70-110)
[2022-08-13] MEDS: metFORMIN 500 MG TAB PO SCH (12:17)
[2022-08-13] MEDS: allopurinoL 100 MG TAB PO SCH (12:17)
[2022-08-13 13:28] VITALS: BP 114/74; PULSE 97; RESP 15; TEMP 98.7
--- NOTE | 2022-08-13 17:36 | P.HPIM ---
History of Present Illness H&P Date: 08/13/22 Chief Complaint: Heart racing, exertional shortness of breath History and Physical and Discharge Summary: This is a 67-year-old female with PMH of atrial fibrillation, atrial flutter s/p ablation/cardioversion approximately 2 years ago, EFREN noncompliant with CPAP, T2DM who presented to the ED with palpitations, malaise and elevated heart rate. Reports that she has experienced her heart racing 2 weeks with exertional shortness of breath. Reports some orthopnea, compliant with her Lasix med regimen.Saw her machine coremaker Dr. Espinoza last Glenn, multaq added to med regimen. Symptoms persisted, patient and discussed with Dr. Espinoza yesterday and patient was informed that if she did not improve to proceed to the ER for further evaluation. EKG reported atrial flutter with RVR. Troponin negative 1, proBNP 464.Chest x-ray reported trace left pleural effusion. Creatinine 1.07 otherwise labs unremarkable, INR 2.1. Evaluated by cardiology, patient is scheduled for cardioversion. Denies chest pain. Review of Systems Review of Systems All systems: negative Constitutional: Reports malaise, Denies chills, Denies fever Eyes: denies blurred vision, denies pain Ears, nose, mouth and throat: Denies headache, Denies sore throat Cardiovascular: Reports palpitations, Reports rapid heart beat, Denies chest pain, Denies shortness of breath Respiratory: Denies cough Gastrointestinal: Denies abdominal pain, Denies diarrhea, Denies nausea, Denies vomiting Genitourinary: Denies dysuria, Denies hematuria Musculoskeletal: Denies myalgias Integumentary: Denies pruritus, Denies rash Neurological: Denies numbness, Denies weakness Psychiatric: Denies anxiety, Denies depression Endocrine: Denies fatigue, Denies weight change Past Medical History Past Medical History: Atrial Fibrillation, Atrial Flutter, Asthma, COPD, CVA/TIA, Diabetes Mellitus, Hyperlipidemia, Hypertension, Osteoarthritis (OA) Additional Past Medical History / Comment(s): intracardiac thrombus 2013, SOB with exertion, stroke in 1998-no residual effects, SEE DR SIERRA'S HISTORY PHYSICAL FOR CARDIAC HISTORY History of Any Multi-Drug Resistant Organisms: None Reported Past Surgical History: Appendectomy, Breast Surgery, Cardiac Ablation, EPS, Heart Catheterization, Hysterectomy, Orthopedic Surgery, Tubal Ligation Additional Past Surgical History / Comment(s): ARTEMIO, ADDIE carpal tunnel release,Trigger finger & thumb surgery; cardioversions, breast biopsy, Left shoulder sx. Past Anesthesia/Blood Transfusion Reactions: No Reported Reaction Past Psychological History: Depression Smoking Status: Former smoker Past Alcohol Use History: None Reported Past Drug Use History: None Reported - Past Family History Mother Family Medical History: Liver Disease Additional Family Medical History / Comment(s): cirrhosis of liver Father Family Medical History: Cancer Additional Family Medical History / Comment(s): throat cancer Daughter(s) Additional Family Medical History / Comment(s): HEART VALVE REPLACEMENT (Aorta) Son(s) Family Medical History: CVA/TIA Additional Family Medical History / Comment(s): One son, had multiple strokes in a row Medications and Allergies Home Medications Medication Instructions Recorded Confirmed Type Montelukast [Singulair] 10 mg PO HS 09/10/14 08/12/22 History Omeprazole 40 mg PO DAILY 04/24/17 08/12/22 History Liraglutide [Victoza 3-Adam] 1.8 mg SQ HS 02/17/20 08/12/22 History allopurinoL [Zyloprim] 100 mg PO DAILY 02/17/20 08/12/22 History metFORMIN HCL [Glucophage] 1,000 mg PO BID 02/17/20 08/12/22 History Furosemide [Lasix] 40 mg PO DAILY@1500 07/03/20 08/12/22 History Albuterol Sulfate [Albuterol 2 puff INHALATION RT-Q4H PRN 07/07/20 08/12/22 History Sulfate Hfa] Furosemide [Lasix] 80 mg PO DAILY 07/07/20 08/12/22 History Vortioxetine Hydrobromide 10 mg PO DAILY 07/07/20 08/12/22 History [Trintellix] Spironolactone [Aldactone] 50 mg PO HS 08/26/20 08/12/22 History Canagliflozin [Invokana] 100 mg PO DAILY 08/12/22 08/12/22 History Dronedarone HCl [Multaq] 400 mg PO BID 08/12/22 08/12/22 History Fluticasone/Vilanterol [Breo 1 puff INHALATION RT-DAILY 08/12/22 08/12/22 Hist ory Ellipta 100-25 Mcg Inhaler] Glimepiride [Amaryl] 2 mg PO AC-BRKFST 08/12/22 08/12/22 History Losartan Potassium [Cozaar] 12.5 mg PO DAILY 08/12/22 08/12/22 History Metoprolol Succinate (ER) [Toprol 25 mg PO DAILY 08/12/22 08/12/22 History XL] Triamcinolone 0.1% Cream [Kenalog 1 applic TOPICAL BID 08/12/22 08/12/22 History 0.1% Cream] Warfarin [Coumadin] 2 mg PO SUTUTHSA 08/12/22 08/12/22 History Warfarin [Coumadin] 3 mg PO MOWEFR 08/12/22 08/12/22 History Allergies Allergy/AdvReac Type Severity Reaction Status Date / Time meperidine HCl [From Demerol] AdvReac Nausea & Verified 08/12/22 08:54 Vomiting Physical Exam Vitals: Vital Signs Temp Pulse Pulse Pulse Pulse Resp BP 08/13/22 13:27 98.7 F 97 94 15 08/13/22 12:59 90 08/13/22 12:28 84 08/13/22 12:15 88 08/13/22 11:58 85 08/13/22 11:43 80 08/13/22 11:29 97.8 F 85 16 08/13/22 08:00 72 16 08/13/22 07:00 98 F 72 16 93/61 08/13/22 05:53 94 18 95/48 08/13/22 02:18 98.3 F 102 H 16 98/65 08/12/22 18:50 97.6 F 98 17 97/62 08/12/22 16:00 118 H 08/12/22 15:25 97.8 F 118 H 20 108/73 08/12/22 14:55 115 H 16 BP Pulse Ox 08/13/22 13:27 114/74 97 08/13/22 12:59 106/65 08/13/22 12:28 104/67 97 08/13/22 12:15 112/69 87 L 08/13/22 11:58 113/77 96 08/13/22 11:43 105/71 95 08/13/22 11:29 102/63 95 08/13/22 08:00 08/13/22 07:00 100 08/13/22 05:53 98 08/13/22 02:18 98 08/12/22 18:50 98 08/12/22 16:00 08/12/22 15:25 98 08/12/22 14:55 98 Intake and Output 08/12/22 08/13/22 08/13/22 22:59 06:59 14:59 Intake Total 500 0 200 Balance 500 0 200 Intake: IV 200 Oral 500 0 Other: Voiding Method Toilet Toilet # Voids 1 2 Weight 89.811 kg General: well nourished, well developed, NAD. Sitting up in chair. Vitals reviewed Eyes: PERRL, EOMI, conjunctiva normal HENT: normocephalic, mucus membranes moist Neck: supple, no JVD Lungs: normal respiratory effort, no wheezes or rales CV: Irregularly irregular, tachycardic, systolic murmur. Peripheral pulses 2+ Abdomen: soft, nondistended, no organomegaly Lymph: no cervical or axillary LAD Skin: warm and dry. Neuro: A&Ox3, normal mood and affect Results CBC & Chem 7: 08/13/22 05:29 08/13/22 08:45 Labs: Abnormal Lab Results - Last 24 Hours (Table) 08/13/22 08/13/22 08/13/22 Range/Units 05:29 05:47 08:45 MCH 26.8 L (27.0-32.0) pg MCHC 31.9 L (32.0-37.0) g/dL RDW 15.4 H (11.5-14.5) % Immature Gran # 0.06 H (0.00-0.04) X 10*3/uL PT (9.0-12.0) sec INR (<1.2) BUN 21 H (7-17) mg/dL Creatinine 1.07 H (0.52-1.04) mg/dL Glucose 150 H (74-99) mg/dL POC Glucose (mg/dL) 166 H (70-110) mg/dL 08/13/22 08/13/22 Range/Units 08:46 12:15 MCH (27.0-32.0) pg MCHC (32.0-37.0) g/dL RDW (11.5-14.5) % Immature Gran # (0.00-0.04) X 10*3/uL PT 23.2 H (9.0-12.0) sec INR 2.3 H (<1.2) BUN (7-17) mg/dL Creatinine (0.52-1.04) mg/dL Glucose (74-99) mg/dL POC Glucose (mg/dL) 119 H (70-110) mg/dL Microbiology - Last 24 Hours (Table) 08/12/22 09:57 Urine Culture - Preliminary Urine,Voided Thrombosis Risk Factor Assmnt - Choose All That Apply Any of the Below Risk Factors Present?: Yes Each Factor Represents 1 point: Obesity (BMI >25) Each Risk Factor Represents 2 Points: Age 61-74 years Thrombosis Risk Factor Assessment Total Risk Factor Score: 3 Thrombosis Risk Factor Assessment Level: Moderate Risk Assessment and Plan Assessment: (1) Atrial flutter with rapid ventricular response Current Visit: Yes Status: Acute Code(s): I48.92 - UNSPECIFIED ATRIAL FLUTTER SNOMED Code(s): 8283869 (2) valvular heart disease, pulmonary hypertension (3) CAD (coronary artery disease) Current Visit: No Status: Acute Code(s): I25.10 - ATHSCL HEART DISEASE OF [place] CORONARY ARTERY W/O ANG PCTRS SNOMED Code(s): 68815247 (4) Congestive heart failure Current Visit: No Status: Acute Code(s): I50.9 - HEART FAILURE, UNSPECIFIED SNOMED Code(s): 76583390 (5) Diabetes Current Visit: No Status: Acute Code(s): E11.9 - TYPE 2 DIABETES MELLITUS WITHOUT COMPLICATIONS SNOMED Code(s): 43462646 (6) Obesity (BMI 30-39.9) Current Visit: No Status: Acute Code(s): E66.9 - OBESITY, UNSPECIFIED SNOMED Code(s): 984170895 (7) Sleep apnea, obstructive Current Visit: No Status: Acute Code(s): G47.33 - OBSTRUCTIVE SLEEP APNEA (ADULT) (PEDIATRIC) SNOMED Code(s): 96965995 (8) Type 2 diabetes mellitus Current Visit: No Status: Acute Code(s): E11.9 - TYPE 2 DIABETES MELLITUS WITHOUT COMPLICATIONS SNOMED Code(s): 69253532 Plan: Continue on current medication regime ,monitoring and symptomatic treatment. Cardioversion pending. Patient will be discharged home later this afternoon, in a stable condition with guarded prognosis, pending cardioversion, final DC recommendations and clearance per cardiology. Discharge Medication List Montelukast [Singulair] 10 mg PO HS 09/10/14 [History] Omeprazole 40 mg PO DAILY 04/24/17 [History] Liraglutide [Victoza 3-Adam] 1.8 mg SQ HS 02/17/20 [History] allopurinoL [Zyloprim] 100 mg PO DAILY 02/17/20 [History] metFORMIN HCL [Glucophage] 1,000 mg PO BID 02/17/20 [History] Furosemide [Lasix] 40 mg PO DAILY@1500 07/03/20 [History] Albuterol Sulfate [Albuterol Sulfate Hfa] 2 puff INHALATION RT-Q4H PRN 07/07/20 [History] Furosemide [Lasix] 80 mg PO DAILY 07/07/20 [History] Vortioxetine Hydrobromide [Trintellix] 10 mg PO DAILY 07/07/20 [History] Spironolactone [Aldactone] 50 mg PO HS 08/26/20 [History] Canagliflozin [Invokana] 100 mg PO DAILY 08/12/22 [History] Dronedarone HCl [Multaq] 400 mg PO BID 08/12/22 [History] Fluticasone/Vilanterol [Breo Ellipta 100-25 Mcg Inhaler] 1 puff INHALATION RT- DAILY 08/12/22 [History] Glimepiride [Amaryl] 2 mg PO AC-BRKFST 08/12/22 [History] Losartan Potassium [Cozaar] 12.5 mg PO DAILY 08/12/22 [History] Metoprolol Succinate (ER) [Toprol XL] 25 mg PO DAILY 08/12/22 [History] Triamcinolone 0.1% Cream [Kenalog 0.1% Cream] 1 applic TOPICAL BID 08/12/22 [History] Warfarin [Coumadin] 2 mg PO SUTUTHSA 08/12/22 [History] Warfarin [Coumadin] 3 mg PO MOWEFR 08/12/22 [History] The impression and plan of care has been dictated as directed. : I performed a history and examination of this patient, discussed the same with the dictator. I agree with the dictator's note ,documented as a scribe. Any additional findings or plans will be noted.
[2022-08-13] MEDS ORDERED: WARFARIN 3 MG TAB PO SCH (18:00)
--- NOTE | 2022-08-16 13:09 | CDI ---
Documentation Clarification Form Date: 08/16/2022 12:46:00 PM From: Brigitte Olsen Admit Date: 08/13/2022 12:55:00 PM Patient Name: Destinee Deal Visit Number: [id number] Discharge Date: 08/13/2022 02:20:00 PM ATTENTION: The Clinical Documentation Specialists (CDI) and [facility] Coding Staff appreciate your assistance in clarifying documentation. Please respond to the clarification below the line at the bottom and electronically sign. The CDI & [facility] Coding staff will review the response and follow-up if needed. Please note: Queries are made part of the Legal Health Record. If you have any questions, please contact the author of this message via ITS. Dr. Joey Pulliam Your patient has the documented diagnosis of unspecified CHF in the H and P. Additional information regarding the [type, acuity] of CHF is requested. History/Risk Factors: atrial fib and atrial flutter, HTN, obesity, personal history of stroke, On home Lasix Clinical Indicators: VS/Pulse OX: 99 RA BNP: Echocardiogram Results: Chest X Ray: Mild cardiomegaly Left pleural effusion, atelectasis Treatment: Lasix 80 mg PO In your professional opinion, can you please clarify the [acuity and type] of CHF if known? [ ] Acute Systolic Heart Failure (reduced EF) [ ] Chronic Systolic Heart Failure (reduced EF) [ ] Acute on Chronic Systolic Heart Failure (reduced EF) [ ] Acute Diastolic Heart Failure (preserved EF) [ ] Chronic Diastolic Heart Failure (preserved EF) [ ] Acute on Chronic Diastolic Heart Failure (preserved EF) [ ] Acute Systolic & Diastolic Heart Failure [ ] Chronic Systolic & Diastolic Heart Failure [ ] Acute on Chronic Heart Failure Systolic & Diastolic Heart Failure [ ] Other, please specify [ ] Unable to determine Acute Systolic Heart Failure (reduced EF) CATHERINED
== END 2022-08-13 14:20 | disposition home or self-care (01) ==
LOC: EC 07:18 → 6NMEDSUR 08:39 → OBSVTOIN 08-13 12:55 → INTOOBSV 08-13 12:55 → UNDODISIN 08-13 14:20
PROVIDERS: ADMIT Family Medicine; ATTEND Family Medicine
PROC: 5A2204Z Restoration of Cardiac Rhythm, Single (ICD-10-PCS; principal; 2022-08-13 09:30)
DX: I48.3 Typical atrial flutter (principal); I48.91 Unspecified atrial fibrillation; I50.21 Acute systolic (congestive) heart failure; I11.0 Hypertensive heart disease with heart failure; I27.20 Pulmonary hypertension, unspecified; I08.1 Rheumatic disorders of both mitral and tricuspid valves; I25.10 Atherosclerotic heart disease of native coronary artery without angina pectoris; E11.9 Type 2 diabetes mellitus without complications; E78.5 Hyperlipidemia, unspecified; J44.9 Chronic obstructive pulmonary disease, unspecified; I45.2 Bifascicular block; F32.A Depression, unspecified; G47.33 Obstructive sleep apnea (adult) (pediatric); Z91.199 Patient's noncompliance with other medical treatment and regimen due to unspecified reason; E66.9 Obesity, unspecified; Z68.36 Body mass index [BMI] 36.0-36.9, adult; M19.90 Unspecified osteoarthritis, unspecified site; Z20.822 Contact with and (suspected) exposure to COVID-19; Z79.01 Long term (current) use of anticoagulants; Z79.84 Long term (current) use of oral hypoglycemic drugs; Z79.51 Long term (current) use of inhaled steroids; Z79.899 Other long term (current) drug therapy; Z86.73 Personal history of transient ischemic attack (TIA), and cerebral infarction without residual deficits; Z88.5 Allergy status to narcotic agent; Z86.718 Personal history of other venous thrombosis and embolism; Z90.49 Acquired absence of other specified parts of digestive tract; Z98.51 Tubal ligation status; Z87.891 Personal history of nicotine dependence; Z90.710 Acquired absence of both cervix and uterus; Z98.890 Other specified postprocedural states; Z82.3 Family history of stroke; Z83.79 Family history of other diseases of the digestive system; Z82.49 Family history of ischemic heart disease and other diseases of the circulatory system; Z80.0 Family history of malignant neoplasm of digestive organs
CPT/HCPCS: 96361; 96374; 99285; 36415; 94640 ×3; 93005; 92960; 83880; 80053; 80048; 84443; 83735; 84484; 85025 ×2; 85610 ×2; 85730; 81001; 87086; 87635; 71046; G0378 ×2; J2704

== ENCOUNTER → 2023-11-02 | Outpatient (CLI) | payer MEDICARE ==
--- NOTE | 2023-11-03 13:03 | NM ---
EXAMINATION TYPE: NM DatScan Brain SPECT DATE OF EXAM: 11/02/2023 COMPARISON: NONE HISTORY: Trauma TECHNIQUE: 10 drops of Lugol's solution was administered 1 hour prior to injection as a thyroid bloc kun agent. After the administration of 4.47 mCi I-123 Ioflupane DaTscan. Images obtained 3 hours p ost injection. SPECT images of the brain were acquired with axial and coronal reconstructions. FINDINGS: The axial SPECT images demonstrate a normal background activity and symmetric and normal ac tivity within the bilateral striata. Z score analysis performed. IMPRESSION: 1. No diagnostic evidence suggestive of idiopathic Parkinson's disease or Parkinsonian syndrome.
== END | disposition home or self-care (01) ==
LOC: RADNMMAIN 09:53
PROVIDERS: ATTEND Family Medicine
DX: G25.2 Other specified forms of tremor (principal)
CPT/HCPCS: 78803; A9584

== ENCOUNTER 2025-02-03 09:18 | Inpatient (IN) | payer MEDICARE ==
[2025-02-03] MEDS: METOPROLOL TARTRATE 5 MG/5 ML VIAL IVP STA (09:28)
[2025-02-03 09:34] LABS: Glucose,Whole Blood 177 mg/dL (70-110)
[2025-02-03 09:38] LABS: Basophils # (A) 0.07 10*3/uL (0.00-0.10); Basophils % (A) 0.5 %; Eosinophils # (A) 0.24 10*3/uL (0.04-0.35); Eosinophils % (A) 1.9 %; HCT 46.2 % (37.2-46.3); HGB 14.3 g/dL (12.0-15.0); MCV 80.6 fL (80.0-97.0); Mean Platelet Volume 10.1 fL (9.5-12.2); Monocytes # (A) 0.68 10*3/uL (0.20-1.00); Monocytes % (A) 5.3 %; Neutrophils % (A) 80.8 %; Platelet Count 326 10*3/uL (140-440); RBC 5.73 10*6/uL (4.10-5.20); RDW 18.9 % (11.5-14.5); WBC 12.76 10*3/uL (4.50-10.00)
[2025-02-03] MEDS: methylPREDNISolone SOD SUCCI 125 MG/2 ML VIAL IV STA (09:43)
--- NOTE | 2025-02-03 09:44 | CT ---
EXAMINATION TYPE: CT brain wo con DATE OF EXAM: 02/03/2025 COMPARISON: None CLINICAL INDICATION: Female, 69 years old with history of Neuro deficit, acute, stroke suspected; PHH , code stroke, left sided deficits CT DLP: 1249.6 mGycm Automated exposure control for dose reduction was used. Findings: The ventricles, basal cisterns and sulci over the convexities are within normal limits for the patien t's age. There is no mass effect or shift of midline structures. There is a tiny calcification in the left basal ganglia. There is no acute intra or extra-axial hemor rhage. The posterior fossa including the brainstem, fourth ventricle and cerebellar pontine angles appear no rmal. Intraorbital contents appear normal and symmetric. There are mild chronic inflammatory changes in the right maxillary sinus.. The calvarium is intact. IMPRESSION: 1. No acute bleed or mass effect. 2. Mild age-appropriate senescent changes. [facility], Workstation: [email or web address] 02/03/2025 9:42 AM
[2025-02-03] MEDS: SODIUM CHLORIDE 0.9% 500 ML 500 ML IV ONE (09:45)
[2025-02-03] MEDS: SODIUM CHLORIDE 0.9% 1,000 ML IV STA (09:45)
--- NOTE | 2025-02-03 09:47 | XR ---
Chest, 2 view. CLINICAL INDICATION: Female, 69 years old with history of altered mental status COMPARISON: 08/12/2022 TECHNIQUE: PA and lateral views the chest are obtained. FINDINGS: There is mild diffuse interstitial opacity and groundglass opacity in the lower lobes. In combination with mild cardiomegaly with findings suggest CHF. There is no pleural effusion or pneumothorax. The heart, pulmonary vasculature, mediastinum and saundra appear normal. The osseous structures are intact. IMPRESSION: Mild to moderate acute cardiopulmonary disease most consistent with CHF. [facility], , 02/03/2025 9:44 AM
[2025-02-03 09:49] LABS: INR 1.9 (<1.2)
[2025-02-03 09:50] LABS: Partial Thromboplastin Time 26.8 sec (22.0-30.0); Prothrombin Time 19.2 sec (10.0-12.5)
--- NOTE | 2025-02-03 09:55 | ED ---
General Adult HPI - General Chief complaint: Neuro Symptoms/Deficit Stated complaint: Possible stroke Time Seen by Provider: 02/03/25 09:18 Source: patient ([id number]), EMS, RN notes reviewed, old records reviewed Mode of arrival: EMS Limitations: no limitations - History of Present Illness Initial comments: Patient is a 69-year-old female who presents emergency department for possible stroke. Patient's last known well was at 2130 on February 02, 2025. Woke up this morning with symptoms consistent with CVA. Has left-sided facial droop with slurring of speech. Maybe some mild left-sided weakness. Does have a history of a remote stroke, A-fib on blood thinners and states she did take her morning medications, COPD, CHF. Is not normally on oxygen. Presents for further evaluation at this time. Was given a breathing treatment and route due to wheezing. Patient states she has been having some worsening cough for a few days. Denies any headache or blurry vision. Denies any abdominal pain, nausea or vomiting. Denies any chest pain or shortness of breath. Presents for further evaluation at this time.Patient denies any head traumas or falls. - Related Data Home Medications Medication Instructions Recorded Confirmed Montelukast [Singulair] 10 mg PO HS 09/10/14 02/03/25 Omeprazole 40 mg PO DAILY 04/24/17 02/03/25 allopurinoL [Zyloprim] 100 mg PO DAILY 02/17/20 02/03/25 Furosemide [Lasix] 80 mg PO DAILY 07/07/20 02/03/25 Fluticasone/Vilanterol [Breo 1 puff INHALATION DIRECTED PRN 08/12/22 02/03/25 Ellipta 100-25 Mcg Inhaler] Losartan Potassium [Cozaar] 12.5 mg PO DAILY 08/12/22 02/03/25 Warfarin [Coumadin] 1 mg PO WESA@2100 08/12/22 02/03/25 Warfarin [Coumadin] 2 mg PO SUMOTUTHFR@2100 08/12/22 02/03/25 Cetirizine HCl [Zyrtec] 10 mg PO HS 02/03/25 02/03/25 Dapagliflozin Propanediol [Farxiga] 5 mg PO DAILY 02/03/25 02/03/25 Meloxicam [Mobic] 15 mg PO DAILY 02/03/25 02/03/25 Metoprolol Succinate (ER) [Toprol 50 mg PO HS 02/03/25 02/03/25 Xl] Metoprolol Succinate (ER) [Toprol 75 mg PO DAILY 02/03/25 02/03/25 Xl] QUEtiapine [SEROquel] 100 mg PO HS 02/03/25 02/03/25 Rosuvastatin [Crestor] 20 mg PO DAILY 02/03/25 02/03/25 Semaglutide [Ozempic] 2 mg SQ العراقي@2100 02/03/25 02/03/25 Vortioxetine Hydrobromide 20 mg PO DAILY 02/03/25 02/03/25 [Trintellix] metFORMIN HCL [Glucophage] 500 mg PO DAILY 02/03/25 02/03/25 rOPINIRole HCL [Requip] 1 mg PO HS 02/03/25 02/03/25 Allergies Allergy/AdvReac Type Severity Reaction Status Date / Time meperidine HCl [From Demerol] AdvReac Nausea & Verified 02/03/25 11:27 Vomiting Review of Systems ROS Statement: Those systems with pertinent positive or pertinent negative responses have been documented in the HPI. Review of Systems: CONST: Denies fever EYES: Denies blurry vision ENT: Denies nasal congestion C/V: Denies Chest pain RESP: Denies shortness of breath GI: Denies abdominal pain : Denies dysuria SKIN: Denies rash. MSK: Denies joint pain. NEURO: Denies headache ROS Other: All systems not noted in ROS Statement are negative. Past Medical History Past Medical History: Atrial Fibrillation, Atrial Flutter, Asthma, COPD, CVA/TIA, Diabetes Mellitus, Hyperlipidemia, Hypertension, Osteoarthritis (OA) Additional Past Medical History / Comment(s): intracardiac thrombus 2013, SOB with exertion, stroke in 1998-no residual effects, SEE DR SIERRA'S HISTORY PHYSICAL FOR CARDIAC HISTORY History of Any Multi-Drug Resistant Organisms: None Reported Past Surgical History: Appendectomy, Breast Surgery, Cardiac Ablation, EPS, Heart Catheterization, Hysterectomy, Orthopedic Surgery, Tubal Ligation Additional Past Surgical History / Comment(s): ARTEMIO, ADDIE carpal tunnel release,Trigger finger & thumb surgery; cardioversions, breast biopsy, Left shoulder sx. Past Anesthesia/Blood Transfusion Reactions: No Reported Reaction Past Psychological History: Depression Smoking Status: Former smoker Past Alcohol Use History: None Reported Past Drug Use History: None Reported - Past Family History Mother Family Medical History: Liver Disease Additional Family Medical History / Comment(s): cirrhosis of liver Father Family Medical History: Cancer Additional Family Medical History / Comment(s): throat cancer Daughter(s) Additional Family Medical History / Comment(s): HEART VALVE REPLACEMENT (Aorta) Son(s) Family Medical History: CVA/TIA Additional Family Medical History / Comment(s): One son, had multiple strokes in a row General Exam - General Exam Comments Initial Comments: General: Appears in no acute distress. HEAD: Normal with no signs of head trauma. EYES: PERRLA, EOMI, conjunctiva normal, no discharge. Pupils are 2 mm and equal bilaterally. ENT: Hearing grossly intact, normal oropharynx. RESPIRATORY: Coarse breath sounds bilaterally with wheezing. No hypoxia. No s ignificant increased work of breathing. C/V: Irregular rate and rhythm. S1 and S2 auscultated, no significant edema, peripheral pulses 2+ and intact throughout ABD: Abd is soft, nontender, nondistended EXT: Normal range of motion, no obvious deformity SKIN: No rashes or lesions observed on exposed skin. NEURO: Alert and oriented x 4. NIH is approximately 5. Receives 1 point for weakness in bilateral lower extremities. Receives 1 point for dysarthria. Received 2 point for left-sided facial droop. No other obvious focal deficits. Limitations: no limitations Course Vital Signs 02/03/25 02/03/25 02/03/25 09:19 09:23 09:38 Temperature 97.0 F L 97.3 F L 97.4 F L Pulse Rate 123 H 128 H 148 H Respiratory 18 24 24 Rate Blood Pressure 149/96 129/111 123/102 O2 Sat by Pulse 100 100 100 Oximetry 02/03/25 02/03/25 02/03/25 09:53 10:08 10:23 Temperature 97.4 F L 97.5 F L 97.2 F L Pulse Rate 116 H 102 H 114 H Respiratory 18 20 22 Rate Blood Pressure 125/111 128/98 123/105 O2 Sat by Pulse 100 100 100 Oximetry 02/03/25 02/03/25 10:38 12:00 Temperature 97.4 F L 97.6 F Pulse Rate 123 H 111 H Respiratory 20 18 Rate Blood Pressure 123/90 103/95 O2 Sat by Pulse 100 96 Oximetry Medical Decision Making - Medical Decision Making Was pt. sent in by a medical professional or institution (CHE[facility], CONTROL [employer]EL [facility]PERATOR [facility], urgent care, hospital, or penitentiary...) When possible be specific @ -No Did you speak to anyone other than the patient for history (EMS, parent, family, police, friend...)? What history was obtained from this source @ -EMS provided patient's history and history and route to the hospital. Did you review nursing and triage notes (agree or disagree)? Why? @ -I reviewed and agree with nursing and triage notes Were old charts reviewed (outside hosp., previous admission, EMS record, old EKG, old radiological studies, urgent care reports/EKG's, penitentiary records)? Report findings @ -It is reviewed confirming patient is on Coumadin as well as metoprolol for A-fib. Differential Diagnosis (chest pain, altered mental status, abdominal pain women, abdominal pain men, vaginal bleeding, weakness, fever, dyspnea, syncope, headache, dizziness, GI bleed, back pain, seizure, CVA, palpatations, mental health, musculoskeletal)? @ -Differential CVA Ischemic stroke, hemorrhagic stroke, brain tumor, atypical migraine, Wernicke's encephalopathy, seizure, multiple sclerosis, meningitis, encephalitis, hypoglycemia, Guillain-Billings, electrolytes disturbance, myasthenia gravis.... This is not meant to be an all-inclusive list EKG interpreted by me (3pts min.). @ -As above X-rays interpreted by me (1pt min.). @ -Chest x-ray reveals findings consistent with CHF. CT interpreted by me (1pt min.). @ -CT brain reveals no obvious acute intracranial hemorrhage or injury. No obvious acute intracranial process. CT angiogram head and neck reveals no obvious acute process. U/S interpreted by me (1pt. min.). @ -None done What testing was considered but not performed or refused? (CT, X-rays, U/S, labs)? Why? @ -None What meds were considered but not given or refused? Why? @ -Considered tenecteplase but patient is outside of the window and risks far outweigh benefits as patient is also on Coumadin. Patient expressed understanding was in agreement. Considered administering aspirin however patient received a full 325 mg aspirin from her daughter just prior to calling EMS. Did you discuss the management of the patient with other professionals (professionals i.e. , PA, [employer] [facility]EL [facility]ATOR [facility], lab, RT, psych nurse, social economist, container filler, teacher, hospital chief executive officer, cyanide case hardener)? Give summary @ -Discussed with on-call neurocritical care physician, Dr. Ziegler who was in agreement with plan for stroke workup. Was in agreement that patient does not meet criteria for tenecteplase. He will be notified of any positive imaging results. He did recommend that if patient is admitted for medical management, to hold patient's Coumadin until cleared by neurology. He is okay with aspirin. I spoke with the admitting provider, Dr. Banerjee who accepted the admission. Was smoking cessation discussed for >3mins.? @ -No Was critical care preformed (if so, how long)? @ -Yes, 43 minutes. Were there social determinants of health that impacted care today? How? (Homelessness, low income, unemployed, alcoholism, drug addiction, transportation, low edu. Level, literacy, decrease access to med. care, intermediate, rehab)? @ -No Was there de-escalation of care discussed even if they declined (Discuss DNR or withdrawal of care, Hospice)? DNR status @ -No What co-morbidities impacted this encounter? (DM, HTN, Smoking, COPD, CAD, Cancer, CVA, ARF, Chemo, Hep., AIDS, mental health diagnosis, sleep apnea, morbid obesity)? @ -CHF, COPD, A-fib on Coumadin Was patient admitted / discharged? Hospital course, mention meds given and route, prescriptions, significant lab abnormalities, going to OR and other pertinent info. @ -Patient presents for code stroke. Last known well was 2129 on 02/02/2025. Presents on the morning of 02/03/2025. NIH is approximately 5. Patient is not a candidate for tenecteplase therapy as she is outside of the window and risks for outweigh benefits. We will obtain stroke workup but also treat the patient for her A-fib with RVR. She states she did take her medications this morning and will be given a small fluid bolus as well as a dose of IV metoprolol. Patient received a breathing treatment en route to the hospital which could be contributing to her A-fib with RVR. She does have a history of this and is on Coumadin. Code stroke activated. Vital signs within acceptable limits otherwise. Discussed with on-call neurocritical care physician, Dr. Ziegler who was in agreement with plan for stroke workup. Was in agreement that patient does not meet criteria for tenecteplase. He will be notified of any positive imaging results. He did recommend that if patient is admitted for medical management, to hold patient's Coumadin until cleared by neurology. He is okay with aspirin. IV metoprolol did not significantly affect patient's heart rate. If she did take additional oral metoprolol prior to arrival, we will switch to an amiodarone drip. Amiodarone chosen for atrial fibrillation with RVR control as it tends to have less of an effect on blood pressure and we are looking for permissive hypertension concerning the concern for CVA. Patient was in agreement this plan. CT brain and CT angiogram head and neck negative for any obvious acute process. I did the patient as well as her daughter, and they did inform me that patient did take an aspirin just prior to arrival. Took 325 mg of aspirin. Therefore patient will not be administered additional aspirin at this time. Patient's heart rate has improved on the amiodarone drip. She is off oxygen and resting comfortably at this time. No change in neurologic status. Laboratory studies returned remarkable for mild leukocytosis of 12, this is likely reactive. Patient's urinalysis is contaminated. Remainder the patient's labs relatively unremarkable. INR is subtherapeutic at 1.9. BNP is slightly elevated and patient does have slight cardiovascular congestion on chest x-ray all likely secondary to the A-fib with RVR. Clinically otherwise, she does not appear to be volume overloaded. I do not believe we need to increase her diuretic medication but rather treat the A-fib with RVR and that should improve her symptoms. Updated the patient. She will be admitted for evaluation by neurology. As per our discussion with Dr. Ziegler of the neurointensivist, we will hold Coumadin at this time. Patient already received aspirin prior to arrival from her daughter, 325 mg. Patient will be admitted for evaluation by neurology. Cardiology also consulted for her A-fib with RVR which is improved on the amiodarone drip. I spoke with the admitting provider, Dr. Banerjee who accepted the admission. Undiagnosed new problem with uncertain prognosis? @ -No Drug Therapy requiring intensive monitoring for toxicity (Heparin, Nitro, Insulin, Cardizem)? @ -No Were any procedures done? @ -No Diagnosis/symptom? @ -CVA, A-fib with RVR Acute, or Chronic, or Acute on Chronic? @ -Acute Uncomplicated (without systemic symptoms) or Complicated (systemic symptoms)? @ -Complicated Side effects of treatment? @ -None Exacerbation, Progression, or Severe Exacerbation] @ -No Poses a threat to life or bodily function? @ -Potentially, yes - Lab Data Result diagrams: 02/03/25 09:27 02/03/25 09:27 Lab Results 02/03/25 02/03/25 02/03/25 Range/Units 09:21 09:27 09:27 WBC 12.76 H (4.50-10.00) 10*3/uL RBC 5.73 H (4.10-5.20) 10*6/uL Hgb 14.3 (12.0-15.0) g/dL Hct 46.2 (37.2-46.3) % MCV 80.6 (80.0-97.0) fL MCH 25.0 L (27.0-32.0) pg MCHC 31.0 L (32.0-37.0) g/dL Plt Count 326 (140-440) 10*3/uL MPV 10.1 (9.5-12.2) fL Immature Gran % (Auto) 0.5 % Neutrophils % 80.8 % Lymphocytes % 11.0 % Monocytes % 5.3 % Eosinophils % 1.9 % Basophils % 0.5 % Immature Gran # 0.07 H (0.00-0.04) 10*3/uL Neutrophils # 10.30 H (1.80-7.70) 10*3/uL Lymphocytes # 1.40 (0.90-5.00) 10*3/uL Monocytes # 0.68 (0.20-1.00) 10*3/uL Eosinophils # 0.24 (0.04-0.35) 10*3/uL Basophils # 0.07 (0.00-0.10) 10*3/uL PT 19.2 H (10.0-12.5) sec INR 1.9 H (<1.2) APTT 26.8 (22.0-30.0) sec Sodium (137-145) mmol/L Potassium (3.5-5.1) mmol/L Chloride (98-107) mmol/L Carbon Dioxide (22-30) mmol/L Anion Gap mmol/L BUN (7-17) mg/dL Creatinine (0.52-1.04) mg/dL Est GFR (CKD-EPI)AfAm (>60 ml/min/1.73 sqM) Est GFR (CKD-EPI)NonAf (>60 ml/min/1.73 sqM) Glucose (74-99) mg/dL POC Glucose (mg/dL) 177 H (70-110) mg/dL POC Glu Adjudication Specialist ID Belval Janie Calcium (8.4-10.2) mg/dL Total Bilirubin (0.2-1.3) mg/dL AST (14-36) U/L ALT (4-34) U/L Alkaline Phosphatase (38-126) U/L Creatine Kinase (30-135) U/L NT-Pro-B Natriuret Pep pg/mL Total Protein (6.3-8.2) g/dL Albumin (3.5-5.0) g/dL Influenza Type A (PCR) (Not Detectd) Influenza Type B (PCR) (Not Detectd) RSV (PCR) (Not Detectd) SARS-CoV-2 (PCR) (Not Detectd) 02/03/25 02/03/25 02/03/25 Range/Units 09:27 09:27 09:45 WBC (4.50-10.00) 10*3/uL RBC (4.10-5.20) 10*6/uL Hgb (12.0-15.0) g/dL Hct (37.2-46.3) % MCV (80.0-97.0) fL MCH (27.0-32.0) pg MCHC (32.0-37.0) g/dL Plt Count (140-440) 10*3/uL MPV (9.5-12.2) fL Immature Gran % (Auto) % Neutrophils % % Lymphocytes % % Monocytes % % Eosinophils % % Basophils % % Immature Gran # (0.00-0.04) 10*3/uL Neutrophils # (1.80-7.70) 10*3/uL Lymphocytes # (0.90-5.00) 10*3/uL Monocytes # (0.20-1.00) 10*3/uL Eosinophils # (0.04-0.35) 10*3/uL Basophils # (0.00-0.10) 10*3/uL PT (10.0-12.5) sec INR (<1.2) APTT (22.0-30.0) sec Sodium 139 (137-145) mmol/L Potassium 5.1 (3.5-5.1) mmol/L Chloride 106 (98-107) mmol/L Carbon Dioxide 20 L (22-30) mmol/L Anion Gap 13 mmol/L BUN 20 H (7-17) mg/dL Creatinine 1.10 H (0.52-1.04) mg/dL Est GFR (CKD-EPI)AfAm 60 (>60 ml/min/1.73 sqM) Est GFR (CKD-EPI)NonAf 52 (>60 ml/min/1.73 sqM) Glucose 182 H (74-99) mg/dL POC Glucose (mg/dL) (70-110) mg/dL POC Glu Adjudication Specialist ID Calcium 9.5 (8.4-10.2) mg/dL Total Bilirubin 1.2 (0.2-1.3) mg/dL AST 22 (14-36) U/L ALT 24 (4-34) U/L Alkaline Phosphatase 131 H (38-126) U/L Creatine Kinase 59 (30-135) U/L NT-Pro-B Natriuret Pep 2300 pg/mL Total Protein 7.6 (6.3-8.2) g/dL Albumin 4.1 (3.5-5.0) g/dL Influenza Type A (PCR) Not Detected (Not Detectd) Influenza Type B (PCR) Not Detected (Not Detectd) RSV (PCR) Not Detected (Not Detectd) SARS-CoV-2 (PCR) Not Detected (Not Detectd) - EKG Data -: EKG Interpreted by Me EKG Comments: 12-lead Electrocardiogram Interpretation Note EKG was reviewed and interpreted by myself. 12-lead ECG performed at 0927 is interpreted by me as revealing A-fib with RVR at a rate of 144 beats per minute. [place] is normal. QRS durations 122 ms, QTc is 393 ms.. There were no ST or T wave abnormalities to suggest myocardial ischemia or injury. R wave progression across the precordium was satisfactory. By my interpretation this EKG is non- diagnostic for acute ischemia. 12-lead Electrocardiogram Interpretation Note EKG was reviewed and interpreted by myself. 12-lead ECG performed at 1152 is interpreted by me as revealing atrial fibrillation at a rate of 90 beats per minute. Right axis deviation. QRS durations 120 ms, QTc is 438 ms.. There were no ST or T wave abnormalities to suggest myocardial ischemia or injury. R wave progression across the precordium was satisfactory. By my interpretation this EKG is non-diagnostic for acute ischemia. Disposition Clinical Impression: Cerebrovascular accident (CVA), Atrial fibrillation with RVR Disposition: ADMITTED IP TO THIS HOSP Condition: Serious Time of Disposition: 10:25
[2025-02-03 09:58] LABS: ALT 24 U/L (4-34); AST 22 U/L (14-36); African American GFR (CKD) 60 (>60 ml/min/1.73 sqM); Albumin 4.1 g/dL (3.5-5.0); Alkaline Phosphatase 131 U/L (38-126); Anion Gap 13 mmol/L; Blood Urea Nitrogen 20 mg/dL (7-17); Calcium 9.5 mg/dL (8.4-10.2); Carbon Dioxide 20 mmol/L (22-30); Chloride 106 mmol/L (98-107); Creatine Kinase 59 U/L (30-135); Glucose 182 mg/dL (74-99); Non-African American GFR(CKD) 52 (>60 ml/min/1.73 sqM); Potassium 5.1 mmol/L (3.5-5.1); Sodium 139 mmol/L (137-145); Total Bilirubin 1.2 mg/dL (0.2-1.3); Total Protein 7.6 g/dL (6.3-8.2)
--- NOTE | 2025-02-03 10:03 | CT ---
EXAMINATION TYPE: CT angio head neck DATE OF EXAM: 02/03/2025 COMPARISON: None CLINICAL INDICATION: Female, 69 years old with history of Neuro deficit, acute, stroke suspected; PHH , Neuro deficits, LT side deficits code stroke TECHNIQUE: CTA scan of the head and neck is performed with IV Contrast, patient injected with 65 mL of Isovue 370, axial images are obtained, coronal and sagittal reformatted images are reviewed. 3D re constructed images are created on an independent workstation and reviewed. CT DLP: 629.[address] CTDI: mGy Automated exposure control for dose reduction was used. NASCET criteria was used in interpretation of this exam? FINDINGS: The brachiocephalic origins are widely patent and no significant stenosis. There is no significant stenosis of the common or internal carotid arteries within the neck. There is no stenosis of the vertebral arteries. Intracranially, there is no stenosis, segmental occlusion, sizable aneurysm sac or vascular malformat ion. IMPRESSION:. No significant abnormality seen. NASCET criteria was used in interpretation of this exam? [facility], Workstation: [email or web address] 02/03/2025 10:00 AM
[2025-02-03 10:30] LABS: Influenza A Not Detected (Not Detectd); Influenza B Not Detected (Not Detectd); RSV Not Detected (Not Detectd)
[2025-02-03] MEDS: MAGNESIUM SULFATE-D5W PMX 1 GM in DEXTROSE/WATER 1 100ML.BAG IVPB ONE (10:45)
[2025-02-03] MEDS: DEXTROSE 5% IN WATER 100 ML with AMIODARONE 150 MG IV ONE (10:45)
[2025-02-03] MEDS: AMIODARONE 360 MG in DEXTROSE 5% IN WATER 200 ML IV ONE (10:59)
[2025-02-03 12:04] LABS: Glucose,Whole Blood 171 mg/dL (70-110)
[2025-02-03] MEDS ORDERED: SYMBICORT 80-4.5 MCG INHALER INHALATION PRN (12:15)
[2025-02-03 12:37] LABS: Appearance,Urine Cloudy (Clear); Bilirubin,Urine Negative (Negative); Blood,Urine Small (Negative); Color,Urine Colorless; Glucose,Urine (UA) 4+ (Negative); Ketones,Urine Negative (Negative); Leukocyte Esterase,Urine Large (Negative); Mucus,Urine Rare /hpf; Nitrite,Urine Negative (Negative); PH, Urine 5.5 (5.0-8.0); Protein,Urine 1+ (Negative); RBC,Urine 97 /hpf (0-5); Squamous Epithelial Cell,Urine 29 /hpf (0-4); Urobilinogen,Urine <2.0 mg/dL (<2.0); WBC,Urine 182 /hpf (0-5)
[2025-02-03 12:46] LABS: Specific Gravity,Urine >1.050 (1.001-1.035)
[2025-02-03] MEDS ORDERED: DEXTROSE 50% SYRINGE 50 ML IVP PRN ×2 (13:01)
[2025-02-03 14:51] LABS: Glucose,Whole Blood 176 mg/dL (70-110)
--- NOTE | 2025-02-03 16:12 | P.CNNES ---
History of Present Illness Consult date: 02/03/25 Requesting physician: Manuel Renee Reason for Consult: CVA. no TNK. History of Present Illness: Patient is a 69-year-old right-handed female, with history of atrial fibrillation, on Coumadin, hypertension, diabetes, hyperlipidemia, came to the hospital by ambulance this morning at 9:18 AM for strokelike symptoms. Patient's daughter was also present by the bedside. Patient states that she woke up this morning at 8:30 AM with significant slurred speech and left facial droop. She also complained of numbness of left side of the face and her eyes felt heavy. Patient denies any headache, dizziness, nausea vomiting. Denies any symptoms attributed to the extremities like focal weakness or numbness ti ngling. Patient states that she went to sleep last night at 9:30 PM and was fine. Patient's family called the ambulance and she was brought to the hospital. Prior to coming to the hospital, patient's daughter gave her full aspirin 325 mg, today at 8:45 AM. EMS flowsheet not available in the chart. Vital signs on arrival blood pressure 149/96, pulse rate 123, temperature 97.0. CT head showed no acute bleed. No acute process. Mild age-appropriate senescent changes. I personally reviewed C T head, agree with the findings. Chest x-ray showed mild to moderate acute cardiopulmonary disease, most consistent with CHF. Patient had a MANSI scan on 11/02/2023, which showed no diagnostic evidence suggestive of idiopathic Parkinson's disease or parkinsonian syndrome. Blood test shows WBC 12.76 hemoglobin 14.3, PT is 19.2 INR 1.9. Basic metabolic panel with BUN 20, creatinine 1.10. Hepatic panel is normal, proBNP 2300. Influenza, RSV and coronavirus PCR negative. Patient has history of diabetes for 15 years, hypertension, hyperlipidemia. Patient has history of stroke 20 years ago, which affected the left side of the face, arm and leg. Patient has history of RLS. Patient has smoked 1-1/2 pack/day for 10 years, quit 30 years ago. Does not drink alcohol. Home medications include warfarin Crestor 20 mg, metoprolol, Farxiga Ozempic, metformin, Seroquel 100 mg at bedtime, Trintellix 20 mg, Requip 1 mg at bedtime, losartan, Lasix 80 mg daily, allopurinol and omeprazole. Review of Systems All pertinent positive and negative review of systems mentioned in the HPI, otherwise unremarkable. Past Medical History Past Medical History: Atrial Fibrillation, Atrial Flutter, Asthma, COPD, CVA/TIA, Diabetes Mellitus, Hyperlipidemia, Hypertension, Osteoarthritis (OA) Additional Past Medical History / Comment(s): intracardiac thrombus 2013, SOB with exertion, stroke in 1998-no residual effects, SEE DR SIERRA'S HISTORY PHYSICAL FOR CARDIAC HISTORY History of Any Multi-Drug Resistant Organisms: None Reported Past Surgical History: Appendectomy, Breast Surgery, Cardiac Ablation, EPS, Heart Catheterization, Hysterectomy, Orthopedic Surgery, Tubal Ligation Additional Past Surgical History / Comment(s): ARTEMIO, ADDIE carpal tunnel release,Trigger finger & thumb surgery; cardioversions, breast biopsy, Left shoulder sx. Past Anesthesia/Blood Transfusion Reactions: No Reported Reaction Past Psychological History: Depression Smoking Status: Former smoker Past Alcohol Use History: None Reported Past Drug Use History: None Reported - Past Family History Mother Family Medical History: Liver Disease Additional Family Medical History / Comment(s): cirrhosis of liver Father Family Medical History: Cancer Additional Family Medical History / Comment(s): throat cancer Daughter(s) Additional Family Medical History / Comment(s): HEART VALVE REPLACEMENT (Aorta) Son(s) Family Medical History: CVA/TIA Additional Family Medical History / Comment(s): One son, had multiple strokes in a row Medications and Allergies Home Medications Medication Instructions Recorded Confirmed Type Montelukast [Singulair] 10 mg PO HS 09/10/14 02/03/25 History Omeprazole 40 mg PO DAILY 04/24/17 02/03/25 History allopurinoL [Zyloprim] 100 mg PO DAILY 02/17/20 02/03/25 History Furosemide [Lasix] 80 mg PO DAILY 07/07/20 02/03/25 History Fluticasone/Vilanterol [Breo 1 puff INHALATION DIRECTED PRN 08/12/22 02/03/25 History Ellipta 100-25 Mcg Inhaler] Losartan Potassium [Cozaar] 12.5 mg PO DAILY 08/12/22 02/03/25 History Warfarin [Coumadin] 1 mg PO WESA@209908/12/22 02/03/25 History Warfarin [Coumadin] 2 mg PO SUMOTUTHFR@2100 08/12/22 02/03/25 History Cetirizine HCl [Zyrtec] 10 mg PO HS 02/03/25 02/03/25 History Dapagliflozin Propanediol [Farxiga] 5 mg PO DAILY 02/03/25 02/03/25 History Meloxicam [Mobic] 15 mg PO DAILY 02/03/25 02/03/25 History Metoprolol Succinate (ER) [Toprol 50 mg PO HS 02/03/25 02/03/25 History Xl] Metoprolol Succinate (ER) [Toprol 75 mg PO DAILY 02/03/25 02/03/25 History Xl] QUEtiapine [SEROquel] 100 mg PO HS 02/03/25 02/03/25 History Rosuvastatin [Crestor] 20 mg PO DAILY 02/03/25 02/03/25 History Semaglutide [Ozempic] 2 mg SQ العراقي@2100 02/03/25 02/03/25 History Vortioxetine Hydrobromide 20 mg PO DAILY 02/03/25 02/03/25 History [Trintellix] metFORMIN HCL [Glucophage] 500 mg PO DAILY 02/03/25 02/03/25 History rOPINIRole HCL [Requip] 1 mg PO HS 02/03/25 02/03/25 History Allergies Allergy/AdvReac Type Severity Reaction Status Date / Time meperidine HCl [From Demerol] AdvReac Nausea & Verified 02/03/25 11:27 Vomiting Physical Examination - Vital Signs Vital Signs: Vital Signs Temp Pulse Resp BP Pulse Ox 02/03/25 12:00 97.6 F 111 H 18 103/95 96 02/03/25 10:38 97.4 F L 123 H 20 123/90 100 02/03/25 10:23 97.2 F L 114 H 22 123/105 100 02/03/25 10:08 97.5 F L 102 H 20 128/98 100 02/03/25 09:53 97.4 F L 116 H 18 125/111 100 02/03/25 09:38 97.4 F L 148 H 24 123/102 100 02/03/25 09:23 97.3 F L 128 H 24 129/111 100 02/03/25 09:19 97.0 F L 123 H 18 149/96 100 Intake and Output 02/02/25 02/03/25 02/03/25 22:59 06:59 14:59 Other: Weight 95.254 kg Patient is an elderly female, very pleasant, in no acute distress. Patient is sitting on the side of the bed. Patient is alert awake oriented to time place and person. Speech is mild to moderately dysarthric and language functions are normal. Patient can name and repeat very well. Attention, concentration and fund of knowledge is adequate. On cranial nerve examination, pupils are equal, round and reacting to light, visual brock are full on confrontation, with no neglect on double simultaneous stimulation. Extraocular muscles are intact with no nystagmus. Patient has complete lower left facial weakness, central type. Her tongue slightly protrudes to the left. Palatal elevation and sensation normal, hearing and shoulder shrug normal, facial sensation normal. On muscle strength testing, there is mild right pronator drift, about 5 degree and the strength is normal in arms and legs distally and proximally. Deep tendon reflexes are asymmetric (right/left) biceps 2/1, brachioradialis 2/1, knees 1+/1+, absent ankles and plantars downgoing. Sensory to touch is equal with no neglect on double simultaneous stimulation. Cerebellar function showed no ataxia for [id number] testing. No dysdiadochokinesia. No ataxia for [id number] testing on either side. Tone and bulk of muscles normal. Patient has tremors at rest of the right arm, appears very parkinsonian. Patient appears slightly bradykinetic. Gait deferred.. On general examination, there is no carotid bruit or murmur, S1-S2 audible. Chest is clear on consultation. Abdomen is soft nontender. No organomegaly, bowel sounds present. Peripheral pulses are present. No peripheral edema. Results - Laboratory Findings CBC and BMP: 02/03/25 09:27 02/03/25 09:27 Abnormal Lab Findings: Abnormal Labs 02/03/25 02/03/25 02/03/25 09:21 09:27 09:27 WBC 12.76 H RBC 5.73 H MCH 25.0 L MCHC 31.0 L Immature Gran # 0.07 H Neutrophils # 10.30 H PT 19.2 H INR 1.9 H Carbon Dioxide BUN Creatinine Glucose POC Glucose (mg/dL) 177 H Alkaline Phosphatase 02/03/25 02/03/25 09:27 12:02 WBC RBC MCH MCHC Immature Gran # Neutrophils # PT INR Carbon Dioxide 20 L BUN 20 H Creatinine 1.10 H Glucose 182 H POC Glucose (mg/dL) 171 H Alkaline Phosphatase 131 H Assessment and Plan Assessment: * Probable acute ischemic stroke with dysarthria, left facial weakness. Patient's examination shows very mild right pronator drift. NIH stroke scale 4. Acute stroke, likely from cardioembolism from subtherapeutic INR 1.9. * Atrial fibrillation with rapid ventricular rate * Diabetes * Hypertension * Hyperlipidemia * Ex tobacco use * History of CVA with no residual deficits. * Abnormal UA, rule out UTI Plan: Patient has presented with an acute stroke. She was not a candidate for TNK, as she came outside the window for TNK. No large vessel occlusion noted. MRI of the brain without contrast, evaluate for acute CVA 2-D echo with bubble study to rule out PFO CTA head and neck showed: No significant abnormality. No stenosis, occlusion, aneurysm or vascular malformation. Fasting a.m. lipid panel Hemoglobin A1c Permissive hypertension for next 24-48 hours Patient has received aspirin 325 mg at home today. Resume Coumadin, to target INR between 2.0-3.0. Hold on Coumadin if any signs of hemorrhage, or very large CVA noted on the MRI. Neuro checks every 2 hours. Telemetry monitoring rule out any arrhythmia PT, OT, speech therapy DVT prophylaxis: Patient on Coumadin Dr. Robbie Martin to resume neurology service in the morning. Neurology will continue to follow. Thank you for the consult.
[2025-02-03] MEDS: INSULIN LISPRO (HumaLOG) 100 UNIT/ML 10 mL VL SQ SCH (16:51)
[2025-02-03] MEDS: AMIODARONE 450 MG in DEXTROSE 5% IN WATER 250 ML IV SCH (16:51)
--- NOTE | 2025-02-03 18:14 | P.HPIM ---
History of Present Illness H&P Date: 02/03/25 Chief Complaint: Slurred speech Patient is a 69-year-old female with a known history of paroxysmal atrial fibrillation on anticoagulation with Coumadin,, cardioversion, ablation, history of CVA/TIA 24 years ago with no residual defects, hypertension, hyperemia, diabetes type 2 on Ozempic, osteoarthritis, depression and prior history of smoking. Patient was brought to ER due to complaints of slurred speech and difficulty in breathing. According to her daughter at bedside patient woke up around 8:30 AM and presented to dining table and was noticed by family that she has been having slurred speech and also difficulty in breathing. Patient was also drooling towards the left side. Her her left side of the face looks a flat. EMS was called and patient was brought to ER. Otherwise patient denied any complaints of chest pain. No cough or sputum production. No fever no chills. Denied any recent illnesses. CT head showed no acute bleed or mass effect. Mildly age-appropriate senescent changes. CTA head and neck showed no significant stenosis. Chest x-ray showed mild to moderate acute cardiopulmonary disease most consistent with CHF. EKG showed atrial fibrillation with rapid ventricular rate. Laboratory data showed WBC 12.7 hemoglobin 14.3 and platelets 326 sodium 139 potassium 5.1 chloride 106 bicarb is 20 BUN 20 and creatinine 1.1 and blood sugar 182 and INR 1.9 proBNP 2300., Alk phos 131 Urinalysis showed cloudy with increased with severity 4+ glucose large leukocyte esterase with elevated RBCs and WBCs and also squamous epithelial cells. Influenza A B RSV and COVID-19 PCR not detected. Review of Systems Constitutional: Patient denies any fever or chills . No generalized weakness or weight loss. Abdomen: Patient denied nausea vomiting and diarrhea and abdominal pain. Cardiovascular: Patient denies any chest pain. Positive for short of breath no palpitations. Respiratory: patient denied any cough or sputum production. Positive for shortness of breath Neurologic: Patient denied any numbness or tingling. no headache. Slurred speech and drooling on left side. Musculoskeletal: Patient denies any complaints of joint swelling or deformity. Skin: Negative Psychiatric: Negative Endocrine: No heat or cold intolerance. No recent weight gain. Genitourinary: No dysuria or hematuria. All other 14 point ROS negative except the above Past Medical History Past Medical History: Atrial Fibrillation, Atrial Flutter, Asthma, COPD, CVA/TIA, Diabetes Mellitus, Hyperlipidemia, Hypertension, Osteoarthritis (OA) Additional Past Medical History / Comment(s): intracardiac thrombus 2013, SOB with exertion, stroke in 1998-no residual effects, SEE DR SIERRA'S HISTORY PHYSICAL FOR CARDIAC HISTORY History of Any Multi-Drug Resistant Organisms: None Reported Past Surgical History: Appendectomy, Breast Surgery, Cardiac Ablation, EPS, Heart Catheterization, Hysterectomy, Orthopedic Surgery, Tubal Ligation Additional Past Surgical History / Comment(s): ARTEMIO, ADDIE carpal tunnel rel ease,Trigger finger & thumb surgery; cardioversions, breast biopsy, Left shoulder sx. Past Anesthesia/Blood Transfusion Reactions: No Reported Reaction Past Psychological History: Depression Smoking Status: Former smoker Past Alcohol Use History: None Reported Past Drug Use History: None Reported - Past Family History Mother Family Medical History: Liver Disease Additional Family Medical History / Comment(s): cirrhosis of liver Father Family Medical History: Cancer Additional Family Medical History / Comment(s): throat cancer Daughter(s) Additional Family Medical History / Comment(s): HEART VALVE REPLACEMENT (Aorta) Son(s) Family Medical History: CVA/TIA Additional Family Medical History / Comment(s): One son, had multiple strokes in a row Medications and Allergies Home Medications Medication Instructions Recorded Confirmed Type Montelukast [Singulair] 10 mg PO HS 09/10/14 02/03/25 History Omeprazole 40 mg PO DAILY 04/24/17 02/03/25 History allopurinoL [Zyloprim] 100 mg PO DAILY 02/17/20 02/03/25 History Furosemide [Lasix] 80 mg PO DAILY 07/07/20 02/03/25 History Fluticasone/Vilanterol [Breo 1 puff INHALATION DIRECTED PRN 08/12/22 02/03/25 History Ellipta 100-25 Mcg Inhaler] Losartan Potassium [Cozaar] 12.5 mg PO DAILY 08/12/22 02/03/25 History Warfarin [Coumadin] 1 mg PO WESA@209908/12/22 02/03/25 History Warfarin [Coumadin] 2 mg PO SUMOTUTHFR@2100 08/12/22 02/03/25 History Cetirizine HCl [Zyrtec] 10 mg PO HS 02/03/25 02/03/25 History Dapagliflozin Propanediol [Farxiga] 5 mg PO DAILY 02/03/25 02/03/25 History Meloxicam [Mobic] 15 mg PO DAILY 02/03/25 02/03/25 History Metoprolol Succinate (ER) [Toprol 50 mg PO HS 02/03/25 02/03/25 History Xl] Metoprolol Succinate (ER) [Toprol 75 mg PO DAILY 02/03/25 02/03/25 History Xl] QUEtiapine [SEROquel] 100 mg PO HS 02/03/25 02/03/25 History Rosuvastatin [Crestor] 20 mg PO DAILY 02/03/25 02/03/25 History Semaglutide [Ozempic] 2 mg SQ العراقي@2100 02/03/25 02/03/25 History Vortioxetine Hydrobromide 20 mg PO DAILY 02/03/25 02/03/25 History [Trintellix] metFORMIN HCL [Glucophage] 500 mg PO DAILY 02/03/25 02/03/25 History rOPINIRole HCL [Requip] 1 mg PO HS 02/03/25 02/03/25 History Allergies Allergy/AdvReac Type Severity Reaction Status Date / Time meperidine HCl [From Demerol] AdvReac Nausea & Verified 02/03/25 11:27 Vomiting Physical Exam Vitals: Vital Signs Temp Pulse Resp BP Pulse Ox 02/03/25 10:38 97.4 F L 123 H 20 123/90 100 02/03/25 10:23 97.2 F L 114 H 22 123/105 100 02/03/25 10:08 97.5 F L 102 H 20 128/98 100 02/03/25 09:53 97.4 F L 116 H 18 125/111 100 02/03/25 09:38 97.4 F L 148 H 24 123/102 100 02/03/25 09:23 97.3 F L 128 H 24 129/111 100 02/03/25 09:19 97.0 F L 123 H 18 149/96 100 Intake and Output 02/02/25 02/03/25 02/03/25 22:59 06:59 14:59 Other: Weight 95.254 kg PHYSICAL EXAMINATION: Patient is sitting on the side of the bed. y, no acute distress, awake alert and oriented x 2.. HEENT: Normocephalic. Neck is supple. Pupils reactive. Nostrils clear. Oral cavity is moist. Neck reveals no JVD, carotid bruits, or thyromegaly. CHEST EXAMINATION: Trachea is central. Symmetrical expansion. Lung brock clear to auscultation and percussion. CARDIAC: Normal S1, S2 with no gallops. No murmurs, irregular rhythm. ABDOMEN: Soft. Bowel sounds normal. No organomegaly. No abdominal bruits. Extremities: reveal no edema. No clubbing or cyanosis Neurologically awake, alert, oriented x x 2 able to move all extremities. Left- sided facial weakness and dysarthria. Skin: No rash or skin lesions. Psychiatric: Coperative. Could not be assessed completely Musculoskeletal: No joint swelling or deformity. Results CBC & Chem 7: 02/03/25 09:02/03/25 09:27 Labs: Abnormal Lab Results - Last 24 Hours (Table) 02/03/25 02/03/25 02/03/25 Range/Units 09:21 09:27 09:27 WBC 12.76 H (4.50-10.00) 10*3/uL RBC 5.73 H (4.10-5.20) 10*6/uL MCH 25.0 L (27.0-32.0) pg MCHC 31.0 L (32.0-37.0) g/dL Immature Gran # 0.07 H (0.00-0.04) 10*3/uL Neutrophils # 10.30 H (1.80-7.70) 10*3/uL PT 19.2 H (10.0-12.5) sec INR 1.9 H (<1.2) Carbon Dioxide (22-30) mmol/L BUN (7-17) mg/dL Creatinine (0.52-1.04) mg/dL Glucose (74-99) mg/dL POC Glucose (mg/dL) 177 H (70-110) mg/dL Alkaline Phosphatase (38-126) U/L 02/03/25 Range/Units 09:27 WBC (4.50-10.00) 10*3/uL RBC (4.10-5.20) 10*6/uL MCH (27.0-32.0) pg MCHC (32.0-37.0) g/dL Immature Gran # (0.00-0.04) 10*3/uL Neutrophils # (1.80-7.70) 10*3/uL PT (10.0-12.5) sec INR (<1.2) Carbon Dioxide 20 L (22-30) mmol/L BUN 20 H (7-17) mg/dL Creatinine 1.10 H (0.52-1.04) mg/dL Glucose 182 H (74-99) mg/dL POC Glucose (mg/dL) (70-110) mg/dL Alkaline Phosphatase 131 H (38-126) U/L Thrombosis Risk Factor Assmnt - DVT/VTE Prophylaxis DVT/VTE Prophylaxis: Pharmacologic Prophylaxis ordered Assessment and Plan Assessment: Acute cerebrovascular accident with slurred speech and left facial weakness. Atrial fibrillation with rapid ventricular rate. Patient is on anticoagulation with Coumadin. INR subtherapeutic at 1.9 Prior history of ablation and ARTMEIO/cardioversion Diabetes type 2 on Ozempic. Hyperglycemia uncontrolled. Acute urinary tract infection Hypertension Hyperlipidemia Osteoarthritis History of CVA/TIA in 1998 with no residual defects Depression Prior history of smoking Asthma/COPD GI prophylaxis with Pepcid. Patient is already anticoagulated with Coumadin Coumadin dosing. Plan: Patient will be continued on telemonitoring. Patient was started on amiodarone drip due to A-fib with RVR. Continue with Coumadin dosing. Continue with neurochecks. MRI of the brain was ordered as per neurology recommendations. 2D echocardiogram to rule out PFO. Continue with ceftriaxone follow-up urine culture report. PT OT consulted. Follow-up A1c level., Repeat CBC and BMP tomorrow. Cardiology and neurology is on board. Prognosis guarded. Discussed with her daughter at bedside. Time with Patient: Greater than 30
[2025-02-03 20:18] LABS: Glucose,Whole Blood 287 mg/dL (70-110)
[2025-02-03] MEDS: MONTELUKAST 10 MG TAB PO SCH (20:30)
[2025-02-03] MEDS: METOPROLOL SUCCINATE (ER) 50 MG TAB.ER.24H PO SCH (20:30)
[2025-02-03] MEDS: WARFARIN 2 MG TAB PO ONE (20:30)
[2025-02-04 06:02] LABS: Glucose,Whole Blood 180 mg/dL (70-110)
[2025-02-04 06:33] LABS: INR 2.1 (<1.2); Prothrombin Time 20.9 sec (10.0-12.5)
[2025-02-04 06:38] LABS: African American GFR (CKD) 64 (>60 ml/min/1.73 sqM); Anion Gap 16 mmol/L; Blood Urea Nitrogen 26 mg/dL (7-17); Calcium 10.1 mg/dL (8.4-10.2); Carbon Dioxide 18 mmol/L (22-30); Chloride 105 mmol/L (98-107); Glucose 165 mg/dL (74-99); Non-African American GFR(CKD) 56 (>60 ml/min/1.73 sqM); Potassium 5.8 mmol/L (3.5-5.1); Sodium 139 mmol/L (137-145)
[2025-02-04 07:20] LABS: Basophils # (A) 0.02 10*3/uL (0.00-0.10); Basophils % (A) 0.1 %; HCT 45.5 % (37.2-46.3); HGB 13.8 g/dL (12.0-15.0); Lymphocytes # (A) 1.51 10*3/uL (0.90-5.00); MCH 24.5 pg (27.0-32.0); MCHC 30.3 g/dL (32.0-37.0); MCV 80.8 fL (80.0-97.0); Mean Platelet Volume 10.7 fL (9.5-12.2); Monocytes # (A) 0.69 10*3/uL (0.20-1.00); Neutrophils % (A) 83.1 %; Platelet Count 341 10*3/uL (140-440); RBC 5.63 10*6/uL (4.10-5.20); RDW 19.6 % (11.5-14.5); WBC 13.73 10*3/uL (4.50-10.00)
[2025-02-04] MEDS: LOSARTAN 25 MG TAB PO SCH (07:58)
[2025-02-04] MEDS: METOPROLOL SUCCINATE (ER) 25 MG TAB.ER.24H PO SCH (07:58)
[2025-02-04] MEDS: allopurinoL 100 MG TAB PO SCH (07:59)
[2025-02-04] MEDS: DAPAGLIFLOZIN PROPANEDIOL 5 MG TABLET PO SCH (07:59)
[2025-02-04] MEDS: ATORVASTATIN 40 MG TAB PO SCH (07:59)
[2025-02-04] MEDS: FUROSEMIDE 40 MG TAB PO SCH (07:59)
[2025-02-04] MEDS: PANTOPRAZOLE 40 MG TABLET PO SCH (07:59)
[2025-02-04 11:47] LABS: Glucose,Whole Blood 215 mg/dL (70-110)
--- NOTE | 2025-02-04 12:49 | CA ---
Transthoracic Echo Report Name: Destinee Deal Age: 69 Gender: F : 1955 Exam Date: 02/04/2025 10:24 Exam Location: [facility] Ht (in): 65 Wt (lb): 210 Ordering Physician: Rashida Medina MD Attending/Referring Phys: Food Service Specialist Sabrina Lainez, AMARJIT Procedure CPT: Indications: CVA Cardiac Hx: A-fib, A-flutter, Asthma, COPD, CVA/TIA, Diabetes Technical Quality: Fair Contrast 1: Agitated Saline Total Dose (mL): 10 Contrast 2: Total Dose (mL): MEASUREMENTS (Male / Female) Normal Values 2D ECHO LV Diastolic Diameter PLAX 4.4 cm 4.2 - 5.9 / 3.9 - 5.3 cm LV Systolic Diameter PLAX 3.8 cm IVS Diastolic Thickness 1.1 cm 0.6 - 1.0 / 0.6 - 0.9 cm LVPW Diastolic Thickness 1.1 cm 0.6 - 1.0 / 0.6 - 0.9 cm LV Relative Wall Thickness 0.5 RV Internal Dim ED PLAX 2.9 cm LVOT Diameter 1.5 cm LA Systolic Diameter LX 4.0 cm 3.0 - 4.0 / 2.7 - 3.8 cm LV Diastolic Volume MOD BP 67.0 cm??? 67 - 155 / 56 - 104 cm??? LV Systolic Volume MOD BP 42.9 cm??? 22 - 58 / 19 - 49 cm??? LV Ejection Fraction MOD BP 35.9 % >= 55 % LV Diastolic Volume MOD 4C 52.7 cm??? LV Systolic Volume MOD 4C 30.3 cm??? LV Ejection Fraction MOD 4C 42.5 % LV Diastolic Length 4C 6.3 cm LV Systolic Length 4C 5.7 cm LV Diastolic Volume MOD 2C 80.3 cm??? LV Systolic Volume MOD 2C 55.7 cm??? LV Ejection Fraction MOD 2C 30.7 % LV Diastolic Length 2C 6.7 cm LV Systolic Length 2C 6.2 cm LA Volume 71.2 cm??? 18 - 58 / 22 - 52 cm??? LA Volume Index 33.4 cm???/m??? 16 - 28 cm???/m??? DOPPLER MV Peak Velocity 225.0 cm/s MV Peak Gradient 20.2 mmHg MV Mean Velocity 127.3 cm/s MV Mean Gradient 9.3 mmHg MV Velocity Time Integral 40.0 cm MV Area PHT 2.8 cm??? MR Peak Velocity 409.7 cm/s MR Peak Gradient 67.1 mmHg TR Peak Velocity 332.8 cm/s TR Peak Gradient 44.3 mmHg Right Atrial Pressure 15.0 mmHg Pulmonary Artery Systolic Pressu 59.3 mmHg Right Ventricular Systolic Press 59.3 mmHg FINDINGS Left Ventricle Left ventricular ejection fraction is estimated at 40-45 %. Moderately decreased left ventricular ejection fraction. Right Ventricle Moderate right ventricular dilatation. Severe pulmonary hypertension. Right ventricular systolic pressure estimated at 59 mm hg. right ventricular hide hypokinesis Right Atrium Severe right atrial dilatation. Negative agitated saline bubble study for right to left shunt. Left Atrium Mildly increased left atrial diameter. Mildly increased left atrial volume. Mildly increased left atrial area. Mitral Valve Mitral valve thickened. Mitral annular calcification. Moderate to severe mitral stenosis. Moderate mitral regurgitation. Aortic Valve Trileaflet aortic valve. Diffuse thickening (sclerosis) of the aortic valve cusps without reduced excursion. No aortic stenosis. Mild aortic regurgitation. Tricuspid Valve Structurally normal tricuspid valve. No tricuspid stenosis. Mild tricuspid regurgitation. Pulmonic Valve Structurally normal pulmonic valve. No pulmonic stenosis. No pulmonic regurgitation. Pericardium No pericardial effusion.prominent epicardial fat. Aorta Normal size aortic root and proximal ascending aorta. CONCLUSIONS 1. Moderately impaired left ventricular systolic function with global hypokinesis 2. Dilated right ventricle with global hypokinesis and severe pulmonary hypertension 3. Moderate mitral regurgitation with moderate severe mitral stenosis 4. Mild aortic and tricuspid regurgitation 5. No evidence of shunting by contrast bubble study Previewed by: Dr. Jacque Joy MD (Electronically Signed) Final Date: 04 February 2025 12:48
--- NOTE | 2025-02-04 13:35 | P.CRDCN ---
History of Present Illness Consult date: 02/04/25 Reason for Consult (text): Chronic A-fib with RVR History of present illness: This is a 69-year-old female patient of Dr. Lopez with past medical history of atrial fibrillation on Coumadin status post multiple atrial fibrillation ablations in the past along with an atrial flutter ablation. When patient was last seen in the office in 01/09/2025. Patient was in his normal sinus rhythm. In the past she has failed flecainide and failed Multaq. Patient also has a past medical history of hyperlipidemia, COPD, diabetes, hypertension, remote history of tobacco use. We have been asked to evaluate the patient for A-fib with RVR. Patient presented to the hospital due to face numbness, slurred speech and left facial droop. Onset of symptoms were last evening. Patient has been seen by neurology has been worked up for CVA. She is scheduled for MRI of the brain today. Blood pressure 123/72, heart rate 67, pulse ox 95% on room air. Patient has been started on amiodarone drip. Although, patient remains in atrial fibrillation with controlled heart rate, she was in atrial fibrillation at 148 bpm during the night. Patient states that she still has facial numbness. She states her speech is a little bit better and she has difficulty finding her words intermittently. -EKG: Atrial fibrillation 98 bpm, right bundle branch block, atrial fibrillation 144 bpm. -Chest x-ray: Mild to moderate acute cardiopulmonary disease most consistent with CHF. -CT brain: No acute bleed or mass effect. -CTA head and neck revealed no significant abnormality. -Echocardiogram performed 02/04/2025 revealed moderately impaired left ventricular systolic function with global hypokinesis, EF 40 to 45%, dilated right ventricle with global hypokinesis and severe pulmonary hypertension. Moderate mitral regurgitation with moderate severe mitral stenosis. Mild aortic intra cuspid regurgitation. No evidence of shunting by contrast on the bubble s tudy. -Laboratory studies: INR initially 1.9 repeat 2.1, WBC 13.7, hemoglobin 13.8, potassium 5.8, BUN 26 creatinine 1.04. A1c 7.9. Alkaline phosphatase 131. CK 59, proBNP 2300. Urinalysis contaminated. Cepheid viral panel not detected. -Home cardiac medications: Farxiga 5 mg daily, Lasix 80 mg daily, losartan 12.5 mg daily, metoprolol succinate 75 mg in the morning and 50 mg in the evening, Crestor 20 mg daily, Coumadin 1 mg Tuesday and 2 mg the other days. -Lexiscan Cardiolite stress test performed in the office on 12/21/2024 revealed inconclusive EKG part of the stress test due to baseline EKG abnormalities. Probably normal myocardial perfusion and function. -Holter monitor performed 12/21 - 12/28/2024: Atrial fibrillation. Heart rates running between 60 and 174 beats a minute with average at 96, 3 pauses. Atrial fibrillation or flutter burden was 100%. Review Of Systems: At the time of my exam: CONSTITUTIONAL: Denies fever or chills. HEENT: Denies blurred vision, vision changes, or eye pain. Denies hemoptysis CARDIOVASCULAR: Denies chest pain. Denies orthopnea. Denies PND. Denies palpitations RESPIRATORY: Denies shortness of breath. GASTROINTESTINAL: Denies abdominal pain. Denies nausea or vomiting. HEMATOLOGIC: Denies bleeding disorders. GENITOURINARY: Denies any blood in urine. SKIN: Denies puritis. Denies rash. Physical examination: Gen: This is a 69-year-old female in no acute distress. VS: reviewed HEENT: Head is atraumatic, normocephalic. Pupils equal, round. Sclerae is anicteric. NECK: Supple. No JVD. LUNGS: Clear to auscultation. No wheezes or rhonchi. No intercostal retractions. HEART: Irregular rate and rhythm. No murmur. ABDOMEN: Soft No tenderness. EXTREMITIES: No pedal edema. No calf tenderness. NEUROLOGICAL: Patient is awake, alert and oriented x3. Assessment: Suspected CVA presenting with slurred speech, left facial droop and facial numbness Paroxysmal atrial fibrillation presenting with RVR, currently rate controlled Cardiomyopathy with EF 40 to 45% most likely tachycardic related, previous EF 55% in the office on 01/02 Hyperlipidemia COPD Diabetes with A1c 7.9 Hypertension Remote history of tobacco use Plan: Resume patient's home cardiac medications with the following changes Change Toprol to metoprolol tartrate 100 mg twice daily Continue patient on Coumadin pharmacy dosing Plan to change Coumadin to Eliquis Amiodarone drip is completed. No plan to start oral amiodarone. Further recommendations to follow based upon clinical course Thank you kindly for this consultation. Nurse practitioner note has been reviewed, I agree with documented findings and plan of care. Patient was seen and examined. Past Medical History Past Medical History: Atrial Fibrillation, Atrial Flutter, Asthma, COPD, CVA/TIA, Diabetes Mellitus, Hyperlipidemia, Hypertension, Osteoarthritis (OA) Additional Past Medical History / Comment(s): intracardiac thrombus 2013, SOB with exertion, stroke in 1998-no residual effects, SEE DR SIERRA'S HISTORY PHYSICAL FOR CARDIAC HISTORY History of Any Multi-Drug Resistant Organisms: None Reported Past Surgical History: Appendectomy, Breast Surgery, Cardiac Ablation, EPS, Heart Catheterization, Hysterectomy, Orthopedic Surgery, Tubal Ligation Additional Past Surgical History / Comment(s): ARTEMIO, ADDIE carpal tunnel release,Trigger finger & thumb surgery; cardioversions, breast biopsy, Left shoulder sx. Past Anesthesia/Blood Transfusion Reactions: No Reported Reaction Past Psychological History: Depression Smoking Status: Former smoker Past Alcohol Use History: None Reported Past Drug Use History: None Reported - Past Family History Mother Family Medical History: Liver Disease Additional Family Medical History / Comment(s): cirrhosis of liver Father Family Medical History: Cancer Additional Family Medical History / Comment(s): throat cancer Daughter(s) Additional Family Medical History / Comment(s): HEART VALVE REPLACEMENT (Aorta) Son(s) Family Medical History: CVA/TIA Additional Family Medical History / Comment(s): One son, had multiple strokes in a row Medications and Allergies Home Medications Medication Instructions Recorded Confirmed Type Montelukast [Singulair] 10 mg PO HS 09/10/14 02/03/25 History Omeprazole 40 mg PO DAILY 04/24/17 02/03/25 History allopurinoL [Zyloprim] 100 mg PO DAILY 02/17/20 02/03/25 History Furosemide [Lasix] 80 mg PO DAILY 07/07/20 02/03/25 History Fluticasone/Vilanterol [Breo 1 puff INHALATION RT-DAILY PRN 08/12/22 02/04/25 History Ellipta 100-25 Mcg Inhaler] Losartan Potassium [Cozaar] 12.5 mg PO DAILY 08/12/22 02/03/25 History Warfarin [Coumadin] 1 mg PO WESA@2100 08/12/22 02/03/25 History Warfarin [Coumadin] 2 mg PO SUMOTUTHFR@2100 08/12/22 02/03/25 History Cetirizine HCl [Zyrtec] 10 mg PO HS 02/03/25 02/03/25 History Dapagliflozin Propanediol [Farxiga] 5 mg PO DAILY 02/03/25 02/03/25 History Meloxicam [Mobic] 15 mg PO DAILY 02/03/25 02/03/25 History Metoprolol Succinate (ER) [Toprol 50 mg PO HS 02/03/25 02/03/25 History Xl] Metoprolol Succinate (ER) [Toprol 75 mg PO DAILY 02/03/25 02/03/25 History Xl] QUEtiapine [SEROquel] 100 mg PO HS 02/03/25 02/03/25 History Rosuvastatin [Crestor] 20 mg PO DAILY 02/03/25 02/03/25 History Semaglutide [Ozempic] 2 mg SQ العراقي@2100 02/03/25 02/03/25 History Vortioxetine Hydrobromide 20 mg PO DAILY 02/03/25 02/03/25 History [Trintellix] metFORMIN HCL [Glucophage] 500 mg PO DAILY 02/03/25 02/03/25 History rOPINIRole HCL [Requip] 1 mg PO HS 02/03/25 02/03/25 History Allergies Allergy/AdvReac Type Severity Reaction Status Date / Time meperidine HCl [From Demerol] AdvReac Nausea & Verified 02/03/25 11:27 Vomiting Physical Exam Vitals: Vital Signs Temp Pulse Pulse Resp BP BP Pulse Ox 02/04/25 08:00 67 18 02/04/25 07:55 67 18 123/72 95 02/04/25 03:04 97.5 F L 66 16 116/82 95 02/03/25 23:37 98.3 F 114 H 16 113/82 95 02/03/25 19:36 97.6 F 81 16 135/87 95 02/03/25 16:00 97.8 F 113 H 16 110/67 95 02/03/25 15:11 102 H 18 133/94 98 02/03/25 14:35 107 H 18 136/66 98 02/03/25 12:00 97.6 F 111 H 18 103/95 96 02/03/25 10:51 117 H 18 105/73 96 02/03/25 10:38 97.4 F L 123 H 20 123/90 100 02/03/25 10:23 97.2 F L 114 H 22 123/105 100 02/03/25 10:08 97.5 F L 102 H 20 128/98 100 Intake and Output 02/03/25 02/04/25 02/04/25 22:59 06:59 14:59 Intake Total 240 Balance 240 Intake: Oral 240 Other: Voiding Method Toilet Toilet Toilet # Voids 1 Weight 87.5 kg Results 02/04/25 06:01 02/04/25 06:01 Coagulation 02/04/25 Range/Units 06:01 PT 20.9 H (10.0-12.5) sec CBC 02/04/25 Range/Units 06:01 WBC 13.73 H (4.50-10.00) 10*3/uL RBC 5.63 H (4.10-5.20) 10*6/uL Hgb 13.8 (12.0-15.0) g/dL Hct 45.5 (37.2-46.3) % Plt Count 341 (140-440) 10*3/uL Comprehensive Metabolic Panel 02/04/25 Range/Units 06:01 Sodium 139 (137-145) mmol/L Potassium 5.8 H (3.5-5.1) mmol/L Chloride 105 (98-107) mmol/L Carbon Dioxide 18 L (22-30) mmol/L BUN 26 H (7-17) mg/dL Creatinine 1.04 (0.52-1.04) mg/dL Glucose 165 H (74-99) mg/dL Calcium 10.1 (8.4-10.2) mg/dL Current Medications Generic Name Dose Route Start Last Admin Trade Name Freq PRN Reason Stop Dose Admin Allopurinol 100 mg 02/04/25 09:00 02/04/25 07:59 Allopurinol 100 Mg Tab PO 100 mg DAILY CHEMO Administration Atorvastatin Calcium 40 mg 02/04/25 09:00 02/04/25 07:59 Atorvastatin 40 Mg Tab PO 40 mg DAILY CHEMO Administration Budesonide/Formoterol Fumarate 2 puff 02/03/25 12:15 Symbicort 80-4.5 Mcg Inhaler INHALATION RT-BID PRN Shortness Of Breath Dapagliflozin 5 mg 02/04/25 09:00 02/04/25 07:59 Dapagliflozin Propanediol 5 Mg Tablet PO 5 mg DAILY CHEMO Administration Dextrose/Water 25 ml 02/03/25 13:01 Dextrose 50% Syringe 50 Ml IVP PER PROTOCOL PRN Hypoglycemia Protocol Dextrose/Water 50 ml 02/03/25 13:01 Dextrose 50% Syringe 50 Ml IVP PER PROTOCOL PRN Hypoglycemia Protocol Furosemide 80 mg 02/04/25 09:00 02/04/25 07:59 Furosemide 40 Mg Tab PO 80 mg DAILY CHEMO Administration Amiodarone HCl 450 mg/ 250 mls @ 16.667 mls/hr 02/03/25 17:00 02/04/25 08:28 Dextrose/Water IV 02/04/25 10:59 Not Given .Q15H CHEMO Protocol 0.5 MG/MIN Ceftriaxone Sodium 1 gm/ 50 mls @ 100 mls/hr 02/03/25 14:00 02/03/25 14:17 Sodium Chloride IVPB 100 mls/hr Q24H CHEMO Administration Protocol Insulin Human Lispro 0 unit 02/03/25 17:30 02/04/25 06:13 Insulin Lispro (Humalog) 100 Unit/Ml 10 Ml Vl SQ 1 unit ACHS CHEMO Administration Protocol Losartan Potassium 12.5 mg 02/04/25 09:00 02/04/25 07:58 Losartan 25 Mg Tab PO 12.5 mg DAILY CHEMO Administration Metoprolol Succinate 50 mg 02/03/25 21:00 02/03/25 20:30 Metoprolol Succinate (Er) 50 Mg Tab.Er.24h PO 50 mg HS CHEMO Administration Metoprolol Succinate 75 mg 02/04/25 09:00 02/04/25 07:58 Metoprolol Succinate (Er) 25 Mg Tab.Er.24h PO 75 mg DAILY CHEMO Administration Miscellaneous Information 1 each 02/03/25 16:55 Warfarin Per Pharmacy MISCELLANE DIRECTED PRN Per Protocol Protocol Montelukast Sodium 10 mg 02/03/25 21:00 02/03/25 20:30 Montelukast 10 Mg Tab PO 10 mg HS CHEMO Administration Pantoprazole Sodium 40 mg 02/04/25 09:00 02/04/25 07:59 Pantoprazole 40 Mg Tablet PO 40 mg DAILY CHEMO Administration Ropinirole HCl 1 mg 02/03/25 21:00 02/03/25 20:30 Ropinirole Hcl 1 Mg Tab PO 1 mg HS CHEMO Administration Warfarin Sodium 2 mg 02/04/25 21:00 Warfarin 2 Mg Tab PO 02/04/25 21:01 ONCE@2100 ONE Intake and Output 02/03/25 02/04/25 02/04/25 22:59 06:59 14:59 Intake Total 240 Balance 240 Intake: Oral 240 Other: Voiding Method Toilet Toilet Toilet # Voids 1 Weight 87.5 kg 02/04/25 06:01 02/04/25 06:01
--- NOTE | 2025-02-04 15:18 | P.PN ---
Subjective Progress Note Date: 02/04/25 I am seeing the patient for the first time during this hospital visit. Please refer to Dr. Medina's note for further details. It seems that yesterday she woke up with left facial droop, slurring of the speech according to the daughter who is at bedside. She did have a old stroke in 1998. She does have a history of A-fib and she is on Coumadin and her INR was 1.9. Patient has left facial droop, dysarthria. She does have underlying history of resting tremor over the right upper extremity and she stated that she was evaluated as an outpatient by her primary care and she had a test and was told she does not have Parkinson's. Her tremor is worse over the right upper extremity. Objective - Vital Signs Vital signs: Vital Signs Temp 97.5 F L 02/04/25 03:04 Pulse 67 02/04/25 12:23 Resp 18 02/04/25 12:23 BP 123/72 02/04/25 07:55 Pulse Ox 95 02/04/25 07:55 FiO2 Intake & Output 02/03/25 02/04/25 02/04/25 18:59 06:59 18:59 Intake Total 240 Balance 240 Weight 95.254 kg 87.5 kg Intake: Oral 240 Other: Voiding Method Toilet Toilet Toilet # Voids 1 - Exam General: Sitting in a recliner chair and is not in acute distress. Neuro: The patient is awake alert oriented to self place and time. Is following simple commands. No aphasia Pupils are round about 3 mm and reactive to light. Visual brock are full to confrontation. Extraocular moods intact no nystagmus. Patient has left lower facial droop. Patient does not have dysarthria that is moderate in severity. Motor the strength is 5 out of 5 throughout. Does have resting tremor over the right upper extremity Sensation is normal to touch. - Labs CBC & Chem 7: 02/04/25 06:01 02/04/25 06:01 Labs: Abnormal Lab Results - Last 24 Hours (Table) 02/03/25 02/03/25 02/04/25 Range/Units 09:27 20:16 05:58 WBC (4.50-10.00) 10*3/uL RBC (4.10-5.20) 10*6/uL MCH (27.0-32.0) pg MCHC (32.0-37.0) g/dL Immature Gran # (0.00-0.04) 10*3/uL Neutrophils # (1.80-7.70) 10*3/uL Eosinophils # (0.04-0.35) 10*3/uL PT (10.0-12.5) sec INR (<1.2) Potassium (3.5-5.1) mmol/L Carbon Dioxide (22-30) mmol/L BUN (7-17) mg/dL Glucose (74-99) mg/dL POC Glucose (mg/dL) 287 H 180 H (70-110) mg/dL Hemoglobin A1c 7.9 H (<=6.0) % 02/04/25 02/04/25 02/04/25 Range/Units 06:01 06:01 06:01 WBC 13.73 H (4.50-10.00) 10*3/uL RBC 5.63 H (4.10-5.20) 10*6/uL MCH 24.5 L (27.0-32.0) pg MCHC 30.3 L (32.0-37.0) g/dL Immature Gran # 0.11 H (0.00-0.04) 10*3/uL Neutrophils # 11.40 H (1.80-7.70) 10*3/uL Eosinophils # 0.00 L (0.04-0.35) 10*3/uL PT 20.9 H (10.0-12.5) sec INR 2.1 H (<1.2) Potassium 5.8 H (3.5-5.1) mmol/L Carbon Dioxide 18 L (22-30) mmol/L BUN 26 H (7-17) mg/dL Glucose 165 H (74-99) mg/dL POC Glucose (mg/dL) (70-110) mg/dL Hemoglobin A1c (<=6.0) % 02/04/25 Range/Units 11:46 WBC (4.50-10.00) 10*3/uL RBC (4.10-5.20) 10*6/uL MCH (27.0-32.0) pg MCHC (32.0-37.0) g/dL Immature Gran # (0.00-0.04) 10*3/uL Neutrophils # (1.80-7.70) 10*3/uL Eosinophils # (0.04-0.35) 10*3/uL PT (10.0-12.5) sec INR (<1.2) Potassium (3.5-5.1) mmol/L Carbon Dioxide (22-30) mmol/L BUN (7-17) mg/dL Glucose (74-99) mg/dL POC Glucose (mg/dL) 215 H (70-110) mg/dL Hemoglobin A1c (<=6.0) % Assessment and Plan Assessment: * Likely acute ischemic stroke with dysarthria, left facial weakness. Patient's examination shows very mild right pronator drift. NIH stroke scale 4. Acute stroke, likely from cardioembolism from slight subtherapeutic INR 1.9. * Atrial fibrillation with rapid ventricular rate * Diabetes * Hypertension * Likely Parkisnon's disease * Hyperlipidemia * Ex tobacco use * History of CVA with no residual deficits. * Abnormal UA, rule out UTI Plan: MRI of the brain without contrast, evaluate for acute CVA but patient is refusing since she states she cannot lay still for it. Therefore, will get repeat CT head. Pending 2-D echo with bubble study to rule out PFO CTA head and neck showed: No significant abnormality. No stenosis, occlusion, aneurysm or vascular malformation. Fasting a.m. lipid panel Hemoglobin A1c: 7.9 Permissive hypertension for next 24 hours Patient has received aspirin 325 mg at home today. Per Dr. Medina, resume Coumadin, to target INR between 2.0-3.0 and hold on Coumadin if any signs of hemorrhage, or very large CVA noted on the MRI. Cardiology is on board and they are considering changing of Coumadin to Eliquis. Neuro checks every 2 hours. Telemetry monitoring rule out any arrhythmia PT, OT, speech therapy I think patient has Parkison's disease and I will give her a trial of Sinemet 25-100mg 1 tab tid. DVT prophylaxis: Patient on Coumadin The plan is discussed with patient and her daughter who is at bedside. Time with Patient: Less than 30
[2025-02-04] MEDS: LORazepam 1 MG/0.5 ML VIAL IV STA (15:25)
[2025-02-04 15:48] LABS: Chol/HDL Ratio 2.54 Ratio; LDL Cholesterol,Calculated 55.5 mg/dL (0.0-131.0); VLDL Calculation 15.36 mg/dL (5.00-40.00)
[2025-02-04 16:13] LABS: Glucose,Whole Blood 131 mg/dL (70-110)
--- NOTE | 2025-02-04 16:32 | MR ---
EXAMINATION TYPE: MR brain wo con DATE OF EXAM: 02/04/2025 4:02 PM COMPARISON: 09/14/2019. CT 02/03/2025 CLINICAL INDICATION: Female, 69 years old with history of CVA weakness; PHH, CVA, weakness TECHNIQUE: Multi planar, multi sequence imaging was performed through the brain including: T1, T2, In version recovery, Diffusion weighted imaging, and gradient echo imaging. No gadolinium was given. FINDINGS: Restricted diffusion within the right frontal lobe cortex and right frontal lobe mackay rad iata with associated high FLAIR signal. No associated blooming artifact on susceptibility weighted im aging. The lynn-white junctions, ventricular system, basal cisterns appear unremarkable. Scattered foci of high T2 signal intensity are seen within the periventricular white matter. Midline structures show no abnormality. The susceptibility weighted images do not reveal any evidence for micro-hemorrh age. The bone marrow signal is within normal limits. Paranasal sinuses and mastoid air cells: No significant paranasal sinus disease. Visualized orbits: Orbital contents are intact. IMPRESSION: 1. Acute/subacute CVA involving the right posterior lateral frontal lobe cortex and deep white matter . 2. Nonspecific white matter changes, likely secondary to small vessel ischemic disease. [facility], , 02/04/2025 4:30 PM
[2025-02-04] MEDS: CARBIDOPA-LEVODOPA 25-100 MG 1 EACH TAB PO SCH (17:11)
[2025-02-04 20:14] LABS: Glucose,Whole Blood 156 mg/dL (70-110)
[2025-02-04] MEDS: METOPROLOL TARTRATE 50 MG TAB PO SCH (21:00)
[2025-02-04] MEDS: WARFARIN 2 MG TAB PO ONE (21:01)
[2025-02-04] MEDS: INSULIN REGULAR 100 UNIT/ML VIAL (IV) IV ONE (21:01)
[2025-02-04] MEDS: DEXTROSE 50% SYRINGE 50 ML IVP STA (21:02)
--- NOTE | 2025-02-04 22:47 | P.PN ---
Subjective Progress Note Date: 02/04/25 Patient is a 69-year-old female with a known history of paroxysmal atrial fibrillation on anticoagulation with Coumadin,, cardioversion, ablation, history of CVA/TIA 24 years ago with no residual defects, hypertension, hyperemia, diabetes type 2 on Ozempic, osteoarthritis, depression and prior history of smoking. Patient was brought to ER due to complaints of slurred speech and difficulty in breathing. According to her daughter at bedside patient woke up around 8:30 AM and presented to dining table and was noticed by family that she has been having slurred speech and also difficulty in breathing. Patient was also drooling towards the left side. Her her left side of the face looks a flat. EMS was called and patient was brought to ER. Otherwise patient denied any complaints of chest pain. No cough or sputum production. No fever no chills. Denied any recent illnesses. CT head showed no acute bleed or mass effect. Mildly age-appropriate senescent changes. CTA head and neck showed no significant stenosis. Chest x-ray showed mild to moderate acute cardiopulmonary disease most consisten t with CHF. EKG showed atrial fibrillation with rapid ventricular rate. Laboratory data showed WBC 12.7 hemoglobin 14.3 and platelets 326 sodium 139 potassium 5.1 chloride 106 bicarb is 20 BUN 20 and creatinine 1.1 and blood sugar 182 and INR 1.9 proBNP 2300., Alk phos 131 Urinalysis showed cloudy with increased with severity 4+ glucose large leukocyte esterase with elevated RBCs and WBCs and also squamous epithelial cells. Influenza A B RSV and COVID-19 PCR not detected. 02/04/2025 Patient is awake correctly oriented. No complaints of chest pain or shortness of breath. Left facial droop and dysarthria improved compared to yesterday. No complaints of nausea or vomiting. Patient has been afebrile. INR is therapeutic at 2.1 today. Laboratory showed WBC 13.7 hemoglobin 13.8 and platelets 341 sodium 139 potassium 5.8 chloride 105 bicarb is 18 BUN 26 and creatinine 1.04 and blood sugar 165. Patient is on antibiotics in the form of ceftriaxone for UTI. Metoprolol dose increased to 100 twice daily. Amiodarone drip has been discontinued. Patient is scheduled for MRI today afternoon Cardiology and neurology is on board. Objective - Vital Signs Vital signs: Vital Signs Temp 97.5 F L 02/04/25 03:04 Pulse 73 02/04/25 16:00 Resp 18 02/04/25 16:00 BP 111/75 02/04/25 16:00 Pulse Ox 97 02/04/25 16:00 FiO2 Intake & Output 02/04/25 02/04/25 02/05/25 06:59 18:59 06:59 Intake Total 240 Balance 240 Weight 87.5 kg Intake: Oral 240 Other: Voiding Method Toilet Toilet # Voids 1 - Exam PHYSICAL EXAMINATION: Patient is sitting on the side of the bed. y, no acute distress, awake alert and oriented x 2.. HEENT: Normocephalic. Neck is supple. Pupils reactive. Nostrils clear. Oral cavity is moist. Neck reveals no JVD, carotid bruits, or thyromegaly. CHEST EXAMINATION: Trachea is central. Symmetrical expansion. Lung brock clear to auscultation and percussion. CARDIAC: Normal S1, S2 with no gallops. No murmurs, irregular rhythm. ABDOMEN: Soft. Bowel sounds normal. No organomegaly. No abdominal bruits. Extremities: reveal no edema. No clubbing or cyanosis Neurologically awake, alert, oriented x x 2 able to move all extremities. Left- sided facial weakness and dysarthria. Skin: No rash or skin lesions. Psychiatric: Coperative. Could not be assessed completely Musculoskeletal: No joint swelling or deformity. - Labs CBC & Chem 7: 02/04/25 06:01 02/04/25 06:01 Labs: Abnormal Lab Results - Last 24 Hours (Table) 02/03/25 02/03/25 02/04/25 Range/Units 09:27 20:16 05:58 WBC (4.50-10.00) 10*3/uL RBC (4.10-5.20) 10*6/uL MCH (27.0-32.0) pg MCHC (32.0-37.0) g/dL Immature Gran # (0.00-0.04) 10*3/uL Neutrophils # (1.80-7.70) 10*3/uL Eosinophils # (0.04-0.35) 10*3/uL PT (10.0-12.5) sec INR (<1.2) Potassium (3.5-5.1) mmol/L Carbon Dioxide (22-30) mmol/L BUN (7-17) mg/dL Glucose (74-99) mg/dL POC Glucose (mg/dL) 287 H 180 H (70-110) mg/dL Hemoglobin A1c 7.9 H (<=6.0) % 02/04/25 02/04/25 02/04/25 Range/Units 06:01 06:01 06:01 WBC 13.73 H (4.50-10.00) 10*3/uL RBC 5.63 H (4.10-5.20) 10*6/uL MCH 24.5 L (27.0-32.0) pg MCHC 30.3 L (32.0-37.0) g/dL Immature Gran # 0.11 H (0.00-0.04) 10*3/uL Neutrophils # 11.40 H (1.80-7.70) 10*3/uL Eosinophils # 0.00 L (0.04-0.35) 10*3/uL PT 20.9 H (10.0-12.5) sec INR 2.1 H (<1.2) Potassium 5.8 H (3.5-5.1) mmol/L Carbon Dioxide 18 L (22-30) mmol/L BUN 26 H (7-17) mg/dL Glucose 165 H (74-99) mg/dL POC Glucose (mg/dL) (70-110) mg/dL Hemoglobin A1c (<=6.0) % 02/04/25 02/04/25 Range/Units 11:46 16:09 WBC (4.50-10.00) 10*3/uL RBC (4.10-5.20) 10*6/uL MCH (27.0-32.0) pg MCHC (32.0-37.0) g/dL Immature Gran # (0.00-0.04) 10*3/uL Neutrophils # (1.80-7.70) 10*3/uL Eosinophils # (0.04-0.35) 10*3/uL PT (10.0-12.5) sec INR (<1.2) Potassium (3.5-5.1) mmol/L Carbon Dioxide (22-30) mmol/L BUN (7-17) mg/dL Glucose (74-99) mg/dL POC Glucose (mg/dL) 215 H 131 H (70-110) mg/dL Hemoglobin A1c (<=6.0) % Assessment and Plan Assessment: Acute cerebrovascular accident with slurred speech and left facial weakness. Atrial fibrillation with rapid ventricular rate. Patient is on anticoagulation with Coumadin. INR subtherapeutic at 1.9 Prior history of ablation and ARTEMIO/cardioversion Diabetes type 2 on Ozempic. Hyperglycemia uncontrolled. A1c 7.9 Acute urinary tract infection Hypertension Hyperlipidemia Osteoarthritis History of CVA/TIA in 1998 with no residual defects Depression Prior history of smoking Asthma/COPD GI prophylaxis with Pepcid. Patient is already anticoagulated with Coumadin Coumadin dosing. Plan: Patient will be continued on telemonitoring. Patient was started on amiodarone drip due to A-fib with RVR. Amiodarone drip has been discontinued. Metoprolol dose was increased to 100 twice daily. Continue with Coumadin dosing. Continue with neurochecks. MRI of the brain was ordered as per neurology r ecommendations. 2D echocardiogram to rule out PFO. Continue with ceftriaxone follow-up urine culture report. PT OT consulted. A1c 7.9., Repeat CBC and BMP tomorrow. Cardiology and neurology is on board. Prognosis guarded. Discussed with her daughter at bedside. Time with Patient: Greater than 30
[2025-02-05 06:05] LABS: Glucose,Whole Blood 103 mg/dL (70-110)
[2025-02-05 07:46] LABS: Basophils # (A) 0.05 10*3/uL (0.00-0.10); Basophils % (A) 0.4 %; Eosinophils # (A) 0.11 10*3/uL (0.04-0.35); Eosinophils % (A) 0.9 %; HCT 41.1 % (37.2-46.3); HGB 12.7 g/dL (12.0-15.0); Lymphocytes # (A) 1.62 10*3/uL (0.90-5.00); Lymphocytes % (A) 13.6 %; MCH 24.4 pg (27.0-32.0); MCHC 30.9 g/dL (32.0-37.0); Mean Platelet Volume 10.4 fL (9.5-12.2); Monocytes # (A) 0.87 10*3/uL (0.20-1.00); Monocytes % (A) 7.3 %; Neutrophils % (A) 77.3 %; Platelet Count 327 10*3/uL (140-440); RDW 18.9 % (11.5-14.5); WBC 11.91 10*3/uL (4.50-10.00)
[2025-02-05 08:02] LABS: INR 2.4 (<1.2); Prothrombin Time 23.6 sec (10.0-12.5)
[2025-02-05 08:08] LABS: African American GFR (CKD) 49 (>60 ml/min/1.73 sqM); Anion Gap 13 mmol/L; Blood Urea Nitrogen 29 mg/dL (7-17); Calcium 9.3 mg/dL (8.4-10.2); Carbon Dioxide 25 mmol/L (22-30); Chloride 103 mmol/L (98-107); Glucose 103 mg/dL (74-99); Non-African American GFR(CKD) 42 (>60 ml/min/1.73 sqM); Potassium 4.7 mmol/L (3.5-5.1); Sodium 141 mmol/L (137-145)
[2025-02-05 12:02] LABS: Glucose,Whole Blood 213 mg/dL (70-110)
--- NOTE | 2025-02-05 12:17 | P.PN ---
Subjective Progress Note Date: 02/05/25 I am following up with the patient and she feels today she is doing better. She is accompanied with her daughter and a daughter feels her swallowing is better today compared to yesterday. Also she was started on Sinemet and she feels her tremor over the right upper extremity is better today compared to yesterday and the daughter is in agreement. Objective - Vital Signs Vital signs: Vital Signs Temp 97.4 F L 02/05/25 12:09 Pulse 77 02/05/25 12:09 Resp 17 02/05/25 12:09 BP 110/73 02/05/25 12:09 Pulse Ox 96 02/05/25 12:09 FiO2 Intake & Output 02/04/25 02/05/25 02/05/25 18:59 06:59 18:59 Weight 85.1 kg Other: Voiding Method Toilet Toilet Toilet - Exam General: Sitting in a recliner chair and is not in acute distress. Neuro: The patient is awake alert oriented to self place and time. Is following simple commands. No aphasia Pupils are round about 3 mm and reactive to light. Visual brock are full to confrontation. Extraocular moods intact no nystagmus. Patient has left lower facial droop. Patient does not have dysarthria that is moderate in severity. Motor the strength is 5 out of 5 throughout. Does have resting tremor over the right upper extremity today it better compared to yesterday. Sensation is normal to touch. - Labs CBC & Chem 7: 02/05/25 06:34 02/05/25 06:34 Labs: Abnormal Lab Results - Last 24 Hours (Table) 02/04/25 02/04/25 02/05/25 Range/Units 16:09 20:13 06:34 WBC (4.50-10.00) 10*3/uL MCV (80.0-97.0) fL MCH (27.0-32.0) pg MCHC (32.0-37.0) g/dL Immature Gran # (0.00-0.04) 10*3/uL Neutrophils # (1.80-7.70) 10*3/uL PT 23.6 H (10.0-12.5) sec INR 2.4 H (<1.2) BUN (7-17) mg/dL Creatinine (0.52-1.04) mg/dL Glucose (74-99) mg/dL POC Glucose (mg/dL) 131 H 156 H (70-110) mg/dL 02/05/25 02/05/25 02/05/25 Range/Units 06:34 06:34 12:00 WBC 11.91 H (4.50-10.00) 10*3/uL MCV 79.0 L (80.0-97.0) fL MCH 24.4 L (27.0-32.0) pg MCHC 30.9 L (32.0-37.0) g/dL Immature Gran # 0.06 H (0.00-0.04) 10*3/uL Neutrophils # 9.20 H (1.80-7.70) 10*3/uL PT (10.0-12.5) sec INR (<1.2) BUN 29 H (7-17) mg/dL Creatinine 1.30 H (0.52-1.04) mg/dL Glucose 103 H (74-99) mg/dL POC Glucose (mg/dL) 213 H (70-110) mg/dL Assessment and Plan Assessment: * Acute ischemic stroke (right frontal on MRI) with dysarthria, left facial weakness. Patient's examination shows very mild right pronator drift--improved. NIH stroke scale 4. Acute stroke, likely from cardioembolism from slight subtherapeutic INR 1.9. 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 * Abnormal UA, rule out UTI Plan: MRI of the brain: Acute/subacute CVA involving the right posterior lateral frontal lobe cortex and deep white matter. Patient reviewed the MRI and I feel it is over the as stated above in the frontal seems over primary motor cortex No need for repeat CAT scan since the patient already had the MRI yesterday. Pending 2-D echo with bubble study to rule out PFO CTA head and neck showed: No significant abnormality. No stenosis, occlusion, aneurysm or vascular malformation. Fasting a.m. lipid panel Hemoglobin A1c: 7.9 Permissive hypertension for next 24 hours Patient has received aspirin 325 mg at home today. Per Dr. Medina, resume Coumadin, to target INR between 2.0-3.0 and hold on Coumadin if any signs of hemorrhage, or very large CVA noted on the MRI. Cardiology is on board and they are considering changing of Coumadin to Eliquis. Neuro checks every 2 hours. Telemetry monitoring rule out any arrhythmia PT, OT, speech therapy Continue Sinemet 25-100mg 1 tab tid and patient is having improvement. If continues to have tremors will consider modifying medication tomorrow. DVT prophylaxis: Patient on Coumadin The plan is discussed with patient and her daughter who is at bedside. Time with Patient: Less than 30
--- NOTE | 2025-02-05 14:24 | P.PN ---
Subjective Progress Note Date: 02/05/25 Reason for Consult (text): Chronic A-fib with RVR History of present illness: This is a 69-year-old female patient of Dr. Lopez with past medical history of atrial fibrillation on Coumadin status post multiple atrial fibrillation ablations in the past along with an atrial flutter ablation. When patient was last seen in the office in 01/09/2025. Patient was in his normal sinus rhythm. In the past she has failed flecainide and failed Multaq. Patient also has a past medical history of hyperlipidemia, COPD, diabetes, hypertension, remote history of tobacco use. We have been asked to evaluate the patient for A-fib with RVR. Patient presented to the hospital due to face numbness, slurred speech and left facial droop. Onset of symptoms were last evening. Patient has been seen by neurology has been worked up for CVA. She is scheduled for MRI of the brain today. Blood pressure 123/72, heart rate 67, pulse ox 95% on room air. Patient has been started on amiodarone drip. Although, patient remains in atrial fibrillation with controlled heart rate, she was in atrial fibrillation at 148 bpm during the night. Patient states that she still has facial numbness. She states her speech is a little bit better and she has difficulty finding her words intermittently. -EKG: Atrial fibrillation 98 bpm, right bundle branch block, atrial fibrillation 144 bpm. -Chest x-ray: Mild to moderate acute cardiopulmonary disease most consistent with CHF. -CT brain: No acute bleed or mass effect. -CTA head and neck revealed no significant abnormality. -Echocardiogram performed 02/04/2025 revealed moderately impaired left ventricular systolic function with global hypokinesis, EF 40 to 45%, dilated right ventricle with global hypokinesis and severe pulmonary hypertension. Moderate mitral regurgitation with moderate severe mitral stenosis. Mild aortic intra cuspid regurgitation. No evidence of shunting by contrast on the bubble study. -Laboratory studies: INR initially 1.9 repeat 2.1, WBC 13.7, hemoglobin 13.8, potassium 5.8, BUN 26 creatinine 1.04. A1c 7.9. Alkaline phosphatase 131. CK 59, proBNP 2300. Urinalysis contaminated. Cepheid viral panel not detected. -Home cardiac medications: Farxiga 5 mg daily, Lasix 80 mg daily, losartan 12.5 mg daily, metoprolol succinate 75 mg in the morning and 50 mg in the evening, Crestor 20 mg daily, Coumadin 1 mg Tuesday and 2 mg the other days. -Lexiscan Cardiolite stress test performed in the office on 12/21/2024 revealed inconclusive EKG part of the stress test due to baseline EKG abnormalities. Probably normal myocardial perfusion and function. -Holter monitor performed 12/21 - 12/28/2024: Atrial fibrillation. Heart rates running between 60 and 174 beats a minute with average at 96, 3 pauses. Atrial fibrillation or flutter burden was 100%. 02/05 Patient seen and examined. Today INR is 2.4. Her heart rate is controlled. Amiodarone drip was completed yesterday. Plan to stop Coumadin tonight and start Eliquis with possible heparin bridging tomorrow. Heart rate is in the 70s, blood pressure 110/63, pulse ox 96% on room air. Repeat blood work reveals WBC 11.9, BUN 29 creatinine 1.3. MRI of the brain completed yesterday did not show any acute/subacute CVA involving the right posterior lateral frontal lobe cortex and deep white matter. Nonspecific white matter changes. Physical examination: Gen: This is a 69-year-old female in no acute distress. VS: reviewed HEENT: Head is atraumatic, normocephalic. Pupils equal, round. Sclerae is anicteric. NECK: Supple. No JVD. LUNGS: Clear to auscultation. No wheezes or rhonchi. No intercostal retractions. HEART: Irregular rate and rhythm. No murmur. ABDOMEN: Soft No tenderness. EXTREMITIES: No pedal edema. No calf tenderness. NEUROLOGICAL: Patient is awake, alert and oriented x3. Assessment: Acute ischemic CVA presenting with slurred speech, left facial droop and facial numbness Paroxysmal atrial fibrillation presenting with RVR, currently rate controlled Cardiomyopathy with EF 40 to 45% most likely tachycardic related, previous EF 55% in the office on 01/02 Hyperlipidemia COPD Diabetes with A1c 7.9 Hypertension Remote history of tobacco use Plan: Continue patient's home cardiac medications with the following changes Continue metoprolol tartrate 100 mg twice daily Hold Coumadin tonight and plan to start Eliquis tomorrow Further recommendations to follow based upon clinical course Nurse practitioner note has been reviewed, I agree with documented findings and plan of care. Patient was seen and examined. Objective - Vital Signs Vital signs: Vital Signs Temp 97.4 F L 02/05/25 07:10 Pulse 75 02/05/25 07:10 Resp 18 02/05/25 08:39 BP 112/73 02/05/25 07:10 Pulse Ox 98 02/05/25 07:10 FiO2 Intake & Output 02/04/25 02/05/25 02/05/25 18:59 06:59 18:59 Weight 85.1 kg Other: Voiding Method Toilet Toilet Toilet - Labs CBC & Chem 7: 02/05/25 06:34 02/05/25 06:34 Labs: Abnormal Lab Results - Last 24 Hours (Table) 02/04/25 02/04/25 02/04/25 Range/Units 11:46 16:09 20:13 WBC (4.50-10.00) 10*3/uL MCV (80.0-97.0) fL MCH (27.0-32.0) pg MCHC (32.0-37.0) g/dL Immature Gran # (0.00-0.04) 10*3/uL Neutrophils # (1.80-7.70) 10*3/uL PT (10.0-12.5) sec INR (<1.2) BUN (7-17) mg/dL Creatinine (0.52-1.04) mg/dL Glucose (74-99) mg/dL POC Glucose (mg/dL) 215 H 131 H 156 H (70-110) mg/dL 02/05/25 02/05/25 02/05/25 Range/Units 06:34 06:34 06:34 WBC 11.91 H (4.50-10.00) 10*3/uL MCV 79.0 L (80.0-97.0) fL MCH 24.4 L (27.0-32.0) pg MCHC 30.9 L (32.0-37.0) g/dL Immature Gran # 0.06 H (0.00-0.04) 10*3/uL Neutrophils # 9.20 H (1.80-7.70) 10*3/uL PT 23.6 H (10.0-12.5) sec INR 2.4 H (<1.2) BUN 29 H (7-17) mg/dL Creatinine 1.30 H (0.52-1.04) mg/dL Glucose 103 H (74-99) mg/dL POC Glucose (mg/dL) (70-110) mg/dL
[2025-02-05 16:44] LABS: Glucose,Whole Blood 124 mg/dL (70-110)
[2025-02-05 20:01] LABS: Glucose,Whole Blood 226 mg/dL (70-110)
--- NOTE | 2025-02-05 23:17 | P.PN ---
Subjective Progress Note Date: 02/05/25 Patient is a 69-year-old female with a known history of paroxysmal atrial fibrillation on anticoagulation with Coumadin,, cardioversion, ablation, history of CVA/TIA 24 years ago with no residual defects, hypertension, hyperemia, diabetes type 2 on Ozempic, osteoarthritis, depression and prior history of smoking. Patient was brought to ER due to complaints of slurred speech and difficulty in breathing. According to her daughter at bedside patient woke up around 8:30 AM and presented to dining table and was noticed by family that she has been having slurred speech and also difficulty in breathing. Patient was also drooling towards the left side. Her her left side of the face looks a flat. EMS was called and patient was brought to ER. Otherwise patient denied any complaints of chest pain. No cough or sputum production. No fever no chills. Denied any recent illnesses. CT head showed no acute bleed or mass effect. Mildly age-appropriate senescent changes. CTA head and neck showed no significant stenosis. Chest x-ray showed mild to moderate acute cardiopulmonary disease most consisten t with CHF. EKG showed atrial fibrillation with rapid ventricular rate. Laboratory data showed WBC 12.7 hemoglobin 14.3 and platelets 326 sodium 139 potassium 5.1 chloride 106 bicarb is 20 BUN 20 and creatinine 1.1 and blood sugar 182 and INR 1.9 proBNP 2300., Alk phos 131 Urinalysis showed cloudy with increased with severity 4+ glucose large leukocyte esterase with elevated RBCs and WBCs and also squamous epithelial cells. Influenza A B RSV and COVID-19 PCR not detected. 02/04/2025 Patient is awake correctly oriented. No complaints of chest pain or shortness of breath. Left facial droop and dysarthria improved compared to yesterday. No complaints of nausea or vomiting. Patient has been afebrile. INR is therapeutic at 2.1 today. Laboratory showed WBC 13.7 hemoglobin 13.8 and platelets 341 sodium 139 potassium 5.8 chloride 105 bicarb is 18 BUN 26 and creatinine 1.04 and blood sugar 165. Patient is on antibiotics in the form of ceftriaxone for UTI. Metoprolol dose increased to 100 twice daily. Amiodarone drip has been discontinued. Patient is scheduled for MRI today afternoon Cardiology and neurology is on board. 02/05/2025 Patient is sitting on the side of the bed. Awake alert and oriented. No complaints of chest pain or shortness of breath. Patient able to swallow without any difficulty. Still having left side facial weakness. Speech is improving. No complaints of chest pain or shortness of breath. No nausea vomiting abdominal pain or diarrhea. INR 2.4. Cardiology is planning to change anticoagulation to Eliquis starting tomorrow. MRI of the brain showed acute/subacute CVA involving the right posterior lateral frontal lobe cortex and deep white matter. Nonspecific white matter changes, likely secondary to small vessel ischemic disease. Current medications reviewed Objective - Vital Signs Vital signs: Vital Signs Temp 97.7 F 02/05/25 19:38 Pulse 97 02/05/25 19:38 Resp 17 02/05/25 19:38 BP 122/75 02/05/25 19:38 Pulse Ox 97 02/05/25 19:38 FiO2 Intake & Output 02/05/25 02/05/25 02/06/25 06:59 18:59 06:59 Weight 85.1 kg Other: Voiding Method Toilet Toilet # Voids 4 - Exam PHYSICAL EXAMINATION: Patient is sitting on the side of the bed. y, no acute distress, awake alert and oriented x 2.. HEENT: Normocephalic. Neck is supple. Pupils reactive. Nostrils clear. Oral cavity is moist. Neck reveals no JVD, carotid bruits, or thyromegaly. CHEST EXAMINATION: Trachea is central. Symmetrical expansion. Lung brock clear to auscultation and percussion. CARDIAC: Normal S1, S2 with no gallops. No murmurs, irregular rhythm. ABDOMEN: Soft. Bowel sounds normal. No organomegaly. No abdominal bruits. Extremities: reveal no edema. No clubbing or cyanosis Neurologically awake, alert, oriented x x 2 able to move all extremities. Left- sided facial weakness and dysarthria. Skin: No rash or skin lesions. Psychiatric: Coperative. Could not be assessed completely Musculoskeletal: No joint swelling or deformity. - Labs CBC & Chem 7: 02/05/25 06:34 02/05/25 06:34 Labs: Abnormal Lab Results - Last 24 Hours (Table) 02/05/25 02/05/25 02/05/25 Range/Units 06:34 06:34 06:34 WBC 11.91 H (4.50-10.00) 10*3/uL MCV 79.0 L (80.0-97.0) fL MCH 24.4 L (27.0-32.0) pg MCHC 30.9 L (32.0-37.0) g/dL Immature Gran # 0.06 H (0.00-0.04) 10*3/uL Neutrophils # 9.20 H (1.80-7.70) 10*3/uL PT 23.6 H (10.0-12.5) sec INR 2.4 H (<1.2) BUN 29 H (7-17) mg/dL Creatinine 1.30 H (0.52-1.04) mg/dL Glucose 103 H (74-99) mg/dL POC Glucose (mg/dL) (70-110) mg/dL 02/05/25 02/05/25 02/05/25 Range/Units 12:00 16:42 20:00 WBC (4.50-10.00) 10*3/uL MCV (80.0-97.0) fL MCH (27.0-32.0) pg MCHC (32.0-37.0) g/dL Immature Gran # (0.00-0.04) 10*3/uL Neutrophils # (1.80-7.70) 10*3/uL PT (10.0-12.5) sec INR (<1.2) BUN (7-17) mg/dL Creatinine (0.52-1.04) mg/dL Glucose (74-99) mg/dL POC Glucose (mg/dL) 213 H 124 H 226 H (70-110) mg/dL Assessment and Plan Assessment: Acute cerebrovascular accident with slurred speech and left facial weakness. Atrial fibrillation with rapid ventricular rate. Patient is on anticoagulation with Coumadin. INR subtherapeutic at 1.9 on admission. Prior history of ablation and ARTEMIO/cardioversion Diabetes type 2 on Ozempic. Hyperglycemia uncontrolled. A1c 7.9 Acute urinary tract infection Hypertension Hyperlipidemia Osteoarthritis History of CVA/TIA in 1998 with no residual defects Depression Prior history of smoking Asthma/COPD GI prophylaxis with Pepcid. Patient is already anticoagulated with Coumadin Coumadin dosing. Plan: Patient will be continued on telemonitoring. Patient was started on amiodarone drip due to A-fib with RVR. Amiodarone drip has been discontinued. Metoprolol dose was increased to 100 twice daily. Continue with Coumadin dosing. Planning to change to Eliquis tomorrow. Continue with neurochecks. MRI of the brain report as able.. 2D echocardiogram to ruled out PFO. Continue with ceftriaxone follow-up urine culture report. PT OT consulted. A1c 7.9., Repeat CBC and BMP tomorrow. Cardiology and neurology is on board. Prognosis guarded. Discussed with her daughter at bedside. Time with Patient: Greater than 30
[2025-02-06 06:14] LABS: Glucose,Whole Blood 114 mg/dL (70-110)
[2025-02-06 07:03] LABS: Basophils # (A) 0.07 10*3/uL (0.00-0.10); Basophils % (A) 0.7 %; Eosinophils # (A) 0.24 10*3/uL (0.04-0.35); Eosinophils % (A) 2.6 %; HCT 43.9 % (37.2-46.3); HGB 13.5 g/dL (12.0-15.0); Lymphocytes # (A) 1.71 10*3/uL (0.90-5.00); Lymphocytes % (A) 18.2 %; MCH 24.6 pg (27.0-32.0); MCHC 30.8 g/dL (32.0-37.0); Mean Platelet Volume 9.6 fL (9.5-12.2); Monocytes # (A) 0.81 10*3/uL (0.20-1.00); Monocytes % (A) 8.6 %; Neutrophils # (A) 6.53 10*3/uL (1.80-7.70); Neutrophils % (A) 69.4 %; Platelet Count 330 10*3/uL (140-440); RBC 5.49 10*6/uL (4.10-5.20); WBC 9.41 10*3/uL (4.50-10.00)
[2025-02-06 07:26] LABS: African American GFR (CKD) 57 (>60 ml/min/1.73 sqM); Anion Gap 10 mmol/L; Blood Urea Nitrogen 26 mg/dL (7-17); Calcium 9.4 mg/dL (8.4-10.2); Carbon Dioxide 29 mmol/L (22-30); Chloride 102 mmol/L (98-107); Glucose 105 mg/dL (74-99); Non-African American GFR(CKD) 50 (>60 ml/min/1.73 sqM); Potassium 4.5 mmol/L (3.5-5.1); Sodium 141 mmol/L (137-145)
[2025-02-06 10:30] LABS: INR 2.3 (<1.2); Prothrombin Time 23.1 sec (10.0-12.5)
[2025-02-06 11:44] LABS: Glucose,Whole Blood 135 mg/dL (70-110)
--- NOTE | 2025-02-06 11:56 | P.PN ---
Subjective Progress Note Date: 02/06/25 I am following-up with patient and no new neurological issues. Feels her tremor is improving but feels her medication can be increased. Objective - Vital Signs Vital signs: Vital Signs Temp 97.4 F L 02/06/25 11:25 Pulse 64 02/06/25 11:25 Resp 16 02/06/25 11:25 BP 122/86 02/06/25 11:25 Pulse Ox 99 02/06/25 11:25 FiO2 Intake & Output 02/05/25 02/06/25 02/06/25 18:59 06:59 18:59 Weight 84.1 kg Other: Voiding Method Toilet Toilet Toilet # Voids 4 - Exam General: Sitting in a recliner chair and is not in acute distress. Neuro: The patient is awake alert oriented to self place and time. Is following simple commands. No aphasia Pupils are round about 3 mm and reactive to light. Visual brock are full to confrontation. Extraocular moods intact no nystagmus. Patient has left lower facial droop. Patient does not have dysarthria that is moderate in severity. Motor the strength is 5 out of 5 throughout. Does have resting tremor over the right upper extremity today it better compared to yesterday. Sensation is normal to touch. - Labs CBC & Chem 7: 02/06/25 05:56 02/06/25 05:56 Labs: Abnormal Lab Results - Last 24 Hours (Table) 02/05/25 02/05/25 02/05/25 Range/Units 12:00 16:42 20:00 RBC (4.10-5.20) 10*6/uL MCH (27.0-32.0) pg MCHC (32.0-37.0) g/dL Immature Gran # (0.00-0.04) 10*3/uL PT (10.0-12.5) sec INR (<1.2) BUN (7-17) mg/dL Creatinine (0.52-1.04) mg/dL Glucose (74-99) mg/dL POC Glucose (mg/dL) 213 H 124 H 226 H (70-110) mg/dL 02/06/25 02/06/25 02/06/25 Range/Units 05:56 05:56 06:13 RBC 5.49 H (4.10-5.20) 10*6/uL MCH 24.6 L (27.0-32.0) pg MCHC 30.8 L (32.0-37.0) g/dL Immature Gran # 0.05 H (0.00-0.04) 10*3/uL PT (10.0-12.5) sec INR (<1.2) BUN 26 H (7-17) mg/dL Creatinine 1.14 H (0.52-1.04) mg/dL Glucose 105 H (74-99) mg/dL POC Glucose (mg/dL) 114 H (70-110) mg/dL 02/06/25 02/06/25 Range/Units 09:37 11:42 RBC (4.10-5.20) 10*6/uL MCH (27.0-32.0) pg MCHC (32.0-37.0) g/dL Immature Gran # (0.00-0.04) 10*3/uL PT 23.1 H (10.0-12.5) sec INR 2.3 H (<1.2) BUN (7-17) mg/dL Creatinine (0.52-1.04) mg/dL Glucose (74-99) mg/dL POC Glucose (mg/dL) 135 H (70-110) mg/dL Assessment and Plan Assessment: * Acute ischemic stroke (right frontal on MRI) with dysarthria, left facial weakness. Patient's examination shows very mild right pronator drift--improved. NIH stroke scale 4. Acute stroke, likely from cardioembolism from slight subtherapeutic INR 1.9. 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 * Abnormal UA, rule out UTI Plan: MRI of the brain: Acute/subacute CVA involving the right posterior lateral frontal lobe cortex and deep white matter. Patient reviewed the MRI and I feel it is over the as stated above in the frontal seems over primary motor cortex No need for repeat CAT scan since the patient already had the MRI yesterday. 2-D echo: Is reported as moderately impaired left ventricular systolic function with global hypokinesis. Dilated right ventricle with global hypokinesis and severely pulmonary hypertension. Moderately mitral regurgitation with moderate severe mitral stenosis. No evidence of shunting by contrast bubble study. Cardiology is on board on defer the management of her abnormal echo to the cardiology team. CTA head and neck showed: No significant abnormality. No stenosis, occlusion, aneurysm or vascular malformation. Fasting a.m. lipid panel Hemoglobin A1c: 7.9 Recommend normotensive blood pressure Cardiology is on board and they are considering changing of Coumadin to Eliquis. Neuro checks every 2 hours. Telemetry monitoring rule out any arrhythmia PT, OT, speech therapy I went up on Sinemet from 25-100mg 1 tab tid since continue to have tremors to 1.5 tab tid (Sinemet was started during this hospital visit and patient has improvement in her tremor). and patient is having improvement. DVT prophylaxis: Patient on Coumadin The plan is discussed with patient and cardiology team. Time with Patient: Less than 30
--- NOTE | 2025-02-06 13:40 | P.PN ---
Subjective Progress Note Date: 02/06/25 Reason for Consult (text): Chronic A-fib with RVR History of present illness: This is a 69-year-old female patient of Dr. Lopez with past medical history of atrial fibrillation on Coumadin status post multiple atrial fibrillation ablations in the past along with an atrial flutter ablation. When patient was last seen in the office in 01/09/2025. Patient was in his normal sinus rhythm. In the past she has failed flecainide and failed Multaq. Patient also has a past medical history of hyperlipidemia, COPD, diabetes, hypertension, remote history of tobacco use. We have been asked to evaluate the patient for A-fib with RVR. Patient presented to the hospital due to face numbness, slurred speech and left facial droop. Onset of symptoms were last evening. Patient has been seen by neurology has been worked up for CVA. She is scheduled for MRI of the brain today. Blood pressure 123/72, heart rate 67, pulse ox 95% on room air. Patient has been started on amiodarone drip. Although, patient remains in atrial fibrillation with controlled heart rate, she was in atrial fibrillation at 148 bpm during the night. Patient states that she still has facial numbness. She states her speech is a little bit better and she has difficulty finding her words intermittently. -EKG: Atrial fibrillation 98 bpm, right bundle branch block, atrial fibrillation 144 bpm. -Chest x-ray: Mild to moderate acute cardiopulmonary disease most consistent with CHF. -CT brain: No acute bleed or mass effect. -CTA head and neck revealed no significant abnormality. -Echocardiogram performed 02/04/2025 revealed moderately impaired left ventricular systolic function with global hypokinesis, EF 40 to 45%, dilated right ventricle with global hypokinesis and severe pulmonary hypertension. Moderate mitral regurgitation with moderate severe mitral stenosis. Mild aortic intra cuspid regurgitation. No evidence of shunting by contrast on the bubble study. -Laboratory studies: INR initially 1.9 repeat 2.1, WBC 13.7, hemoglobin 13.8, potassium 5.8, BUN 26 creatinine 1.04. A1c 7.9. Alkaline phosphatase 131. CK 59, proBNP 2300. Urinalysis contaminated. Cepheid viral panel not detected. -Home cardiac medications: Farxiga 5 mg daily, Lasix 80 mg daily, losartan 12.5 mg daily, metoprolol succinate 75 mg in the morning and 50 mg in the evening, Crestor 20 mg daily, Coumadin 1 mg Tuesday and 2 mg the other days. -Lexiscan Cardiolite stress test performed in the office on 12/21/2024 revealed inconclusive EKG part of the stress test due to baseline EKG abnormalities. Probably normal myocardial perfusion and function. -Holter monitor performed 12/21 - 12/28/2024: Atrial fibrillation. Heart rates running between 60 and 174 beats a minute with average at 96, 3 pauses. Atrial fibrillation or flutter burden was 100%. 02/05 Patient seen and examined. Today INR is 2.4. Her heart rate is controlled. Amiodarone drip was completed yesterday. Plan to stop Coumadin tonight and start Eliquis with possible heparin bridging tomorrow. Heart rate is in the 70s, blood pressure 110/63, pulse ox 96% on room air. Repeat blood work reveals WBC 11.9, BUN 29 creatinine 1.3. MRI of the brain completed yesterday did not show any acute/subacute CVA involving the right posterior lateral frontal lobe cortex and deep white matter. Nonspecific white matter changes. 02/06 Patient seen and examined. INR 2.3. BUN 26, creatinine 1.14. INR 2.3 despite patient not receiving Coumadin. Will hold off on starting Eliquis. Physical examination: Gen: This is a 69-year-old female in no acute distress. VS: reviewed HEENT: Head is atraumatic, normocephalic. Pupils equal, round. Sclerae is anicteric. NECK: Supple. No JVD. LUNGS: Clear to auscultation. No wheezes or rhonchi. No intercostal retractions. HEART: Irregular rate and rhythm. No murmur. ABDOMEN: Soft No tenderness. EXTREMITIES: No pedal edema. No calf tenderness. NEUROLOGICAL: Patient is awake, alert and oriented x3. Assessment: Acute ischemic CVA presenting with slurred speech, left facial droop and facial numbness Paroxysmal atrial fibrillation presenting with RVR, currently rate controlled Cardiomyopathy with EF 40 to 45% most likely tachycardic related, previous EF 55% in the office on 01/02 Hyperlipidemia COPD Diabetes with A1c 7.9 Hypertension Remote history of tobacco use Plan: Continue patient's home cardiac medications with the following changes Continue metoprolol tartrate 100 mg twice daily Continue to hold Coumadin Plan to start Eliquis once INR is under 2. At the time of discharge, patient will follow-up in the office with Dr. Lopez in 1 to 2 weeks. Nurse practitioner note has been reviewed, I agree with documented findings and plan of care. Patient was seen and examined. Objective - Vital Signs Vital signs: Vital Signs Temp 97.4 F L 02/06/25 07:10 Pulse 69 02/06/25 07:10 Resp 17 02/06/25 08:00 BP 111/69 02/06/25 07:10 Pulse Ox 98 02/06/25 07:10 FiO2 Intake & Output 02/05/25 02/06/25 02/06/25 18:59 06:59 18:59 Weight 84.1 kg Other: Voiding Method Toilet Toilet Toilet # Voids 4 - Labs CBC & Chem 7: 02/06/25 05:56 02/06/25 05:56 Labs: Abnormal Lab Results - Last 24 Hours (Table) 02/05/25 02/05/25 02/05/25 Range/Units 12:00 16:42 20:00 RBC (4.10-5.20) 10*6/uL MCH (27.0-32.0) pg MCHC (32.0-37.0) g/dL Immature Gran # (0.00-0.04) 10*3/uL PT (10.0-12.5) sec INR (<1.2) BUN (7-17) mg/dL Creatinine (0.52-1.04) mg/dL Glucose (74-99) mg/dL POC Glucose (mg/dL) 213 H 124 H 226 H (70-110) mg/dL 02/06/25 02/06/25 02/06/25 Range/Units 05:56 05:56 06:13 RBC 5.49 H (4.10-5.20) 10*6/uL MCH 24.6 L (27.0-32.0) pg MCHC 30.8 L (32.0-37.0) g/dL Immature Gran # 0.05 H (0.00-0.04) 10*3/uL PT (10.0-12.5) sec INR (<1.2) BUN 26 H (7-17) mg/dL Creatinine 1.14 H (0.52-1.04) mg/dL Glucose 105 H (74-99) mg/dL POC Glucose (mg/dL) 114 H (70-110) mg/dL 02/06/25 Range/Units 09:37 RBC (4.10-5.20) 10*6/uL MCH (27.0-32.0) pg MCHC (32.0-37.0) g/dL Immature Gran # (0.00-0.04) 10*3/uL PT 23.1 H (10.0-12.5) sec INR 2.3 H (<1.2) BUN (7-17) mg/dL Creatinine (0.52-1.04) mg/dL Glucose (74-99) mg/dL POC Glucose (mg/dL) (70-110) mg/dL
[2025-02-06] MEDS: CARBIDOPA-LEVODOPA 25-100 MG 1 EACH TAB PO SCH (15:31)
[2025-02-06 16:57] LABS: Glucose,Whole Blood 158 mg/dL (70-110)
[2025-02-06 20:08] LABS: Glucose,Whole Blood 204 mg/dL (70-110)
--- NOTE | 2025-02-06 21:10 | P.PN ---
Subjective Patient is a 69-year-old female with a known history of paroxysmal atrial fibrillation on anticoagulation with Coumadin,, cardioversion, ablation, history of CVA/TIA 24 years ago with no residual defects, hypertension, hyperemia, diabetes type 2 on Ozempic, osteoarthritis, depression and prior history of smoking. Patient was brought to ER due to complaints of slurred speech and difficulty in breathing. According to her daughter at bedside patient woke up around 8:30 AM and presented to dining table and was noticed by family that she has been having slurred speech and also difficulty in breathing. Patient was also drooling towards the left side. Her her left side of the face looks a flat. EMS was called and patient was brought to ER. Otherwise patient denied any complaints of chest pain. No cough or sputum production. No fever no chills. Denied any recent illnesses. CT head showed no acute bleed or mass effect. Mildly age-appropriate senescent changes. CTA head and neck showed no significant stenosis. Chest x-ray showed mild to moderate acute cardiopulmonary disease most consistent with CHF. EKG showed atrial fibrillation with rapid ventricular rate. Laboratory data showed WBC 12.7 hemoglobin 14.3 and platelets 326 sodium 139 potassium 5.1 chloride 106 bicarb is 20 BUN 20 and creatinine 1.1 and blood sugar 182 and INR 1.9 proBNP 2300., Alk phos 131 Urinalysis showed cloudy with increased with severity 4+ glucose large leukocyte esterase with elevated RBCs and WBCs and also squamous epithelial cells. Influenza A B RSV and COVID-19 PCR not detected. 02/04/2025 Patient is awake correctly oriented. No complaints of chest pain or shortness of breath. Left facial droop and dysarthria improved compared to yesterday. No complaints of nausea or vomiting. Patient has been afebrile. INR is therapeutic at 2.1 today. Laboratory showed WBC 13.7 hemoglobin 13.8 and platelets 341 sodium 139 potassium 5.8 chloride 105 bicarb is 18 BUN 26 and creatinine 1.04 and blood sugar 165. Patient is on antibiotics in the form of ceftriaxone for UTI. Metoprolol dose increased to 100 twice daily. Amiodarone drip has been dis continued. Patient is scheduled for MRI today afternoon Cardiology and neurology is on board. 02/05/2025 Patient is sitting on the side of the bed. Awake alert and oriented. No complaints of chest pain or shortness of breath. Patient able to swallow without any difficulty. Still having left side facial weakness. Speech is improving. No complaints of chest pain or shortness of breath. No nausea vomiting abdominal pain or diarrhea. INR 2.4. Cardiology is planning to change anticoagulation to Eliquis starting tomorrow. MRI of the brain showed acute/subacute CVA involving the right posterior lateral frontal lobe cortex and deep white matter. Nonspecific white matter changes, likely secondary to small vessel ischemic disease. 02/06 Patient had facial droop is improved She still has mild right facial deviation and mild numbness in the left face Dysarthria much improved No much urinary symptoms Discussed the case with cardiology, we will still recommend to monitor for now Patient was recommended to resume Eliquis instead of Coumadin once INR becomes subtherapeutic. Today INR is 2.4, she received small dose of vitamin K IV dose. Monitor INR tomorrow Ejection fraction is 40 to 45% with dilated right ventricle and global hypokinesia She remains on ceftriaxone for suspected UTI Her PCP is Dr. Pulliam We discussed the follow-up plan with the patient today and she looks understa nding Review of systems CONSTITUTIONAL: No fever, no malaise, no fatigue. HEENT: No recent visual problems or hearing problems. Denied any sore throat. CARDIOVASCULAR: No orthopnea, PND, no palpitations, no syncope. PULMONARY: No shortness of breath, no cough, no hemoptysis. GASTROINTESTINAL: No diarrhea, no nausea, no vomiting, no abdominal pain. Normoactive bowel sounds. NEUROLOGICAL: No headaches, no weakness, no numbness. Active Medications Generic Name Dose Route Start Last Admin Trade Name Freq PRN Reason Stop Dose Admin Allopurinol 100 mg 02/04/25 09:00 02/06/25 08:38 Allopurinol 100 Mg Tab PO 100 mg DAILY CHEMO Administration Atorvastatin Calcium 40 mg 02/04/25 09:00 02/06/25 08:39 Atorvastatin 40 Mg Tab PO 40 mg DAILY CHEMO Administration Budesonide/Formoterol Fumarate 2 puff 02/03/25 12:15 Symbicort 80-4.5 Mcg Inhaler INHALATION RT-BID PRN Shortness Of Breath Carbidopa/Levodopa 1.5 each 02/06/25 16:00 02/06/25 15:31 Carbidopa-Levodopa 25-100 Mg 1 Each Tab PO 1.5 each TID CHEMO Administration Dapagliflozin 5 mg 02/04/25 09:00 02/06/25 08:40 Dapagliflozin Propanediol 5 Mg Tablet PO 5 mg DAILY CHEMO Administration Dextrose/Water 25 ml 02/03/25 13:01 Dextrose 50% Syringe 50 Ml IVP PER PROTOCOL PRN Hypoglycemia Protocol Dextrose/Water 50 ml 02/03/25 13:01 Dextrose 50% Syringe 50 Ml IVP PER PROTOCOL PRN Hypoglycemia Protocol Furosemide 80 mg 02/04/25 09:00 02/06/25 08:40 Furosemide 40 Mg Tab PO 80 mg DAILY CHEMO Administration Ceftriaxone Sodium 1 gm/ 50 mls @ 100 mls/hr 02/03/25 14:00 02/06/25 15:32 Sodium Chloride IVPB 100 mls/hr Q24H CHEMO Administration Protocol Insulin Human Lispro 0 unit 02/03/25 17:30 02/06/25 17:04 Insulin Lispro (Humalog) 100 Unit/Ml 10 Ml Vl SQ 1 unit ACHS CHEMO Administration Protocol Losartan Potassium 12.5 mg 02/04/25 09:00 02/06/25 08:41 Losartan 25 Mg Tab PO 12.5 mg DAILY CHEMO Administration Metoprolol Tartrate 100 mg 02/04/25 21:00 02/06/25 08:40 Metoprolol Tartrate 50 Mg Tab PO 100 mg BID CHEMO Administration Montelukast Sodium 10 mg 02/03/25 21:00 02/05/25 20:34 Montelukast 10 Mg Tab PO 10 mg HS CHEMO Administration Pantoprazole Sodium 40 mg 02/04/25 09:00 02/06/25 08:41 Pantoprazole 40 Mg Tablet PO 40 mg DAILY CHEMO Administration Ropinirole HCl 1 mg 02/03/25 21:00 02/05/25 20:34 Ropinirole Hcl 1 Mg Tab PO 1 mg HS CHEMO Administration Objective - Vital Signs Vital signs: Vital Signs Temp 97.4 F L 02/06/25 07:10 Pulse 69 02/06/25 07:10 Resp 17 02/06/25 08:00 BP 111/69 02/06/25 07:10 Pulse Ox 98 02/06/25 07:10 FiO2 Intake & Output 02/05/25 02/06/25 02/06/25 18:59 06:59 18:59 Weight 84.1 kg Other: Voiding Method Toilet Toilet Toilet # Voids 4 - Exam GENERAL: The patient is alert and oriented x3, not in any acute distress. Well developed, well nourished. HEENT: Pupils are round and equally reacting to light. EOMI. No scleral icterus. No conjunctival pallor. Normocephalic, atraumatic. No pharyngeal erythema. No thyromegaly. CARDIOVASCULAR: S1 and S2 present. No murmurs, rubs, or gallops. PULMONARY: Chest is clear to auscultation, no wheezing , no crackles. ABDOMEN: Soft, nontender, nondistended, normoactive bowel sounds. No palpable organomegaly. MUSCULOSKELETAL: No joint swelling or deformity. EXTREMITIES: No cyanosis, clubbing, or pedal edema. NEUROLOGICAL: Gross neurological examination did not reveal any focal deficits. SKIN: No rashes. no petechiae. - Labs CBC & Chem 7: 02/06/25 05:56 02/06/25 05:56 Labs: Abnormal Lab Results - Last 24 Hours (Table) 02/05/25 02/05/25 02/05/25 Range/Units 12:00 16:42 20:00 RBC (4.10-5.20) 10*6/uL MCH (27.0-32.0) pg MCHC (32.0-37.0) g/dL Immature Gran # (0.00-0.04) 10*3/uL BUN (7-17) mg/dL Creatinine (0.52-1.04) mg/dL Glucose (74-99) mg/dL POC Glucose (mg/dL) 213 H 124 H 226 H (70-110) mg/dL 02/06/25 02/06/25 02/06/25 Range/Units 05:56 05:56 06:13 RBC 5.49 H (4.10-5.20) 10*6/uL MCH 24.6 L (27.0-32.0) pg MCHC 30.8 L (32.0-37.0) g/dL Immature Gran # 0.05 H (0.00-0.04) 10*3/uL BUN 26 H (7-17) mg/dL Creatinine 1.14 H (0.52-1.04) mg/dL Glucose 105 H (74-99) mg/dL POC Glucose (mg/dL) 114 H (70-110) mg/dL Assessment and Plan Assessment: Acute cerebrovascular accident with slurred speech and left facial weakness. Atrial fibrillation with rapid ventricular rate. Patient is on anticoagulation with Coumadin. INR subtherapeutic at 1.9 on admission. Prior history of ablation and ARTEMIO/cardioversion Diabetes type 2 on Ozempic. Hyperglycemia uncontrolled. A1c 7.9 Acute urinary tract infection Hypertension Hyperlipidemia Osteoarthritis History of CVA/TIA in 1998 with no residual defects Depression Prior history of smoking Asthma/COPD Plan: Hold Coumadin S/p vitamin K, monitor INR, start Eliquis once INR is subtherapeutic Cardiology and pulmonary team following closely Neurology consult She was on ceftriaxone Labs and medication were reviewed.. Continue same treatment. Continue with symptomatic treatment. Resume home medication. Monitor labs and vitals. DVT and GI prophylaxis. Further recommendations as per clinical course of the patient DVT prophylaxis: Coumadin with plan to switch to Eliquis GI Prophylaxis: Pepcid PT/OT: Recommended home Prognosis is guarded Possible discharge 24 to 48 hours
[2025-02-07 06:14] LABS: INR 2.1 (<1.2); Prothrombin Time 21.3 sec (10.0-12.5)
[2025-02-07 06:17] LABS: Glucose,Whole Blood 127 mg/dL (70-110)
[2025-02-07 08:02] VITALS: RESP 16
[2025-02-07 11:28] VITALS: BP 120/74; PULSE 73; TEMP 98
[2025-02-07 11:41] LABS: Glucose,Whole Blood 131 mg/dL (70-110)
--- NOTE | 2025-02-07 13:35 | P.PN ---
Subjective Progress Note Date: 02/07/25 Reason for Consult (text): Chronic A-fib with RVR History of present illness: This is a 69-year-old female patient of Dr. Lopez with past medical history of atrial fibrillation on Coumadin status post multiple atrial fibrillation ablations in the past along with an atrial flutter ablation. When patient was last seen in the office in 01/09/2025. Patient was in his normal sinus rhythm. In the past she has failed flecainide and failed Multaq. Patient also has a past medical history of hyperlipidemia, COPD, diabetes, hypertension, remote history of tobacco use. We have been asked to evaluate the patient for A-fib with RVR. Patient presented to the hospital due to face numbness, slurred speech and left facial droop. Onset of symptoms were last evening. Patient has been seen by neurology has been worked up for CVA. She is scheduled for MRI of the brain today. Blood pressure 123/72, heart rate 67, pulse ox 95% on room air. Patient has been started on amiodarone drip. Although, patient remains in atrial fibrillation with controlled heart rate, she was in atrial fibrillation at 148 bpm during the night. Patient states that she still has facial numbness. She states her speech is a little bit better and she has difficulty finding her words intermittently. -EKG: Atrial fibrillation 98 bpm, right bundle branch block, atrial fibrillation 144 bpm. -Chest x-ray: Mild to moderate acute cardiopulmonary disease most consistent with CHF. -CT brain: No acute bleed or mass effect. -CTA head and neck revealed no significant abnormality. -Echocardiogram performed 02/04/2025 revealed moderately impaired left ventricular systolic function with global hypokinesis, EF 40 to 45%, dilated right ventricle with global hypokinesis and severe pulmonary hypertension. Moderate mitral regurgitation with moderate severe mitral stenosis. Mild aortic intra cuspid regurgitation. No evidence of shunting by contrast on the bubble study. -Laboratory studies: INR initially 1.9 repeat 2.1, WBC 13.7, hemoglobin 13.8, potassium 5.8, BUN 26 creatinine 1.04. A1c 7.9. Alkaline phosphatase 131. CK 59, proBNP 2300. Urinalysis contaminated. Cepheid viral panel not detected. -Home cardiac medications: Farxiga 5 mg daily, Lasix 80 mg daily, losartan 12.5 mg daily, metoprolol succinate 75 mg in the morning and 50 mg in the evening, Crestor 20 mg daily, Coumadin 1 mg Tuesday and 2 mg the other days. -Lexiscan Cardiolite stress test performed in the office on 12/21/2024 revealed inconclusive EKG part of the stress test due to baseline EKG abnormalities. Probably normal myocardial perfusion and function. -Holter monitor performed 12/21 - 12/28/2024: Atrial fibrillation. Heart rates running between 60 and 174 beats a minute with average at 96, 3 pauses. Atrial fibrillation or flutter burden was 100%. 02/05 Patient seen and examined. Today INR is 2.4. Her heart rate is controlled. Amiodarone drip was completed yesterday. Plan to stop Coumadin tonight and start Eliquis with possible heparin bridging tomorrow. Heart rate is in the 70s, blood pressure 110/63, pulse ox 96% on room air. Repeat blood work reveals WBC 11.9, BUN 29 creatinine 1.3. MRI of the brain completed yesterday did not show any acute/subacute CVA involving the right posterior lateral frontal lobe cortex and deep white matter. Nonspecific white matter changes. 02/06 Patient seen and examined. INR 2.3. BUN 26, creatinine 1.14. INR 2.3 despite patient not receiving Coumadin. Will hold off on starting Eliquis. 02/07 Patient seen and examined. No new concerns. INR today is at 2.1. Blood pressure 120/74, heart rate in the 70s. Pulse ox 90% on room air. Physical examination: Gen: This is a 69-year-old female in no acute distress. VS: reviewed HEENT: Head is atraumatic, normocephalic. Pupils equal, round. Sclerae is anicteric. NECK: Supple. No JVD. LUNGS: Clear to auscultation. No wheezes or rhonchi. No intercostal retractions. HEART: Irregular rate and rhythm. No murmur. ABDOMEN: Soft No tenderness. EXTREMITIES: No pedal edema. No calf tenderness. NEUROLOGICAL: Patient is awake, alert and oriented x3. Assessment: Acute ischemic CVA presenting with slurred speech, left facial droop and facial numbness Paroxysmal atrial fibrillation presenting with RVR, currently rate controlled Cardiomyopathy with EF 40 to 45% most likely tachycardic related, previous EF 55% in the office on 01/02 Hyperlipidemia COPD Diabetes with A1c 7.9 Hypertension Remote history of tobacco use Plan: Continue patient's home cardiac medications with the following changes Continue metoprolol tartrate 100 mg twice daily Continue to hold Coumadin Plan to start Eliquis tomorrow as an outpatient Patient is cleared for discharge from cardiology perspective Patient will follow-up in the office with Dr. Lopez in 1 to 2 weeks. Nurse practitioner note has been reviewed, I agree with documented findings and plan of care. Patient was seen and examined. Objective - Vital Signs Vital signs: Vital Signs Temp 97.6 F 02/07/25 08:01 Pulse 78 02/07/25 08:01 Resp 16 02/07/25 08:01 BP 109/73 02/07/25 08:01 Pulse Ox 98 02/07/25 08:01 FiO2 Intake & Output 02/06/25 02/07/25 02/07/25 18:59 06:59 18:59 Intake Total 240 490 118 Balance 240 490 118 Weight 83.1 kg Intake: IV 10 0.9 10 Oral 240 480 118 Other: Voiding Method Toilet Toilet Toilet # Voids 1 2 - Labs CBC & Chem 7: 02/06/25 05:56 02/06/25 05:56 Labs: Abnormal Lab Results - Last 24 Hours (Table) 02/06/25 02/06/25 02/06/25 Range/Units 09:37 11:42 16:56 PT 23.1 H (10.0-12.5) sec INR 2.3 H (<1.2) POC Glucose (mg/dL) 135 H 158 H (70-110) mg/dL 02/06/25 02/07/25 02/07/25 Range/Units 20:07 05:05 06:15 PT 21.3 H (10.0-12.5) sec INR 2.1 H (<1.2) POC Glucose (mg/dL) 204 H 127 H (70-110) mg/dL Microbiology - Last 24 Hours (Table) 02/05/25 09:07 Urine Culture - Final Urine,Voided
--- NOTE | 2025-02-07 14:48 | P.PN ---
Subjective Progress Note Date: 02/07/25 I am following-up with patient and her tremor is drastically better compared to initial presentation. Denies any new neurological issues. Objective - Vital Signs Vital signs: Vital Signs Temp 98 F 02/07/25 11:15 Pulse 73 02/07/25 11:15 Resp 16 02/07/25 11:15 BP 120/74 02/07/25 11:15 Pulse Ox 98 02/07/25 11:15 FiO2 Intake & Output 02/06/25 02/07/25 02/07/25 18:59 06:59 18:59 Intake Total 240 490 358 Balance 240 490 358 Weight 83.1 kg Intake: IV 10 0.9 10 Oral 240 480 358 Other: Voiding Method Toilet Toilet Toilet # Voids 1 2 - Exam General: Sitting in a recliner chair and is not in acute distress. Neuro: The patient is awake alert oriented to self place and time. Is following simple commands. No aphasia Pupils are round about 3 mm and reactive to light. Visual brock are full to confrontation. Extraocular moods intact no nystagmus. Patient has left lower facial droop. Patient does not have dysarthria that is moderate in severity. Motor the strength is 5 out of 5 throughout. Mild resting tremor over the right upper extremity but is better than couple days. Sensation is normal to touch. - Labs CBC & Chem 7: 02/06/25 05:56 02/06/25 05:56 Labs: Abnormal Lab Results - Last 24 Hours (Table) 02/06/25 02/06/25 02/07/25 Range/Units 16:56 20:07 05:05 PT 21.3 H (10.0-12.5) sec INR 2.1 H (<1.2) POC Glucose (mg/dL) 158 H 204 H (70-110) mg/dL 02/07/25 02/07/25 Range/Units 06:15 11:37 PT (10.0-12.5) sec INR (<1.2) POC Glucose (mg/dL) 127 H 131 H (70-110) mg/dL Microbiology - Last 24 Hours (Table) 02/05/25 09:07 Urine Culture - Final Urine,Voided Assessment and Plan Assessment: * Acute ischemic stroke (right frontal on MRI) with dysarthria, left facial weakness. Patient's examination shows very mild right pronator drift--improved. NIH stroke scale 4. Acute stroke, likely from cardioem bolism from slight subtherapeutic INR 1.9. 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 * Abnormal UA, rule out UTI Plan: MRI of the brain: Acute/subacute CVA involving the right posterior lateral frontal lobe cortex and deep white matter. Patient reviewed the MRI and I feel it is over the as stated above in the frontal seems over primary motor cortex 2-D echo: Is reported as moderately impaired left ventricular systolic function with global hypokinesis. Dilated right ventricle with global hypokinesis and severely pulmonary hypertension. Moderately mitral regurgitation with moderate severe mitral stenosis. No evidence of shunting by contrast bubble study. Cardiology is on board on defer the management of her abnormal echo to the cardiology team. CTA head and neck showed: No significant abnormality. No stenosis, occlusion, aneurysm or vascular malformation. Fasting a.m. lipid panel Hemoglobin A1c: 7.9 Recommend normotensive blood pressure Cardiology is on board and they are considering changing of Coumadin to Eliquis. Neuro checks every 2 hours. Telemetry monitoring rule out any arrhythmia PT, OT, speech therapy IContinue Sinemet 25-100mg 1.5 tab tid. DVT prophylaxis: Patient on Coumadin Upon discharge, recommend the patient to follow-up with neurologist as outpatient within 2-3 weeks. There is no further neurological work-up. Will sign off. Please reconsult if needed. Time with Patient: Less than 30
--- NOTE | 2025-02-07 22:16 | P.DS ---
Providers Date of admission: 02/03/25 10:26 Attending physician: Adonay Peace MD Consults: 02/03/25 10:26 Consult Physician Routine Consulting Provider: Rashida Medina Consult Reason/Comments: CVA. no TNK. Do you want consulting provider notified?: Yes 02/03/25 10:27 Consult Physician Routine Consulting Provider: [facility] Consult Reason/Comments: chronic atrial fibrillation with RVR Do you want consulting provider notified?: Yes Primary care physician: Joey Pulliam MD Hospital Course: Diagnoses: Acute cerebrovascular accident with slurred speech and left facial weakness. Th ought secondary to subtherapeutic INR Atrial fibrillation with rapid ventricular rate. Patient is on anticoagulation with Coumadin. INR subtherapeutic at 1.9 on admission. Switch to Eliquis upon discharge Prior history of ablation and ARTEMIO/cardioversion Diabetes type 2 on Ozempic. Hyperglycemia uncontrolled. A1c 7.9 Acute urinary tract infection Hypertension Hyperlipidemia Osteoarthritis History of CVA/TIA in 1998 with no residual defects Depression Prior history of smoking Asthma/COPD Hospital course: Patient is a 69-year-old female with a known history of paroxysmal atrial fibrillation on anticoagulation with Coumadin,, cardioversion, ablation, history of CVA/TIA 24 years ago with no residual defects, hypertension, hyperemia, diabetes type 2 on Ozempic, osteoarthritis, depression and prior history of smoking. Patient was brought to ER due to complaints of slurred speech and difficulty in breathing. Patient evaluated by neurology service as well as social services director. Patient was di agnosed also with UTI treated with ceftriaxone MRI of the brain showing acute/subacute stroke of the right frontal lobe. Patient was started her stroke is secondary to subtherapeutic INR was 1.9 on ad [facility]. Coumadin was discontinued and patient was started on Eliquis. I told the pharmacy or hospital who contacted [facility] pharmacy and informed that this co-pay for Eliquis is $0. Patient was informed and prescription sent to the pharmacy. Also patient was discharged on antibiotic Patient with facial weakness and slurred speech improved more than 50%. Patient with no weakness. Get up and go test is normal. Gait is normal. PT/OT recommended home. Patient was cleared for discharge by neurology service. I discussed the case with Dr. Martin today. Patient also cleared for discharge by social services director to restart Eliquis tomorrow. Patient informed what benefits explained details as she verbalized understanding and acceptance Problems and management plan were discussed with the patient and he verbalized understanding and acceptance Patient was found stable and can be discharged home in guarded prognosis however he needs follow-up as an outpatient. Patient was instructed to follow up with PCP Dr. Pulliam within one week and patient agrees Patient was instructed to follow-up with her social services director Dr. Au in 1 to [address] Morocho in 2 weeks as well and patient agrees Physical exam Gen: patient is a AAOx3, no distress CVS: S1-S2, RRR, no murmur Lungs: B/L CTA, no wheezing Abdomen: soft, no distention, no tenderness, positive bowel sounds Extremity: no leg edema or induration -Neuro: Mild right facial deviation. Mild slurred speech. Rest of cranial nerves are grossly intact. Motor 5/5. Sensation is intact in extremities. Decreased on the left face Time spent more than 35 minutes Patient Condition at Discharge: Serious Plan - Discharge Summary Discharge Rx Participant: No New Discharge Prescriptions: New cefuroxime axetiL [Ceftin] 500 mg PO BID 3 Days #6 tab Metoprolol Tartrate [Lopressor] 100 mg PO BID #120 tab Apixaban [Eliquis] 5 mg PO BID #60 tab Carbidopa-Levodopa 25-100 mg [Sinemet 25-100 mg] 1.5 each PO TID #120 tab Continue Montelukast [Singulair] 10 mg PO HS Omeprazole 40 mg PO DAILY allopurinoL [Zyloprim] 100 mg PO DAILY Furosemide [Lasix] 80 mg PO DAILY Losartan Potassium [Cozaar] 12.5 mg PO DAILY rOPINIRole HCL [Requip] 1 mg PO HS Vortioxetine Hydrobromide [Trintellix] 20 mg PO DAILY QUEtiapine [SEROquel] 100 mg PO HS metFORMIN HCL [Glucophage] 500 mg PO DAILY Semaglutide [Ozempic] 2 mg SQ العراقي@2100 Fluticasone/Vilanterol [Breo Ellipta 100-25 Mcg Inhaler] 1 puff INHALATION RT-DAILY PRN PRN Reason: Shortness Of Breath Rosuvastatin [Crestor] 20 mg PO DAILY Dapagliflozin Propanediol [Farxiga] 5 mg PO DAILY Discontinued Warfarin [Coumadin] 2 mg PO SUMOTUTHFR@2100 Metoprolol Succinate (ER) [Toprol Xl] 75 mg PO DAILY Warfarin [Coumadin] 1 mg PO WESA@2100 Meloxicam [Mobic] 15 mg PO DAILY Metoprolol Succinate (ER) [Toprol Xl] 50 mg PO HS No Action Cetirizine HCl [Zyrtec] 10 mg PO HS Discharge Medication List Montelukast [Singulair] 10 mg PO HS 09/10/14 [History] Omeprazole 40 mg PO DAILY 04/24/17 [History] allopurinoL [Zyloprim] 100 mg PO DAILY 02/17/20 [History] Furosemide [Lasix] 80 mg PO DAILY 07/07/20 [History] Fluticasone/Vilanterol [Breo Ellipta 100-25 Mcg Inhaler] 1 puff INHALATION RT- DAILY PRN 08/12/22 [History] Losartan Potassium [Cozaar] 12.5 mg PO DAILY 08/12/22 [History] Cetirizine HCl [Zyrtec] 10 mg PO HS 02/03/25 [History] Dapagliflozin Propanediol [Farxiga] 5 mg PO DAILY 02/03/25 [History] QUEtiapine [SEROquel] 100 mg PO HS 02/03/25 [History] Rosuvastatin [Crestor] 20 mg PO DAILY 02/03/25 [History] Semaglutide [Ozempic] 2 mg SQ العراقي@2100 02/03/25 [History] Vortioxetine Hydrobromide [Trintellix] 20 mg PO DAILY 02/03/25 [History] metFORMIN HCL [Glucophage] 500 mg PO DAILY 02/03/25 [History] rOPINIRole HCL [Requip] 1 mg PO HS 02/03/25 [History] Apixaban [Eliquis] 5 mg PO BID #60 tab 02/06/25 [Rx] Carbidopa-Levodopa 25-100 mg [Sinemet 25-100 mg] 1.5 each PO TID #120 tab 02/07/25 [Rx] Metoprolol Tartrate [Lopressor] 100 mg PO BID #120 tab 02/07/25 [Rx] cefuroxime axetiL [Ceftin] 500 mg PO BID 3 Days #6 tab 02/07/25 [Rx] Follow up Appointment(s)/Referral(s): Martin Lopez MD [STAFF PHYSICIAN] - 1 Week (Please call to schedule hospital follow up apt. ) Joey Pulliam MD [Primary Care Provider] - 1-2 days (Please call to schedule hopsital follow up. ) Ramses Morocho MD [Medical Doctor] - 2 Weeks (Neurologist- please call to schedule hospital follow up. ) Patient Instructions/Handouts: A-fib (Atrial Fibrillation) (DC), Ischemic Stroke (DC) Activity/Diet/Wound Care/Special Instructions: Heart healthy diet Activity is restricted till you see your doctor Contact speech therapy department to set up continued outpatient speech therapy [phone] Ext [phone] Discontinue Coumadin/warfarin Start Eliquis blood thinner, first dose on 02/08/2025. Make sure you take Eliquis twice daily all the time. Without Eliquis you will be at high risk of stroke Discharge Disposition: HOME SELF-CARE
== END 2025-02-07 14:16 | disposition home or self-care (01) | DRG 65 ==
LOC: EC 09:18 → SUPCPDRO 09:18 → 3SCARD 10:26
PROVIDERS: ADMIT Internal Medicine; ATTEND Internal Medicine
DX: I63.9 Cerebral infarction, unspecified (principal); I42.9 Cardiomyopathy, unspecified; I27.20 Pulmonary hypertension, unspecified; I11.0 Hypertensive heart disease with heart failure; E11.65 Type 2 diabetes mellitus with hyperglycemia; G25.81 Restless legs syndrome; I48.0 Paroxysmal atrial fibrillation; J44.89 Other specified chronic obstructive pulmonary disease; F32.A Depression, unspecified; I05.2 Rheumatic mitral stenosis with insufficiency; N39.0 Urinary tract infection, site not specified; I50.9 Heart failure, unspecified; Z11.52 Encounter for screening for COVID-19; R79.1 Abnormal coagulation profile; E78.5 Hyperlipidemia, unspecified; R47.81 Slurred speech; R00.0 Tachycardia, unspecified; I45.10 Unspecified right bundle-branch block; M19.90 Unspecified osteoarthritis, unspecified site; R29.704 NIHSS score 4; R29.810 Facial weakness; Z79.01 Long term (current) use of anticoagulants; Z79.1 Long term (current) use of non-steroidal anti-inflammatories (NSAID); Z79.82 Long term (current) use of aspirin; Z79.84 Long term (current) use of oral hypoglycemic drugs; Z79.899 Other long term (current) drug therapy; Z86.73 Personal history of transient ischemic attack (TIA), and cerebral infarction without residual deficits; Z87.891 Personal history of nicotine dependence; Z90.710 Acquired absence of both cervix and uterus; Z98.51 Tubal ligation status; Z88.8 Allergy status to other drugs, medicaments and biological substances
CPT/HCPCS: 36415; 70450; 70496; 70498; 70551; 71046; 80048; 80053; 80061; 81001; 82550; 83036; 83880; 85025; 85610; 85730; 87086; 87636; 93005; 93306; 96365; 96366; 96367; 96368; 96375; 99291

== ENCOUNTER 2025-02-18 14:43 | Inpatient (IN) | payer MEDICARE ==
[2025-04-08] MEDS ORDERED: Potassium Replacement Protocol 1 EACH MISC MISCELLANE PRN (13:48)
[2025-04-08 13:52] LABS: Glucose,Whole Blood 105 mg/dL (70-110)
[2025-04-08] MEDS ORDERED: MAGNESIUM SULFATE-D5W PMX 1 GM in DEXTROSE/WATER 1 100ML.BAG IVPB ONE (14:00)
[2025-04-08] MEDS ORDERED: MAGNESIUM SULFATE-D5W PMX 1 GM in DEXTROSE/WATER 1 100ML.BAG IVPB PRN (14:00)
[2025-04-08 14:48] LABS: African American GFR (CKD) 57 (>60 ml/min/1.73 sqM); Anion Gap 14 mmol/L; Blood Urea Nitrogen 21 mg/dL (7-17); Calcium 9.8 mg/dL (8.4-10.2); Carbon Dioxide 27 mmol/L (22-30); Chloride 100 mmol/L (98-107); Glucose 102 mg/dL (74-99); Magnesium 2.1 mg/dL (1.6-2.3); Non-African American GFR(CKD) 49 (>60 ml/min/1.73 sqM); Potassium 4.4 mmol/L (3.5-5.1); Sodium 141 mmol/L (137-145)
[2025-04-08] MEDS: SODIUM CHLORIDE 0.9% 1,000 ML IV SCH (15:09)
[2025-04-08 15:42] LABS: T4, Free (Free Thyroxine) 1.47 ng/dL (0.78-2.19)
[2025-04-08] MEDS: DOFETILIDE 250 MCG CAP PO STA (15:50)
[2025-04-08 16:33] LABS: Glucose,Whole Blood 133 mg/dL (70-110)
[2025-04-08] MEDS: DOFETILIDE 250 MCG CAP PO ONE (18:01)
[2025-04-08 20:01] LABS: Glucose,Whole Blood 138 mg/dL (70-110)
[2025-04-08] MEDS: APIXABAN 5 MG TAB PO SCH (21:50)
[2025-04-08] MEDS: METOPROLOL TARTRATE 50 MG TAB PO SCH (21:50)
[2025-04-08] MEDS: MONTELUKAST 10 MG TAB PO SCH (21:50)
[2025-04-09] MEDS: DOFETILIDE 250 MCG CAP PO SCH (06:04)
[2025-04-09 06:07] LABS: Glucose,Whole Blood 98 mg/dL (70-110)
[2025-04-09] MEDS: LOSARTAN 25 MG TAB PO SCH (09:02)
[2025-04-09] MEDS: PANTOPRAZOLE 40 MG TABLET PO SCH (09:02)
[2025-04-09] MEDS: VORTIOXETINE HYDROBROMIDE 20 MG TABLET PO SCH (09:02)
[2025-04-09] MEDS: ATORVASTATIN 40 MG TAB PO SCH (09:02)
[2025-04-09] MEDS: DAPAGLIFLOZIN PROPANEDIOL 5 MG TABLET PO SCH (09:03)
[2025-04-09] MEDS: allopurinoL 100 MG TAB PO SCH (09:03)
[2025-04-09] MEDS: MAGNESIUM OXIDE 400 MG TAB PO SCH (09:03)
[2025-04-09] MEDS: metFORMIN 500 MG TAB PO SCH (10:01)
[2025-04-09 10:07] LABS: African American GFR (CKD) 54 (>60 ml/min/1.73 sqM); Anion Gap 6 mmol/L; Blood Urea Nitrogen 23 mg/dL (7-17); Calcium 9.3 mg/dL (8.4-10.2); Carbon Dioxide 32 mmol/L (22-30); Chloride 102 mmol/L (98-107); Glucose 194 mg/dL (74-99); Magnesium 2.1 mg/dL (1.6-2.3); Non-African American GFR(CKD) 47 (>60 ml/min/1.73 sqM); Potassium 4.2 mmol/L (3.5-5.1); Sodium 140 mmol/L (137-145)
[2025-04-09 11:23] LABS: Glucose,Whole Blood 117 mg/dL (70-110)
--- NOTE | 2025-04-09 13:21 | P.PN ---
Subjective HISTORY OF PRESENT ILLNESS: This is a 69-year-old female who was brought in for elective dofetilide induction. Patient examined this morning at the bedside. Patient converted to sinus mechanism this morning after 2 doses of dofetilide. EKG obtained this morning revealing sinus mechanism with QTa of 480. Patient's beginning QTa was around 400. She denies any chest pain or pressure. Denies any shortness of breath. Blood pressure stable. Labs from this morning are currently pending. PHYSICAL EXAM: VITAL SIGNS: Reviewed. GENERAL: Well-developed in no acute distress. NECK: Supple. No JVD or thyromegaly LUNGS: Respirations even and unlabored. Lungs essentially clear to auscultation bilaterally. HEART: Regular rate and rhythm. S1 and S2 heard. EXTREMITIES: Normal range of motion. No clubbing or cyanosis. Peripheral pulses intact. No lower extremity edema ASSESSMENT: Persistent atrial fibrillation, status post dofetilide, converted to sinus mechanism after 2 doses PLAN: Decrease dofetilide dose to 125 mcg this evening due to QTa increasing from 400 to 480 Decrease metoprolol to 50 mg twice a day Continue additional cardiac medications Daily BMP and magnesium levels Continue telemetry monitoring Further recommendations pending patient course Nurse practitioner note has been reviewed by physician. Signing provider agrees with the documented findings, assessment, and plan of care documented by WAREHOUSE PRICING AND INVENTORY CLERK as a scribe. Objective - Vital Signs Vital signs: Vital Signs Temp 97.6 F 04/08/25 23:18 Pulse 61 04/09/25 12:04 Resp 15 04/09/25 12:04 BP 105/71 04/09/25 12:04 Pulse Ox 96 04/09/25 12:04 FiO2 Intake & Output 04/08/25 04/09/25 04/09/25 18:59 06:59 18:59 Intake Total 298 Output Total 300 Balance -300 298 Weight 81.1 kg 81.3 kg Intake: Oral 298 Output: Urine 300 Other: Voiding Method Toilet Toilet - Labs CBC & Chem 7: 04/09/25 09:35 Labs: Abnormal Lab Results - Last 24 Hours (Table) 04/08/25 04/08/25 04/08/25 Range/Units 14:20 16:32 19:59 Carbon Dioxide (22-30) mmol/L BUN 21 H (7-17) mg/dL Creatinine 1.15 H (0.52-1.04) mg/dL Glucose 102 H (74-99) mg/dL POC Glucose (mg/dL) 133 H 138 H (70-110) mg/dL TSH <0.015 L (0.465-4.680) mIU/L 04/09/25 04/09/25 Range/Units 09:35 11:22 Carbon Dioxide 32 H (22-30) mmol/L BUN 23 H (7-17) mg/dL Creatinine 1.19 H (0.52-1.04) mg/dL Glucose 194 H (74-99) mg/dL POC Glucose (mg/dL) 117 H (70-110) mg/dL TSH (0.465-4.680) mIU/L
[2025-04-09 16:32] LABS: Glucose,Whole Blood 130 mg/dL (70-110)
[2025-04-09] MEDS: DOFETILIDE 125 MCG CAP PO ONE (17:55)
[2025-04-09] MEDS ORDERED: DOFETILIDE 250 MCG CAP PO ONE (18:00)
[2025-04-09] MEDS: METOPROLOL TARTRATE 50 MG TAB PO SCH (19:51)
[2025-04-09 19:54] LABS: Glucose,Whole Blood 143 mg/dL (70-110)
[2025-04-10 06:09] LABS: Glucose,Whole Blood 89 mg/dL (70-110)
[2025-04-10] MEDS: DOFETILIDE 125 MCG CAP PO ONE ×2 (06:21→17:59)
[2025-04-10 08:27] LABS: African American GFR (CKD) 63 (>60 ml/min/1.73 sqM); Anion Gap 10 mmol/L; Blood Urea Nitrogen 19 mg/dL (7-17); Calcium 9.3 mg/dL (8.4-10.2); Carbon Dioxide 27 mmol/L (22-30); Chloride 99 mmol/L (98-107); Glucose 241 mg/dL (74-99); Magnesium 2.2 mg/dL (1.6-2.3); Non-African American GFR(CKD) 54 (>60 ml/min/1.73 sqM); Potassium 3.8 mmol/L (3.5-5.1); Sodium 136 mmol/L (137-145)
--- NOTE | 2025-04-10 10:50 | P.PN ---
Subjective HISTORY OF PRESENT ILLNESS: This is a 69-year-old female who was brought in for elective dofetilide induction. Patient examined this morning at the bedside. Patient converted to sinus mechanism this morning after 2 doses of dofetilide. EKG obtained this morning revealing sinus mechanism with QTa of 480. Patient's beginning QTa was around 400. She denies any chest pain or pressure. Denies any shortness of breath. Blood pressure stable. Labs from this morning are currently pending. 04/10/2025 Patient examined this morning at bedside. Patient currently denies chest pain or pressure. She denies shortness of breath. She is maintaining sinus mechanism. EKG completed this morning revealing QTa of 480. Vital signs are stable. Sodium 136. Potassium 3.8. BUN 19. Creatinine 1.06. Magnesium 2.2. PHYSICAL EXAM: VITAL SIGNS: Reviewed. GENERAL: Well-developed in no acute distress. NECK: Supple. No JVD or thyromegaly LUNGS: Respirations even and unlabored. Lungs essentially clear to auscultation bilaterally. HEART: Regular rate and rhythm. S1 and S2 heard. EXTREMITIES: Normal range of motion. No clubbing or cyanosis. Peripheral pulses intact. No lower extremity edema ASSESSMENT: Persistent atrial fibrillation, status post dofetilide, converted to sinus mechanism after 2 doses PLAN: Continue dofetilide 125 mcg Continue metoprolol 50 mg twice a day Continue additional cardiac medications Daily BMP and magnesium levels Continue telemetry monitoring Further recommendations pending patient course Nurse practitioner note has been reviewed by physician. Signing provider agrees with the documented findings, assessment, and plan of care documented by NUCLEAR INSTRUCTOR as a scribe. Objective - Vital Signs Vital signs: Vital Signs Temp 97.7 F 04/10/25 04:00 Pulse 67 04/10/25 07:36 Resp 18 04/10/25 07:36 BP 117/65 04/10/25 07:36 Pulse Ox 98 04/10/25 07:36 FiO2 Intake & Output 04/09/25 04/10/25 04/10/25 18:59 06:59 18:59 Intake Total 298 Balance 298 Weight 81.7 kg Intake: Oral 298 Other: Voiding Method Toilet Toilet Toilet # Voids 1 - Labs CBC & Chem 7: 04/10/25 07:45 Labs: Abnormal Lab Results - Last 24 Hours (Table) 04/09/25 04/09/25 04/09/25 Range/Units 11:22 16:31 19:52 Sodium (137-145) mmol/L BUN (7-17) mg/dL Creatinine (0.52-1.04) mg/dL Glucose (74-99) mg/dL POC Glucose (mg/dL) 117 H 130 H 143 H (70-110) mg/dL 04/10/25 Range/Units 07:45 Sodium 136 L (137-145) mmol/L BUN 19 H (7-17) mg/dL Creatinine 1.06 H (0.52-1.04) mg/dL Glucose 241 H (74-99) mg/dL POC Glucose (mg/dL) (70-110) mg/dL
[2025-04-10 11:32] LABS: Glucose,Whole Blood 82 mg/dL (70-110)
[2025-04-10 16:24] LABS: Glucose,Whole Blood 117 mg/dL (70-110)
[2025-04-10 20:14] LABS: Glucose,Whole Blood 152 mg/dL (70-110)
[2025-04-11 04:52] VITALS: TEMP 97.8
[2025-04-11] MEDS: DOFETILIDE 125 MCG CAP PO ONE (05:58)
[2025-04-11 06:12] LABS: Glucose,Whole Blood 117 mg/dL (70-110)
[2025-04-11 08:31] LABS: African American GFR (CKD) 60 (>60 ml/min/1.73 sqM); Anion Gap 10 mmol/L; Blood Urea Nitrogen 17 mg/dL (7-17); Calcium 9.4 mg/dL (8.4-10.2); Carbon Dioxide 24 mmol/L (22-30); Chloride 102 mmol/L (98-107); Glucose 290 mg/dL (74-99); Magnesium 2.1 mg/dL (1.6-2.3); Non-African American GFR(CKD) 52 (>60 ml/min/1.73 sqM); Potassium 4.9 mmol/L (3.5-5.1); Sodium 136 mmol/L (137-145)
[2025-04-11] MEDS: SPIRONOLACTONE 25 MG TAB PO SCH (10:32)
[2025-04-11 11:23] LABS: Glucose,Whole Blood 89 mg/dL (70-110)
--- NOTE | 2025-04-11 11:55 | P.DS ---
Providers Date of admission: 04/08/25 13:12 Attending physician: Martin Lopez Primary care physician: Joey Pulliam MD Hospital Course: HISTORY OF PRESENT ILLNESS: This is a 69-year-old female who was brought in for elective dofetilide induction. Patient examined this morning at the bedside. Patient converted to sinus mechanism this morning after 2 doses of dofetilide. EKG obtained this morning revealing sinus mechanism with QTa of 480. Patient's beginning QTa was around 400. She denies any chest pain or pressure. Denies any shortness of breath. Blood pressure stable. Labs from this morning are currently pending. 04/10/2025 Patient examined this morning at bedside. Patient currently denies chest pain or pressure. She denies shortness of breath. She is maintaining sinus mechanism. EKG completed this morning revealing QTa of 480. Vital signs are stable. Sodium 136. Potassium 3.8. BUN 19. Creatinine 1.06. Magnesium 2.2. 04/11/2025 Patient examined at bedside. Patient without complaints of chest pain or shortness of breath. She is maintaining sinus mechanism. Vital signs are stable. The patient was instructed to discontinue her oral Lasix upon discharge. She was started on a small dose of Aldactone 25 mg daily. The patient was deemed stable for discharge home today from a cardiac standpoint. Please see EMR for further hospital course details. Discharge diagnosis Persistent atrial fibrillation, status post dofetilide, converted to sinus mechanism after 2 doses Nurse practitioner note has been reviewed by physician. Signing provider agrees with the documented findings, assessment, and plan of care documented by AWNING FINISHER as a scribe. Plan - Discharge Summary Discharge Rx Participant: No New Discharge Prescriptions: New Metoprolol Tartrate [Lopressor] 50 mg PO BID #60 tab Magnesium Oxide [Mag-Ox] 400 mg PO DAILY #30 tab Dofetilide [Tikosyn] 125 mcg PO Q12HR #28 cap Spironolactone [Aldactone] 25 mg PO DAILY #30 tab Dofetilide [Tikosyn] 125 mcg PO Q12HR #60 cap Continue Montelukast [Singulair] 10 mg PO HS Omeprazole 40 mg PO DAILY allopurinoL [Zyloprim] 100 mg PO DAILY Losartan Potassium [Cozaar] 12.5 mg PO DAILY Vortioxetine Hydrobromide [Trintellix] 20 mg PO DAILY metFORMIN HCL [Glucophage] 500 mg PO DAILY Semaglutide [Ozempic] 2 mg SQ لاعراقي@2100 Zolpidem [Ambien] 5 mg PO HS Fluticasone/Vilanterol [Breo Ellipta 100-25 Mcg Inhaler] 1 puff INHALATION RT-DAILY PRN PRN Reason: Shortness Of Breath Rosuvastatin [Crestor] 20 mg PO DAILY Cetirizine HCl [Zyrtec] 10 mg PO DAILY Dapagliflozin Propanediol [Farxiga] 5 mg PO DAILY Apixaban [Eliquis] 5 mg PO BID #60 tab ARIPiprazole [Abilify] 5 mg PO DAILY Discontinued Furosemide [Lasix] 80 mg PO DAILY rOPINIRole HCL [Requip] 0.5 mg PO HS lamoTRIgine [LaMICtal] 25 mg PO BID Metoprolol Tartrate [Lopressor] 100 mg PO BID-W/MEALS Atorvastatin [Lipitor] 10 mg PO HS Glimepiride [Amaryl] 4 mg PO DAILY Meloxicam [Mobic] 15 mg PO DAILY Discharge Medication List Montelukast [Singulair] 10 mg PO HS 09/10/14 [History] Omeprazole 40 mg PO DAILY 04/24/17 [History] allopurinoL [Zyloprim] 100 mg PO DAILY 02/17/20 [History] Fluticasone/Vilanterol [Breo Ellipta 100-25 Mcg Inhaler] 1 puff INHALATION RT- DAILY PRN 08/12/22 [History] Losartan Potassium [Cozaar] 12.5 mg PO DAILY 08/12/22 [History] Cetirizine HCl [Zyrtec] 10 mg PO DAILY 02/03/25 [History] Dapagliflozin Propanediol [Farxiga] 5 mg PO DAILY 02/03/25 [History] Rosuvastatin [Crestor] 20 mg PO DAILY 02/03/25 [History] Semaglutide [Ozempic] 2 mg SQ العراقي@2100 02/03/25 [History] Vortioxetine Hydrobromide [Trintellix] 20 mg PO DAILY 02/03/25 [History] metFORMIN HCL [Glucophage] 500 mg PO DAILY 02/03/25 [History] Apixaban [Eliquis] 5 mg PO BID #60 tab 02/06/25 [Rx] ARIPiprazole [Abilify] 5 mg PO DAILY 04/08/25 [History] Zolpidem [Ambien] 5 mg PO HS 04/08/25 [History] Dofetilide [Tikosyn] 125 mcg PO Q12HR #28 cap 04/11/25 [Rx] Dofetilide [Tikosyn] 125 mcg PO Q12HR #60 cap 04/11/25 [Rx] Magnesium Oxide [Mag-Ox] 400 mg PO DAILY #30 tab 04/11/25 [Rx] Metoprolol Tartrate [Lopressor] 50 mg PO BID #60 tab 04/11/25 [Rx] Spironolactone [Aldactone] 25 mg PO DAILY #30 tab 04/11/25 [Rx] Follow up Appointment(s)/Referral(s): Martin Lopez MD [STAFF PHYSICIAN] - 6 Weeks (May 23, 11:00) Patient Instructions/Handouts: Dofetilide (By mouth), A-fib (Atrial Fibrillation) (DC)
[2025-04-11 11:57] VITALS: BP 118/77; PULSE 61; RESP 17
--- NOTE | 2025-04-11 16:30 | P.DS ---
Providers Date of admission: 04/08/25 13:12 Attending physician: Martin Lopez Primary care physician: Joey Pulliam MD Hospital Course: Patient has symptomatic persistent atrial fibrillation and has failed medical treatment and ablations She was brought in for initiation of Tikosyn Her creatinine clearance was around 60 Dofetilide was initiated at a dose of 250 mcg twice daily After the second dose she spontaneously chemically converted to sinus rhythm and maintained sinus rhythm thereafter Since this conversion occurred within 2 doses, the dose was reduced to 125 mcg twice daily subsequently Her absolute QT interval has ranged from 470-480 ms Sodium 136 potassium 4.9 creatinine 1.1 magnesium 2.1 Detailed discussion with the patient regarding the do's and don'ts of Tikosyn use. Detailed Tikosyn education was given and the patient expressed understanding. Lasix was discontinued when she converted to sinus rhythm and switch to spironolactone She was discharged today on rosuvastatin 20 mg daily Metoprolol 50 mg twice daily, reduced dose Metformin Losartan 12.5 mg p.o. daily Lasix was discontinued Farxiga 5 mg daily Eliquis 5 mg twice daily Aldactone 25 mg p.o. daily Mag oxide 400 mg daily Dofetilide 125 mcg twice daily Follow-up with Dr. Lopez in 4 weeks Follow-up Holter monitor Patient Condition at Discharge: Stable Plan - Discharge Summary Discharge Rx Participant: No New Discharge Prescriptions: New Metoprolol Tartrate [Lopressor] 50 mg PO BID #60 tab Magnesium Oxide [Mag-Ox] 400 mg PO DAILY #30 tab Dofetilide [Tikosyn] 125 mcg PO Q12HR #28 cap Spironolactone [Aldactone] 25 mg PO DAILY #30 tab Dofetilide [Tikosyn] 125 mcg PO Q12HR #60 cap Continue Montelukast [Singulair] 10 mg PO HS Omeprazole 40 mg PO DAILY allopurinoL [Zyloprim] 100 mg PO DAILY Losartan Potassium [Cozaar] 12.5 mg PO DAILY Vortioxetine Hydrobromide [Trintellix] 20 mg PO DAILY metFORMIN HCL [Glucophage] 500 mg PO DAILY Semaglutide [Ozempic] 2 mg SQ العراقي@2100 Zolpidem [Ambien] 5 mg PO HS Fluticasone/Vilanterol [Breo Ellipta 100-25 Mcg Inhaler] 1 puff INHALATION RT-DAILY PRN PRN Reason: Shortness Of Breath Rosuvastatin [Crestor] 20 mg PO DAILY Cetirizine HCl [Zyrtec] 10 mg PO DAILY Dapagliflozin Propanediol [Farxiga] 5 mg PO DAILY Apixaban [Eliquis] 5 mg PO BID #60 tab ARIPiprazole [Abilify] 5 mg PO DAILY Discontinued Furosemide [Lasix] 80 mg PO DAILY rOPINIRole HCL [Requip] 0.5 mg PO HS lamoTRIgine [LaMICtal] 25 mg PO BID Metoprolol Tartrate [Lopressor] 100 mg PO BID-W/MEALS Atorvastatin [Lipitor] 10 mg PO HS Glimepiride [Amaryl] 4 mg PO DAILY Meloxicam [Mobic] 15 mg PO DAILY Discharge Medication List Montelukast [Singulair] 10 mg PO HS 09/10/14 [History] Omeprazole 40 mg PO DAILY 04/24/17 [History] allopurinoL [Zyloprim] 100 mg PO DAILY 02/17/20 [History] Fluticasone/Vilanterol [Breo Ellipta 100-25 Mcg Inhaler] 1 puff INHALATION RT- DAILY PRN 08/12/22 [History] Losartan Potassium [Cozaar] 12.5 mg PO DAILY 08/12/22 [History] Cetirizine HCl [Zyrtec] 10 mg PO DAILY 02/03/25 [History] Dapagliflozin Propanediol [Farxiga] 5 mg PO DAILY 02/03/25 [History] Rosuvastatin [Crestor] 20 mg PO DAILY 02/03/25 [History] Semaglutide [Ozempic] 2 mg SQ العراقي@2100 02/03/25 [History] Vortioxetine Hydrobromide [Trintellix] 20 mg PO DAILY 02/03/25 [History] metFORMIN HCL [Glucophage] 500 mg PO DAILY 02/03/25 [History] Apixaban [Eliquis] 5 mg PO BID #60 tab 02/06/25 [Rx] ARIPiprazole [Abilify] 5 mg PO DAILY 04/08/25 [History] Zolpidem [Ambien] 5 mg PO HS 04/08/25 [History] Dofetilide [Tikosyn] 125 mcg PO Q12HR #28 cap 04/11/25 [Rx] Dofetilide [Tikosyn] 125 mcg PO Q12HR #60 cap 04/11/25 [Rx] Magnesium Oxide [Mag-Ox] 400 mg PO DAILY #30 tab 04/11/25 [Rx] Metoprolol Tartrate [Lopressor] 50 mg PO BID #60 tab 04/11/25 [Rx] Spironolactone [Aldactone] 25 mg PO DAILY #30 tab 04/11/25 [Rx] Follow up Appointment(s)/Referral(s): Martin Lopez MD [STAFF PHYSICIAN] - 6 Weeks (May 23, 11:00) Patient Instructions/Handouts: Dofetilide (By mouth), A-fib (Atrial Fibrillation) (DC) Discharge Disposition: HOME SELF-CARE
[2025-04-11] MEDS ORDERED: DOFETILIDE 125 MCG CAP PO ONE (18:00)
[2025-04-14] MEDS ORDERED: NON FORMULARY DRUG (Semaglutide [Ozempic] 2 MG/0.75 ML Pen.Injctr) SQ SCH (21:00)
== END 2025-04-11 13:02 | disposition home or self-care (01) | DRG 310 ==
LOC: 3SCARD 04-08 13:12
PROVIDERS: ADMIT Internal Medicine Clinical Cardiac Electrophysiology; ATTEND Internal Medicine Clinical Cardiac Electrophysiology
DX: I48.19 Other persistent atrial fibrillation (principal); E11.9 Type 2 diabetes mellitus without complications; I10 Essential (primary) hypertension; E78.5 Hyperlipidemia, unspecified; Z79.01 Long term (current) use of anticoagulants; Z79.899 Other long term (current) drug therapy; Z79.84 Long term (current) use of oral hypoglycemic drugs
CPT/HCPCS: 80048; 83735; 84439; 84443